=== PATIENT | female | born 1935 | race Caucasian/White ===

== ENCOUNTER 2017-05-22 12:55 | Observation (INO) ==
--- NOTE | 2017-05-22 13:28 | Emergency Department Note ---
Disposition Clinical Impression: Fall Qualifiers: Encounter type: initial encounter Qualified Code(s): W19.XXXA - Unspecified fall, initial encounter Disposition: Admitted As Inpatient Condition: Good Referrals: Melvin Melo MD [Primary Care Provider] - Forms: ED Satisfaction Letter Time of Disposition: 15:49 General Adult HPI - General Chief complaint: ED Fall Stated complaint: Multiple falls; AMS Time Seen by Provider: 05/22/17 13:06 Source: patient, family Mode of arrival: wheelchair Limitations: no limitations Nursing Notes Reviewed: Yes Vital Signs Reviewed: Yes - History of Present Illness HPI Narrative: 81-year-old female with significant past medical history of hypertension and multiple falls presenting to the emergency Department chief complaint of falls. According to the neighbor who is in the room patient has had increase in the amount of falls over the past couple of months. Patient was seen here in October for similar complaint. Worked up with no acute abnormalities and patient denied admission. Patient is alert and went 3 mg. States she has mild left-sided hip and gluteal tenderness. No crepitus or obvious dislocation on exam. Patient denies any other tenderness. Denies headache, dizziness, chest pain or shortness of breath. She denies being on any coagulation. Patient sates for the past few months she has been falling more frequently. She fell this morning. It was witnessed. Denies loss of consciousness. She also fell last evening. She states she just loses her balance and does not know why. Pain Scale: 5 - Related Data Previous Rx's Medication Instructions Recorded Acetaminophen [Tylenol] 650 mg PO Q6HR #12 tablet 11/03/15 traMADol [Ultram] 50 mg PO TID #9 tablet 11/03/15 Allergies Allergy/AdvReac Type Severity Reaction Status Date / Time No Known Allergies Allergy Verified 11/03/15 16:12 All systems ED: reviewed and negative except as stated. Musculoskeletal: Reports: arthralgia, myalgia Past Medical History - Past Medical History Attestation: Yes The following information was validated with the patient. Medical history: Reports: hypertension, renal disease Psychiatric history: Reports: anxiety, depression - Social History Smoking Status: Current every day smoker Smokeless Tobacco Status: No Alcohol use: Reports: none Drug use: Reports: none Physical Exam - General Limitations: no limitations General appearance: alert, in no apparent distress - Head Head exam: atraumatic, normocephalic, normal inspection - Eye Eye exam: Present: normal appearance, PERRL, EOMI. Absent: scleral icterus, conjunctival injection - ENT ENT exam: normal exam, mucous membranes moist - Neck Neck exam: Present: normal inspection, full ROM. Absent: tenderness, meningismus - Chest Chest inspection: Present: normal inspection, symmetric chest wall rise. Absent : tenderness, rash - Respiratory Respiratory exam: Present: normal lung sounds bilaterally. Absent: respiratory distress, wheezes - Cardiovascular Cardiovascular exam: Present: regular rate, normal rhythm, normal heart sounds - Abdominal Exam Abdominal exam: Present: soft, Non-Tender. Absent: distention, guarding, rebound - Extremities Exam Extremities exam: Present: normal inspection, full ROM, other (Tenderness to palpation over the left ASIS and posterior gluetal area) - Neurological Exam Neurological exam: Present: alert, oriented X3, CN II-XII intact. Absent: motor sensory deficit - Psychiatric Psychiatric exam: Present: normal affect, normal mood - Skin Skin exam: Present: warm, intact Course Course Narrative: 81-year-old female presenting to the emergency Department chief complaint of frequent falls. Patient states she fell this morning hit her head on the side of a closet door. Patient denies any concerns or complaints at this time besides left hip pain. Patient is alert and oriented 3 in the room with stable vital signs. We will perform CT of the head and neck along with pelvic and left femur x-ray. We will also perform basic labs. If all this comes back within normal limits with a plan to ambulate the patient. If patient is unable to ambulate we will plan to admit the patient. Patient agrees with this plan. Disposition pending results. - Reevaluation(s) Reevaluation #1: PATIENT'S labs and images within normal limits. Patient does have chronic kidney disease. Patient had difficulty ambulating with her walker. Due to this and multiple recent falls we will plan to admit the patient at this time for further PT and OT evaluation. Patient is oriented 3 and stable vital signs. She agrees this plan. I spoke with the hospitalist on-call Dr. Church who agrees to accept the patient. Vital Signs Temperature 97.9 F 05/22/17 12:59 Pulse Rate 65 05/22/17 12:59 Respiratory Rate 18 05/22/17 12:59 Blood Pressure 123/82 05/22/17 12:59 O2 Sat by Pulse Oximetry 95 05/22/17 12:59 Temperature 97.9 F 05/22/17 12:59 Pulse Rate 58 05/22/17 15:21 Respiratory Rate 15 05/22/17 15:21 Blood Pressure 153/93 05/22/17 15:21 O2 Sat by Pulse Oximetry 98 05/22/17 15:21 Oxygen Delivery Oxygen Delivery Room Air Medical Decision Making - Medical Records Medical records reviewed: Yes I reviewed the patient's medical records. - Lab Data Lab results reviewed: Yes I reviewed the patient's lab results. Result diagrams: 05/22/17 13:26 05/22/17 13:17 Lab Results 05/22/17 05/22/17 05/22/17 Range/Units 13:17 13:26 14:50 WBC 7.5 (4.3-11.1) K/mcL RBC 4.53 (3.82-4.97) M/mcL Hgb 12.3 (11.5-15.4) g/dL Hct 39.1 (35.3-44.9) % MCV 86.3 (83.0-100.0) fL MCH 27.2 L (28.0-33.3) pg MCHC 31.5 L (31.6-35.5) g/dL RDW 13.9 (11.5-14.5) % Plt Count 304 (140-400) K/mcL MPV 9.8 (9.4-12.4) fL Immature Gran % 0.3 (0-4) % Seg Neutrophils % 67.5 % Lymphocytes % 22.0 % Monocytes % 7.9 % Eosinophils % 1.6 % Basophils % 0.7 % Neutrophils # 5.1 (1.6-8.9) K/mcL Lymphocytes # 1.7 (0.6-4.6) K/mcL Monocytes # 0.6 (0.0-1.3) K/mcL Eosinophils # 0.1 (0.0-0.6) K/mcL Basophils # 0.1 (0.0-0.2) K/mcL Sodium 136 (136-145) mEq/L Potassium 4.1 (3.5-5.1) mEq/L Chloride 103 (98-107) mEq/L Carbon Dioxide 27 (23-29) mEq/L BUN 18 (8-23) mg/dL Creatinine 1.47 H (0.60-1.20) mg/dL Est GFR ( Amer) 41 L (> 60) Est GFR (Non-Af Amer) 34 L (> 60) BUN/Creatinine Ratio 12 (6-26) Glucose 101 (70-105) mg/dL Calculated Osmolality 284 (280-300) Calcium 8.4 L (8.6-10.3) mg/dL Troponin I < 0.03 (< 0.04) ng/mL Ur Specimen Adequacy See below A Urine Color Yellow (Yellow) Urine Clarity Turbid A (Clear) Urine pH 5.5 (5.0-8.0) pH Units Ur Specific [place] 1.011 (1.010-1.025) Urine Protein Negative (Neg-Trace) mg/dL Urine Glucose (UA) Normal (Normal) mg/dL Urine Ketones Negative (Negative) mg/dL Urine Blood Negative (Negative) Urine Nitrite Negative (Negative) Urine Bilirubin Negative (Negative) Urine Urobilinogen Normal (Normal) mg/dL Ur Leukocyte Esterase Trace H (Negative) Urine Microscopic RBC 0-3 (0-3) per hpf Urine Microscopic WBC 3-5 H (0-3) per hpf Ur Squamous Epith Cells Many H (None-Few) per lpf Urine Bacteria Many H (None-Few) per hpf - Radiology Data Radiology results reviewed: Yes I reviewed the patient's radiology results. Chest X-Ray 05/22/17 13:17 IMPRESSION: No acute process. D/ / Loco Nesbitt MD / Loco Nesbitt MD Interpreting Provider: Loco Nesbitt MD Head CT 05/22/17 13:17 IMPRESSION: No acute intracranial abnormality. Diffuse atrophic changes with findings suggesting chronic microvascular ischemia D/ / Loco Nesbitt MD / Loco Nesbitt MD Interpreting Provider: Loco Nesbitt MD Cervical Spine CT 05/22/17 13:18 IMPRESSION: No acute abnormality of the cervical spine. Mild C5-6 spinal canal stenosis, the result of degenerative disc disease and posterior disc osteophyte complex. Slight degenerative anterolisthesis C4 on C5. D/ / Sonu Da Silva / Sonu Da Silva Interpreting Provider: Sonu Da Silva Femur X-Ray 05/22/17 13:18 IMPRESSION: No acute findings in the pelvis or left hip. D/ / Rocio Wong MD / Roico Wong MD Interpreting Provider: Rocio Wong MD Pelvis X-Ray 05/22/17 13:18 IMPRESSION: No acute findings in the pelvis or left hip. D/ / Rocio Wong MD / Rocio Wong MD Interpreting Provider: Rocio Wong MD - EKG Data EKG #1 EKG attestation: Yes I reviewed and interpreted this EKG. EKG results narrative: Sinus rhythm with PVCs. Right bundle-branch block. 61 bpm. TN interval 200, QRS 135, QTc 463. No signs of acute ST segment elevation or ischemia.
[2017-05-22 13:33] LABS: Basophils # 0.1 K/mcL (0.0-0.2); Basophils % 0.7 %; Eosinophils # 0.1 K/mcL (0.0-0.6); Eosinophils % 1.6 %; Hematocrit 39.1 % (35.3-44.9); Hemoglobin 12.3 g/dL (11.5-15.4); Immature Granulocytes % 0.3 % (0-4); Lymphocytes # 1.7 K/mcL (0.6-4.6); Mean Corpuscular HGB Conc 31.5 g/dL (31.6-35.5); Mean Corpuscular Hemoglobin 27.2 pg (28.0-33.3); Mean Corpuscular Volume 86.3 fL (83.0-100.0); Mean Platelet Volume 9.8 fL (9.4-12.4); Monocytes # 0.6 K/mcL (0.0-1.3); Monocytes % 7.9 %; Neutrophils # 5.1 K/mcL (1.6-8.9); Platelet Count 304 K/mcL (140-400); Red Blood Count 4.53 M/mcL (3.82-4.97); Red Cell Distribution Width 13.9 % (11.5-14.5); Segmented Neutrophils % 67.5 %
[2017-05-22 13:56] LABS: BUN/Creatinine Ratio 12 (6-26); Blood Urea Nitrogen 18 mg/dL (8-23); Calcium 8.4 mg/dL (8.6-10.3); Carbon Dioxide 27 mEq/L (23-29); Chloride 103 mEq/L (98-107); Glucose 101 mg/dL (70-105); Osmolality,Calculated 284 (280-300); Potassium 4.1 mEq/L (3.5-5.1); Sodium 136 mEq/L (136-145); Troponin I < 0.03 ng/mL (< 0.04); eGFR For African Americans 41 (> 60); eGFR For Non-African Americans 34 (> 60)
[2017-05-22 15:13] LABS: Bilirubin,Urine Negative (Negative); Blood,Urine Negative (Negative); Clarity,Urine Turbid (Clear); Color,Urine Yellow (Yellow); Glucose,Urine (UA) Normal (Normal); Ketones,Urine Negative (Negative); Leukocyte Esterase,Urine Trace (Negative); Nitrite,Urine Negative (Negative); PH,Urine 5.5 pH Units (5.0-8.0); Protein,Urine Negative (Neg-Trace); Specific Gravity,Urine 1.011 (1.010-1.025); Urobilinogen,Urine Normal (Normal)
[2017-05-22 15:14] LABS: Bacteria,Urine Many per hpf (None-Few); RBC,Urine 0-3 per hpf (0-3); Squamous Epithelial Cell,Urine Many per lpf (None-Few)
--- NOTE | 2017-05-22 15:18 | Emergency Department Note ---
START Narrative - START START: I examined this patient and my medical decision-making was reviewed with the Resident Physician. I agree with the documented findings, disposition and treatment plan as described except to the extent set forth below. 81-year-old female presents emergency room for weakness and frequent falls. Workup in the ER is unremarkable. Still awaiting a urinalysis. All of her plain films and CT images are negative. Patient lives alone. She is fallen approximate 45 times in the past 4 days. I feel she needs to be admitted for PT OT evaluation as well. She is too unstable to be discharged home.
[2017-05-22] MEDS ORDERED: Naloxone 0.4 MG/ML INJ IVP PRN (16:16)
[2017-05-22] MEDS ORDERED: (Melatonin/Pyridoxine Hcl (B6) [Melatonin 3 Mg Tablet) PO PRN (16:21)
[2017-05-22] MEDS ORDERED: traMADol 50 MG TABLET PO PRN (16:21)
[2017-05-22] MEDS ORDERED: Cyanocobalamin (B-12) 1,000 MCG/ML VIAL SQ SCH (16:30)
--- NOTE | 2017-05-22 16:47 | Internal Med History&Physical ---
<Esteban Lucio - Last Filed: 05/22/17 17:32> Date of Encounter: 05/22/17 Time of Encounter: 15:00 Assessment and Plan (1) Fall Current visit: Yes Status: Acute Acute on chronic falls. Pt. fell today and yesterday. Reports falling 4x in 5 days and multiple falls over past three weeks. Feeling of weakness in bilateral LEs when occurs as well as feeling of falling backwards. No LOC. CT of the head today shows no acute intracranial abnormality and diffuse atrophic changes with findings suggesting chronic microvascular ischemia. MRI of the head/brain ordered. Cervical spine, femur XR, and pelvis XR negative for fx. Echocardiogram. Bilateral carotid Dopplers. Continuous cardiac telemetry. Neurology consult ordered and discussed w/Dr. Vargas and I appreciate the consult. Falls/safety precautions. PT/OT consults. SW consult to explore possible placement needs. Will hold flexeril and ativan d/t dizziness/falls. Pt. discussed w/Dr. Church who agrees w/plan of care. Pt. is high risk for further morbidity and injury based on current fall, hx of falls, use of chronic pain medications d/t chronic lumbar spondylosis, and risk factors. Observation. Qualifiers: Encounter type: initial encounter Qualified Code(s): W19.XXXA - Unspecified fall, initial encounter (2) Diarrhea Current visit: Yes Status: Acute Acute diarrhea. Pt. reports taking PO antibiotics <1 month ago for UTI. Now reports watery diarrhea. C. difficile toxin screen and contact precautions ordered. Discontinue CP if C. diff results negative. Qualifiers: Diarrhea type: presumed infectious Qualified Code(s): R19.7 - Diarrhea, unspecified (3) HTN (hypertension) Current visit: Yes Status: Chronic Hx of chronic HTN. Monitor pt. and VS. Continue pts. Cozaar and propranolol. Qualifiers: Hypertension type: essential hypertension Qualified Code(s): I10 - Essential (primary) hypertension (4) CKD (chronic kidney disease) stage 3, GFR 30-59 ml/min Current visit: Yes Status: Chronic Hx of CKD. Current stage 3 w/GFR of 34 and creatinine of 1.47. Monitor I&O. Will use IV fluids judiciously if warranted. Avoid nephrotoxins. Renal diet. (5) Lumbar spondylosis Current visit: Yes Status: Chronic Hx of chronic lumbar spondylosis. Continue pts. pain medications for pain mgmt. Hold flexeril. Qualifiers: Spinal osteoarthritis complication: without myelopathy or radiculopathy Qualified Code(s): M47.816 - Spondylosis without myelopathy or radiculopathy, lumbar region (6) Anxiety and depression Current visit: Yes Status: Chronic Hx of chronic anxiety and depression. Continue Trazodone. (7) DVT prophylaxis Current visit: Yes Status: Acute Bilateral SCDs on LEs for DVT prophylaxis d/t fall. Waiting on MRI results. Internal Medicine - H&P: HPI Chief complaint: Fall Admitted From: Emergency Dept Plans for Post Hospital Care: Home History of present illness: Ms. Hernandez is a 81 year old female w/PMH of HTN and CKD presents from the ED w/ chief complaint of fall today. Pt. reports using her walker and having feeling of falling backwards. Denies LOC. Reports falling 4x in past 5 days as well as multiple falls over the past three weeks. Pt. denies chest pain, SOB, or vision changes w/episodes. States she will be walking and her legs become weak. Was seen in October for similar sx. Pt. reports diarrhea and being on abx <1 month ago for UTI. Denies anticoagulation. Pt. denies recent illness, fever, chills, nausea, vomiting, changes in vision, headache, cough, chest congestion, unusual bleeding, abdominal pain, constipation, lightheadedness, or syncope. Past Med Surg Social Fam HX - Past Medical History Source: patient, old records reviewed, other (Neighbor) Medical history: hypertension, renal disease Psychiatric history: anxiety, depression - Social History Smoking Status: Current every day smoker Smokeless Tobacco Status: No Alcohol use: none Drug use: none Current living situation: Home Activity Level: Uses cane/walker Recent Out of Country Travel Within the Last 8 Weeks: No Exposure or Possible Exposure to Illness During Travel: No - Family History Father History Unknown: Yes Race: Family Member Ethnicity: Non- Living Status: Mother Race: Family Member Ethnicity: Non- Living Status: Age at : 82 Cause of : OK Hx Family Cardiac Disorders: Yes ([place], CAD, HTN) Brother Race: Family Member Ethnicity: Non- Living Status: Cause of : Suicide Sister Race: Family Member Ethnicity: Non- Living Status: Age at : 60 Cause of : Cancer Hx Family Cancer: Yes (Breast, Uterine) Internal Medicine - H&P: Meds BuPROPion SR (12 HR) [Wellbutrin SR] 150 mg PO DAILY 05/22/17 [History] Buspirone HCl [Buspar] 15 mg PO BID 05/22/17 [History] Cholecalciferol (Vitamin D3) [Vitamin D] 50,000 unit PO JOHNSON 05/22/17 [History] Cyanocobalamin (B-12) [Vitamin B12] 1,000 mcg SQ QMONTH 05/22/17 [History] Cyclobenzaprine [Flexeril] 10 mg PO BID 05/22/17 [History] Hydrocortisone 2.5% CREAM [Cortaid] 1 appl TP BID PRN 05/22/17 [History] LORazepam [Ativan] 0.5 mg PO BID PRN 05/22/17 [History] Losartan Potassium [Cozaar] 50 mg PO DAILY 05/22/17 [History] Melatonin/Pyridoxine HCl (B6) [Melatonin 3 mg Tablet] 1 tab PO HS PRN 05/22/17 [ History] Propranolol [Inderal] 10 mg PO BID 05/22/17 [History] Tramadol HCl [Ultram] 50 mg PO TID PRN 05/22/17 [History] traZODone [TraZODone] 50 mg PO HS 05/22/17 [History] 3 Allergy/AdvReac Type Severity Reaction Status Date / Time No Known Allergies Allergy Verified 05/22/17 15:55 All Systems PM: A 10-system review of systems was performed and is negative for pertinent findings except as documented above in the HPI. - Constitutional Constitutional: as per HPI (In bilateral LEs), weakness, no chills, no fever(s) , no night sweats - EENT Eyes: no change in vision, no discharge, no pain, no photophobia Ears: no ear discharge, no ear pain, no tinnitus Nose, mouth and throat: no dysphagia, no nasal discharge, no neck pain, no sore throat - Breasts Breasts: as per HPI - Cardiovascular Cardiovascular ROS IM: no chest pain, no diaphoresis, no dyspnea, no lightheadedness, no palpitations, no syncope - Respiratory Respiratory: no cough, no dyspnea, no wheezing, no excessive phlegm production - Gastrointestinal Gastrointestinal: no abdominal pain, no diarrhea, no hematemesis, no hematochezia, no melena, no nausea, no vomiting - Genitourinary Genitourinary: no change in urinary stream, no dysuria, no flank pain, no hematuria Menstruation: as per HPI - Musculoskeletal Musculoskeletal ROS IM: as per HPI - Integumentary Integumentary IM: no rash, no unusual bruising - Neurological Neurological ROS: as per HPI, frequent falls, weakness (Bilateral LEs), no confusion, no convulsions, no focal weakness, no numbness, no tingling, no tremor(s) - Psychiatric Psychiatric: as per HPI, anxiety, depression - Endocrine Endocrine IM: as per HPI - Hematologic/Lymphatic Hematologic/Lymphatic: no easy bruising - Allergic/Immunologic Allergic/Immunologic: as per HPI - Constitutional Vitals: Temp Pulse Resp BP Pulse Ox 97.6 F 63 15 178/72 94 05/22/17 16:32 05/22/17 16:32 05/22/17 16:32 05/22/17 16:32 05/22/17 16:32 General appearance: Present: cooperative, A&O X 3, pleasant, no acute distress, answers questions appropriately - Head Head exam: Present: atraumatic, normocephalic - Eye Eye exam: Present: PERRL, conjuntiva pink, sclera anicteric Pupils: Present: PERRL - ENT ENT exam: Present: normal exam - Neck Neck exam general surgery: Present: normal inspection, supple, trachea midline. Absent: lymphadenopathy - Respiratory Respiratory exam: Present: CTAB. Absent: accessory muscle use, rales, rhonchi, wheezes - Cardiovascular Cardiovascular exam: Present: bradycardia, RRR, +S1, +S2. Absent: diastolic murmur, gallop, rubs, systolic murmur - GI/Abdominal GI/Abdominal exam: Present: normal bowel sounds, soft, no peritoneal signs. Absent: distended, tenderness - Rectal Rectal exam: Present: deferred - Additional comments: exam deferred. - Extremities Exam Extremities exam: Present: warm, radial pulses palpable and symmetrical. Absent : calf tenderness, cyanotic, pedal edema - Back Exam Back exam: Present: normal inspection - Neurological Exam Neurological exam: Present: CN II-XII intact, oriented X3, no focal deficits. Absent: pronater drift, facial droop, speech deficit - Psychiatric Psychiatric exam: Present: normal affect, normal mood - Skin Skin exam: Present: dry, intact Internal Med - H&P Results - Labs CBC & Chem 7: 05/22/17 13:26 05/22/17 13:17 - EKG Data EKG shows normal: sinus rhythm - EKG Data Prior EKG available for review: yes EKG comments: 05/22/17 17:08 EKG dated 10/10/06 shows sinus rhythm with short MT interval and lateral T-wave changes that are nonspecific. EKG dated 11/03/15 shows ectopic atrial tachycardia with first-degree AV block, marked left axis deviation, and RBBB. EKG dated 05/22/17 shows sinus rhythm with occasional supraventricular premature complexes and RBBB. - Diagnostic Studies Other Images Additional comments: Impressions Cervical Spine CT 05/22/17 13:18 IMPRESSION: No acute abnormality of the cervical spine. Mild C5-6 spinal canal stenosis, the result of degenerative disc disease and posterior disc osteophyte complex. Slight degenerative anterolisthesis C4 on C5. D/ / Sonu Da Silva / Sonu Da Silva Interpreting Provider: Sonu Da Silva Femur X-Ray 05/22/17 13:18 IMPRESSION: No acute findings in the pelvis or left hip. D/ / Rocio Wong MD / Rocio Wong MD Interpreting Provider: Rocio Wong MD Pelvis X-Ray 05/22/17 13:18 IMPRESSION: No acute findings in the pelvis or left hip. D/ / Rocio Wong MD / Rocio Wong MD Interpreting Provider: Rocio Wong MD Chest x-ray Additional comments: Impressions Chest X-Ray 05/22/17 13:17 IMPRESSION: No acute process. D/ / Loco Nesbitt MD / Loco Nesbitt MD Interpreting Provider: Loco Nesbitt MD CT scan - head Additional comments: Impressions Head CT 05/22/17 13:17 IMPRESSION: No acute intracranial abnormality. Diffuse atrophic changes with findings suggesting chronic microvascular ischemia D/ / Loco Nesbitt MD / Loco Nesbitt MD Interpreting Provider: Loco Nesbitt MD <Anay Church - Last Filed: 05/23/17 11:05> Date of Encounter: 05/23/17 Internal Medicine - H&P: HPI History of present illness: Ms. Hernandez is a 81 year old female All Systems PM: A 10-system review of systems was performed and is negative for pertinent findings except as documented above in the HPI. - Constitutional Vitals: Temp Pulse Resp BP Pulse Ox 97.9 F 61 15 162/76 96 05/23/17 06:28 05/23/17 06:28 05/23/17 06:28 05/23/17 06:28 05/23/17 08:15 Internal Med - H&P Results - Labs CBC & Chem 7: 05/23/17 05:17 05/23/17 05:17 Labs: Short CBC 05/23/17 Range/Units 05:17 WBC 6.8 (4.3-11.1) K/mcL Hgb 11.9 (11.5-15.4) g/dL Hct 37.3 (35.3-44.9) % Plt Count 274 (140-400) K/mcL Neutrophils # 4.7 (1.6-8.9) K/mcL BMP 05/23/17 05:17 Sodium 138 Potassium 4.3 Chloride 105 Carbon Dioxide 30 H BUN 17 Creatinine 1.48 H Glucose 95 Calcium 8.2 L Liver Function 05/23/17 Range/Units 05:17 Total Bilirubin 0.5 (0.3-1.0) mg/dL AST 21 (13-39) Units/L ALT 13 (7-52) Units/L Alkaline Phosphatase 115 H (34-104) Units/L Albumin 2.9 L (3.5-5.7) g/dL - Attending Attestation My signature below is to certify that this patient is under my care and that I, or nurse practitioner, or a physician's occupational therapy assistant working with me, has a face-to -face encounter with this patient.
[2017-05-22 17:40] LABS: Thyroid Stimulating Hormone 4.146 mcIU/mL (0.340-5.600)
[2017-05-22] MEDS: traZODone 50 MG TABLET PO SCH (21:28)
[2017-05-23 05:50] LABS: Basophils % 0.6 %; Eosinophils # 0.1 K/mcL (0.0-0.6); Eosinophils % 1.9 %; Hematocrit 37.3 % (35.3-44.9); Hemoglobin 11.9 g/dL (11.5-15.4); Immature Granulocytes % 0.3 % (0-4); Lymphocytes # 1.3 K/mcL (0.6-4.6); Lymphocytes % 18.8 %; Mean Corpuscular HGB Conc 31.9 g/dL (31.6-35.5); Mean Corpuscular Hemoglobin 27.4 pg (28.0-33.3); Mean Corpuscular Volume 85.7 fL (83.0-100.0); Mean Platelet Volume 10.4 fL (9.4-12.4); Monocytes # 0.7 K/mcL (0.0-1.3); Monocytes % 9.6 %; Neutrophils # 4.7 K/mcL (1.6-8.9); Platelet Count 274 K/mcL (140-400); Red Blood Count 4.35 M/mcL (3.82-4.97); Red Cell Distribution Width 13.8 % (11.5-14.5); Segmented Neutrophils % 68.8 %
[2017-05-23 06:15] LABS: Albumin 2.9 g/dL (3.5-5.7); Albumin/Globulin Ratio 1.3 (1.1-2.2); Bilirubin,Total 0.5 mg/dL (0.3-1.0); Calcium 8.2 mg/dL (8.6-10.3); Chol/HDL Ratio 3.7 (0-4.9); Globulin 2.2 g/dL (2.4-3.5); Magnesium 1.7 mg/dL (1.6-2.6); Potassium 4.3 mEq/L (3.5-5.1); Total Protein 5.1 g/dL (6.4-8.9)
[2017-05-23] MEDS: BuPROPion SR (12 HR) 150 MG TABLET PO SCH (08:08)
[2017-05-23 10:54] LABS: Estimated Average Glucose 120 mg/dl; Hemoglobin A1C 5.8 %
--- NOTE | 2017-05-23 12:18 | Neurology - Consult Note ---
Date of Encounter: 05/23/17 Time of Encounter: 12:14 Assessment and Plan (1) Fall Current Visit: Yes Status: Acute 81 year old woman with history of frequent falls and unsteady gait who presented with frequent falling. The falls are not associated with nausea or other autonomic symptoms and usually occur in standing position while ambulating and the features of her falls suggest gait disorder. She has no features of Parkinson disease. Does have history of lumbar disc disease and pain. She does have urinary frequency and urgency and it would be necessary to check cervical myelopathy, her DTRs are well preserved bilaterally. No features of Parkinson disease or normal pressure hydrocephalus Will add on MRI of cervical spine to MR of brain. PT/OT may beneficial Total time spent on this case is approximately 50 minutes Qualifiers: Encounter type: initial encounter Qualified Code(s): W19.XXXA - Unspecified fall, initial encounter History of Present Illness Chief complaint: falls HPI: Ms. Hernandez is a 81 year old female with PMH significant for HTN, tobacco abuse, Vitamin D deficiency,, lumbar radicular pain, DM, Chronic kidney disease, gait difficulty and frequent falls who presented with frequent falls. This has been going on since the last few years. She actually saw Dr. Lao 2016 for similar symptoms. Thought to have multifactorial causes. She does have ventricular enlargement but that was thought to be related to cerebral atrophy. She also has urinary frequency and incontinence. Initial CT of head showed no acute intracranial abnormality. Past Med Surg Social Fam HX - Past Medical History Medical history: hypertension, renal disease Psychiatric history: anxiety, depression - Social History Smoking Status: Current every day smoker Smokeless Tobacco Status: No Alcohol use: none Drug use: none - Family History Father History Unknown: Yes Race: Family Member Ethnicity: Non- Living Status: Mother Race: Family Member Ethnicity: Non- Living Status: Age at : 82 Cause of : VT Hx Family Cardiac Disorders: Yes (VT, CAD, HTN) Brother Race: Family Member Ethnicity: Non- Living Status: Cause of : Suicide Sister Race: Family Member Ethnicity: Non- Living Status: Age at : 60 Cause of : Cancer Hx Family Cancer: Yes (Breast, Uterine) Medications and Allergies BuPROPion SR (12 HR) [Wellbutrin SR] 150 mg PO DAILY 05/22/17 [History] Buspirone HCl [Buspar] 15 mg PO BID 05/22/17 [History] Cholecalciferol (Vitamin D3) [Vitamin D] 50,000 unit PO JOHNSON 05/22/17 [History] Cyanocobalamin (B-12) [Vitamin B12] 1,000 mcg SQ QMONTH 05/22/17 [History] Cyclobenzaprine [Flexeril] 10 mg PO BID 05/22/17 [History] Hydrocortisone 2.5% CREAM [Cortaid] 1 appl TP BID PRN 05/22/17 [History] LORazepam [Ativan] 0.5 mg PO BID PRN 05/22/17 [History] Losartan Potassium [Cozaar] 50 mg PO DAILY 05/22/17 [History] Melatonin/Pyridoxine HCl (B6) [Melatonin 3 mg Tablet] 1 tab PO HS PRN 05/22/17 [ History] Propranolol [Inderal] 10 mg PO BID 05/22/17 [History] Tramadol HCl [Ultram] 50 mg PO TID PRN 05/22/17 [History] traZODone [TraZODone] 50 mg PO HS 05/22/17 [History] 3 Allergy/AdvReac Type Severity Reaction Status Date / Time No Known Allergies Allergy Verified 05/22/17 15:55 All Systems: The remainder of the systems were reviewed and are negative Physical Examination - Vital Signs Vital Signs: Initial Vital Signs Temp Pulse Resp BP Pulse Ox 97.9 F 65 18 123/82 95 05/22/17 12:59 05/22/17 12:59 05/22/17 12:59 05/22/17 12:59 05/22/17 12:59 - Constitutional General appearance: comfortable - Neurologic Detailed motor examination: full strength in all major muscle groups Motor examination - right side: 5/5: deltoids, biceps, triceps, wrist flexion, wrist extension, emr trainer, hip flexors, tibialis Anterior, quadriceps, toe extension (EHL), plantarflexion Motor examination - left side: 5/5: deltoids, biceps, triceps, wrist flexion, wrist extension, hip flexors, emr trainer, quadriceps, tibialis Anterior, toe extension (EHL), plantarflexion Mental Status Examination: awake, alert, oriented to person, oriented to place, oriented to time, follows commands appropriately, answers questions appropriately, no agnosia, no aphasia, no aproxia Cranial nerve examination: PERRL, EOMI, visual flores intact, corneal reflexes brisk symmetrically, sensory to face intact, mastication intact, no facial asymmetry is present, no dysarthria, hearing is intact symmetrically, soft palate elevates bilaterally upon phonation, gag reflex intact, flexes SCM and trapezius muscles symmetrically with full power, tongue protrudes midline, no atrophy or facial fasiculations present Cerebellar examination: no dysmetria, performs finger to nose and heel to wick symmetrically without ataxia, no difficulty with rapid alternating movements Results - Laboratory Findings CBC and BMP: 05/23/17 05:17 05/23/17 05:17 Abnormal lab findings: Abnormal lab results MCH 27.4 pg (28.0-33.3) L 05/23/17 05:17 Carbon Dioxide 30 mEq/L (23-29) H 05/23/17 05:17 Creatinine 1.48 mg/dL (0.60-1.20) H 05/23/17 05:17 Est GFR ( Amer) 41 (> 60) L 05/23/17 05:17 Est GFR (Non-Af Amer) 34 (> 60) L 05/23/17 05:17 Hemoglobin A1c 5.8 % (-5.6) H 05/23/17 05:17 Calcium 8.2 mg/dL (8.6-10.3) L 05/23/17 05:17 Alkaline Phosphatase 115 Units/L (34-104) H 05/23/17 05:17 Serum Total Protein 5.1 g/dL (6.4-8.9) L 05/23/17 05:17 Albumin 2.9 g/dL (3.5-5.7) L 05/23/17 05:17 Globulin 2.2 g/dL (2.4-3.5) L 05/23/17 05:17 HDL Cholesterol 32 mg/dL (40-59) L 05/23/17 05:17 Ur Specimen Adequacy See below A 05/22/17 14:50 Urine Clarity Turbid (Clear) A 05/22/17 14:50 Ur Leukocyte Esterase Trace (Negative) H 05/22/17 14:50 Urine Microscopic WBC 3-5 per hpf (0-3) H 05/22/17 14:50 Ur Squamous Epith Cells Many per lpf (None-Few) H 05/22/17 14:50 Urine Bacteria Many per hpf (None-Few) H 05/22/17 14:50 Consult Discharge Plan - Plan Referrals: Melvin Melo MD [Primary Care Provider] -
[2017-05-23] MEDS: Acetaminophen 325 MG TABLET PO PRN ×2 (12:26→20:38)
--- NOTE | 2017-05-23 14:21 | Internal Med Progress Note ---
Date of Encounter: 05/23/17 Time of Encounter: 14:10 - Assessment and plan (1) Fall Current Visit: Yes Status: Acute Assessment and plan: patient has been experiencing frequent falls and any steady gait. We will place her on fall precautions Neurology has been consulted We will obtain MRI of brain-MRI of cervical spine also ordered per neurology cardiac echo-EF 60% Mild left ventricular diastolic dysfunction. Normal right ventricular structure and function. No significant valvular dysfunction. No pulmonary hypertension. Aorta is not well visualized. Carotid Dopplers: Preliminary Bilateral carotid within normal limits. Non stenotic plaque noted in bilateral bifurcations Orthostatic vital signs-appears within normal limits We will consult PT and OT Avoid sedating medications Qualifiers: Encounter type: initial encounter Qualified Code(s): W19.XXXA - Unspecified fall, initial encounter (2) Diarrhea Current Visit: Yes Status: Acute Assessment and plan: . Patient was treated for UTI with antibiotics Rocephin the month ago she has been experiencing watery diarrhea. We will check for C. difficile-contact precautions Qualifiers: Diarrhea type: presumed infectious Qualified Code(s): R19.7 - Diarrhea, unspecified (3) Anxiety and depression Current Visit: Yes Status: Chronic Assessment and plan: Patient has history of anxiety and depression we will continue with home medications-she denies any suicidal ideations (4) CKD (chronic kidney disease) stage 3, GFR 30-59 ml/min Current Visit: Yes Status: Chronic Assessment and plan: We will monitor creatinine monitor intake and output daily weights Avoid nephrotoxins (5) HTN (hypertension) Current Visit: Yes Status: Chronic Assessment and plan: We will continue with home medications-Cozaar and propanolol Qualifiers: Hypertension type: essential hypertension Qualified Code(s): I10 - Essential (primary) hypertension (6) Lumbar spondylosis Current Visit: Yes Status: Chronic Assessment and plan: History of chronic lumbar spondylolysis continue patient's pain medications Qualifiers: Spinal osteoarthritis complication: without myelopathy or radiculopathy Qualified Code(s): M47.816 - Spondylosis without myelopathy or radiculopathy, lumbar region - Time Spent With Patient less than 15 minutes - Subjective Interval history: Patient seen and examined at bedside. Presently patient denies any headache dizziness chest pain or palpitations. Denies any pain or discomfort at this time - Constitutional Vitals: Temp Pulse Resp BP Pulse Ox 98.5 F 96 16 169/76 94 05/23/17 11:34 05/23/17 11:34 05/23/17 11:34 05/23/17 11:34 05/23/17 11:34 General appearance: Present: cooperative, A&O X 3, pleasant, no acute distress, answers questions appropriately - Head Head exam: Present: atraumatic, normocephalic - Eye Eye exam: Present: PERRL, conjuntiva pink, sclera anicteric Pupils: Present: PERRL - Neck Neck exam general surgery: Present: supple, trachea midline. Absent: lymphadenopathy - Respiratory Respiratory exam: Present: CTAB. Absent: accessory muscle use, rales, rhonchi, wheezes - Cardiovascular Cardiovascular exam: Present: RRR, +S1, +S2. Absent: diastolic murmur, gallop, rubs, systolic murmur - GI/Abdominal GI/Abdominal exam: Present: normal bowel sounds, soft, no peritoneal signs. Absent: distended, tenderness - Extremities Exam Extremities exam: Present: warm, radial pulses palpable and symmetrical. Absent : calf tenderness, cyanotic, pedal edema - Neurological Exam Neurological exam: Present: CN II-XII intact, oriented X3, no focal deficits. Absent: pronater drift, facial droop, speech deficit - Skin Skin exam: Present: dry, intact Internal Medicine: Result - Labs CBC & Chem 7: 05/23/17 05:17 05/23/17 05:17 Labs: Short CBC 05/23/17 Range/Units 05:17 WBC 6.8 (4.3-11.1) K/mcL Hgb 11.9 (11.5-15.4) g/dL Hct 37.3 (35.3-44.9) % Plt Count 274 (140-400) K/mcL Neutrophils # 4.7 (1.6-8.9) K/mcL BMP 05/23/17 05:17 Sodium 138 Potassium 4.3 Chloride 105 Carbon Dioxide 30 H BUN 17 Creatinine 1.48 H Glucose 95 Calcium 8.2 L Liver Function 05/23/17 Range/Units 05:17 Total Bilirubin 0.5 (0.3-1.0) mg/dL AST 21 (13-39) Units/L ALT 13 (7-52) Units/L Alkaline Phosphatase 115 H (34-104) Units/L Albumin 2.9 L (3.5-5.7) g/dL - Impressions Impressions Echocardiogram 05/23/17 16:29 Impressions: LVEF 60%. Mild left ventricular diastolic dysfunction. Normal right ventricular structure and function. No significant valvular dysfunction. No pulmonary hypertension. Aorta is not well visualized. Left Ventricular Wall Motion: Rest Echo Findings All wall segments showed normal motion. Findings: Study Quality * Technically adequate exam. ECG Findings * Sinus rhythm with PACs. Left Ventricle * LVEF 60%. * Normal LV chamber size, wall thickness and function. * Mild left ventricular diastolic dysfunction. Right Ventricle * Normal right ventricular structure and function. Left Atrium * Normal left atrial size. Right Atrium * Normal right atrial size. Mitral Valve * Normal mitral valve structure. * No mitral stenosis. * No mitral regurgitation. Aortic Valve * No aortic regurgitation. * Trileaflet aortic valve. * No aortic stenosis. Tricuspid Valve * Tricuspid valve not well visualized. * No tricuspid regurgitation. * Estimated RA pressure is 3 mmHg. Pulmonic Valve * Pulmonic valve is not well visualized. * No pulmonic stenosis. * No pulmonic regurgitation. Pulmonary Artery * Pulmonary artery not well visualized. Aorta * Not well visualized. Pericardium * There is no pericardial effusion present. Interatrial Septum * No evidence of PFO by color Doppler. IVC * Normal IVC dimensions and inspiratory collapse. - Diagnostic Studies Other Images Additional comments: Chest X-Ray 05/22/17 13:17 IMPRESSION: No acute process. D/ / Loco Nesbitt MD / Loco Nesbitt MD Interpreting Provider: Loco Nesbitt MD Head CT 05/22/17 13:17 IMPRESSION: No acute intracranial abnormality. Diffuse atrophic changes with findings suggesting chronic microvascular ischemia D/ / Loco Nesbitt MD / Loco Nesbitt MD Interpreting Provider: Loco Nesbitt MD Cervical Spine CT 05/22/17 13:18 IMPRESSION: No acute abnormality of the cervical spine. Mild C5-6 spinal canal stenosis, the result of degenerative disc disease and posterior disc osteophyte complex. Slight degenerative anterolisthesis C4 on C5. D/ / Sonu Da Silva / Sonu Da Silva Interpreting Provider: Sonu Da Silva Femur X-Ray 05/22/17 13:18 IMPRESSION: No acute findings in the pelvis or left hip. D/ / Rocio Wong MD / Rocio Wong MD Interpreting Provider: Rocio Wong MD Pelvis X-Ray 05/22/17 13:18 IMPRESSION: No acute findings in the pelvis or left hip. D/ / Rocio Wong MD / Rocio Wong MD Interpreting Provider: Rocio Wong MD Echocardiogram 05/23/17 16:29 Impressions: LVEF 60%. Mild left ventricular diastolic dysfunction. Normal right ventricular structure and function. No significant valvular dysfunction. No pulmonary hypertension. Aorta is not well visualized. Left Ventricular Wall Motion: Rest Echo Findings All wall segments showed normal motion. Findings: Study Quality * Technically adequate exam. ECG Findings * Sinus rhythm with PACs. Left Ventricle * LVEF 60%. * Normal LV chamber size, wall thickness and function. * Mild left ventricular diastolic dysfunction. Right Ventricle * Normal right ventricular structure and function. Left Atrium * Normal left atrial size. Right Atrium * Normal right atrial size. Mitral Valve * Normal mitral valve structure. * No mitral stenosis. * No mitral regurgitation. Aortic Valve * No aortic regurgitation. * Trileaflet aortic valve. * No aortic stenosis. Tricuspid Valve * Tricuspid valve not well visualized. * No tricuspid regurgitation. * Estimated RA pressure is 3 mmHg. Pulmonic Valve * Pulmonic valve is not well visualized. * No pulmonic stenosis. * No pulmonic regurgitation. Pulmonary Artery * Pulmonary artery not well visualized. Aorta * Not well visualized. Pericardium * There is no pericardial effusion present. Interatrial Septum * No evidence of PFO by color Doppler. IVC * Normal IVC dimensions and inspiratory collapse. - VTE Documentation of Mechanical Device: Intermittent pneumatic compression device Consult Discharge Plan - Plan Referrals: Melvin Melo MD [Primary Care Provider] -
[2017-05-23] MEDS: traZODone 50 MG TABLET PO SCH (20:38)
[2017-05-24] MEDS: Acetaminophen 325 MG TABLET PO PRN ×3 (04:46→22:24)
[2017-05-24 05:00] LABS: Basophils % 0.5 %; Eosinophils # 0.2 K/mcL (0.0-0.6); Eosinophils % 1.9 %; Hematocrit 37.7 % (35.3-44.9); Hemoglobin 12.2 g/dL (11.5-15.4); Immature Granulocytes % 0.5 % (0-4); Lymphocytes % 23.7 %; Mean Corpuscular HGB Conc 32.4 g/dL (31.6-35.5); Mean Corpuscular Hemoglobin 27.8 pg (28.0-33.3); Mean Corpuscular Volume 85.9 fL (83.0-100.0); Mean Platelet Volume 10.3 fL (9.4-12.4); Monocytes # 0.8 K/mcL (0.0-1.3); Monocytes % 9.4 %; Neutrophils # 5.4 K/mcL (1.6-8.9); Platelet Count 278 K/mcL (140-400); Red Blood Count 4.39 M/mcL (3.82-4.97); Red Cell Distribution Width 13.8 % (11.5-14.5)
[2017-05-24 05:25] LABS: Albumin 2.9 g/dL (3.5-5.7); Albumin/Globulin Ratio 1.1 (1.1-2.2); Bilirubin,Total 0.4 mg/dL (0.3-1.0); Calcium 8.6 mg/dL (8.6-10.3); Globulin 2.6 g/dL (2.4-3.5); Potassium 4.3 mEq/L (3.5-5.1); Total Protein 5.5 g/dL (6.4-8.9)
[2017-05-24] MEDS: BuPROPion SR (12 HR) 150 MG TABLET PO SCH (09:49)
--- NOTE | 2017-05-24 12:37 | Neurology Progress Note ---
Date of Encounter: 05/24/17 Time of Encounter: 12:34 Assessment and Plan (1) Fall Current Visit: Yes Status: Acute Patient appears myelopathic to me and this is supported by MRI of cervical spine findings of severe spinal canal stenosis at C5-C6 level. This could explain her chronic gait disturbances and frequent falling. No other significant pathology identified neurologically. Recommend orthopedic/spine evaluation. Qualifiers: Encounter type: initial encounter Qualified Code(s): W19.XXXA - Unspecified fall, initial encounter Subjective Principal diagnosis: unsteady gait and frequent falls Interval history: Patient seen and examined and she is feeling fine and her neurological status has been stable. Completed MRI of brain and cervical spine. MRI of brain cervical spine showed severe spinal canal stenosis at the level of C5-C6 with mild focal signal change. This appears symptomatic to me and with her chronic worsening gait difficulty and frequent falling, she certainly needs orthopedic evaluation. Objective - Constitutional Vitals: Temp Pulse Resp BP Pulse Ox 98.5 F 82 16 185/81 94 05/24/17 10:22 05/24/17 10:22 05/24/17 10:22 05/24/17 10:22 05/24/17 10:22 - Neurological Exam Motor Examination: Present: full strength in all major muscle groups Motor examination - left side: 5/5: deltoids, biceps, triceps, wrist flexion, wrist extension, hip flexors, assembly worker, quadriceps, tibialis Anterior, toe extension (EHL), plantarflexion Mental Status Examination: Present: awake, alert, oriented to person, oriented to place, oriented to time, follows commands appropriately, answers questions appropriately, no agnosia, no aphasia, no aproxia Cranial nerve examination: Present: PERRL, EOMI, visual flores intact, corneal reflexes brisk symmetrically, sensory to face intact, mastication intact, no facial asymmetry is present, no dysarthria, hearing is intact symmetrically, soft palate elevates bilaterally upon phonation, gag reflex intact, flexes SCM and trapezius muscles symmetrically with full power, tongue protrudes midline, no atrophy or facial fasiculations present Cerebellar examination: Present: no dysmetria, performs finger to nose and heel to wick symmetrically without ataxia, no difficulty with rapid alternating movements - VTE Documentation of Mechanical Device: Intermittent pneumatic compression device Results - Laboratory Findings CBC and BMP: 05/24/17 04:21 05/24/17 04:21 Abnormal lab findings: Abnormal lab results MCH 27.8 pg (28.0-33.3) L 05/24/17 04:21 Carbon Dioxide 31 mEq/L (23-29) H 05/24/17 04:21 Creatinine 1.36 mg/dL (0.60-1.20) H 05/24/17 04:21 Est GFR ( Amer) 45 (> 60) L 05/24/17 04:21 Est GFR (Non-Af Amer) 37 (> 60) L 05/24/17 04:21 Hemoglobin A1c 5.8 % (-5.6) H 05/23/17 05:17 Alkaline Phosphatase 107 Units/L (34-104) H 05/24/17 04:21 Serum Total Protein 5.5 g/dL (6.4-8.9) L 05/24/17 04:21 Albumin 2.9 g/dL (3.5-5.7) L 05/24/17 04:21 HDL Cholesterol 32 mg/dL (40-59) L 05/23/17 05:17 Ur Specimen Adequacy See below A 05/22/17 14:50 Urine Clarity Turbid (Clear) A 05/22/17 14:50 Ur Leukocyte Esterase Trace (Negative) H 05/22/17 14:50 Urine Microscopic WBC 3-5 per hpf (0-3) H 05/22/17 14:50 Ur Squamous Epith Cells Many per lpf (None-Few) H 05/22/17 14:50 Urine Bacteria Many per hpf (None-Few) H 05/22/17 14:50 Consult Discharge Plan - Plan Referrals: Melvin Melo MD [Primary Care Provider] - 05/27/17 2:15 pm
--- NOTE | 2017-05-24 16:56 | Internal Med Progress Note ---
Date of Encounter: 05/24/17 Time of Encounter: 16:55 - Subjective Interval history: History of present illness (From H&P): Ms. Hernandez is a 81 year old female w/PMH of HTN and CKD presents from the ED w/ chief complaint of fall today. Pt. reports using her walker and having feeling of falling backwards. Denies LOC. Reports falling 4x in past 5 days as well as multiple falls over the past three weeks. Pt. denies chest pain, SOB, or vision changes w/episodes. States she will be walking and her legs become weak. Was seen in October for similar sx. Pt. reports diarrhea and being on abx <1 month ago for UTI. Denies anticoagulation. Pt. denies recent illness, fever, chills, nausea, vomiting, changes in vision, headache, cough, chest congestion, unusual bleeding, abdominal pain, constipation, lightheadedness, or syncope. Interval changes: MRI C-spine shows thecal sac narrowing at C5-C6 Neurology feels cervical myelopathy associated with MRI findings are responsible for presenting symptoms Ortho/spine surgery consulted No new complaints Assessment and Plan (1) Severe C5/C6 spinal stenosis: MRI cervical spine showed thecal sac narrowing at C5/C6 No other focal neurological changes Neurology believes this finding accounts for her presenting symptoms Tried to page ortho/supervisory investigative specialist account contact associate but no response Consult Dr. Wyatt (2) Falls Falls are not associated other autonomic symptoms Falls suggest gait disorder. No signs of Parkinson disease. Not normal pressure hydrocephalus per neurology MRI of cervical spine to MR of brain done C5/C6 narrowing severe PT/OT ordered - Constitutional Vitals: Temp Pulse Resp BP Pulse Ox 98.8 F 63 14 164/74 94 05/24/17 15:58 05/24/17 15:58 05/24/17 15:58 05/24/17 15:58 05/24/17 15:58 General appearance: Present: cooperative, A&O X 3, pleasant, no acute distress, answers questions appropriately - Head Head exam: Present: atraumatic, normocephalic - Eye Eye exam: Present: EOMI, PERRL, conjuntiva pink, sclera anicteric. Absent: nystagmus Pupils: Present: PERRL - Neck Neck exam general surgery: Present: supple, trachea midline. Absent: lymphadenopathy - Respiratory Respiratory exam: Present: CTAB. Absent: accessory muscle use, rales, rhonchi, wheezes - Cardiovascular Cardiovascular exam: Present: RRR, +S1, +S2. Absent: diastolic murmur, gallop, rubs, systolic murmur - GI/Abdominal GI/Abdominal exam: Present: normal bowel sounds, soft, no peritoneal signs. Absent: distended, tenderness - Extremities Exam Extremities exam: Present: warm. Absent: calf tenderness, cyanotic, pedal edema - Neurological Exam Neurological exam: Present: abnormal gait, alert, CN II-XII intact, oriented X3 , reflexes normal, no focal deficits, strengths equal and symetr throughout. Absent: altered, motor sensory deficit, normal gait, pronater drift, facial droop, speech deficit - Psychiatric Psychiatric exam: Present: normal affect, normal mood - Skin Skin exam: Present: dry, intact Internal Medicine: Result - Labs CBC & Chem 7: 05/24/17 04:21 05/24/17 04:21 Labs: Short CBC 05/24/17 Range/Units 04:21 WBC 8.4 (4.3-11.1) K/mcL Hgb 12.2 (11.5-15.4) g/dL Hct 37.7 (35.3-44.9) % Plt Count 278 (140-400) K/mcL Neutrophils # 5.4 (1.6-8.9) K/mcL BMP 05/24/17 04:21 Sodium 141 Potassium 4.3 Chloride 106 Carbon Dioxide 31 H BUN 17 Creatinine 1.36 H Glucose 93 Calcium 8.6 Liver Function 05/24/17 Range/Units 04:21 Total Bilirubin 0.4 (0.3-1.0) mg/dL AST 14 (13-39) Units/L ALT 10 (7-52) Units/L Alkaline Phosphatase 107 H (34-104) Units/L Albumin 2.9 L (3.5-5.7) g/dL - Impressions Impressions Brain MRI 05/22/17 16:25 IMPRESSION: No acute infarct. D/ / Hector Bautista MD / Hector Bautista MD Interpreting Provider: Hector Bautista MD Cervical Spine MRI 03/19/18 12:12 IMPRESSION: Degenerative thecal sac narrowing and neural foraminal stenosis as detailed above. Severe thecal sac narrowing at C5-C6 with mild mass-effect on the cord but no associated cord signal changes at this time. D/ / Hector Bautista MD / Hector Bautista MD Interpreting Provider: Hector Bautista MD - VTE Documentation of Mechanical Device: Intermittent pneumatic compression device Consult Discharge Plan - Plan Referrals: Melvin Melo MD [Primary Care Provider] - 05/27/17 2:15 pm
[2017-05-24] MEDS: traZODone 50 MG TABLET PO SCH (20:24)
--- NOTE | 2017-05-25 00:02 | Electrocardiograph Report ---
[place] [id number] Test Date: 2017-05-22 Pat Name: Marlyn Hernandez Department: 102 Room: 3B52 Gender: F Research Development Director: Shahzad : 1935 Requested By: Nga Herrera Order Number: [id number] Reading MD: Balwinder Fitch DO Measurements Intervals [place] Rate: 61 P: 76 HI: 200 QRS: -2 QRSD: 135 T: 23 QT: 461 QTc: 463 Interpretive Statements SINUS RHYTHM WITH OCCASIONAL SUPRAVENTRICULAR PREMATURE COMPLEXES RIGHT BUNDLE BRANCH BLOCK Electronically Signed On 05-25-2017 0:00:38 EDT by Balwinder Fitch DO
[2017-05-25 04:39] LABS: Basophils % 0.6 %; Eosinophils # 0.2 K/mcL (0.0-0.6); Eosinophils % 2.4 %; Hematocrit 37.1 % (35.3-44.9); Hemoglobin 12.1 g/dL (11.5-15.4); Immature Granulocytes % 0.3 % (0-4); Lymphocytes # 1.9 K/mcL (0.6-4.6); Lymphocytes % 30.1 %; Mean Corpuscular HGB Conc 32.6 g/dL (31.6-35.5); Mean Corpuscular Hemoglobin 27.9 pg (28.0-33.3); Mean Corpuscular Volume 85.7 fL (83.0-100.0); Mean Platelet Volume 10.4 fL (9.4-12.4); Monocytes # 0.6 K/mcL (0.0-1.3); Monocytes % 9.1 %; Neutrophils # 3.6 K/mcL (1.6-8.9); Platelet Count 271 K/mcL (140-400); Red Blood Count 4.33 M/mcL (3.82-4.97); Red Cell Distribution Width 13.8 % (11.5-14.5); Segmented Neutrophils % 57.5 %
[2017-05-25 04:51] LABS: Albumin/Globulin Ratio 1.3 (1.1-2.2); Bilirubin,Total 0.3 mg/dL (0.3-1.0); Calcium 8.3 mg/dL (8.6-10.3); Globulin 2.4 g/dL (2.4-3.5); Potassium 3.7 mEq/L (3.5-5.1); Total Protein 5.4 g/dL (6.4-8.9)
[2017-05-25] MEDS: BuPROPion SR (12 HR) 150 MG TABLET PO SCH (08:50)
--- NOTE | 2017-05-25 12:35 | Internal Med Progress Note ---
Date of Encounter: 05/25/17 Time of Encounter: 12:31 - Subjective Interval history: History of present illness (From H&P): Ms. Hernandez is a 81 year old female w/PMH of HTN and CKD presents from the ED w/ chief complaint of fall today. Pt. reports using her walker and having feeling of falling backwards. Denies LOC. Reports falling 4x in past 5 days as well as multiple falls over the past three weeks. Pt. denies chest pain, SOB, or vision changes w/episodes. States she will be walking and her legs become weak. Was seen in October for similar sx. Pt. reports diarrhea and being on abx <1 month ago for UTI. Denies anticoagulation. Pt. denies recent illness, fever, chills, nausea, vomiting, changes in vision, headache, cough, chest congestion, unusual bleeding, abdominal pain, constipation, lightheadedness, or syncope. 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 Wyatt (2) Falls Falls are not associated other autonomic symptoms Falls suggest gait disorder. No signs of Parkinson disease. Not normal pressure hydrocephalus per neurology MRI of cervical spine to MR of brain done C5/C6 narrowing severe PT/OT ordered - Constitutional Vitals: Temp Pulse Resp BP Pulse Ox 97.6 F 64 18 156/65 94 05/25/17 11:33 05/25/17 11:33 05/25/17 11:33 05/25/17 11:33 05/25/17 11:33 General appearance: Present: cooperative, A&O X 3, pleasant, no acute distress, answers questions appropriately - Head Head exam: Present: atraumatic, normocephalic - Eye Eye exam: Present: PERRL, conjuntiva pink, sclera anicteric Pupils: Present: PERRL - Neck Neck exam general surgery: Present: supple, trachea midline. Absent: lymphadenopathy - Respiratory Respiratory exam: Present: CTAB. Absent: accessory muscle use, rales, rhonchi, wheezes - Cardiovascular Cardiovascular exam: Present: RRR, +S1, +S2. Absent: diastolic murmur, gallop, rubs, systolic murmur - GI/Abdominal GI/Abdominal exam: Present: normal bowel sounds, soft, no peritoneal signs. Absent: diminished bowel sounds, distended, guarding, rebound, rigid, tenderness - Extremities Exam Extremities exam: Present: warm, radial pulses palpable and symmetrical. Absent : calf tenderness, cyanotic, pedal edema - Neurological Exam Neurological exam: Present: alert, CN II-XII intact, oriented X3, reflexes normal, no focal deficits, strengths equal and symetr throughout. Absent: altered, pronater drift, facial droop, speech deficit - Skin Skin exam: Present: dry, intact Internal Medicine: Result - Labs CBC & Chem 7: 05/25/17 03:34 05/25/17 03:34 Labs: Short CBC 05/25/17 Range/Units 03:34 WBC 6.2 (4.3-11.1) K/mcL Hgb 12.1 (11.5-15.4) g/dL Hct 37.1 (35.3-44.9) % Plt Count 271 (140-400) K/mcL Neutrophils # 3.6 (1.6-8.9) K/mcL BMP 05/25/17 03:34 Sodium 138 Potassium 3.7 Chloride 104 Carbon Dioxide 29 BUN 18 Creatinine 1.32 H Glucose 88 Calcium 8.3 L Liver Function 05/25/17 Range/Units 03:34 Total Bilirubin 0.3 (0.3-1.0) mg/dL AST 11 L (13-39) Units/L ALT 8 (7-52) Units/L Alkaline Phosphatase 93 (34-104) Units/L Albumin 3.0 L (3.5-5.7) g/dL - VTE Documentation of Mechanical Device: Intermittent pneumatic compression device Consult Discharge Plan - Plan Referrals: Melvin Melo MD [Primary Care Provider] - 05/27/17 2:15 pm
[2017-05-25] MEDS: *HR* LORazepam 0.5 MG TABLET PO PRN (13:22)
--- NOTE | 2017-05-25 13:47 | Spinal Consult Note ---
Date of Encounter: 05/25/17 Time of Encounter: 13:44 Assessment and Plan (1) Cervical myelopathy Current Visit: Yes Status: Chronic On exam she is lying comfortably in bed, quite lucid in no significant distress. Afebrile vital signs stable. She has some limitation with cervical spine extension. She has good strength in all upper and lower extremity motor groups. She is grossly neurovascularly intact with regard to bilateral upper and lower extremities. She has a negative Gabriel sign. She has a negative inverted radial reflex. She has no clonus. Her hips move symmetrically. Gait was not tested. MRI of the cervical spine reveals multilevel degenerative changes. There is moderate central stenosis at C4-5 and severe central stenosis at C5-6 due to multifactorial components including disc osteophyte complexes, disc bulging , and ligamentum flavum hypertrophy. Impression: 1) cervical stenosis 2) cervical myelopathy 3) frequent falls with gait disturbance Plan: Due to her likelihood of neurologic progression I find it reasonable to consider surgery in the form of an anterior cervical decompression and fusion C4 -C6. Risk benefits and possible complications were discussed and the patient would like to proceed. Patient will have medical optimization and clearance measures performed in the interim we will plan on performing the surgery TuesdayMay 27. (2) Cervical stenosis of spinal canal Current Visit: Yes Status: Chronic History of Present Illness Chief complaint: Falling frequently HPI: Ms. Hernandez is a 81 year old female Who complains of a six-month history of progressive falling episodes. She also complains of worsening gait disturbance over the course of a year. She did not require ambulatory aids one year ago but over the course of the year has had deterioration in gait such that she needs a rolling walker currently. She says this is associated with frequent falls and she now has balance difficulties which exacerbates falls at least 2-3 times a week. She also complains of worsening hand dexterity and inability to button buttons. She states she has had significant deterioration in handwriting as well. She also states she has had some paresthesias in the upper extremities and numbness. She was seen by Dr. Farzana Vargas of neurology in consultation after eating admitted for frequent falls. He ordered MRI examination of the cervical spine which was consistent with cervical myelopathy and requested spine surgical intervention. She denies any fevers or chills or photophobia significant lower extremity radicular symptoms or spasticity. Past Med Surg Social Fam HX - Past Medical History Medical history: hypertension, renal disease Psychiatric history: anxiety, depression - Social History Smoking Status: Current every day smoker Smokeless Tobacco Status: No Alcohol use: none Drug use: none - Family History Father History Unknown: Yes Race: Family Member Ethnicity: Non- Living Status: Mother Race: Family Member Ethnicity: Non- Living Status: Age at : 82 Cause of : SC Hx Family Cardiac Disorders: Yes (SC, CAD, HTN) Brother Race: Family Member Ethnicity: Non- Living Status: Cause of : Suicide Sister Race: Family Member Ethnicity: Non- Living Status: Age at : 60 Cause of : Cancer Hx Family Cancer: Yes (Breast, Uterine) Medications and Allergies BuPROPion SR (12 HR) [Wellbutrin SR] 150 mg PO DAILY 05/22/17 [History] Buspirone HCl [Buspar] 15 mg PO BID 05/22/17 [History] Cholecalciferol (Vitamin D3) [Vitamin D] 50,000 unit PO JOHNSON 05/22/17 [History] Cyanocobalamin (B-12) [Vitamin B12] 1,000 mcg SQ QMONTH 05/22/17 [History] Cyclobenzaprine [Flexeril] 10 mg PO BID 05/22/17 [History] Hydrocortisone 2.5% CREAM [Cortaid] 1 appl TP BID PRN 05/22/17 [History] LORazepam [Ativan] 0.5 mg PO BID PRN 05/22/17 [History] Losartan Potassium [Cozaar] 50 mg PO DAILY 05/22/17 [History] Melatonin/Pyridoxine HCl (B6) [Melatonin 3 mg Tablet] 1 tab PO HS PRN 05/22/17 [ History] Propranolol [Inderal] 10 mg PO BID 05/22/17 [History] Tramadol HCl [Ultram] 50 mg PO TID PRN 05/22/17 [History] traZODone [TraZODone] 50 mg PO HS 05/22/17 [History] 3 Allergy/AdvReac Type Severity Reaction Status Date / Time No Known Allergies Allergy Verified 05/22/17 15:55 Results - Labs Result Diagrams: 05/25/17 03:34 05/25/17 03:34 Labs: Abnormal lab results MCH 27.9 pg (28.0-33.3) L 05/25/17 03:34 Creatinine 1.32 mg/dL (0.60-1.20) H 05/25/17 03:34 Est GFR ( Amer) 47 (> 60) L 05/25/17 03:34 Est GFR (Non-Af Amer) 39 (> 60) L 05/25/17 03:34 Hemoglobin A1c 5.8 % (-5.6) H 05/23/17 05:17 Calcium 8.3 mg/dL (8.6-10.3) L 05/25/17 03:34 AST 11 Units/L (13-39) L 05/25/17 03:34 Serum Total Protein 5.4 g/dL (6.4-8.9) L 05/25/17 03:34 Albumin 3.0 g/dL (3.5-5.7) L 05/25/17 03:34 HDL Cholesterol 32 mg/dL (40-59) L 05/23/17 05:17 Ur Specimen Adequacy See below A 05/22/17 14:50 Urine Clarity Turbid (Clear) A 05/22/17 14:50 Ur Leukocyte Esterase Trace (Negative) H 05/22/17 14:50 Urine Microscopic WBC 3-5 per hpf (0-3) H 05/22/17 14:50 Ur Squamous Epith Cells Many per lpf (None-Few) H 05/22/17 14:50 Urine Bacteria Many per hpf (None-Few) H 05/22/17 14:50 H & H 05/25/17 Range/Units 03:34 Hgb 12.1 (11.5-15.4) g/dL Hct 37.1 (35.3-44.9) % All other labs normal. Consult Discharge Plan - Plan Referrals: Melvin Melo MD [Primary Care Provider] - 05/27/17 2:15 pm
[2017-05-25] MEDS: Acetaminophen 325 MG TABLET PO PRN (16:06)
[2017-05-25] MEDS: traZODone 50 MG TABLET PO SCH (20:38)
[2017-05-26 06:21] LABS: Basophils % 0.6 %; Eosinophils # 0.2 K/mcL (0.0-0.6); Eosinophils % 2.4 %; Hematocrit 37.8 % (35.3-44.9); Hemoglobin 12.1 g/dL (11.5-15.4); Immature Granulocytes % 0.2 % (0-4); Lymphocytes # 1.7 K/mcL (0.6-4.6); Lymphocytes % 25.2 %; Mean Corpuscular Hemoglobin 27.6 pg (28.0-33.3); Mean Corpuscular Volume 86.3 fL (83.0-100.0); Mean Platelet Volume 10.6 fL (9.4-12.4); Monocytes # 0.7 K/mcL (0.0-1.3); Monocytes % 10.1 %; Neutrophils # 4.1 K/mcL (1.6-8.9); Platelet Count 251 K/mcL (140-400); Red Blood Count 4.38 M/mcL (3.82-4.97); Segmented Neutrophils % 61.5 %
[2017-05-26 06:50] LABS: Albumin 2.8 g/dL (3.5-5.7); Albumin/Globulin Ratio 1.1 (1.1-2.2); Bilirubin,Total 0.3 mg/dL (0.3-1.0); Calcium 8.2 mg/dL (8.6-10.3); Globulin 2.6 g/dL (2.4-3.5); Total Protein 5.4 g/dL (6.4-8.9)
[2017-05-26] MEDS: BuPROPion SR (12 HR) 150 MG TABLET PO SCH (09:14)
[2017-05-26] MEDS: *HR* LORazepam 0.5 MG TABLET PO PRN (09:14)
[2017-05-26] MEDS: Acetaminophen 325 MG TABLET PO PRN (11:14)
--- NOTE | 2017-05-26 15:10 | Internal Med Progress Note ---
Date of Encounter: 05/26/17 Time of Encounter: 15:03 - Subjective Interval history: History of present illness (From H&P): Ms. Hernandez is a 81 year old female w/PMH of HTN and CKD presents from the ED w/ chief complaint of fall today. Pt. reports using her walker and having feeling of falling backwards. Denies LOC. Reports falling 4x in past 5 days as well as multiple falls over the past three weeks. Pt. denies chest pain, SOB, or vision changes w/episodes. States she will be walking and her legs become weak. Was seen in October for similar sx. Pt. reports diarrhea and being on abx <1 month ago for UTI. Denies anticoagulation. Pt. denies recent illness, fever, chills, nausea, vomiting, changes in vision, headache, cough, chest congestion, unusual bleeding, abdominal pain, constipation, lightheadedness, or syncope. Interval changes: 05/24/2017: MRI C-spine shows thecal sac narrowing at C5-C6 Neurology feels cervical myelopathy associated with MRI findings are responsible for presenting symptoms Ortho/spine surgery consulted No new complaints 05/25/2017: Last night she had another fall but landed on the bed She is c/o a BENJAMIN this am No other significant symptoms 05/26/2017: Surgery in am Cardiology consulted for cardiac clearance Assessment and Plan (1) Severe C5/C6 spinal stenosis: MRI cervical spine showed thecal sac narrowing at C5/C6 No other focal neurological changes Neurology believes this finding accounts for her presenting symptoms 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 Wyatt (2) Falls Falls are not associated other autonomic symptoms Falls suggest gait disorder. No signs of Parkinson disease. Not normal pressure hydrocephalus per neurology MRI of cervical spine to MR of brain done C5/C6 narrowing severe PT/OT ordered Surgical clearance. No underlying lung or heart disease She does not require supplemental O2 She has not had chest pain CXR did not show significant pathology Echo essentially normal except mild diastolic dysfunction. LVEF 60% Her ECG showed SR with LBBB and frequent PSVC She has essential HTN which is normally controlled with Losartan and Metoprolol PRN Hydralazine added Cardiology consulted for Cardiac clearance (recommendations to follow) - Constitutional Vitals: Temp Pulse Resp BP Pulse Ox 98.7 F 64 16 147/82 95 05/26/17 14:39 05/26/17 14:39 05/26/17 14:39 05/26/17 14:39 05/26/17 14:39 General appearance: Present: cooperative, A&O X 3, pleasant, no acute distress, answers questions appropriately - Head Head exam: Present: atraumatic, normocephalic - Eye Eye exam: Present: EOMI, PERRL, conjuntiva pink, sclera anicteric Pupils: Present: PERRL - Neck Neck exam general surgery: Present: supple, trachea midline. Absent: lymphadenopathy, thyromegaly - Respiratory Respiratory exam: Present: CTAB. Absent: accessory muscle use, rales, rhonchi, wheezes - Cardiovascular Cardiovascular exam: Present: RRR, +S1, +S2. Absent: diastolic murmur, gallop, rubs, systolic murmur - GI/Abdominal GI/Abdominal exam: Present: normal bowel sounds, soft, no peritoneal signs. Absent: distended, tenderness - Extremities Exam Extremities exam: Present: warm. Absent: calf tenderness, cyanotic, pedal edema - Neurological Exam Neurological exam: Present: CN II-XII intact, oriented X3, no focal deficits. Absent: pronater drift, facial droop, speech deficit - Psychiatric Psychiatric exam: Present: normal affect, normal mood - Skin Skin exam: Present: dry, intact Internal Medicine: Result - Labs CBC & Chem 7: 05/26/17 04:57 05/26/17 04:57 Labs: Short CBC 05/26/17 Range/Units 04:57 WBC 6.6 (4.3-11.1) K/mcL Hgb 12.1 (11.5-15.4) g/dL Hct 37.8 (35.3-44.9) % Plt Count 251 (140-400) K/mcL Neutrophils # 4.1 (1.6-8.9) K/mcL BMP 05/26/17 04:57 Sodium 138 Potassium 4.0 Chloride 105 Carbon Dioxide 29 BUN 20 Creatinine 1.54 H Glucose 89 Calcium 8.2 L Liver Function 05/26/17 Range/Units 04:57 Total Bilirubin 0.3 (0.3-1.0) mg/dL AST 12 L (13-39) Units/L ALT 8 (7-52) Units/L Alkaline Phosphatase 91 (34-104) Units/L Albumin 2.8 L (3.5-5.7) g/dL - VTE Documentation of Mechanical Device: Intermittent pneumatic compression device Consult Discharge Plan - Plan Referrals: Melvin Melo MD [Primary Care Provider] - 05/27/17 2:15 pm
--- NOTE | 2017-05-26 15:54 | Cardiology Consult Note ---
Date of Encounter: 05/26/17 Time of Encounter: 15:53 Assessment and Plan (1) Pre-operative cardiovascular examination Current Visit: Yes Status: Acute Per discussion with Dr. Norton patient is a intermediate- high risk for a amy- operative for cardiovascular complications. -81yo female -PMH: hypertension well controlled with losartan and propanolol. -Current smoker but thinking of quitting. Counseled on importance of quitting. -Family Hx: mother OR at 81yo -Can haul laundry and vacuum her home with ease. Denies chest pain, palpitations , edema, syncope. -PE: RRR, no murmur (2) Cervical myelopathy Current Visit: Yes Status: Chronic Patient to go to surgery tomorrow with Dr. Wyatt for anterior cervical decompression and fusion C4-C6. MRI showing cervical spine reveals multilevel degenerative changes. Moderate central stenosis at C4-5 and severe central stenosis at C5-6 due to multifactorial components including disc osteophyte complexes, disc bulging , and ligamentum flavum hypertrophy. (3) HTN (hypertension) Current Visit: Yes Status: Chronic hypertension controlled with losartan and propanolol Qualifiers: Hypertension type: essential hypertension Qualified Code(s): I10 - Essential (primary) hypertension Discussion w patient/family: The assessment and plan as outlined above was discussed with the patient and/or family members who expressed understanding and agreement. All questions were answered. Thank you for involving us in the care of your patient. Please call with any questions. History of Present Illness Consult date: 05/26/17 Requesting physician: Marv Huntley Consult reason: cardiac clearance Chief complaint: falls History of present illness: Ms. Hernandez is a 81 year old female with PMH HTN and CKD presented to [facility] complaining of falling. She reportedly has been falling more frequently for the past 3 weeks and this week she has fallen 4x in 5 days. MRI showing cervical spine reveals multilevel degenerative changes. Moderate central stenosis at C4- 5 and severe central stenosis at C5-6. She was evaluated by Dr. Wyatt of spine surgery and he will be taking her for anterior cervical decompression and fusion C4-C6 tomorrow. She is to have a cardiac clearance before surgery. She denies chest pain, palpitations, diaphoresis, syncope, nausea, change in vision. She is a current smoker but hasn't smoked in a week and is going to try to quit. Her mother had an OR at 81yo. She denies history of OR, blood clots, arrhythmia. Past Med Surg Social Fam HX - Past Medical History Medical history: hypertension, renal disease Psychiatric history: anxiety, depression - Social History Smoking Status: Current every day smoker Smokeless Tobacco Status: No Alcohol use: none Drug use: none - Family History Father History Unknown: Yes Race: Family Member Ethnicity: Non- Living Status: Mother Race: Family Member Ethnicity: Non- Living Status: Age at : 82 Cause of : OR Hx Family Cardiac Disorders: Yes (OR, CAD, HTN) Brother Race: Family Member Ethnicity: Non- Living Status: Cause of : Suicide Sister Race: Family Member Ethnicity: Non- Living Status: Age at : 60 Cause of : Cancer Hx Family Cancer: Yes (Breast, Uterine) Medications and Allergies BuPROPion SR (12 HR) [Wellbutrin SR] 150 mg PO DAILY 05/22/17 [History] Buspirone HCl [Buspar] 15 mg PO BID 05/22/17 [History] Cholecalciferol (Vitamin D3) [Vitamin D] 50,000 unit PO JOHNSON 05/22/17 [History] Cyanocobalamin (B-12) [Vitamin B12] 1,000 mcg SQ QMONTH 05/22/17 [History] Cyclobenzaprine [Flexeril] 10 mg PO BID 05/22/17 [History] Hydrocortisone 2.5% CREAM [Cortaid] 1 appl TP BID PRN 05/22/17 [History] LORazepam [Ativan] 0.5 mg PO BID PRN 05/22/17 [History] Losartan Potassium [Cozaar] 50 mg PO DAILY 05/22/17 [History] Melatonin/Pyridoxine HCl (B6) [Melatonin 3 mg Tablet] 1 tab PO HS PRN 05/22/17 [ History] Propranolol [Inderal] 10 mg PO BID 05/22/17 [History] Tramadol HCl [Ultram] 50 mg PO TID PRN 05/22/17 [History] traZODone [TraZODone] 50 mg PO HS 05/22/17 [History] 3 Allergy/AdvReac Type Severity Reaction Status Date / Time No Known Allergies Allergy Verified 05/22/17 15:55 All Systems Review: The remainder of the systems were reviewed and are negative Physical Examination Vital Signs, Last 4 Hours Temp Pulse Resp BP Pulse Ox 05/26/17 14:39 98.7 F 64 16 147/82 95 Results 05/26/17 04:57 05/26/17 04:57 Lab Results 05/26/17 05/26/17 04:57 04:57 WBC 6.6 Hgb 12.1 Hct 37.8 Plt Count 251 Sodium 138 Potassium 4.0 Chloride 105 Carbon Dioxide 29 BUN 20 Creatinine 1.54 H Glucose 89 Calcium 8.2 L Total Bilirubin 0.3 AST 12 L ALT 8 Alkaline Phosphatase 91 Consult Discharge Plan - Plan Referrals: Melvin Melo MD [Primary Care Provider] - 05/27/17 2:15 pm
--- NOTE | 2017-05-26 19:41 | Anesthesia Evaluation PreOp ---
Date of Encounter: 05/26/17 Time of Encounter: 22:10 - Past History Planned Operation: ACDF C4-6 Cardiac History: HTN, Other (Denies CP, SOB) Pulmonary History: Smoker (1/3 ppd) IRONER History: Syncope, Paresis (Victor Manuel LE weakness), Other (Anxiety, depression) Other Medical History: Renal (Stage 3 CKD, urinary incontinence) Anesthesia History: No Prior Anesthetic Complications, Past Anesthesia Alcohol Use: none Drug use: none Medications and Allergies BuPROPion SR (12 HR) [Wellbutrin SR] 150 mg PO DAILY 05/22/17 [History] Buspirone HCl [Buspar] 15 mg PO BID 05/22/17 [History] Cholecalciferol (Vitamin D3) [Vitamin D] 50,000 unit PO JOHNSON 05/22/17 [History] Cyanocobalamin (B-12) [Vitamin B12] 1,000 mcg SQ QMONTH 05/22/17 [History] Cyclobenzaprine [Flexeril] 10 mg PO BID 05/22/17 [History] Hydrocortisone 2.5% CREAM [Cortaid] 1 appl TP BID PRN 05/22/17 [History] LORazepam [Ativan] 0.5 mg PO BID PRN 05/22/17 [History] Losartan Potassium [Cozaar] 50 mg PO DAILY 05/22/17 [History] Melatonin/Pyridoxine HCl (B6) [Melatonin 3 mg Tablet] 1 tab PO HS PRN 05/22/17 [ History] Propranolol [Inderal] 10 mg PO BID 05/22/17 [History] Tramadol HCl [Ultram] 50 mg PO TID PRN 05/22/17 [History] traZODone [TraZODone] 50 mg PO HS 05/22/17 [History] 3 Allergy/AdvReac Type Severity Reaction Status Date / Time No Known Allergies Allergy Verified 05/22/17 15:55 - Meds/Allergy Pre-op Review Medications Reviewed: Yes Allergies Reviewed: Yes Beta Blockers on Current Med List: Yes (Propranalol 10mg bid) Anesthesia Results - Labs 05/26/17 04:57 05/26/17 04:57 - Imaging Additional studies: TTE 05/23/17: LVEF 60%. Mild left ventricular diastolic dysfunction. Normal right ventricular structure and function. Carotid duplex 05/23/17: The bilateral carotid arteries have minimal plaque throughout. Cervical spine MRI 05/23/17: C3-C4: Disc osteophyte complex and facet hypertrophy resulting in moderate narrowing of the left neural foramen. C4-C5: Disc osteophyte complex and facet hypertrophy resulting in mild narrowing of both neural foramen. There is mild to moderate narrowing of the thecal sac. C5-C6: Disc osteophyte complex and facet hypertrophy as well as ligamentum flavum thickening resulting in severe narrowing of the thecal sac. There is mild narrowing of both neural foramen. Anesthesia Exam Vital Signs/O2 Sat/Glucose, Most Recent Temp Pulse Resp BP Pulse Ox 98.1 F 69 17 166/84 95 05/26/17 19:04 05/26/17 19:04 05/26/17 19:04 05/26/17 19:04 05/26/17 19:04 Height: 66 in Weight: 77 Kg BMI 28 NPO (# of Hours): Instructed NPO after MN - HEENT Pupil (Motor): Pupils equal Mallampati: II Denture Type: Upper: Complete, Lower: Complete Oral Opening: Greater than 3 (Adequate neck extension without symptoms) - IRONER LOC: Oriented IRONER Motor: Normal RUE, Normal LUE, Normal RLE, Normal LLE, Normal Face - Cardiac Rhythm: Regular Murmur: None - Pulmonary Breath Sounds: bilateral Rhonchi Anesthesia Assess/Plan ASA Score: 4 Modified Margot Scale for Level of Consciousness: Cooperative, oriented, and tranquil Anesthetic Plan: General (TIVA) Monitoring Plan: Standard Monitors, A-Line (Possible) Recovery Plan: PACU Anes Supervising Prov Stmt: I have participated in the evaluation of this patient. Patient informed and consented. Risks, benefits, and alternatives discussed. Patient wishes to proceed. PATIENT IS [id number]. Discussed with patient. She is agreeable to resuscitation for reversible or possible reversible conditions, including CPR. She does not want to be on prolonged life support.
[2017-05-26] MEDS: traZODone 50 MG TABLET PO SCH (20:30)
[2017-05-27] MEDS ORDERED: hydrALAZINE 10 MG TABLET PO PRN (03:52)
[2017-05-27 06:09] LABS: Basophils % 0.4 %; Eosinophils # 0.2 K/mcL (0.0-0.6); Eosinophils % 1.8 %; Hematocrit 39.8 % (35.3-44.9); Hemoglobin 12.4 g/dL (11.5-15.4); Immature Granulocytes % 0.3 % (0-4); Lymphocytes # 1.6 K/mcL (0.6-4.6); Lymphocytes % 17.8 %; Mean Corpuscular HGB Conc 31.2 g/dL (31.6-35.5); Mean Corpuscular Hemoglobin 27.1 pg (28.0-33.3); Mean Corpuscular Volume 87.1 fL (83.0-100.0); Mean Platelet Volume 10.4 fL (9.4-12.4); Monocytes # 0.8 K/mcL (0.0-1.3); Monocytes % 8.4 %; Neutrophils # 6.3 K/mcL (1.6-8.9); Platelet Count 273 K/mcL (140-400); Red Blood Count 4.57 M/mcL (3.82-4.97); Segmented Neutrophils % 71.3 %
[2017-05-27 06:15] LABS: Prothrombin Time 11.2 Seconds (9.4-12.1)
[2017-05-27 06:16] LABS: Calcium 8.4 mg/dL (8.6-10.3); Potassium 4.2 mEq/L (3.5-5.1)
[2017-05-27 06:18] LABS: Activated Partial Thrombo Time 26.9 Seconds (26.0-36.0)
[2017-05-27] MEDS ORDERED: CeFAZolin Syr 2,000MG/20 ML 2,000 MG/20 ML SYRINGE IVPB ONE (09:00)
[2017-05-27] MEDS: BuPROPion SR (12 HR) 150 MG TABLET PO SCH (09:01)
[2017-05-27] MEDS: *HR* LORazepam 0.5 MG TABLET PO PRN (09:01)
[2017-05-27] MEDS ORDERED: Ondansetron 4 MG/2 ML VIAL ONE (11:52)
[2017-05-27] MEDS ORDERED: Dexamethasone 4 MG/ML VIAL ONE (11:52)
[2017-05-27] MEDS ORDERED: Lidocaine -MPF 2% 2 ML VIAL ONE (11:52)
[2017-05-27] MEDS ORDERED: *HR* FentaNYL (PF) 100 MCG/2 ML VIAL ONE (11:52)
[2017-05-27] MEDS ORDERED: *HR* Propofol 200 MG/20 ML VIAL IVP ONE (11:52)
[2017-05-27] MEDS ORDERED: *HR* Remifentanil 2 MG VIAL IVP ONE (11:56)
[2017-05-27] MEDS ORDERED: *HR* Phenylephrine 10 MG/ML VIAL ONE (12:00)
[2017-05-27] MEDS ORDERED: Bacitracin 50,000 UNIT, Polymyxin B Sulfate 500,000 UNIT, Sodium Chloride IRRigation 1,... IR ONE (12:30)
[2017-05-27] MEDS ORDERED: Albuterol 2.5 MG/3 ML NEBULIZER IH ONE (12:42)
[2017-05-27] MEDS ORDERED: Albuterol 2.5 MG/3 ML NEBULIZER ONE (12:44)
[2017-05-27] MEDS ORDERED: Heparin 1,000 UNITS/500 mL 500 ML ONE (13:03)
[2017-05-27] MEDS ORDERED: *HR* Morphine 2 MG/ML SYRINGE IVP PRN (14:22)
[2017-05-27] MEDS ORDERED: Acetaminophen IV 1,000 MG/100 ML INFUS..BTL IVPB ONE (14:22)
[2017-05-27] MEDS ORDERED: Dexamethasone 4 MG/ML VIAL IVP ONE (14:22)
[2017-05-27] MEDS ORDERED: Ondansetron 4 MG/2 ML VIAL IVP ONE (14:22)
--- NOTE | 2017-05-27 14:30 | Anesthesia Procedures ---
Date of Encounter: 05/27/17 Time of Encounter: 13:45 Procedures: Anesthesia - Arterial Line Consent obtained: verbal consent Time out performed: Yes Size (Gauge): 20 Length (inches): 1 3/4 Technique Used: sterile prep, direct puncture technique Post-Procedure: line taped into place, dry sterile dressing placed Patient tolerated procedure: well, no complications Complications: none Site: Radial R Vitals: see anesthesia record Comments: inserted by newsagent post-induction
--- NOTE | 2017-05-27 15:59 | Orthopedic Operative Note ---
Date of procedure: 05/27/17 Pre-op diagnosis: Cervical stenosis, cervical myelopathy Post-op diagnosis: same Operation/Findings: Anterior cervical decompression and fusion C4-C6: The patient was brought to the operating room and placed supine on the operating room table. Successful general endotracheal anesthesia intubation was performed. Neurophysiologic monitoring personnel placed leads on the upper and lower extremities as well as the cranium for EMG monitoring purposes. Appropriate baseline potentials were noted by the neurophysiologic monitoring staff. Hope catheter was placed prior to positioning. Compression boots and stockings were placed for deep vein thrombosis prophylaxis. Padding was also placed all bony prominences including the ulnar nerve near the medial epicondyles of the elbows were appropriately padded. Mild traction was placed on the bilateral shoulders and taped into place. Preoperative antibiotics were administered. The area from the mandible bilaterally to the upper thoraces was prepped and draped in the usual sterile fashion. A transverse incision was made at the level of the cricoid cartilage which is approximately 3 cm in length and extended from the midline of the cervical spine laterally towards the sternocleidomastoid muscle on the left. We then performed standard medial approach to the carotid sheath. Sponges were used to tease the fascial medial to the sternocleidomastoid muscle while carefully controlling and palpating the carotid artery. Using careful dissection we were able to get to the level of the anterior vertebral bodies and longus coli muscles. The spinal needle was placed at the appropriate C4-5 level, and intraoperative radiograph was obtained which was a cervical spine lateral radiograph. The needle and radiograph confirmed we were at the correct operative level. We further exposed this level by using Bovie cautery under the medial edge of the longus colli muscles to allow them to be retracted approximately 2 mm laterally on each side. An 11 blade was used to perform anterior discectomy at the appropriate C4-5 level after an initial annulotomy of the anterior longitudinal ligament and annulus was performed. Further disc material was removed with pituitary Rongeurs. Subsequently, Synthes pins were placed at the C4 and C5 vertebral bodies respectively to provide distraction. We then used a Trimline cervical retractor which was placed in both medial and lateral as well as inferior superior direction to allow full visualization of the appropriate C4-5 disc and C4 and C5 vertebral bodies. The Leica microscope was brought to the field and the remainder of the procedure was performed under the guidance of this microscope. Using pituitary rongeurs and small curettes, various micro- instruments, a full discectomy was performed at the appropriate C4-5 level. The posterior longitudinal ligament was encountered and appeared partially calcified. A portion of this ligament was removed. After complete and thorough discectomy and removal of spondylitic material was performed the endplates of the C4 and C5 vertebral bodies were prepared with a bur until allow bleeding of cancellous bone. A 8mm trial graft was evaluated and appeared to fit quite well within the excised C4-5 disc space. A cortico- cancellous allograft of 8 mm was utilized, carefully tapped into place within the excised disc space with the aid of a bone tamp. It was seated approximately 2 mm from the anterior edge of the cortex of the adjacent vertebral bodies. We then turned our attention to the C5-6 level where a similar series of procedures was performed including discectomy, removal of spondylitic material, end plate preparation, and trial grafting. A 7mm trial fit well within the C5-6 disc space. A 7 mm allograft was then placed at C5-6. A cervical plate was then placed on the anterior aspect of the C4, C5, and C6 vertebral bodies. The plate was placed in the midline position after drilling six 13 mm self tapping screws and inserting them. They were locked in place using standard Venture plate maneuvers. At this point a lateral radiograph of the cervical spine was obtained and showed satisfactory position of the graft and plate. The wound was copiously irrigated and bleeders encountered were cauterized using Bovie cautery. Platysma was closed with interrupted 2-0 Vicryl sutures. Running 3-0 Monocryl suture was used for skin closure. Sterile dressing was placed over the neck wound. A cervical collar was placed. The patient was transferred to a hospital bed and extubated. The patient was noted to be fully motor and sensory intact in the recovery room at the end of the procedure. The medications. All sponge instrument and needle counts were correct at the end of the procedure. Anesthesia: GETA Surgeon: Colton Mann Jr Was there an animal care assistant present: No Estimated blood loss (cc): 20 Specimen: None Condition: stable Disposition: PACU
[2017-05-27] MEDS ORDERED: *HR* Morphine 10 MG/ML VIAL ONE (16:10)
--- NOTE | 2017-05-27 16:41 | Internal Med Progress Note ---
Date of Encounter: 05/27/17 Time of Encounter: 16:41 - Subjective Interval history: History of present illness (From H&P): Ms. Hernandez is a 81 year old female w/PMH of HTN and CKD presents from the ED w/ chief complaint of fall today. Pt. reports using her walker and having feeling of falling backwards. Denies LOC. Reports falling 4x in past 5 days as well as multiple falls over the past three weeks. Pt. denies chest pain, SOB, or vision changes w/episodes. States she will be walking and her legs become weak. Was seen in October for similar sx. Pt. reports diarrhea and being on abx <1 month ago for UTI. Denies anticoagulation. Pt. denies recent illness, fever, chills, nausea, vomiting, changes in vision, headache, cough, chest congestion, unusual bleeding, abdominal pain, constipation, lightheadedness, or syncope. Interval changes: 05/24/2017: MRI C-spine shows thecal sac narrowing at C5-C6 Neurology feels cervical myelopathy associated with MRI findings are responsible for presenting symptoms Ortho/spine surgery consulted No new complaints 05/25/2017: Last night she had another fall but landed on the bed She is c/o a BENJAMIN this am No other significant symptoms 05/26/2017: Surgery in am Cardiology consulted for cardiac clearance 05/27/2017: C-spine surgery today Hypertensive following surgery Tolerated surgery well without complications Assessment and Plan (1) Severe C5/C6 spinal stenosis: MRI cervical spine showed thecal sac narrowing at C5/C6 No other focal neurological changes Neurology believes this finding accounts for her presenting symptoms Tried to page 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 Wyatt Surgery today F/U per surgery (2) Hypertension: Very hypertensive following surgery PRN Labetalol and Hydralazine ordered Norvasc started. (3) Falls Falls are not associated other autonomic symptoms Falls suggest gait disorder. No signs of Parkinson disease. Not normal pressure hydrocephalus per neurology MRI of cervical spine to MR of brain done C5/C6 narrowing severe PT/OT ordered Surgical clearance. No underlying lung or heart disease She does not require supplemental O2 She has not had chest pain CXR did not show significant pathology Echo essentially normal except mild diastolic dysfunction. LVEF 60% Her ECG showed SR with LBBB and frequent PSVC She has essential HTN which is normally controlled with Losartan and Metoprolol PRN Hydralazine added Cardiology consulted for Cardiac clearance (recommendations to follow) - Constitutional Vitals: Temp Pulse Resp BP Pulse Ox 98.8 F 73 16 158/74 95 05/27/17 06:30 05/27/17 06:30 05/27/17 06:30 05/27/17 06:30 05/27/17 06:30 General appearance: Present: cooperative, A&O X 3, pleasant, no acute distress, answers questions appropriately - Head Head exam: Present: atraumatic, normocephalic - Eye Eye exam: Present: PERRL, conjuntiva pink, sclera anicteric Pupils: Present: PERRL - Neck Neck exam general surgery: Present: supple, trachea midline. Absent: lymphadenopathy - Respiratory Respiratory exam: Present: CTAB. Absent: accessory muscle use, rales, rhonchi, wheezes - Cardiovascular Cardiovascular exam: Present: RRR, +S1, +S2. Absent: diastolic murmur, gallop, rubs, systolic murmur - GI/Abdominal GI/Abdominal exam: Present: normal bowel sounds, soft, no peritoneal signs. Absent: distended, tenderness - Extremities Exam Extremities exam: Present: warm. Absent: calf tenderness, cyanotic, pedal edema - Neurological Exam Neurological exam: Present: CN II-XII intact, oriented X3, no focal deficits, pronater drift. Absent: facial droop, speech deficit - Skin Skin exam: Present: dry, intact Internal Medicine: Result - Labs CBC & Chem 7: 05/27/17 05:42 05/27/17 05:42 Labs: Short CBC 05/27/17 Range/Units 05:42 WBC 8.9 (4.3-11.1) K/mcL Hgb 12.4 (11.5-15.4) g/dL Hct 39.8 (35.3-44.9) % Plt Count 273 (140-400) K/mcL Neutrophils # 6.3 (1.6-8.9) K/mcL BMP 05/27/17 05:42 Sodium 138 Potassium 4.2 Chloride 105 Carbon Dioxide 28 BUN 18 Creatinine 1.38 H Glucose 99 Calcium 8.4 L - ABG Interpretation ABG results: PT/INR, D-dimer PT 11.2 Seconds (9.4-12.1) 05/27/17 05:42 - Impressions Impressions Cervical Spine X-Ray 05/27/17 00:00 IMPRESSION: Metallic probe tip at the anterior aspect of the C5-6 disc space. The findings discussed with Dr. Mann on 05/27/2017 at 2:50 p.m. D/ / Shalom Brothers MD / Shalom Brothers MD Interpreting Provider: Shalom Brothers MD Cervical Spine X-Ray 05/27/17 00:00 IMPRESSION: Postsurgical changes anterior fusion C4 through C6. D/ / Gracie Church MD / Gracie Church MD Interpreting Provider: Gracie Church MD - VTE Documentation of Mechanical Device: Intermittent pneumatic compression device Consult Discharge Plan - Plan Referrals: Melvin Melo MD [Primary Care Provider] - 05/27/17 2:15 pm
[2017-05-27] MEDS: *HR* Labetalol 20 MG/4 ML SYRINGE IVP PRN ×5 (16:45→17:05)
[2017-05-27] MEDS ORDERED: *HR* HYDROcodone/Acet 5/325 mg TABLET PO PRN (18:03)
[2017-05-27] MEDS ORDERED: CeFAZolin Premix DUPLEX 2,000 MG/50 ML BAG IVPB SCH (18:03)
[2017-05-27] MEDS ORDERED: Ringers Solution, Lactated 1,000 ML IVC SCH (18:03)
[2017-05-27] MEDS ORDERED: Naloxone 0.4 MG/ML INJ IVP PRN (18:03)
[2017-05-27] MEDS ORDERED: Ondansetron 4 MG/2 ML VIAL IVP PRN (18:03)
[2017-05-27] MEDS ORDERED: Acetaminophen 325 MG TABLET PO PRN (18:03)
[2017-05-27] MEDS ORDERED: *HR* Labetalol 20 MG/4 ML SYRINGE IVP PRN (18:11)
[2017-05-27] MEDS: CeFAZolin Premix DUPLEX 2,000 MG/50 ML BAG IVPB SCH (20:03)
[2017-05-27] MEDS: *HR* OxyCODONE Immed Rel 5 MG TABLET PO PRN (20:24)
[2017-05-28] MEDS ORDERED: *HR* LORazepam 0.5 MG TABLET PO PRN (00:11)
[2017-05-28] MEDS ORDERED: Melatonin 3 MG TABLET PO PRN (00:15)
[2017-05-28] MEDS: CeFAZolin Premix DUPLEX 2,000 MG/50 ML BAG IVPB SCH (04:12)
[2017-05-28] MEDS: *HR* OxyCODONE Immed Rel 5 MG TABLET PO PRN (04:12)
[2017-05-28 07:19] LABS: Calcium 8.2 mg/dL (8.6-10.3); Potassium 4.7 mEq/L (3.5-5.1)
[2017-05-28] MEDS ORDERED: *HR* LORazepam 0.5 MG TABLET PO ONE (07:25)
[2017-05-28 07:29] LABS: Basophils % 0.2 %; Hematocrit 38.5 % (35.3-44.9); Hemoglobin 12.2 g/dL (11.5-15.4); Immature Granulocytes % 0.5 % (0-4); Lymphocytes # 0.8 K/mcL (0.6-4.6); Lymphocytes % 8.2 %; Mean Corpuscular HGB Conc 31.7 g/dL (31.6-35.5); Mean Corpuscular Hemoglobin 27.8 pg (28.0-33.3); Mean Corpuscular Volume 87.7 fL (83.0-100.0); Mean Platelet Volume 10.7 fL (9.4-12.4); Monocytes # 0.8 K/mcL (0.0-1.3); Monocytes % 7.7 %; Neutrophils # 8.4 K/mcL (1.6-8.9); Platelet Count 264 K/mcL (140-400); Red Blood Count 4.39 M/mcL (3.82-4.97); Red Cell Distribution Width 13.9 % (11.5-14.5); Segmented Neutrophils % 83.4 %
--- NOTE | 2017-05-28 08:50 | Discharge Summary ---
- NOTES TO OUTPATIENT PROVIDER Notes to Outpatient Provider: She will f/u with Dr. Wyatt as directed by spine surgery. She will have home PT/OT. Orders not resulted at time of discharge: Pending orders 05/28/17 08:00 XR cervical spine 3V [XR] Routine Date of Encounter: 05/28/17 Time of Encounter: 08:42 Hospital course: Hospital course: Ms. Hernandez is a 81 year old female with PMH significant for HTN, tobacco abuse, Vitamin D deficiency,, lumbar radicular pain, DM, Chronic kidney disease, gait difficulty and frequent falls who presented with frequent falls. This has been going on since the last few years. She actually saw Dr. Tashia Lewis for similar symptoms. Thought to have multifactorial causes. She does have ventricular enlargement but that was thought to be related to cerebral atrophy. She also has urinary frequency and incontinence. Initial CT of head showed no acute intracranial abnormality. Her MRI of brain and cervical spine did not show acute cerebral pathology but did show severe spinal canal stenosis at the level of C5-C6 with mild focal signal change. This appears symptomatic to neurology especially with her chronic worsening gait difficulty and frequent falling. Neurology recommended orthopedic evaluation and she was seen the next day by Dr. Wyatt. He also concluded that her severe cervica stenosis causing cervical myelopathy was the likely cause of her frequent falls and gait disturbance. After cardiac clearance by Cardiology he performed an anterior cervical decompression and fusion C4-C6. She tolerated the procedure well and was evaluated the next day by PT/OT for rehab needs and concluded she would need in home PT/OT. She was medicallt stable to be discharged to home. She was given [place] for pain control and discharge in stable condition. She will f/u with Dr. Wyatt as an OP. Discharge Diagnoses: 1) Severe C5/C6 spinal stenosis: MRI cervical spine showed thecal sac narrowing at C5/C6 No other focal neurological changes Neurology believes this finding accounts for her presenting symptoms Tried to page ortho/ecmo specialist transformation specialist but no response Consult Dr. Wyatt Surgery today F/U per surgery (2) Hypertension: Very hypertensive following surgery PRN Labetalol and Hydralazine ordered Norvasc started. (3) Falls and Gait disturbance: Falls are not associated other autonomic symptoms Falls suggest gait disorder. No signs of Parkinson disease. Not normal pressure hydrocephalus per neurology MRI of cervical spine to MR of brain done C5/C6 narrowing severe PT/OT ordered Discharge discussed with: patient, family, nurse, social work Time spent discussing smoking cessation with patient: more than 10 minutes - Time Spent with Patient Total time spent providing and/or coordinating discharge services: Greater than 30 minutes - Discharge Medications Prescriptions: HYDROcodone/Acet 5/325 mg [[place] 5-325 mg] 1 tab PO Q6HR PRN 5 Days #20 tablet PRN Reason: Moderate Pain Home Medications: BuPROPion SR (12 HR) [Wellbutrin SR] 150 mg PO DAILY 05/22/17 [History] Cholecalciferol (Vitamin D3) [Vitamin D3] 50,000 unit PO JOHNSON 05/22/17 [History] Cyanocobalamin (B-12) [Vitamin B12] 1,000 mcg SQ QMONTH 05/22/17 [History] Cyclobenzaprine [Flexeril] 10 mg PO BID 05/22/17 [History] Hydrocortisone 2.5% CREAM [Cortaid] 1 appl TP BID PRN 05/22/17 [History] LORazepam [Ativan] 0.5 mg PO BID PRN 05/22/17 [History] Losartan Potassium [Cozaar] 50 mg PO DAILY 05/22/17 [History] Melatonin/Pyridoxine HCl (B6) [Melatonin 3 mg Tablet] 1 tab PO HS PRN 05/22/17 [ History] Propranolol [Inderal] 10 mg PO BID 05/22/17 [History] Tramadol HCl [Ultram] 50 mg PO TID PRN 05/22/17 [History] traZODone [TraZODone] 50 mg PO HS 05/22/17 [History] HYDROcodone/Acet 5/325 mg [[place] 5-325 mg] 1 tab PO Q6HR PRN 5 Days #20 tablet 05/28/17 [Rx] Allergies/Adverse Reactions: 3 Allergy/AdvReac Type Severity Reaction Status Date / Time No Known Allergies Allergy Verified 05/22/17 15:55 Date of admission: 05/22/17 15:49 Primary care physician: Melvin Melo MD Consults: 05/22/17 16:36 Consult to Neurology [CONS] Routine Consulting Provider: [facility] Reason for Consult: Patient has hx of falls with most recent today. Reports 4 falls in last 5 days. States she always has feeling of falling backwards. No hx of CVA or TIA. CT shows no intracranial abnormality. MRI of head/brain ordered. Echo. Bilateral carotid Dopplers. Orthostatic BPs/VS. Call Completed: Yes 05/26/17 14:55 Consult to Cardiology [CONS] Routine Comment: Consulting Provider: Cardiology [facility] Reason for Consult: Dr. Mann request cardiac clearance for C-spine surgery in am tomorrow (requesting consult today) Dr. Mann requesting cardiac clearance for C-spine surgery tomorrow am (request consult today) Time Notified: 14:58 Call Completed: No 05/27/17 18:03 Consult to Occupational Therapy [CONS] Routine Comment: Evaluate, develop and implement POC Reason for Consult: Postoperative rehabilitation Does patient have active BEDREST order?: No Is patient medically & hemodynamically stable?: Yes Patient assessed for mobility or mobilized this visit?: No Consult to Physical Therapy [CONS] Routine Comment: Evaluate, develop and implement POC Reason for Consult: Postoperative rehabilitation Does patient have active BEDREST order?: No Is patient medically & hemodynamically stable?: Yes Patient assessed for mobility or mobilized this visit?: No Consult to Spine Navigator [CONS] [CONS] Routine Discharging clinician: Marv Huntley - Constitutional Vitals: Temp Pulse Resp BP Pulse Ox 98.3 F 82 17 154/71 92 05/28/17 04:56 05/28/17 04:56 05/28/17 04:56 05/28/17 04:56 05/28/17 04:56 General appearance: Present: cooperative, A&O X 3, pleasant, no acute distress, answers questions appropriately - Head Head exam: Present: atraumatic, normocephalic - Eye Eye exam: Present: EOMI, PERRL, conjuntiva pink, sclera anicteric Pupils: Present: PERRL - Neck Neck exam general surgery: Present: tenderness, supple, trachea midline. Absent : lymphadenopathy, thyromegaly - Respiratory Respiratory exam: Present: CTAB. Absent: accessory muscle use, rales, rhonchi, stridor, wheezes - Cardiovascular Cardiovascular exam: Present: RRR, +S1, +S2. Absent: diastolic murmur, gallop, rubs, systolic murmur - GI/Abdominal GI/Abdominal exam: Present: normal bowel sounds, soft, no peritoneal signs. Absent: distended, tenderness - Extremities Exam Extremities exam: Present: calf tenderness, cyanotic, warm, radial pulses palpable and symmetrical. Absent: pedal edema - Neurological Exam Neurological exam: Present: CN II-XII intact, oriented X3, no focal deficits. Absent: pronater drift, facial droop, speech deficit - Skin Skin exam: Present: dry, intact - Patient Status Disposition: Home Health Service Condition: Good - Discharge Instructions Instructions: Hydrocodone/Acetaminophen (By mouth), [place] Collar (DC), Lumbar Radiculopathy (GEN) Follow Up With: Francie Van PAC [Physician Tie Tamper] - 06/14/17 9:30 am Melvin Melo MD [Primary Care Provider] - 05/27/17 2:15 pm - VTE Documentation of Mechanical Device: Graduated compression elastic hosiery
[2017-05-28] MEDS ORDERED: BuPROPion SR (12 HR) 150 MG TABLET PO SCH (09:00)
[2017-05-28] MEDS ORDERED: amLODIPine 5 MG TABLET PO SCH (09:00)
--- NOTE | 2017-05-28 11:19 | Spine Progress Note ---
Date of Encounter: 05/28/17 Time of Encounter: 11:18 - Assessment and Plan (1) Cervical myelopathy Current Visit: Yes Status: Chronic On exam she is lying comfortably in bed, quite lucid in no significant distress. Afebrile vital signs stable. She has some limitation with cervical spine extension. She has good strength in all upper and lower extremity motor groups. She is grossly neurovascularly intact with regard to bilateral upper and lower extremities. She has a negative Gabriel sign. She has a negative inverted radial reflex. She has no clonus. Her hips move symmetrically. Gait was not tested. MRI of the cervical spine reveals multilevel degenerative changes. There is moderate central stenosis at C4-5 and severe central stenosis at C5-6 due to multifactorial components including disc osteophyte complexes, disc bulging , and ligamentum flavum hypertrophy. Impression: 1) cervical stenosis 2) cervical myelopathy 3) frequent falls with gait disturbance Plan: Due to her likelihood of neurologic progression I find it reasonable to consider surgery in the form of an anterior cervical decompression and fusion C4 -C6. Risk benefits and possible complications were discussed and the patient would like to proceed. Patient will have medical optimization and clearance measures performed in the interim we will plan on performing the surgery TuesdayMay 27. (2) Cervical stenosis of spinal canal Current Visit: Yes Status: Chronic Subjective Principal diagnosis: unsteady gait and frequent falls, status post cervical fusion Interval history: The patient is without complaints. Some mild dysphagia symptoms. Afebrile vital signs are stable. Incision is clean dry and intact. Neurovascularly intact with regard to bilateral upper extremities. Assessment :stable. Plan mobilize ,continue analgesics, discharge planning. From my standpoint may be discharged today in follow-up in 2 weeks. Instructions provided. Objective Vital signs: Vital Signs Temp Pulse Resp BP Pulse Ox 05/28/17 06:40 98.5 F 78 16 149/78 94 05/28/17 04:56 98.3 F 82 17 154/71 92 05/28/17 02:06 155/73 05/27/17 23:50 97.3 F L 78 17 184/87 94 05/27/17 21:31 98.5 F 78 16 184/93 93 05/27/17 20:10 98.5 F 79 16 182/93 94 05/27/17 19:00 98.6 F 74 16 173/84 95 05/27/17 18:32 98.5 F 73 16 182/80 95 05/27/17 18:00 98.6 F 75 17 186/81 93 05/27/17 17:19 73 18 180/81 95 05/27/17 17:09 98.0 F 74 20 175/74 96 05/27/17 16:59 71 16 179/80 93 05/27/17 16:49 97.4 F L 72 18 183/78 96 05/27/17 16:39 75 18 198/88 96 05/27/17 16:29 78 18 199/92 96 05/27/17 16:19 83 20 189/90 99 05/27/17 16:09 97.5 F L 86 16 173/94 96 Intake and Output 05/27/17 05/28/17 05/28/17 23:59 07:59 15:59 Intake Total 50 / 50 340 / 340 Balance 50 / 50 340 / 340 Intake: IV Fluids 50 / 50 Ancef Premix DUPLEX 2,000 mg In 50 / 50 50 ml @ 100 mls/hr IVPB Q8H [facility] Rx#:[id number] Oral 340 / 340 Other: Meal Breakfast Percent of Meal Consumed 40% - Labs CBC & BMP: 05/28/17 06:20 05/28/17 06:20 Labs: Abnormal lab results MCH 27.8 pg (28.0-33.3) L 05/28/17 06:20 Sodium 134 mEq/L (136-145) L 05/28/17 06:20 Creatinine 1.21 mg/dL (0.60-1.20) H 05/28/17 06:20 Est GFR ( Amer) 52 (> 60) L 05/28/17 06:20 Est GFR (Non-Af Amer) 43 (> 60) L 05/28/17 06:20 Glucose 115 mg/dL (70-105) H 05/28/17 06:20 Hemoglobin A1c 5.8 % (-5.6) H 05/23/17 05:17 Calcium 8.2 mg/dL (8.6-10.3) L 05/28/17 06:20 AST 12 Units/L (13-39) L 05/26/17 04:57 Serum Total Protein 5.4 g/dL (6.4-8.9) L 05/26/17 04:57 Albumin 2.8 g/dL (3.5-5.7) L 05/26/17 04:57 HDL Cholesterol 32 mg/dL (40-59) L 05/23/17 05:17 Ur Specimen Adequacy See below A 05/22/17 14:50 Urine Clarity Turbid (Clear) A 05/22/17 14:50 Ur Leukocyte Esterase Trace (Negative) H 05/22/17 14:50 Urine Microscopic WBC 3-5 per hpf (0-3) H 05/22/17 14:50 Ur Squamous Epith Cells Many per lpf (None-Few) H 05/22/17 14:50 Urine Bacteria Many per hpf (None-Few) H 05/22/17 14:50 Consult Discharge Plan - Plan Referrals: Melvin Melo MD [Primary Care Provider] - 05/27/17 2:15 pm Prescriptions: HYDROcodone/Acet 5/325 mg [[place] 5-325 mg] 1 tab PO Q6HR PRN 5 Days #20 tablet PRN Reason: Moderate Pain
[2017-05-28 11:42] VITALS: BP 154/76
--- NOTE | 2017-05-28 12:39 | Physician Discharge Referral ---
Home Health/Hosp Referral Info Attending Provider: christo Provider in Charge Post Discharge: PCP - Diagnosis (1) Cervical myelopathy Priority: Primary Status: Acute (2) Cervical stenosis of spinal canal Priority: Primary Status: Acute (3) Fall Priority: Primary Status: Acute (4) HTN (hypertension) Priority: Secondary Status: Chronic - Respiratory Orders Smoking Cessation: Smoking cessation has been advised. For more information, call the [place] Tobacco Quit Line at 7-017-ECRK-NOW. - Activity Activity Orders: Walker - Services Needed Following services are medically necessary services: Home Health Aide, Physical Therapy, Occupational Therapy - Transfer Medications Prescriptions: HYDROcodone/Acet 5/325 mg [[place] 5-325 mg] 1 tab PO Q6HR PRN 5 Days #20 tablet PRN Reason: Moderate Pain Home Medications: BuPROPion SR (12 HR) [Wellbutrin SR] 150 mg PO DAILY 05/22/17 [History] Cholecalciferol (Vitamin D3) [Vitamin D3] 50,000 unit PO JOHNSON 05/22/17 [History] Cyanocobalamin (B-12) [Vitamin B12] 1,000 mcg SQ QMONTH 05/22/17 [History] Cyclobenzaprine [Flexeril] 10 mg PO BID 05/22/17 [History] Hydrocortisone 2.5% CREAM [Cortaid] 1 appl TP BID PRN 05/22/17 [History] LORazepam [Ativan] 0.5 mg PO BID PRN 05/22/17 [History] Losartan Potassium [Cozaar] 50 mg PO DAILY 05/22/17 [History] Melatonin/Pyridoxine HCl (B6) [Melatonin 3 mg Tablet] 1 tab PO HS PRN 05/22/17 [ History] Propranolol [Inderal] 10 mg PO BID 05/22/17 [History] Tramadol HCl [Ultram] 50 mg PO TID PRN 05/22/17 [History] traZODone [TraZODone] 50 mg PO HS 05/22/17 [History] HYDROcodone/Acet 5/325 mg [[place] 5-325 mg] 1 tab PO Q6HR PRN 5 Days #20 tablet 05/28/17 [Rx] Allergies/Adverse Reactions: 3 Allergy/AdvReac Type Severity Reaction Status Date / Time No Known Allergies Allergy Verified 05/22/17 15:55 Certification: Further, I certify that my clinical findings support that this patient is homebound (i.e. absences from home require considerable and taxing effort and are for medical reasons or [facility] or infrequently or short duration when for other reasons) because: Homebound Reason: Patient requires assistance of a person or device to safely leave home Attestation: My signature below is to certify that this patient is under my care and that I, or nurse practitioner, or a physician's assistant librarian working with me, has a face-to -face encounter with this patient.
[2017-05-28] MEDS ORDERED: traZODone 50 MG TABLET PO SCH (21:00)
== END 2017-05-28 13:49 | disposition home health service (06) ==
LOC: EMEROO 12:55 → 3BNU 12:55 → 3NENU 05-26 19:01
PROVIDERS: ADMIT Student in an Organized Health Care Education/Training Program; ATTEND Registered Nurse

== ENCOUNTER 2018-02-19 09:40 | Inpatient (IN) ==
[2018-02-19] MEDS ORDERED: Ondansetron 4 MG/2 ML VIAL IVP ONE (09:55)
[2018-02-19] MEDS ORDERED: *HR* FentaNYL (PF) 100 MCG/2 ML VIAL IVP ONE ×2 (09:55→12:19)
[2018-02-19] MEDS ORDERED: 0.9 % Sodium Chloride 1,000 ML IVC ONE (09:55)
--- NOTE | 2018-02-19 09:57 | Emergency Department Note ---
Disposition Clinical Impression: Partial small bowel obstruction Disposition: Admitted As Inpatient Condition: Good Time of Disposition: 11:31 General Adult HPI - General Chief complaint: ED Nausea/Vomiting/Diarrhea Stated complaint: vomiting Time Seen by Provider: 02/19/18 09:41 Source: patient Limitations: no limitations Nursing Notes Reviewed: Yes Vital Signs Reviewed: Yes - History of Present Illness HPI Narrative: 82-year-old female presents emergency Department with 48 hours of nausea, vomiting, lower abdominal pain. Patient reports having history of cholecystectomy, hysterectomy, colectomy, with colostomy reversal. She localizes all of her pain to lower abdomen. She denies any fevers, chills, states that she has not been able tolerate any oral intake. She denies any dysuria, urinary. She, urgency, back pain. Patient describes that the pain is sharp in nature. It radiates upward into her upper abdomen. Pain Scale: 10 - Related Data Home Medications Medication Instructions Recorded Confirmed BuPROPion SR (12 HR) [Wellbutrin 150 mg PO DAILY 05/22/17 02/19/18 SR] Cholecalciferol (Vitamin D3) 50,000 unit PO JOHNSON 05/22/17 02/19/18 [Vitamin D3] Cyanocobalamin (B-12) [Vitamin B12] 1,000 mcg SQ QMONTH 05/22/17 02/19/18 Cyclobenzaprine [Flexeril] 10 mg PO BID 05/22/17 02/19/18 Hydrocortisone 2.5% CREAM [Cortaid] 1 appl TP BID PRN 05/22/17 02/19/18 LORazepam [Ativan] 0.5 mg PO BID PRN 05/22/17 02/19/18 Losartan Potassium [Cozaar] 50 mg PO DAILY 05/22/17 02/19/18 Tramadol HCl [Ultram] 50 mg PO TID 05/22/17 02/19/18 traZODone [TraZODone] 100 mg PO HS 05/22/17 02/19/18 Allergies Allergy/AdvReac Type Severity Reaction Status Date / Time No Known Allergies Allergy Verified 05/22/17 15:55 All systems ED: reviewed and negative except as stated. Review of Systems: As Per HPI Constitutional: Denies: fever, chills Cardiovascular: Denies: chest pain Respiratory: Denies: cough Gastrointestinal: Reports: abdominal pain, nausea, vomiting. Denies: diarrhea, constipation Genitourinary: Denies: urgency, dysuria, frequency Musculoskeletal: Denies: back pain Past Medical History - Past Medical History Medical history: Reports: hypertension, renal disease Psychiatric history: Reports: anxiety, depression - Social History Smoking Status: Current every day smoker Smokeless Tobacco Status: No Alcohol use: Reports: none Drug use: Reports: none Physical Exam - General Limitations: no limitations General appearance: alert - Head Head exam: normocephalic - Eye Eye exam: Present: EOMI - ENT ENT exam: mucous membranes moist - Neck Neck exam: Present: trachea midline - Chest Chest inspection: Present: symmetric chest wall rise - Respiratory Respiratory exam: Present: normal lung sounds bilaterally. Absent: respiratory distress, accessory muscle use - Cardiovascular Cardiovascular exam: Present: regular rate, normal rhythm, normal heart sounds - Abdominal Exam Abdominal exam: Present: soft, tenderness. Absent: distention, guarding, rebound, rigidity Abdominal tenderness: Present: RLQ, LLQ, suprapubic, moderate - Extremities Exam Extremities exam: Present: normal capillary refill - Back Exam Back exam: Present: full ROM - Neurological Exam Neurological exam: Present: alert, oriented X3 - Psychiatric Psychiatric exam: Present: normal affect, normal mood - Skin Skin exam: Present: warm, dry, intact, normal color. Absent: rash Course Vital Signs Temperature 98.6 F 02/19/18 09:46 Pulse Rate 77 02/19/18 09:46 Respiratory Rate 18 02/19/18 09:46 Blood Pressure 176/77 02/19/18 09:46 O2 Sat by Pulse Oximetry 97 02/19/18 09:46 Temperature 98.6 F 02/19/18 09:46 Pulse Rate 77 02/19/18 09:46 Respiratory Rate 18 02/19/18 09:46 Blood Pressure 176/77 02/19/18 09:46 O2 Sat by Pulse Oximetry 97 02/19/18 09:46 Oxygen Delivery Oxygen Delivery Room Air Medical Decision Making - [facility] Narrative Medical decision making narrative: 82-year-old female presents emergency department with concern for lower abdominal pain, nausea, vomiting the setting of having multiple previous surgeries. We did obtain a CT scan of abdomen and pelvis are. Reveals partial small bowel obstruction with a transition point at the distal ileum. There are also reported multiple bowel adhesions of the anterior abdominal wall. Patient given pain medication the emergency department. Labs were within normal limits. Currently awaiting a urinalysis at this time. I spoke with general surgery, Dr. Vallejo regarding the results of CT scan. She agrees to follow patient on the floor. Patient admitted to Dr. Lipscomb. Patient was informed of her test results. Currently hemodynamically stable. Has not vomited in the emergency department. I will not place a nasogastric tube at this time. Abdomen/Pelvis CT 02/19/18 09:51 IMPRESSION: 1. Partial small bowel obstruction with transition point distal ileum. 2. Multiple suspected bowel wall adhesions anterior abdominal wall. 3. Small ascites. 4. Nonobstructing left renal calculi. 5. Cholecystectomy. D/ / 02/19/2018 10:49:18 Justin Jaimes MD / Padmini Myers Interpreting Provider: Justin Jaimes MD Chest X-Ray 02/19/18 09:53 IMPRESSION: No acute cardiopulmonary disease. D/ / Josh Shah MD / Josh Shah MD Interpreting Provider: Josh Shah MD - Lab Data Result diagrams: 02/19/18 10:04 02/19/18 10:04 Lab Results 02/19/18 02/19/18 02/19/18 Range/Units 10:04 10:04 10:04 WBC 8.3 (4.3-11.1) K/mcL RBC 4.64 (3.82-4.97) M/mcL Hgb 12.9 (11.5-15.4) g/dL Hct 39.1 (35.3-44.9) % MCV 84.3 (83.0-100.0) fL MCH 27.8 L (28.0-33.3) pg MCHC 33.0 (31.6-35.5) g/dL RDW 13.3 (11.5-14.5) % Plt Count 250 (140-400) K/mcL MPV 10.6 (9.4-12.4) fL Immature Gran % 0.1 (0-4) % Seg Neutrophils % 81.8 % Lymphocytes % 9.7 % Monocytes % 7.6 % Eosinophils % 0.4 % Basophils % 0.4 % Neutrophils # 6.8 (1.6-8.9) K/mcL Lymphocytes # 0.8 (0.6-4.6) K/mcL Monocytes # 0.6 (0.0-1.3) K/mcL Eosinophils # 0.0 (0.0-0.6) K/mcL Basophils # 0.0 (0.0-0.2) K/mcL Sodium 138 (136-145) mEq/L Potassium 4.1 (3.5-5.1) mEq/L Chloride 103 (98-107) mEq/L Carbon Dioxide 28 (23-29) mEq/L BUN 21 (8-23) mg/dL Creatinine 1.35 H (0.60-1.20) mg/dL Est GFR ( Amer) 46 L (> 60) Est GFR (Non-Af Amer) 38 L (> 60) BUN/Creatinine Ratio 16 (6-26) Glucose 133 H (70-105) mg/dL Calculated Osmolality 291 (280-300) Lactic Acid 0.6 (0.5-2.2) mmol/L Calcium 8.1 L (8.6-10.3) mg/dL Total Bilirubin 0.6 (0.3-1.0) mg/dL AST 11 L (13-39) Units/L ALT 8 (7-52) Units/L Alkaline Phosphatase 77 (34-104) Units/L Troponin I < 0.03 (< 0.04) ng/mL Serum Total Protein 5.3 L (6.4-8.9) g/dL Albumin 2.9 L (3.5-5.7) g/dL Globulin 2.4 (2.4-3.5) g/dL Albumin/Globulin Ratio 1.2 (1.1-2.2) Lipase 7 L (11-82) Units/L - EKG Data EKG #1 EKG attestation: Yes I reviewed and interpreted this EKG. EKG results narrative: 10:21 Heart rate 77 bpm, AK interval 189 ms, QRS duration 150 ms, QTC 441 ms, normal axis. Sinus rhythm with a ventricular rate of 77 bpm. No evidence of any ischemic changes on this EKG. Incomplete right bundle-branch block. Attestation Statement - Attestation Attestation: I, Tereso Powell, examined this patient and my medical decision-making was reviewed with the PSYCHOLOGY PROFESSOR/PA/Advanced Practice Nurse/Resident Physician. I agree with the documented findings, disposition and treatment plan as described except to the extent set forth below. 65-year-old female presents emergency Department with concerns of abdominal pain, nausea, vomiting. Unable to tolerate by mouth intake over the past 2-3 days. Patient has history of multiple surgeries to her abdomen after a perforation of the colon with colonoscopy requiring colon resection and colostom y. Patient has small bowel obstruction on the CT scan. Resident spoke with the GI physician, Dr. Vallejo, regarding the patient's care. She will be admitted to the hospitalist for further care and evaluation. Has not vomited in the emergency department.
[2018-02-19 10:22] LABS: Basophils % 0.4 %; Eosinophils % 0.4 %; Hematocrit 39.1 % (35.3-44.9); Hemoglobin 12.9 g/dL (11.5-15.4); Immature Granulocytes % 0.1 % (0-4); Lymphocytes # 0.8 K/mcL (0.6-4.6); Lymphocytes % 9.7 %; Mean Corpuscular Hemoglobin 27.8 pg (28.0-33.3); Mean Corpuscular Volume 84.3 fL (83.0-100.0); Mean Platelet Volume 10.6 fL (9.4-12.4); Monocytes # 0.6 K/mcL (0.0-1.3); Monocytes % 7.6 %; Neutrophils # 6.8 K/mcL (1.6-8.9); Platelet Count 250 K/mcL (140-400); Red Blood Count 4.64 M/mcL (3.82-4.97); Red Cell Distribution Width 13.3 % (11.5-14.5); Segmented Neutrophils % 81.8 %
[2018-02-19 10:37] LABS: Alanine Aminotransferase 8 Units/L (7-52); Albumin 2.9 g/dL (3.5-5.7); Albumin/Globulin Ratio 1.2 (1.1-2.2); Alkaline Phosphatase 77 Units/L (34-104); Aspartate Amino Transferase 11 Units/L (13-39); BUN/Creatinine Ratio 16 (6-26); Bilirubin,Total 0.6 mg/dL (0.3-1.0); Blood Urea Nitrogen 21 mg/dL (8-23); Calcium 8.1 mg/dL (8.6-10.3); Carbon Dioxide 28 mEq/L (23-29); Chloride 103 mEq/L (98-107); Globulin 2.4 g/dL (2.4-3.5); Glucose 133 mg/dL (70-105); Lipase 7 Units/L (11-82); Osmolality,Calculated 291 (280-300); Potassium 4.1 mEq/L (3.5-5.1); Sodium 138 mEq/L (136-145); Total Protein 5.3 g/dL (6.4-8.9); Troponin I < 0.03 ng/mL (< 0.04); eGFR For Non-African Americans 38 (> 60)
[2018-02-19] MEDS ORDERED: Naloxone 0.4 MG/ML INJ IVP PRN (11:57)
--- NOTE | 2018-02-19 12:24 | Internal Med History&Physical ---
Date of Encounter: 02/19/18 Time of Encounter: 12:10 Internal Medicine - H&P: HPI Chief complaint: Abdominal pain, distention, nausea and vomiting Admitted From: Emergency Dept Plans for Post Hospital Care: Home History of present illness: Ms. Hernandez is a 82 year old female patient with a history of prior iatrogenic bowel perforation, status post multiple abdominal surgeries, hypertension, chronic kidney disease stage III presented to the ER with complaints of acute abdominal pain that began last night. Patient has been having nausea and vomiting since then. She has had about 4 episodes of emesis. Patient does have intermittent diarrhea but reports that she had only watery stool this morning which is not normal for her. She has not noticed any hematemesis or melena. She has not had any new episodes of emesis since coming to the ER but she continues to have significant abdominal distention which has not improved since coming to the ER. She reports severe abdominal pain currently that is generalized. Nonradiating. She denies any fevers or chills. No recent infections or antibiotic use. Patient does report a history of prior C. difficile. Past Med Surg Social Fam HX - Past Medical History Attestation: Yes The following information was validated with the patient. Source: patient Medical history: hypertension, renal disease Psychiatric history: anxiety, depression - Past Surgical History Additional surgical history: Exploratory laparotomy following a bowel perforation - Social History Smoking Status: Current every day smoker Smokeless Tobacco Status: No Alcohol use: none Drug use: none - Family History Father Family Member Ethnicity: Non- Living Status: Mother Family Member Ethnicity: Non- Living Status: Hx Family Cardiac Disorders: Yes ([place], CAD, HTN) Brother Family Member Ethnicity: Non- Living Status: Sister Family Member Ethnicity: Non- Living Status: Hx Family Cancer: Yes (Breast, Uterine) Internal Medicine - H&P: Meds BuPROPion SR (12 HR) [Wellbutrin SR] 150 mg PO DAILY 05/22/17 [History] Cholecalciferol (Vitamin D3) [Vitamin D3] 50,000 unit PO JOHNSON 05/22/17 [History] Cyanocobalamin (B-12) [Vitamin B12] 1,000 mcg SQ QMONTH 05/22/17 [History] Cyclobenzaprine [Flexeril] 10 mg PO BID 05/22/17 [History] Hydrocortisone 2.5% CREAM [Cortaid] 1 appl TP BID PRN 05/22/17 [History] LORazepam [Ativan] 0.5 mg PO BID PRN 05/22/17 [History] Losartan Potassium [Cozaar] 50 mg PO DAILY 05/22/17 [History] Melatonin/Pyridoxine HCl (B6) [Melatonin 3 mg Tablet] 1 tab PO HS PRN 05/22/17 [History] Propranolol [Inderal] 10 mg PO BID 05/22/17 [History] Tramadol HCl [Ultram] 50 mg PO TID PRN 05/22/17 [History] traZODone [TraZODone] 50 mg PO HS 05/22/17 [History] HYDROcodone/Acet 5/325 mg [[place] 5-325 mg] 1 tab PO Q6HR PRN 5 Days #20 tablet 05/28/17 [Rx] Allergy/AdvReac Type Severity Reaction Status Date / Time No Known Allergies Allergy Verified 05/22/17 15:55 All Systems PM: A 10-system review of systems was performed and is negative for pertinent findings except as documented above in the HPI. - Constitutional Constitutional: malaise, no chills, no fever(s), no night sweats - EENT Eyes: no change in vision, no discharge, no pain, no photophobia Ears: no ear discharge, no ear pain, no tinnitus Nose, mouth and throat: no dysphagia, no nasal discharge, no neck pain, no sore throat - Cardiovascular Cardiovascular ROS IM: no chest pain, no diaphoresis, no dyspnea, no lightheadedness, no palpitations, no syncope - Respiratory Respiratory: no cough, no dyspnea, no wheezing, no excessive phlegm production - Gastrointestinal Gastrointestinal: abdominal pain, nausea, vomiting - Genitourinary Genitourinary: no change in urinary stream, no dysuria, no flank pain, no hematuria - Musculoskeletal Musculoskeletal ROS IM: no numbness, no tingling - Integumentary Integumentary IM: no rash, no unusual bruising - Neurological Neurological ROS: no confusion, no convulsions, no focal weakness, no numbness, no tingling, no tremor(s) - Hematologic/Lymphatic Hematologic/Lymphatic: no easy bruising - Constitutional Vitals: Temp Pulse Resp BP Pulse Ox 98.6 F 77 18 168/72 97 12/16/18 09:46 02/19/18 09:46 02/19/18 11:48 02/19/18 11:48 02/19/18 09:46 General appearance: Present: cooperative, A&O X 3, answers questions appropriately Exam: General: Patient is alert, moderate distress, oriented x 3 Head: atraumatic, normocephalic, ENT: Mucous membranes moist Chest: normal inspection, symmetric chest rise Respiratory: Good respiratory effort. Normal breath sounds. No wheezing or crackles. Cardiovascular: Regular rate and rhythm. s1 and s2 normal No clicks, rubs, gallops, or murmurs. No pedal edema Abdomen: Abdomen is soft, distended, generalized tenderness. Bowel sounds are hypoactive Musculoskeletal: Spontaneously moving all extremities Skin: warm, dry, intact. Neuro: Alert oriented x 3 normal cranial nerves, no focal deficits Psych: Patient's affect is anxious Internal Med - H&P Results - Labs CBC & Chem 7: 02/19/18 10:04 02/19/18 10:04 Labs: Short CBC 02/19/18 Range/Units 10:04 WBC 8.3 (4.3-11.1) K/mcL Hgb 12.9 (11.5-15.4) g/dL Hct 39.1 (35.3-44.9) % Plt Count 250 (140-400) K/mcL Neutrophils # 6.8 (1.6-8.9) K/mcL BMP 02/19/18 10:04 Sodium 138 Potassium 4.1 Chloride 103 Carbon Dioxide 28 BUN 21 Creatinine 1.35 H Glucose 133 H Calcium 8.1 L Cardiac Enzymes 02/19/18 Range/Units 10:04 Troponin I < 0.03 (< 0.04) ng/mL Liver Function 02/19/18 Range/Units 10:04 Total Bilirubin 0.6 (0.3-1.0) mg/dL AST 11 L (13-39) Units/L ALT 8 (7-52) Units/L Alkaline Phosphatase 77 (34-104) Units/L Albumin 2.9 L (3.5-5.7) g/dL - Impressions ITS Impressions Abdomen/Pelvis CT 02/19/18 09:51 IMPRESSION: 1. Partial small bowel obstruction with transition point distal ileum. 2. Multiple suspected bowel wall adhesions anterior abdominal wall. 3. Small ascites. 4. Nonobstructing left renal calculi. 5. Cholecystectomy. D/ / 02/19/2018 10:49:18 Justin Jaimes MD / Padmini Myers Interpreting Provider: Justin Jaimes MD Chest X-Ray 02/19/18 09:53 IMPRESSION: No acute cardiopulmonary disease. D/ / Josh Shah MD / Josh Shah MD Interpreting Provider: Josh Shah MD - Assessment and plan (1) Partial small bowel obstruction Current Visit: Yes Status: Acute Assessment and plan: Patient with acute partial small bowel obstruction with transition point in distal ileum per CT. Patient's symptoms have not improved much since coming to the ER. Abdomen is still very distended. Will order nasogastric tube placement and low wall suction. Consult surgery. IV fluids. Keep nothing by mouth. Monitor vital signs closely. Symptomatic treatment with antiemetics and pain medications. High risk for complications (2) Anxiety and depression Current Visit: Yes Status: Chronic Assessment and plan: Will place her on intravenous Ativan while patient is nothing by mouth. Patient takes oral Ativan at home. (3) CKD (chronic kidney disease) stage 3, GFR 30-59 ml/min Current Visit: Yes Status: Chronic Assessment and plan: Renal function is currently stable. Gentle IV hydration as patient is nothing by mouth. (4) HTN (hypertension) Current Visit: No Status: Chronic Assessment and plan: Uncontrolled. Patient will be nothing by mouth. As such we will place her on Lopressor from 5 mg IV every 6 hours to control her blood pressure. Qualifiers: Hypertension type: essential hypertension Qualified Code(s): I10 - Essential (primary) hypertension (5) DVT prophylaxis Current Visit: Yes Status: Acute Assessment and plan: With SCDs and subcutaneous heparin - Time Spent With Patient Total time spent is greater than 50% in coordination of care (as documented) at patient's floor/unit and/or counseling patient:
[2018-02-19] MEDS ORDERED: Ringers Solution, Lactated 1,000 ML IVC SCH (12:30)
[2018-02-19] MEDS ORDERED: *HR* HYDROmorphone 2 MG/ML SYRINGE IVP ONE (13:35)
[2018-02-19] MEDS: *HR* Metoprolol 5 MG/5 ML VIAL IVP SCH ×3 (13:41→23:46)
--- NOTE | 2018-02-19 15:15 | General Surgery Consult Note ---
Date of Encounter: 02/19/18 Time of Encounter: 15:10 Assessment and Plan (1) Small bowel obstruction due to adhesions Current Visit: Yes Status: Acute patient with multiple previous abdominal surgeries and now with small bowel obstruction due to adhesions most likely npo ivf hydration prn pain control ngt to liws prn antiemetics gi/dvt prophylaxis discussed with patient will plan conservative therapy currently in hopes her small bowel obtruction will resolve on its own serial abdominal exams medical management per hospitalist (2) CKD (chronic kidney disease) stage 3, GFR 30-59 ml/min Current Visit: Yes Status: Chronic at baseline currently (3) Diarrhea Current Visit: No Status: Acute if any further liquid stools will check Cdiff (gi panel) Qualifiers: Diarrhea type: unspecified type Qualified Code(s): R19.7 - Diarrhea, unspecified (4) DVT prophylaxis Current Visit: Yes Status: Acute heparin sq History of Present Illness Consult date: 02/19/18 Reason for consult: other (SBO) Requesting physician: Marbin Wheat History of present illness: Patient is an 82 yo female with multiple previous abdominal surgeries. This past tuesday (6 days ago) she stated having generalized abdominal pain which she describes as someone squeezing her intestines. The pain was constant but now comes and goes. She has been having nausea and vomiting associated with it. She has had watery stools last few days too. No melena or hematochezia. No hematemesis. No fevers, chills or night sweats. She has had multiple previous abdominal surgeries in the past. States she had a bowel perforation due to colonoscopy, sigmoid colectomy with colostomy and then reversal. During one of the surgeries there was a bladder injury. She presented to ED today and CT showed 1. Partial small bowel obstruction with transition point distal ileum. 2. Multiple suspected bowel wall adhesions anterior abdominal wall. Past Med Surg Social Fam HX - Past Medical History Source: patient Medical history: diabetes, hyperlipidemia, hypertension, renal disease Psychiatric history: anxiety, depression - Past Surgical History Surgical History: , cholecystectomy (open), colectomy, colostomy (reversed), NELSY/BSO, AICD Additional surgical history: Exploratory laparotomy following a bowel p erforation, sigmoid colectomy with colostomy, colostomy reversal, bladder injury/repair - Social History Smoking Status: Current every day smoker Smokeless Tobacco Status: No Alcohol use: none Drug use: none - Family History Father Family Member Ethnicity: Non- Living Status: Mother Family Member Ethnicity: Non- Living Status: Hx Family Cardiac Disorders: Yes ([place], CAD, HTN) Brother Family Member Ethnicity: Non- Living Status: Sister Family Member Ethnicity: Non- Living Status: Hx Family Cancer: Yes (Breast, Uterine) Medications and Allergies BuPROPion SR (12 HR) [Wellbutrin SR] 150 mg PO DAILY 05/22/17 [History] Cholecalciferol (Vitamin D3) [Vitamin D3] 50,000 unit PO JOHNSON 05/22/17 [History] Cyanocobalamin (B-12) [Vitamin B12] 1,000 mcg SQ QMONTH 05/22/17 [History] Cyclobenzaprine [Flexeril] 10 mg PO BID 05/22/17 [History] Hydrocortisone 2.5% CREAM [Cortaid] 1 appl TP BID PRN 05/22/17 [History] LORazepam [Ativan] 0.5 mg PO BID PRN 05/22/17 [History] Losartan Potassium [Cozaar] 50 mg PO DAILY 05/22/17 [History] Tramadol HCl [Ultram] 50 mg PO TID 05/22/17 [History] traZODone [TraZODone] 100 mg PO HS 05/22/17 [History] Allergy/AdvReac Type Severity Reaction Status Date / Time No Known Allergies Allergy Verified 05/22/17 15:55 Review of Systems All systems PM: reviewed and no additional remarkable complaints except as stated All systems PM: The remainder of the systems were reviewed and are negative General Surgery Exam Initial Vital Signs Temp Pulse Resp BP Pulse Ox 98.6 F 77 18 176/77 97 02/19/18 09:46 02/19/18 09:46 02/19/18 09:46 02/19/18 09:46 02/19/18 09:46 - General physical appearance well developed, well nourished, no distress - Eyes PERRL, normal ocular movement - ENT normal mucosa, normocephalic - Neck trachea midline - Respiratory normal expansion, clear to auscultation - Cardiovascular Cardiovascular exam: Present: RRR - Abdomen Abdomen general surgery: Present: bowel sounds present (faint), soft, distended (minimally), tender. Absent: guarding, rebound Abdominal Tenderness: Present: diffusely - Integumentary Integumentary general surgery: Present: warm and dry, no abnormal pigmentation - Neurologic Present: CN 2-12 grossly intact - Musculoskeletal Present: normal posture - Psychiatric Psychiatric general surgery: Present: A&Ox3, speech is normal Exam Initial Vital Signs Temp Pulse Resp BP Pulse Ox 98.6 F 77 18 176/77 97 02/19/18 09:46 02/19/18 09:46 02/19/18 09:46 02/19/18 09:46 02/19/18 09:46 Results - Labs 02/19/18 10:04 02/19/18 10:04 Abnormal lab results MCH 27.8 pg (28.0-33.3) L 02/19/18 10:04 Creatinine 1.35 mg/dL (0.60-1.20) H 02/19/18 10:04 Est GFR ( Amer) 46 (> 60) L 02/19/18 10:04 Est GFR (Non-Af Amer) 38 (> 60) L 02/19/18 10:04 Glucose 133 mg/dL (70-105) H 02/19/18 10:04 Calcium 8.1 mg/dL (8.6-10.3) L 02/19/18 10:04 AST 11 Units/L (13-39) L 02/19/18 10:04 Serum Total Protein 5.3 g/dL (6.4-8.9) L 02/19/18 10:04 Albumin 2.9 g/dL (3.5-5.7) L 02/19/18 10:04 Lipase 7 Units/L (11-82) L 02/19/18 10:04 Diabetes panel 02/19/18 Range/Units 10:04 Sodium 138 (136-145) mEq/L Potassium 4.1 (3.5-5.1) mEq/L Chloride 103 (98-107) mEq/L Carbon Dioxide 28 (23-29) mEq/L BUN 21 (8-23) mg/dL Creatinine 1.35 H (0.60-1.20) mg/dL Glucose 133 H (70-105) mg/dL Calcium 8.1 L (8.6-10.3) mg/dL AST 11 L (13-39) Units/L ALT 8 (7-52) Units/L Alkaline Phosphatase 77 (34-104) Units/L Albumin 2.9 L (3.5-5.7) g/dL Calcium panel 02/19/18 Range/Units 10:04 Calcium 8.1 L (8.6-10.3) mg/dL Albumin 2.9 L (3.5-5.7) g/dL Pituitary panel 02/19/18 Range/Units 10:04 Sodium 138 (136-145) mEq/L Potassium 4.1 (3.5-5.1) mEq/L Chloride 103 (98-107) mEq/L Carbon Dioxide 28 (23-29) mEq/L BUN 21 (8-23) mg/dL Creatinine 1.35 H (0.60-1.20) mg/dL Glucose 133 H (70-105) mg/dL Calcium 8.1 L (8.6-10.3) mg/dL Adrenal panel 02/19/18 Range/Units 10:04 Sodium 138 (136-145) mEq/L Potassium 4.1 (3.5-5.1) mEq/L Chloride 103 (98-107) mEq/L Carbon Dioxide 28 (23-29) mEq/L BUN 21 (8-23) mg/dL Creatinine 1.35 H (0.60-1.20) mg/dL Glucose 133 H (70-105) mg/dL Calcium 8.1 L (8.6-10.3) mg/dL Total Bilirubin 0.6 (0.3-1.0) mg/dL AST 11 L (13-39) Units/L ALT 8 (7-52) Units/L Alkaline Phosphatase 77 (34-104) Units/L Albumin 2.9 L (3.5-5.7) g/dL All other labs normal. - Imaging CT scan - abdomen: report reviewed, image reviewed CT scan - pelvis: report reviewed, image reviewed Consult Discharge Plan - Plan Referrals: Melvin Melo MD [Primary Care Provider] -
[2018-02-19] MEDS: 0.9 % Sodium Chloride 1,000 ML IVC SCH (18:05)
[2018-02-19] MEDS: MORPHINE SUL Oral CONC 10 MG/0.5 ML ORAL.SYG SL PRN ×2 (18:05→23:55)
[2018-02-19] MEDS: Ondansetron 4 MG/2 ML VIAL IVP PRN (18:19)
[2018-02-19] MEDS: *HR* LORazepam 2 MG/ML VIAL IVP PRN (19:40)
[2018-02-19] MEDS: Nystatin POWDER 30 GM BOTTLE TP SCH (19:45)
[2018-02-20] MEDS: Ondansetron 4 MG/2 ML VIAL IVP PRN (02:54)
[2018-02-20] MEDS: MORPHINE SUL Oral CONC 10 MG/0.5 ML ORAL.SYG SL PRN ×3 (03:10→11:11)
[2018-02-20] MEDS ORDERED: MORPHINE SUL Oral CONC 10 MG/0.5 ML ORAL.SYG SL ONE (04:14)
[2018-02-20 04:44] LABS: Basophils % 0.5 %; Eosinophils # 0.1 K/mcL (0.0-0.6); Hematocrit 40.3 % (35.3-44.9); Hemoglobin 13.2 g/dL (11.5-15.4); Immature Granulocytes % 0.2 % (0-4); Lymphocytes % 17.7 %; Mean Corpuscular HGB Conc 32.8 g/dL (31.6-35.5); Mean Corpuscular Hemoglobin 27.8 pg (28.0-33.3); Mean Corpuscular Volume 84.8 fL (83.0-100.0); Mean Platelet Volume 10.9 fL (9.4-12.4); Monocytes # 0.6 K/mcL (0.0-1.3); Monocytes % 10.5 %; Platelet Count 265 K/mcL (140-400); Red Blood Count 4.75 M/mcL (3.82-4.97); Red Cell Distribution Width 13.4 % (11.5-14.5); Segmented Neutrophils % 70.1 %
[2018-02-20] MEDS ORDERED: Acetaminophen IV 500 MG/50 ML INFUS..BTL IVPB ONE (05:00)
[2018-02-20 05:06] LABS: Magnesium 1.6 mg/dL (1.6-2.6); Phosphorous 2.6 mg/dL (2.7-4.5)
[2018-02-20 05:07] LABS: BUN/Creatinine Ratio 18 (6-26); Blood Urea Nitrogen 19 mg/dL (8-23); Calcium 7.9 mg/dL (8.6-10.3); Carbon Dioxide 27 mEq/L (23-29); Chloride 106 mEq/L (98-107); Glucose 91 mg/dL (70-105); Osmolality,Calculated 286 (280-300); Potassium 3.9 mEq/L (3.5-5.1); Sodium 137 mEq/L (136-145); eGFR For Non-African Americans 50 (> 60)
[2018-02-20] MEDS: *HR* Metoprolol 5 MG/5 ML VIAL IVP SCH ×4 (06:21→23:41)
[2018-02-20] MEDS: 0.9 % Sodium Chloride 1,000 ML IVC SCH ×2 (06:57→19:56)
[2018-02-20] MEDS: Pantoprazole 40 MG VIAL IVP SCH (08:12)
[2018-02-20] MEDS: Nystatin POWDER 30 GM BOTTLE TP SCH ×2 (08:16→20:04)
--- NOTE | 2018-02-20 09:04 | Internal Med Progress Note ---
<Ricardo Servin R - Last Filed: 02/20/18 13:45> Hospitalist Progress Note - Encounter Date of Encounter: 02/20/18 Time of Encounter: 08:20 - Subjective Interval History: Patient seen and evaluated at the bedside. Reporting small amount of improvement in abdominal pain and distention. NG is in place. Denies recent nausea, vomiti ng, or flatus. Nausea improved with NG and medication. Reports that pain is still 10/. - Exam Vitals: Temp Pulse Resp BP Pulse Ox 99.0 F 75 15 168/79 94 02/20/18 04:02 02/20/18 08:05 02/20/18 08:05 02/20/18 08:05 02/20/18 08:05 Exam: General: Supine in bed, generally uncomfortable in appearance without s ignificant distress. HEENT: Head is atraumatic, anicteric sclera, pupils PERRLA with EOMI, NG tube is present and fixed with adhesive Cardio:Regular rate and rhythm without murmurs, rubs, or gallops. Respiratory: Non labored breathing, clear to auscultation bilateral lung flores. Abdomen: Distended, painful to light palpation throughout, bowel sounds hypoactive but present Extremities: Symmetric movement, no focal deficits Neuro: alert and oriented x3 - Assessment and Plan (1) HTN (hypertension) Current Visit: No Status: Chronic Assessment and Plan: Chronic hypertension on Losartan 50 mg daily at home, on hold for NPO Hypertensive overnight with systolic BP in 190-200 range, received hydralazine overnight with improvement into the 160's. Pain uncontrolled during evaluation and likely contributing to hypertension Plan: Add Ofirmev 1,000 Q8H for better pain control Continue Metoprolol 5 mg Q6H and Hydralazine 10 mg prn Q6H If hypertension persists will consider switching to IV Enalapril (2) CKD (chronic kidney disease) stage 3, GFR 30-59 ml/min Current Visit: Yes Status: Chronic Assessment and Plan: Stable creatinine at baseline. Continue to follow and avoid nephrotoxic agents. (3) Anxiety and depression Current Visit: Yes Status: Chronic Assessment and Plan: Continue IV ativan 0.5 mg BID PRN, will transition to oral when patient is taking diet (4) DVT prophylaxis Current Visit: Yes Status: Acute Assessment and Plan: Heparin 5000 units SQ Q8H (5) Partial small bowel obstruction Current Visit: Yes Status: Acute Assessment and Plan: History of multiple abdominal surgeries including partial colectomy. CT abdomen/pelvis obtained at presentation with finding concerning for bowel obstruction and distal ileum transition point. Nausea improved but Pain persisting with sublingual morphine Plan: General surgery consulted appreciate their recommendations, Reglan and a.m. KUB ordered per surgery team Will keep NPO with NG to LIWS Add Ofirmev for additional pain control Will replace calcium and magnesium - Time Spent with Patient Total time spent is greater than 50% in coordination of care (as documented) at patient's floor/unit and/or counseling patient: Internal Medicine: Result - Labs CBC & Chem 7: 02/20/18 03:54 02/20/18 03:54 Labs: Short CBC 02/19/18 02/20/18 Range/Units 10:04 03:54 WBC 8.3 5.7 (4.3-11.1) K/mcL Hgb 12.9 13.2 (11.5-15.4) g/dL Hct 39.1 40.3 (35.3-44.9) % Plt Count 250 265 (140-400) K/mcL Neutrophils # 6.8 4.0 (1.6-8.9) K/mcL BMP 02/19/18 02/20/18 10:04 03:54 Sodium 138 137 Potassium 4.1 3.9 Chloride 103 106 Carbon Dioxide 28 27 BUN 21 19 Creatinine 1.35 H 1.05 Glucose 133 H 91 Calcium 8.1 L 7.9 L Cardiac Enzymes 02/19/18 Range/Units 10:04 Troponin I < 0.03 (< 0.04) ng/mL Liver Function 02/19/18 Range/Units 10:04 Total Bilirubin 0.6 (0.3-1.0) mg/dL AST 11 L (13-39) Units/L ALT 8 (7-52) Units/L Alkaline Phosphatase 77 (34-104) Units/L Albumin 2.9 L (3.5-5.7) g/dL - Impressions Impressions Abdomen/Pelvis CT 02/19/18 09:51 IMPRESSION: 1. Partial small bowel obstruction with transition point distal ileum. 2. Multiple suspected bowel wall adhesions anterior abdominal wall. 3. Small ascites. 4. Nonobstructing left renal calculi. 5. Cholecystectomy. D/ / 02/19/2018 10:49:18 Justin Jaimes MD / Padmini Myers Interpreting Provider: Justin Jaimes MD Chest X-Ray 02/19/18 09:53 IMPRESSION: No acute cardiopulmonary disease. D/ / Josh Shah MD / Josh Shah MD Interpreting Provider: Josh Shah MD X-Ray 02/19/18 12:20 IMPRESSION: Enteric catheter tip at the GE junction. Advance catheter 13-15 cm. D/ / Josh Shah MD / Josh Shah MD Interpreting Provider: Josh Shah MD X-Ray 02/19/18 18:15 IMPRESSION: Interval repositioning with the side hole of the nasogastric tube past the gastroesophageal junction, set in the fundus of the stomach. D/ / Julius Koch / Julius Koch Interpreting Provider: Julius Koch Consult Discharge Plan - Plan Referrals: Melvin Melo MD [Primary Care Provider] - <Weston Thakkar - Last Filed: 02/20/18 14:56> Hospitalist Progress Note - Encounter Date of Encounter: 02/20/18 - Exam Vitals: Temp Pulse Resp BP Pulse Ox 98.4 F 70 15 159/76 97 02/20/18 13:55 02/20/18 13:55 02/20/18 13:55 02/20/18 13:55 02/20/18 13:55 - Assessment and Plan (1) HTN (hypertension) Current Visit: No Status: Chronic (2) CKD (chronic kidney disease) stage 3, GFR 30-59 ml/min Current Visit: Yes Status: Chronic (3) DVT prophylaxis Current Visit: Yes Status: Acute (4) Anxiety and depression Current Visit: Yes Status: Chronic (5) Partial small bowel obstruction Current Visit: Yes Status: Acute - Time Spent with Patient Total time spent is greater than 50% in coordination of care (as documented) at patient's floor/unit and/or counseling patient: Internal Medicine: Result - Labs CBC & Chem 7: 02/20/18 03:54 02/20/18 03:54 Labs: Short CBC 02/20/18 Range/Units 03:54 WBC 5.7 (4.3-11.1) K/mcL Hgb 13.2 (11.5-15.4) g/dL Hct 40.3 (35.3-44.9) % Plt Count 265 (140-400) K/mcL Neutrophils # 4.0 (1.6-8.9) K/mcL BMP 02/20/18 03:54 Sodium 137 Potassium 3.9 Chloride 106 Carbon Dioxide 27 BUN 19 Creatinine 1.05 Glucose 91 Calcium 7.9 L Urine 02/20/18 Range/Units 08:45 Urine Color Yellow (Yellow) Urine Clarity Clear (Clear) Urine pH 5.5 (5.0-8.0) pH Units Ur Specific [place] 1.016 (1.010-1.025) Urine Protein Trace (Neg-Trace) mg/dL Urine Glucose (UA) Normal (Normal) mg/dL - Impressions Impressions Abdomen/Pelvis CT 02/19/18 09:51 IMPRESSION: 1. Partial small bowel obstruction with transition point distal ileum. 2. Multiple suspected bowel wall adhesions anterior abdominal wall. 3. Small ascites. 4. Nonobstructing left renal calculi. 5. Cholecystectomy. D/ / 02/19/2018 10:49:18 Justin Jaimes MD / Padmini Myers Interpreting Provider: Justin Jaimes MD X-Ray 02/19/18 12:20 IMPRESSION: Enteric catheter tip at the GE junction. Advance catheter 13-15 cm. D/ / Josh Shah MD / Josh Shah MD Interpreting Provider: Josh Shah MD X-Ray 02/19/18 18:15 IMPRESSION: Interval repositioning with the side hole of the nasogastric tube past the gastroesophageal junction, set in the fundus of the stomach. D/ / Julius Koch / Julius Koch Interpreting Provider: Julius Koch - Attending Attestation I have performed a face- to face examination of this patient and participated in formulation of wilks components of Assessment and plan with the Resident. This is an 82-year-old female with a history of hypertension, CK D stage III, prior history of bowel injury status post colonoscopy which ultimately required an abdominal surgery who presented with abdominal pain and distention and suggestion of partial small bowel obstruction. Clinically the patient appears to be doing better she still has significant amount of suctioning that is been drained out from her NG tube. General surgery is following. For pain control we will add IV Tylenol. We have yet to determine how we can advance her diet-general surgery will lead us on that. Her pain control seems to be better he did have hypertension was not well controlled but there seems to be a component of pain as well. Consider adding enalaprilat to her regimen if her blood pressure still continues to be high despite current regimen and before oral medication regimen resumes Her abdomen is soft nondistended and nontender to palpation at this point. Rest of the assessment and plan as per the resident documentation above <Ricardo Servin R - Last Filed: 02/20/18 13:45> (1) HTN (hypertension) Qualifiers: Hypertension type: essential hypertension Qualified Code(s): I10 - Essential (primary) hypertension <Weston Thakkar G - Last Filed: 02/20/18 14:56> (1) HTN (hypertension) Qualifiers: Hypertension type: essential hypertension Qualified Code(s): I10 - Essential (primary) hypertension
[2018-02-20 09:18] LABS: Bilirubin,Urine Small (Negative); Blood,Urine Negative (Negative); Clarity,Urine Clear (Clear); Color,Urine Yellow (Yellow); Glucose,Urine (UA) Normal (Normal); Ketones,Urine 15 mg/dL (Negative); Leukocyte Esterase,Urine Negative (Negative); Nitrite,Urine Negative (Negative); PH,Urine 5.5 pH Units (5.0-8.0); Protein,Urine Trace mg/dL (Neg-Trace); Specific Gravity,Urine 1.016 (1.010-1.025); Urobilinogen,Urine Normal (Normal)
[2018-02-20 09:21] LABS: Bacteria,Urine None Seen per hpf (None-Few); Hyaline Casts,Urine None Seen per lpf (None-Few); RBC,Urine 0-3 per hpf (0-3); Squamous Epithelial Cell,Urine Many per lpf (None-Few); WBC,Urine 0-3 per hpf (0-3)
[2018-02-20] MEDS ORDERED: Acetaminophen IV 1,000 MG/100 ML INFUS..BTL IVPB ONE (10:32)
[2018-02-20] MEDS: *HR* LORazepam 2 MG/ML VIAL IVP PRN ×2 (10:35→20:20)
[2018-02-20 12:36] LABS: VBG Ionized Calcium 1.07 mmol/L (1.15-1.35)
--- NOTE | 2018-02-20 13:22 | General Surgery Progress Note ---
<Nelida Schreiber - Last Filed: 02/20/18 13:20> Date of Encounter: 02/20/18 Time of Encounter: 11:30 - Assessment and Plan (1) Partial small bowel obstruction Current Visit: Yes Status: Acute Appears to be resolving. She reports passing flatus this am. She has faint and hypoactive bowel sounds, bt states she still feels a "little bloated." She would like to walk as this has helped in the past. She is encouraged to ambulate and her NG may be clamped to do so. If her bloating and discomfort continues to improve, will consider small bowel follow-through in the a.m. Plan: continue supportive care and discomfort management while awaiting return about function continue NG to low intermittent wall suction Reglan x3 doses ambulate TID, may clamp NG to ambulate continue IV fluids continue G.I. and DVT prophylaxis serial abdominal exams repeat a.m. labs KUB in am (2) CKD (chronic kidney disease) stage 3, GFR 30-59 ml/min Current Visit: Yes Status: Chronic at baseline Management per primary team (3) Diarrhea Current Visit: No Status: Acute No further episodes noted Qualifiers: Diarrhea type: unspecified type Qualified Code(s): R19.7 - Diarrhea, unspecified (4) DVT prophylaxis Current Visit: Yes Status: Acute heparin SQ EPCDs Subjective Patient reports: no new complaints, feels better, pain is less, voiding w/o difficulty, flatus ("once or twice this morning"), no bowel movement, afebrile Objective Vital Signs - Last 8 Hours Temp Pulse Resp BP Pulse Ox 02/20/18 09:58 99.0 F 71 14 178/77 98 02/20/18 08:05 75 15 168/79 94 Intake and Output 02/19/18 02/20/18 02/20/18 23:59 07:59 15:59 Intake Total 0 / 0 1050 / 1050 Output Total 350 / 350 400 / 400 175 / 175 Balance -350 / -350 650 / 650 -175 / -175 Intake: IV Fluids 1050 / 1050 0.9 % Sodium Chloride 1,000 ML 1000 / 1000 @ 80 mls/hr IVC .[id number] [facility] Rx #:[id number] Ofirmev 1,000 mg/100 ml 500 mg 50 / 50 In 50 ml @ 200 mls/hr IVPB ONCE ONE Rx#:[id number] Oral 0 / 0 0 / 0 Output: Urine 50 / 50 0 / 0 Straight Cath 75 / 75 Gastric Drainage 300 / 300 400 / 400 100 / 100 Other: Meal NPO # Voids 1 # Urine Diapers 1 Weight 73.7 kg Blood Glucose* 117 94 88 Patient Weight 02/20/18 23:59 Weight 73.7 kg - General physical appearance no distress, no pain (rsting with eyes closed upon my entry to the room) - ENT normal nares (NG secured) - Neck Neck exam: trachea midline - Respiratory normal expansion, normal respiratory effort, clear to auscultation - Cardiovascular Cardiovascular exam: Present: RRR - Abdomen Abdomen: Present: bowel sounds present (hypoactive and faint), soft, non tender Hernia: none - Integumentary no rash - Neurologic normal coordination, normal sensation - Musculoskeletal normal posture - Psychiatric oriented to time, oriented to person, oriented to place, speech is normal, memor y intact - Labs 02/20/18 03:54 02/20/18 03:54 Diabetes panel 02/20/18 Range/Units 03:54 Sodium 137 (136-145) mEq/L Potassium 3.9 (3.5-5.1) mEq/L Chloride 106 (98-107) mEq/L Carbon Dioxide 27 (23-29) mEq/L BUN 19 (8-23) mg/dL Creatinine 1.05 (0.60-1.20) mg/dL Glucose 91 (70-105) mg/dL Calcium 7.9 L (8.6-10.3) mg/dL Calcium panel 02/20/18 02/20/18 Range/Units 03:54 03:54 Calcium 7.9 L (8.6-10.3) mg/dL Phosphorus 2.6 L (2.7-4.5) mg/dL Pituitary panel 02/20/18 Range/Units 03:54 Sodium 137 (136-145) mEq/L Potassium 3.9 (3.5-5.1) mEq/L Chloride 106 (98-107) mEq/L Carbon Dioxide 27 (23-29) mEq/L BUN 19 (8-23) mg/dL Creatinine 1.05 (0.60-1.20) mg/dL Glucose 91 (70-105) mg/dL Calcium 7.9 L (8.6-10.3) mg/dL Adrenal panel 02/20/18 Range/Units 03:54 Sodium 137 (136-145) mEq/L Potassium 3.9 (3.5-5.1) mEq/L Chloride 106 (98-107) mEq/L Carbon Dioxide 27 (23-29) mEq/L BUN 19 (8-23) mg/dL Creatinine 1.05 (0.60-1.20) mg/dL Glucose 91 (70-105) mg/dL Calcium 7.9 L (8.6-10.3) mg/dL Consult Discharge Plan - Plan Referrals: Melvin Melo MD [Primary Care Provider] - <Shirley Vallejo - Last Filed: 02/20/18 18:22> Date of Encounter: 02/20/18 - Assessment and Plan (1) Small bowel obstruction due to adhesions Current Visit: Yes Status: Acute patient with small bowel obstruction continue ngt decompression passed flatus only once or twice ok for dulcolax suppository once ok for ice chips ok to dc pulseoximetry ambulate/ OOB to chair BID prn pain control gi/dvt prophylaxis IS/ pulmonary toilet, prn aerosols although patient had passed some gas today it does not make her diagnosis a PSBO, patient admitted with bowel obstruction (2) CKD (chronic kidney disease) stage 3, GFR 30-59 ml/min Current Visit: Yes Status: Chronic (3) Diarrhea Current Visit: No Status: Acute Qualifiers: Diarrhea type: unspecified type Qualified Code(s): R19.7 - Diarrhea, unspecified (4) DVT prophylaxis Current Visit: Yes Status: Acute Subjective Patient reports: feels better, still having pain, pain is less, flatus, no bowel movement, afebrile Objective Vital Signs - Last 8 Hours Temp Pulse Resp BP Pulse Ox 02/20/18 13:55 98.4 F 70 15 159/76 97 Intake and Output 02/20/18 02/20/18 02/20/18 07:59 15:59 23:59 Intake Total 1050 / 1050 100 / 100 100 / 100 Output Total 400 / 400 175 / 175 Balance 650 / 650 -75 / -75 100 / 100 Intake: IV Fluids 1050 / 1050 100 / 100 100 / 100 0.9 % Sodium Chloride 1,000 ML 1000 / 1000 @ 80 mls/hr IVC .[id number] [facility] Rx #:[id number] Ofirmev 1,000 mg/100 ml 1,000 50 / 50 100 / 100 100 / 100 mg In 100 ml @ 400 mls/hr IVPB Q8HR [facility] Rx#:[id number] Oral 0 / 0 Output: Urine 0 / 0 Straight Cath 75 / 75 Gastric Drainage 400 / 400 100 / 100 Other: Meal NPO # Voids 1 # Urine Diapers 1 1 Weight 73.7 kg Blood Glucose* 94 88 71 Patient Weight 02/20/18 23:59 Weight 73.7 kg - General physical appearance well developed, well nourished, no distress, moderate pain - Eyes PERRL, normal ocular movement - ENT normal mucosa, normocephalic - Neck Neck exam: trachea midline - Respiratory normal expansion, clear to auscultation - Cardiovascular Cardiovascular exam: Present: RRR - Abdomen Abdomen: Present: bowel sounds present, soft, tender. Absent: distended, guarding, rebound Abdominal Tenderness: diffusely - Integumentary no growths - Neurologic CN 2-12 grossly intact, normal coordination - Musculoskeletal normal posture - Psychiatric oriented to time, oriented to person, oriented to place, speech is normal, memory intact - Labs 02/20/18 03:54 02/20/18 03:54 Diabetes panel 02/20/18 Range/Units 03:54 Sodium 137 (136-145) mEq/L Potassium 3.9 (3.5-5.1) mEq/L Chloride 106 (98-107) mEq/L Carbon Dioxide 27 (23-29) mEq/L BUN 19 (8-23) mg/dL Creatinine 1.05 (0.60-1.20) mg/dL Glucose 91 (70-105) mg/dL Calcium 7.9 L (8.6-10.3) mg/dL Calcium panel 02/20/18 02/20/18 Range/Units 03:54 03:54 Calcium 7.9 L (8.6-10.3) mg/dL Phosphorus 2.6 L (2.7-4.5) mg/dL Pituitary panel 02/20/18 Range/Units 03:54 Sodium 137 (136-145) mEq/L Potassium 3.9 (3.5-5.1) mEq/L Chloride 106 (98-107) mEq/L Carbon Dioxide 27 (23-29) mEq/L BUN 19 (8-23) mg/dL Creatinine 1.05 (0.60-1.20) mg/dL Glucose 91 (70-105) mg/dL Calcium 7.9 L (8.6-10.3) mg/dL Adrenal panel 02/20/18 Range/Units 03:54 Sodium 137 (136-145) mEq/L Potassium 3.9 (3.5-5.1) mEq/L Chloride 106 (98-107) mEq/L Carbon Dioxide 27 (23-29) mEq/L BUN 19 (8-23) mg/dL Creatinine 1.05 (0.60-1.20) mg/dL Glucose 91 (70-105) mg/dL Calcium 7.9 L (8.6-10.3) mg/dL - Attending Attestation I have personally performed a face to face evaluation on this patient. I have reviewed and agree with the care plan. History and Exam by me shows:
[2018-02-20] MEDS: Metoclopramide 10 MG/2 ML VIAL IVP SCH ×2 (13:59→17:39)
[2018-02-20] MEDS: *HR* Heparin 5,000 UNIT/ML VIAL SQ SCH ×2 (14:41→23:36)
--- NOTE | 2018-02-20 15:23 | Electrocardiograph Report ---
[address] [place], [place] [address] Test Date: 2018-02-19 Pat Name: Marlyn Hernandez Department: [id number] Room: 3A11 Gender: F [employer] Technician: : 1935 Requested By: Marbin Wheat Order Number: [id number] Reading MD: Balwinder Fitch Measurements Intervals [place] Rate: 77 P: 57 AK: 189 QRS: 48 QRSD: 115 T: 55 QT: 441 QTc: 500 Interpretive Statements Sinus rhythm Incomplete right bundle branch block Electronically Signed On 02-20-2018 15:21:30 EST by Balwinder Fitch
[2018-02-20] MEDS: Acetaminophen IV 1,000 MG/100 ML INFUS..BTL IVPB SCH ×2 (15:49→23:39)
[2018-02-20] MEDS ORDERED: Ipratropium/Albuterol Neb 3 ML IH PRN (18:23)
[2018-02-20] MEDS: Chloraseptic Spray 177 ML BOTTLE MM PRN (20:32)
[2018-02-20] MEDS ORDERED: Bisacodyl 10 MG RECTAL SUPPOSITORY RC SCH (21:00)
[2018-02-20] MEDS ORDERED: *HR* Dextrose 50 % in Water (Syg) 50 ML SYRINGE IVP PRN (23:38)
[2018-02-20] MEDS ORDERED: Dextrose Gel 15 GM/37.5 ML TUBE PO PRN ×2 (23:38)
[2018-02-20] MEDS ORDERED: D5% in Water 1,000 ML IVC PRN (23:38)
[2018-02-21] MEDS: *HR* Heparin 5,000 UNIT/ML VIAL SQ SCH ×2 (05:10→17:39)
[2018-02-21] MEDS: *HR* Metoprolol 5 MG/5 ML VIAL IVP SCH ×3 (05:10→17:39)
[2018-02-21 05:24] LABS: VBG Ionized Calcium 1.12 mmol/L (1.15-1.35)
[2018-02-21 05:24] LABS: Basophils % 0.7 %; Eosinophils % 0.5 %; Hemoglobin 12.5 g/dL (11.5-15.4); Immature Granulocytes % 0.2 % (0-4); Lymphocytes % 18.5 %; Mean Corpuscular HGB Conc 32.1 g/dL (31.6-35.5); Mean Corpuscular Hemoglobin 27.8 pg (28.0-33.3); Mean Corpuscular Volume 86.9 fL (83.0-100.0); Monocytes # 0.7 K/mcL (0.0-1.3); Monocytes % 12.5 %; Neutrophils # 3.7 K/mcL (1.6-8.9); Platelet Count 284 K/mcL (140-400); Red Blood Count 4.49 M/mcL (3.82-4.97); Red Cell Distribution Width 13.7 % (11.5-14.5); Segmented Neutrophils % 67.6 %
[2018-02-21 05:35] LABS: Magnesium 2.1 mg/dL (1.6-2.6); Phosphorous 3.3 mg/dL (2.7-4.5)
[2018-02-21 05:37] LABS: Calcium 7.8 mg/dL (8.6-10.3); Potassium 3.6 mEq/L (3.5-5.1)
[2018-02-21] MEDS: 0.9 % Sodium Chloride 1,000 ML IVC SCH (07:49)
[2018-02-21] MEDS: Pantoprazole 40 MG VIAL IVP SCH (07:51)
[2018-02-21] MEDS: MORPHINE SUL Oral CONC 10 MG/0.5 ML ORAL.SYG SL PRN ×3 (07:57→19:00)
[2018-02-21] MEDS: Acetaminophen IV 1,000 MG/100 ML INFUS..BTL IVPB SCH ×2 (08:00→17:38)
[2018-02-21] MEDS: Nystatin POWDER 30 GM BOTTLE TP SCH ×2 (08:04→20:01)
[2018-02-21] MEDS: *HR* LORazepam 2 MG/ML VIAL IVP PRN (10:01)
--- NOTE | 2018-02-21 11:35 | General Surgery Progress Note ---
Addendum entered and electronically signed by Nelida Schreiber CNP 02/21/18 15:52: SBFT with normal transit time. Mild dilation, but patient is passing flatus and having multiple BMS. will clamp NG and trial limited clears. Original Note: <Nelida Schreiber - Last Filed: 02/21/18 11:30> Date of Encounter: 02/21/18 Time of Encounter: 11:30 - Assessment and Plan (1) Partial small bowel obstruction Current Visit: Yes Status: Acute She was treated with 3 dose IV reglan overnight. KUB this am is with non- obstruction gas pattern. She still reports inconsistent flatus, but has had one BM. She states she feels "some better but not all." NG output is recorded at 500 hundred ML 4 yesterday however there are no markings on the NG canister and I am therefore unclear as to her output. The canister has approximately 800 ML's of bilious output. We will proceed with SBFT with gastrgraffin to rule out SBO and suspect the gastrograffin will help with bowel stimulation. Plan: continue supportive care and discomfort management while awaiting return about function continue NG to low intermittent wall suction; clamp for SBFT ambulate TID, may clamp NG to ambulate continue IV fluids continue G.I. and DVT prophylaxis serial abdominal exams repeat a.m. labs further recommendations pending (2) CKD (chronic kidney disease) stage 3, GFR 30-59 ml/min Current Visit: Yes Status: Chronic at baseline Management per primary team (3) DVT prophylaxis Current Visit: Yes Status: Acute heparin SQ EPCDs Subjective Patient reports: no new complaints, still having pain, pain is less, voiding w/o difficulty, flatus (again reports 1 or 2 episodes of small amount), bowel movement (per i/o), afebrile Objective Vital Signs - Last 8 Hours Temp Pulse Resp BP Pulse Ox 02/21/18 08:11 96 02/21/18 06:50 97.6 F 72 16 169/72 96 02/21/18 04:41 97.6 F 73 14 159/79 94 Intake and Output 02/20/18 02/21/18 02/21/18 23:59 07:59 15:59 Intake Total 1100 / 1100 1220 / 1220 1314 / 1314 Balance 1100 / 1100 1220 / 1220 1314 / 1314 Intake: IV Fluids 1100 / 1100 1100 / 1100 1314 / 1314 0.9 % Sodium Chloride 1,000 ML 1000 / 1000 1000 / 1000 @ 80 mls/hr IVC .[id number] [facility] Rx #:[id number] Ofirmev 1,000 mg/100 ml 1,000 100 / 100 100 / 100 100 / 100 mg In 100 ml @ 400 mls/hr IVPB Q8HR [facility] Rx#:[id number] Oral 0 / 0 120 / 120 0 / 0 Other: Meal NPO Stool Size Moderate Small Stool Consistency loose soft liquid Stool Color Brown Yellow # Voids 1 # Urine Diapers 1 # Bowel Movement Diapers 2 1 Weight 73 kg Blood Glucose* 67 81 Patient Weight 02/21/18 23:59 Weight 73 kg - General physical appearance no distress - Eyes normal ocular movement - ENT normal nares (NG secured left nares) - Neck Neck exam: trachea midline - Respiratory normal expansion, normal respiratory effort, clear to auscultation - Cardiovascular Cardiovascular exam: Present: RRR - Abdomen Abdomen: Present: bowel sounds present, soft, distended (but improved), tender (with deep palpation which is an improvement) - Integumentary no rash - Neurologic normal coordination, normal sensation - Musculoskeletal normal posture - Psychiatric oriented to time, oriented to person, oriented to place, speech is normal, me dee dee intact - Labs 02/21/18 04:45 02/21/18 04:45 Diabetes panel 02/21/18 Range/Units 04:45 Sodium 139 (136-145) mEq/L Potassium 3.6 (3.5-5.1) mEq/L Chloride 107 (98-107) mEq/L Carbon Dioxide 22 L (23-29) mEq/L BUN 22 (8-23) mg/dL Creatinine 1.15 (0.60-1.20) mg/dL Glucose 87 (70-105) mg/dL Calcium 7.8 L (8.6-10.3) mg/dL Calcium panel 02/21/18 02/21/18 Range/Units 04:45 04:45 Calcium 7.8 L (8.6-10.3) mg/dL Phosphorus 3.3 (2.7-4.5) mg/dL Pituitary panel 02/21/18 Range/Units 04:45 Sodium 139 (136-145) mEq/L Potassium 3.6 (3.5-5.1) mEq/L Chloride 107 (98-107) mEq/L Carbon Dioxide 22 L (23-29) mEq/L BUN 22 (8-23) mg/dL Creatinine 1.15 (0.60-1.20) mg/dL Glucose 87 (70-105) mg/dL Calcium 7.8 L (8.6-10.3) mg/dL Adrenal panel 02/21/18 Range/Units 04:45 Sodium 139 (136-145) mEq/L Potassium 3.6 (3.5-5.1) mEq/L Chloride 107 (98-107) mEq/L Carbon Dioxide 22 L (23-29) mEq/L BUN 22 (8-23) mg/dL Creatinine 1.15 (0.60-1.20) mg/dL Glucose 87 (70-105) mg/dL Calcium 7.8 L (8.6-10.3) mg/dL Consult Discharge Plan - Plan Referrals: Melvin Melo MD [Primary Care Provider] - <Shirley Vallejo - Last Filed: 02/21/18 18:29> Date of Encounter: 02/21/18 - Assessment and Plan (1) Small bowel obstruction due to adhesions Current Visit: Yes Status: Acute SBO improving no abdominal pain sbft results noted ngt continue clamped ok clears and will see how she tolerates ambulate oOB to chair TID (2) CKD (chronic kidney disease) stage 3, GFR 30-59 ml/min Current Visit: Yes Status: Chronic (3) Diarrhea Current Visit: No Status: Resolved Qualifiers: Diarrhea type: unspecified type Qualified Code(s): R19.7 - Diarrhea, unspecified (4) DVT prophylaxis Current Visit: Yes Status: Acute Subjective Patient reports: still having pain, pain is less, tolerating liquids well, flatus, bowel movement, afebrile Objective Vital Signs - Last 8 Hours Temp Pulse Resp BP Pulse Ox 02/21/18 16:41 98.2 F 70 16 178/80 96 Intake and Output 02/21/18 02/21/18 02/21/18 07:59 15:59 23:59 Intake Total 1220 / 1220 1314 / 1314 100 / 100 Balance 1220 / 1220 1314 / 1314 100 / 100 Intake: IV Fluids 1100 / 1100 1314 / 1314 100 / 100 0.9 % Sodium Chloride 1,000 ML 1000 / 1000 @ 80 mls/hr IVC .[id number] [facility] Rx #:[id number] Ofirmev 1,000 mg/100 ml 1,000 100 / 100 100 / 100 100 / 100 mg In 100 ml @ 400 mls/hr IVPB Q8HR [facility] Rx#:[id number] Oral 120 / 120 0 / 0 Other: Meal NPO Stool Size Small Large Moderate Stool Consistency soft loose loose Stool Color Brown Brown Brown Yellow # Bowel Movement Diapers 1 1 1 Weight 73 kg Blood Glucose* 81 84 Patient Weight 02/21/18 23:59 Weight 73 kg - General physical appearance well developed, well nourished, no distress, no pain - Eyes PERRL, normal ocular movement - ENT normal mucosa, normocephalic - Neck Neck exam: trachea midline - Respiratory normal expansion, clear to auscultation - Cardiovascular Cardiovascular exam: Present: RRR - Abdomen Abdomen: Present: bowel sounds present, soft. Absent: distended, tender - Integumentary no rash - Neurologic normal coordination - Musculoskeletal normal posture - Psychiatric oriented to time, oriented to person, oriented to place, speech is normal, memory intact - Labs 02/21/18 04:45 02/21/18 04:45 Diabetes panel 02/21/18 Range/Units 04:45 Sodium 139 (136-145) mEq/L Potassium 3.6 (3.5-5.1) mEq/L Chloride 107 (98-107) mEq/L Carbon Dioxide 22 L (23-29) mEq/L BUN 22 (8-23) mg/dL Creatinine 1.15 (0.60-1.20) mg/dL Glucose 87 (70-105) mg/dL Calcium 7.8 L (8.6-10.3) mg/dL Calcium panel 02/21/18 02/21/18 Range/Units 04:45 04:45 Calcium 7.8 L (8.6-10.3) mg/dL Phosphorus 3.3 (2.7-4.5) mg/dL Pituitary panel 02/21/18 Range/Units 04:45 Sodium 139 (136-145) mEq/L Potassium 3.6 (3.5-5.1) mEq/L Chloride 107 (98-107) mEq/L Carbon Dioxide 22 L (23-29) mEq/L BUN 22 (8-23) mg/dL Creatinine 1.15 (0.60-1.20) mg/dL Glucose 87 (70-105) mg/dL Calcium 7.8 L (8.6-10.3) mg/dL Adrenal panel 02/21/18 Range/Units 04:45 Sodium 139 (136-145) mEq/L Potassium 3.6 (3.5-5.1) mEq/L Chloride 107 (98-107) mEq/L Carbon Dioxide 22 L (23-29) mEq/L BUN 22 (8-23) mg/dL Creatinine 1.15 (0.60-1.20) mg/dL Glucose 87 (70-105) mg/dL Calcium 7.8 L (8.6-10.3) mg/dL - Attending Attestation I have personally performed a face to face evaluation on this patient. I have reviewed and agree with the care plan. History and Exam by me shows:
[2018-02-21] MEDS: Ondansetron 4 MG/2 ML VIAL IVP PRN (13:25)
--- NOTE | 2018-02-21 13:51 | Internal Med Progress Note ---
<Ricardo Servin R - Last Filed: 02/21/18 16:05> Hospitalist Progress Note - Encounter Date of Encounter: 02/21/18 Time of Encounter: 10:05 - Subjective Interval History: Patient seen and evaluated at the bedside. Reporting further improvement abdominal pain and distention. Passing flatus and one bowel movement overnight and today. NG is in place. Denies recent nausea, vomiting. Nausea improved with NG and medication. Reports that pain is significantly improved with addition of Ofirmev. Patient is quite anxious this morning, hasn't asked for any of the ordered prn ativan. - Exam Vitals: Temp Pulse Resp BP Pulse Ox 97.6 F 72 16 169/72 96 02/21/18 06:50 02/21/18 06:50 02/21/18 06:50 02/21/18 06:50 02/21/18 08:11 Exam: General: lying comfortably in bed, does appear quite anxious, no distress HEENT: Atraumatic, NG tube in place and fix with adhesive, pupils PERLLA with EOMI Neck: Soft with intact range of motion Cardio: Regular rate and rhythm. No murmurs heard. Respiratory: Clear to ausculation bilaterally. No wheezing, crackles or rhonchi Abdomen: Less distended, tenderness is much improved, no gaurding or rigidity Extremities: No swelling or edema MSK: symmetric movements and strength, reports able to ambulate Neuro: Alert and orient x3, no focal deficits - Assessment and Plan (1) HTN (hypertension) Current Visit: No Status: Chronic Assessment and Plan: Better controlled with pain management Systolic BP in the 150/160's Plan: Continue with metoprolol, hydralazine available prn If patient tolerates diet will transition back to home regimen of Losartan (2) CKD (chronic kidney disease) stage 3, GFR 30-59 ml/min Current Visit: Yes Status: Chronic Assessment and Plan: Stable appears to be at her baseline. Will avoid nephrotoxic agents and monitor urine output/ uCr (3) Anxiety and depression Current Visit: Yes Status: Chronic Assessment and Plan: Patient has not been asking for prn ativan Plan: Will schedule 0.5 mg IV ativan BID, can transition back to home oral medication when tolerated. (4) DVT prophylaxis Current Visit: Yes Status: Acute Assessment and Plan: Heparin 5000 units Q8H SQ (5) Small bowel obstruction due to adhesions Current Visit: Yes Status: Acute Assessment and Plan: NG in place, indeterminate amount of NG output. Less distention, passing flatus and BM overnight Patient is feeling much better, tolerating Ice chips Plan: General surgery following, appreciate recs. Will clamp NG today and trial limited clear diet Continue pain management with scheduled Ofirmev and prn morphine sublingual - Time Spent with Patient Total time spent is greater than 50% in coordination of care (as documented) at patient's floor/unit and/or counseling patient: Internal Medicine: Result - Labs CBC & Chem 7: 02/21/18 04:45 02/21/18 04:45 Labs: Short CBC 02/21/18 Range/Units 04:45 WBC 5.5 (4.3-11.1) K/mcL Hgb 12.5 (11.5-15.4) g/dL Hct 39.0 (35.3-44.9) % Plt Count 284 (140-400) K/mcL Neutrophils # 3.7 (1.6-8.9) K/mcL BMP 02/21/18 04:45 Sodium 139 Potassium 3.6 Chloride 107 Carbon Dioxide 22 L BUN 22 Creatinine 1.15 Glucose 87 Calcium 7.8 L - Impressions Impressions KUB X-Ray 02/21/18 06:00 IMPRESSION: Nasogastric tube with the tip in the fundus near the GE junction. Suggest repositioning and advancement by 5 cm. Nonobstructive bowel gas pattern. Cholecystectomy. D/ / 02/21/2018 07:56:04 [facility] Inter[facility] Provider: Antonio Ghosh MD Consult Discharge Plan - Plan Referrals: Melvin Melo MD [Primary Care Provider] - <Mary Junior - Last Filed: 02/21/18 17:32> Hospitalist Progress Note - Encounter Date of Encounter: 02/21/18 - Exam Vitals: Temp Pulse Resp BP Pulse Ox 98.2 F 70 16 178/80 96 02/21/18 16:41 02/21/18 16:41 02/21/18 16:41 02/21/18 16:41 02/21/18 16:41 - Assessment and Plan (1) HTN (hypertension) Current Visit: No Status: Chronic (2) CKD (chronic kidney disease) stage 3, GFR 30-59 ml/min Current Visit: Yes Status: Chronic (3) DVT prophylaxis Current Visit: Yes Status: Acute (4) Anxiety and depression Current Visit: Yes Status: Chronic (5) Small bowel obstruction due to adhesions Current Visit: Yes Status: Acute - Time Spent with Patient Total time spent is greater than 50% in coordination of care (as documented) at patient's floor/unit and/or counseling patient: Internal Medicine: Result - Labs CBC & Chem 7: 02/21/18 04:45 02/21/18 04:45 Labs: Short CBC 02/21/18 Range/Units 04:45 WBC 5.5 (4.3-11.1) K/mcL Hgb 12.5 (11.5-15.4) g/dL Hct 39.0 (35.3-44.9) % Plt Count 284 (140-400) K/mcL Neutrophils # 3.7 (1.6-8.9) K/mcL BMP 02/21/18 04:45 Sodium 139 Potassium 3.6 Chloride 107 Carbon Dioxide 22 L BUN 22 Creatinine 1.15 Glucose 87 Calcium 7.8 L - Impressions Impressions KUB X-Ray 02/21/18 06:00 IMPRESSION: Nasogastric tube with the tip in the fundus near the GE junction. Suggest repositioning and advancement by 5 cm. Nonobstructive bowel gas pattern. Cholecystectomy. D/ / 02/21/2018 07:56:04 Antonio Ghosh MD / [facility] Interpreting Provider: Antonio Ghosh MD Small Bowel X-Ray 02/21/18 11:25 IMPRESSION: 1. Normal transit time to the terminal ileum with mildly distended loops of small bowel measuring up to 3.5 cm. Findings likely represent a partial low grade small bowel obstruction. D/ / 02/21/2018 14:43:47 Heena Lowe MD / [facility] Interpreting Provider: Heena Lowe MD - Attending Attestation I have seen and examined this patient independently. I have discussed with resident physician Dr Servin regarding the management plan. Agree with the documentation. <Ricardo Servin - Last Filed: 02/21/18 16:05> (1) HTN (hypertension) Qualifiers: Hypertension type: essential hypertension Qualified Code(s): I10 - Essential (primary) hypertension <Mary Junior - Last Filed: 02/21/18 17:32> (1) HTN (hypertension) Qualifiers: Hypertension type: essential hypertension Qualified Code(s): I10 - Essential (primary) hypertension
[2018-02-21] MEDS: *HR* LORazepam 2 MG/ML VIAL IVP SCH (19:59)
[2018-02-21] MEDS: Chloraseptic Spray 177 ML BOTTLE MM PRN (20:24)
[2018-02-22] MEDS: *HR* Heparin 5,000 UNIT/ML VIAL SQ SCH ×4 (00:30→22:26)
[2018-02-22] MEDS: *HR* Metoprolol 5 MG/5 ML VIAL IVP SCH ×5 (00:30→23:16)
[2018-02-22] MEDS: Acetaminophen IV 1,000 MG/100 ML INFUS..BTL IVPB SCH ×2 (03:05→08:55)
[2018-02-22] MEDS: 0.9 % Sodium Chloride 1,000 ML IVC SCH ×2 (03:08→14:45)
[2018-02-22 06:27] LABS: Basophils % 0.4 %; Eosinophils # 0.1 K/mcL (0.0-0.6); Hematocrit 39.5 % (35.3-44.9); Hemoglobin 12.5 g/dL (11.5-15.4); Immature Granulocytes % 0.1 % (0-4); Lymphocytes # 0.9 K/mcL (0.6-4.6); Lymphocytes % 12.2 %; Mean Corpuscular HGB Conc 31.6 g/dL (31.6-35.5); Mean Corpuscular Hemoglobin 27.5 pg (28.0-33.3); Mean Platelet Volume 11.3 fL (9.4-12.4); Monocytes % 14.1 %; Neutrophils # 5.2 K/mcL (1.6-8.9); Platelet Count 302 K/mcL (140-400); Red Blood Count 4.54 M/mcL (3.82-4.97); Red Cell Distribution Width 13.7 % (11.5-14.5); Segmented Neutrophils % 72.2 %
[2018-02-22 06:37] LABS: Calcium 7.7 mg/dL (8.6-10.3); Magnesium 1.9 mg/dL (1.6-2.6); Phosphorous 2.4 mg/dL (2.7-4.5); Potassium 3.2 mEq/L (3.5-5.1)
[2018-02-22] MEDS ORDERED: Potassium Chloride Elixir 20 MEQ/15 ML UDC PO ONE (08:48)
[2018-02-22] MEDS: *HR* LORazepam 2 MG/ML VIAL IVP SCH ×2 (08:52→20:24)
[2018-02-22] MEDS: Pantoprazole 40 MG VIAL IVP SCH (08:53)
[2018-02-22] MEDS: Nystatin POWDER 30 GM BOTTLE TP SCH ×2 (08:58→20:26)
--- NOTE | 2018-02-22 10:09 | Internal Med Progress Note ---
<Ridge Servinin R - Last Filed: 02/22/18 11:11> Hospitalist Progress Note - Encounter Date of Encounter: 02/22/18 Time of Encounter: 08:45 - Subjective Interval History: Patient was seen and evaluated at the bedside. She is reporting continued improvement in abdominal pain and distention. Continues to pass gas and had bowel movement again this morning. NG tube was clamped last night and she is tolerating a limited clear liquid diet. She denies nausea or vomiting. Reports that pain is significantly improved. She is noticing ongoing anxiety, particularly with regard to NG tube. - Exam Vitals: Temp Pulse Resp BP Pulse Ox 98.8 F 60 18 165/72 94 02/22/18 07:02 02/22/18 07:02 02/22/18 07:02 02/22/18 07:02 02/22/18 07:02 Exam: General: Lying supine in bed, appears comfortable, no acute distress HEENT: Atraumatic, anicteric sclerae, moist conjunctiva, pupils PERRLA, EOMI, NG tube is in place and fixed with adhesive Neck: Supple without lymphadenopathy Cardio: Regular rate and rhythm without murmurs appreciated Respiratory: Clear to auscultation bilateral lung flores, no wheezing, rhonchi, crackles Abdomen: Improved abdominal exam with softness, and less tenderness, no rigidity or guarding Extremities: No swelling or edema Musculoskeletal: Symmetric strength throughout extremities Neuro: Alert and oriented 3, no focal deficit, cranial nerves intact Integumentary: Evidence of skin thinning with dryness and scattered small ecchymoses the dorsum of hands and arms Psych: Visibly anxious - Assessment and Plan (1) Anxiety and depression Current Visit: Yes Status: Chronic Assessment and Plan: History of anxiety on twice a day 0.5 oral Ativan at home Evidence of anxiety persisting today particularly with regard to NG tube Plan: Continue Scheduled 0.5 mg ativan BID Add 0.5 mg Q6H ativan PRN (2) HTN (hypertension) Current Visit: No Status: Chronic Assessment and Plan: History of hypertension on losartan at home Overnight blood pressure with systolic readings in the 150s/160s Plan: Metoprolol 7.5 every 6 hours, and hydralazine available when necessary however not given since last night Component of hypertension likely driven by anxiety will add 0.5 mg Ativan available every 6 hours if needed. If patient tolerates clear liquid diet will resume patient's home losartan (3) CKD (chronic kidney disease) stage 3, GFR 30-59 ml/min Current Visit: Yes Status: Chronic Assessment and Plan: Remained stable patient appears to be at her baseline renal function. Continue to monitor serum creatinine and urine output. Avoid nephrotoxic agents. (4) DVT prophylaxis Current Visit: Yes Status: Acute Assessment and Plan: Heparin 5000 units SQ every 8 hours (5) Small bowel obstruction due to adhesions Current Visit: Yes Status: Acute Assessment and Plan: Admitted with signs and symptoms of small bowel obstruction and CT abdomen and pelvis with evidence of obstruction, adhesions, and transition point of the distal ileum. Patient continues to have improvement in symptoms NG tube was clamped yesterday and patient was placed on a limited clear liquid diet with good tolerance. Plan: Gen. surgery following, appreciate their recommendations, will discuss timing of NG removal as well as diet advancement with surgical team We will continue with pain management. Last scheduled Tylenol will be today will continue with when necessary medications thereafter. Antiemetic available when necessary - Time Spent with Patient Total time spent is greater than 50% in coordination of care (as documented) at patient's floor/unit and/or counseling patient: Internal Medicine: Result - Labs CBC & Chem 7: 02/22/18 05:39 02/22/18 05:39 Labs: Short CBC 02/22/18 Range/Units 05:39 WBC 7.2 (4.3-11.1) K/mcL Hgb 12.5 (11.5-15.4) g/dL Hct 39.5 (35.3-44.9) % Plt Count 302 (140-400) K/mcL Neutrophils # 5.2 (1.6-8.9) K/mcL BMP 02/22/18 05:39 Sodium 141 Potassium 3.2 L Chloride 110 H Carbon Dioxide 26 BUN 19 Creatinine 1.19 Glucose 124 H Calcium 7.7 L - Impressions Impressions Small Bowel X-Ray 02/21/18 11:25 IMPRESSION: 1. Normal transit time to the terminal ileum with mildly distended loops of small bowel measuring up to 3.5 cm. Findings likely represent a partial low grade small bowel obstruction. D/ / 02/21/2018 14:43:47 Heena Lowe MD / [facility] Interpreting Provider: Heena Lowe MD Consult Discharge Plan - Plan Referrals: Melvin Melo MD [Primary Care Provider] - Aida Lepe CNP [Advanced Practice Nurse] - 03/02/18 1:00 pm <VernonMary - Last Filed: 02/22/18 15:03> Hospitalist Progress Note - Encounter Date of Encounter: 02/22/18 - Exam Vitals: Temp Pulse Resp BP Pulse Ox 98.1 F 69 16 181/60 96 02/22/18 11:53 02/22/18 11:53 02/22/18 11:53 02/22/18 11:53 02/22/18 11:53 - Assessment and Plan (1) HTN (hypertension) Current Visit: No Status: Chronic (2) CKD (chronic kidney disease) stage 3, GFR 30-59 ml/min Current Visit: Yes Status: Chronic (3) DVT prophylaxis Current Visit: Yes Status: Acute (4) Anxiety and depression Current Visit: Yes Status: Chronic (5) Small bowel obstruction due to adhesions Current Visit: Yes Status: Acute - Time Spent with Patient Total time spent is greater than 50% in coordination of care (as documented) at patient's floor/unit and/or counseling patient: Internal Medicine: Result - Labs CBC & Chem 7: 02/22/18 05:39 02/22/18 05:39 Labs: Short CBC 02/22/18 Range/Units 05:39 WBC 7.2 (4.3-11.1) K/mcL Hgb 12.5 (11.5-15.4) g/dL Hct 39.5 (35.3-44.9) % Plt Count 302 (140-400) K/mcL Neutrophils # 5.2 (1.6-8.9) K/mcL BMP 02/22/18 05:39 Sodium 141 Potassium 3.2 L Chloride 110 H Carbon Dioxide 26 BUN 19 Creatinine 1.19 Glucose 124 H Calcium 7.7 L - Impressions Impressions Small Bowel X-Ray 02/21/18 11:25 IMPRESSION: 1. Normal transit time to the terminal ileum with mildly distended loops of small bowel measuring up to 3.5 cm. Findings likely represent a partial low grade small bowel obstruction. D/ / 02/21/2018 14:43:47 Heena Lowe MD / [facility] Interpreting Provider: Heena Lowe MD - Attending Attestation I have seen and examined this patient independently. [facility] regarding the management plan. Agree with the documentation. <Ricardo Servin - Last Filed: 02/22/18 11:11> (2) HTN (hypertension) Qualifiers: Hypertension type: essential hypertension Qualified Code(s): I10 - Essential (primary) hypertension <Mary Junior - Last Filed: 02/22/18 15:03> (1) HTN (hypertension) Qualifiers: Hypertension type: essential hypertension Qualified Code(s): I10 - Essential (primary) hypertension
[2018-02-22] MEDS: *HR* LORazepam 2 MG/ML VIAL IVP PRN ×2 (11:56→18:05)
--- NOTE | 2018-02-22 16:59 | General Surgery Progress Note ---
Date of Encounter: 02/22/18 Time of Encounter: 12:40 - Assessment and Plan (1) Small bowel obstruction due to adhesions Current Visit: Yes Status: Acute passing flatus and bm x 2 minimal right sided abdominal pain dc'd ngt clears with soups ok will monitor for tolerance ambulate ok to dc [place] from surgical standpoint (2) DVT prophylaxis Current Visit: Yes Status: Acute heparin Subjective Patient reports: no new complaints, feels better, tolerating liquids well, flatus, bowel movement Objective Vital Signs - Last 8 Hours Temp Pulse Resp BP Pulse Ox 02/22/18 16:42 99.8 F H 71 16 182/72 96 02/22/18 11:53 98.1 F 69 16 181/60 96 Intake and Output 02/22/18 02/22/18 02/22/18 07:59 15:59 23:59 Intake Total 100 / 100 1340 / 1340 Output Total 0 / 0 Balance 100 / 100 1340 / 1340 Intake: IV Fluids 100 / 100 1100 / 1100 0.9 % Sodium Chloride 1,000 ML 1000 / 1000 @ 80 mls/hr IVC .[id number] [facility] Rx #:[id number] Ofirmev 1,000 mg/100 ml 1,000 100 / 100 100 / 100 mg In 100 ml @ 400 mls/hr IVPB Q8HR [facility] Rx#:[id number] Oral 0 / 0 240 / 240 Output: Urine 0 / 0 Other: Percent of Meal Consumed 50% # Urine Diapers 1 Weight 71.9 kg Blood Glucose* 102 124 Patient Weight 02/22/18 23:59 Weight 71.9 kg - General physical appearance well developed, well nourished, no distress, no pain - Eyes PERRL, normal ocular movement - ENT normal mucosa, normocephalic - Neck Neck exam: trachea midline - Respiratory normal expansion, clear to auscultation - Cardiovascular Cardiovascular exam: Present: RRR - Abdomen Abdomen: Present: bowel sounds present, soft, non tender. Absent: distended, guarding, rebound - Integumentary no rash, no growths - Neurologic CN 2-12 grossly intact - Musculoskeletal normal gait, normal posture - Psychiatric oriented to time, oriented to person, oriented to place, speech is normal, memory intact - Labs 02/22/18 05:39 02/22/18 05:39 Diabetes panel 02/22/18 Range/Units 05:39 Sodium 141 (136-145) mEq/L Potassium 3.2 L (3.5-5.1) mEq/L Chloride 110 H (98-107) mEq/L Carbon Dioxide 26 (23-29) mEq/L BUN 19 (8-23) mg/dL Creatinine 1.19 (0.60-1.20) mg/dL Glucose 124 H (70-105) mg/dL Calcium 7.7 L (8.6-10.3) mg/dL Calcium panel 02/22/18 Range/Units 05:39 Calcium 7.7 L (8.6-10.3) mg/dL Phosphorus 2.4 L (2.7-4.5) mg/dL Pituitary panel 02/22/18 Range/Units 05:39 Sodium 141 (136-145) mEq/L Potassium 3.2 L (3.5-5.1) mEq/L Chloride 110 H (98-107) mEq/L Carbon Dioxide 26 (23-29) mEq/L BUN 19 (8-23) mg/dL Creatinine 1.19 (0.60-1.20) mg/dL Glucose 124 H (70-105) mg/dL Calcium 7.7 L (8.6-10.3) mg/dL Adrenal panel 02/22/18 Range/Units 05:39 Sodium 141 (136-145) mEq/L Potassium 3.2 L (3.5-5.1) mEq/L Chloride 110 H (98-107) mEq/L Carbon Dioxide 26 (23-29) mEq/L BUN 19 (8-23) mg/dL Creatinine 1.19 (0.60-1.20) mg/dL Glucose 124 H (70-105) mg/dL Calcium 7.7 L (8.6-10.3) mg/dL Consult Discharge Plan - Plan Referrals: Melvin Melo MD [Primary Care Provider] - Aida Lepe CNP [Advanced Practice Nurse] - 03/02/18 1:00 pm
[2018-02-23] MEDS: *HR* LORazepam 2 MG/ML VIAL IVP PRN ×2 (00:19→08:02)
[2018-02-23] MEDS: 0.9 % Sodium Chloride 1,000 ML IVC SCH (04:18)
[2018-02-23] MEDS ORDERED: Acetaminophen 325 MG TABLET PO PRN (04:32)
[2018-02-23] MEDS: *HR* Heparin 5,000 UNIT/ML VIAL SQ SCH ×2 (05:03→14:20)
[2018-02-23] MEDS: *HR* Metoprolol 5 MG/5 ML VIAL IVP SCH (05:03)
[2018-02-23 05:12] LABS: Basophils % 0.6 %; Eosinophils # 0.1 K/mcL (0.0-0.6); Eosinophils % 2.4 %; Hematocrit 40.5 % (35.3-44.9); Immature Granulocytes % 0.4 % (0-4); Lymphocytes # 1.3 K/mcL (0.6-4.6); Lymphocytes % 24.6 %; Mean Corpuscular HGB Conc 32.1 g/dL (31.6-35.5); Mean Corpuscular Hemoglobin 27.7 pg (28.0-33.3); Mean Corpuscular Volume 86.4 fL (83.0-100.0); Mean Platelet Volume 10.9 fL (9.4-12.4); Monocytes # 0.7 K/mcL (0.0-1.3); Monocytes % 13.2 %; Neutrophils # 3.2 K/mcL (1.6-8.9); Platelet Count 283 K/mcL (140-400); Red Blood Count 4.69 M/mcL (3.82-4.97); Red Cell Distribution Width 13.7 % (11.5-14.5); Segmented Neutrophils % 58.8 %
[2018-02-23 05:34] LABS: BUN/Creatinine Ratio 14 (6-26); Blood Urea Nitrogen 13 mg/dL (8-23); Calcium 7.4 mg/dL (8.6-10.3); Carbon Dioxide 22 mEq/L (23-29); Chloride 109 mEq/L (98-107); Glucose 114 mg/dL (70-105); Magnesium 1.5 mg/dL (1.6-2.6); Osmolality,Calculated 285 (280-300); Phosphorous 1.6 mg/dL (2.7-4.5); Potassium 3.3 mEq/L (3.5-5.1); Sodium 137 mEq/L (136-145); eGFR For Non-African Americans 56 (> 60)
[2018-02-23] MEDS ORDERED: Potassium Phosphate 44 MEQ in 0.9 % Sodium Chloride 250 ML IVPB ONE (07:41)
[2018-02-23] MEDS ORDERED: *HR* LORazepam 0.5 MG TABLET PO PRN (07:55)
[2018-02-23] MEDS ORDERED: BuPROPion SR (12 HR) 150 MG TABLET PO SCH (09:00)
[2018-02-23] MEDS ORDERED: Cholecalciferol (D-3) 1,000 UNIT TABLET PO SCH (09:00)
[2018-02-23] MEDS ORDERED: *HR* LORazepam 0.5 MG TABLET PO SCH (09:00)
[2018-02-23] MEDS: traMADol 50 MG TABLET PO SCH ×2 (10:56→14:20)
[2018-02-23] MEDS: Nystatin POWDER 30 GM BOTTLE TP SCH (10:56)
--- NOTE | 2018-02-23 11:20 | Internal Med Progress Note ---
<Ricardo Servin R - Last Filed: 02/23/18 11:17> Hospitalist Progress Note - Encounter Date of Encounter: 02/23/18 Time of Encounter: 08:10 - Subjective Interval History: Patient seen and evaluated at the bedside. Reports that abdominal pain and distention have largely resolved. Continues to pass gas and have BM. NG removed by surgery yesterday and diet advanced to liquids including full soups, patient is tolerating with nausea, vomiting, or pain. She does endorse anxiety, mostly about her living situation. Doesn't feel that she is able to take great care of herself. - Exam Vitals: Temp Pulse Resp BP Pulse Ox 98.7 F 68 16 177/70 96 02/23/18 10:25 02/23/18 10:25 02/23/18 10:25 02/23/18 10:25 02/23/18 10:25 Exam: General: Patient is seen supine in bed, no apparent distress HEENT: pupils PERRLA with EOMI, moist mucous membranes, atraumatic and normocephalic Neck: Supple with full range of motion, no lymphadenopathy Cardio: Regular rate and rhythm without murmurs Respiratory: clear to auscultation of bilateral lung flores no wheezing, rhonchi, or crackles Abdomen: Soft and nontender, distention is largely resolved Extremities: No swelling or edema Neuro: Alert and oriented 3, no focal deficits, cranial nerves intact Psych: Depressed mood and affect, anxious and irritable - Assessment and Plan (1) Small bowel obstruction due to adhesions Current Visit: Yes Status: Acute Assessment and Plan: Patient presented initially for nausea vomiting and abdominal distention. CT abdomen and pelvis did identify small bowel obstruction with transition point at the distal ileum NG tube removed yesterday patient advance to full liquids per general surgery with patient tolerating well Symptoms have largely resolved Plan: General surgery following, appreciate their recommendations Tolerating diet, will transition to by mouth medications (2) Anxiety and depression Current Visit: Yes Status: Chronic Assessment and Plan: Persistent anxiety with worsening depression this visit Patient is denying suicidal ideations, reports that she is just done trying to take care of herself Plan: Will resume home regimen of 0.5 mg Ativan twice a day as well as 150 mg Wellbutrin Consult for social work assessment Monitor patient closely (3) HTN (hypertension) Current Visit: No Status: Chronic Assessment and Plan: Plan: Restart home losartan with IV hydralazine available when necessary Anxiety control as above (4) CKD (chronic kidney disease) stage 3, GFR 30-59 ml/min Current Visit: Yes Status: Chronic Assessment and Plan: Stable, patient appears to be at her baseline Monitor and avoid nephrotoxi agents (5) DVT prophylaxis Current Visit: Yes Status: Acute Assessment and Plan: Heparin 5000 units SQ Q8H (6) Protein calorie malnutrition Current Visit: Yes Status: Acute Assessment and Plan: Protein calorie malnutrition is severe. Patient admits that she is largely on able to cook for herself, admits to ongoing weight loss Plan: Nutrition consultation appreciated Now advancing patient diet as bowel obstruction appears her resolved - Time Spent with Patient Total time spent is greater than 50% in coordination of care (as documented) at patient's floor/unit and/or counseling patient: Internal Medicine: Result - Labs CBC & Chem 7: 02/23/18 04:57 02/23/18 04:57 Labs: Short CBC 02/23/18 Range/Units 04:57 WBC 5.5 (4.3-11.1) K/mcL Hgb 13.0 (11.5-15.4) g/dL Hct 40.5 (35.3-44.9) % Plt Count 283 (140-400) K/mcL Neutrophils # 3.2 (1.6-8.9) K/mcL BMP 02/23/18 04:57 Sodium 137 Potassium 3.3 L Chloride 109 H Carbon Dioxide 22 L BUN 13 Creatinine 0.95 Glucose 114 H Calcium 7.4 L Consult Discharge Plan - Plan Referrals: Melvin Melo MD [Primary Care Provider] - Aida Lepe CNP [Advanced Practice Nurse] - 03/02/18 1:00 pm <Mary Junior - Last Filed: 02/23/18 14:38> Hospitalist Progress Note - Encounter Date of Encounter: 02/23/18 - Exam Vitals: Temp Pulse Resp BP Pulse Ox 98.5 F 76 16 174/75 96 02/23/18 14:31 02/23/18 14:31 02/23/18 14:31 02/23/18 14:31 02/23/18 14:31 - Assessment and Plan (1) HTN (hypertension) Current Visit: No Status: Chronic (2) CKD (chronic kidney disease) stage 3, GFR 30-59 ml/min Current Visit: Yes Status: Chronic (3) DVT prophylaxis Current Visit: Yes Status: Acute (4) Anxiety and depression Current Visit: Yes Status: Chronic (5) Small bowel obstruction due to adhesions Current Visit: Yes Status: Acute (6) Protein calorie malnutrition Current Visit: Yes Status: Acute - Time Spent with Patient Total time spent is greater than 50% in coordination of care (as documented) at patient's floor/unit and/or counseling patient: Internal Medicine: Result - Labs CBC & Chem 7: 02/23/18 04:57 02/23/18 04:57 Labs: Short CBC 02/23/18 Range/Units 04:57 WBC 5.5 (4.3-11.1) K/mcL Hgb 13.0 (11.5-15.4) g/dL Hct 40.5 (35.3-44.9) % Plt Count 283 (140-400) K/mcL Neutrophils # 3.2 (1.6-8.9) K/mcL BMP 02/23/18 04:57 Sodium 137 Potassium 3.3 L Chloride 109 H Carbon Dioxide 22 L BUN 13 Creatinine 0.95 Glucose 114 H Calcium 7.4 L - Attending Attestation I have seen and examined this patient independently. I have discussed with resident physician Dr Servin regarding the management plan. Agree with the documentation. <Ricardo Servin R - Last Filed: 02/23/18 11:17> (3) HTN (hypertension) Qualifiers: Hypertension type: essential hypertension Qualified Code(s): I10 - Essential (primary) hypertension (6) Protein calorie malnutrition Qualifiers: Protein-calorie malnutrition severity: severe Qualified Code(s): E43 - Unspecified severe protein-calorie malnutrition <Mary Junior - Last Filed: 02/23/18 14:38> (1) HTN (hypertension) Qualifiers: Qualified Code(s): I10 - Essential (primary) hypertension (6) Protein calorie malnutrition Qualifiers: Qualified Code(s): E43 - Unspecified severe protein-calorie malnutrition
--- NOTE | 2018-02-23 11:45 | General Surgery Progress Note ---
Date of Encounter: 02/23/18 Time of Encounter: 11:43 - Assessment and Plan (1) Small bowel obstruction due to adhesions Current Visit: Yes Status: Acute passing flatus and bms ok to advance to soft diet if tolerates without increase in abdominal pain, nausea or distention likely ok to DC SLIV (2) DVT prophylaxis Current Visit: Yes Status: Acute heparin Subjective Patient reports: no new complaints, feels better, pain is less, tolerating liq uids well, flatus, diarrhea, afebrile Objective Vital Signs - Last 8 Hours Temp Pulse Resp BP Pulse Ox 02/23/18 10:25 98.7 F 68 16 177/70 96 02/23/18 07:18 98.8 F 65 16 171/76 96 02/23/18 04:12 99.0 F 55 16 160/66 94 Intake and Output 02/22/18 02/23/18 02/23/18 23:59 07:59 15:59 Intake Total 120 / 120 1000 / 1000 600 / 600 Balance 120 / 120 1000 / 1000 600 / 600 Intake: IV Fluids 1000 / 1000 0.9 % Sodium Chloride 1,000 ML 1000 / 1000 @ 80 mls/hr IVC .[id number] CEFERINO Rx #:[id number] Oral 120 / 120 0 / 0 600 / 600 Other: Meal Dinner Breakfast Clear Percent of Meal Consumed 0% 0% Stool Size Small Moderate Stool Consistency soft Stool Color Brown # Urine Diapers 1 1 1 # Bowel Movement Diapers 1 1 1 Weight 73.1 kg Patient Weight 02/23/18 23:59 Weight 73.1 kg - General physical appearance well developed, well nourished, no distress, no pain - Eyes PERRL, normal ocular movement - ENT normal mucosa - Neck Neck exam: trachea midline - Respiratory normal expansion, normal respiratory effort - Cardiovascular Cardiovascular exam: Present: RRR - Abdomen Abdomen: Present: bowel sounds present, soft, tender (minimal right abdomen). Absent: distended, guarding, rebound - Integumentary no rash, no growths - Neurologic CN 2-12 grossly intact - Musculoskeletal normal posture - Psychiatric oriented to time, oriented to person, oriented to place, speech is normal, memor y intact - Labs 02/23/18 04:57 02/23/18 04:57 Diabetes panel 02/23/18 Range/Units 04:57 Sodium 137 (136-145) mEq/L Potassium 3.3 L (3.5-5.1) mEq/L Chloride 109 H (98-107) mEq/L Carbon Dioxide 22 L (23-29) mEq/L BUN 13 (8-23) mg/dL Creatinine 0.95 (0.60-1.20) mg/dL Glucose 114 H (70-105) mg/dL Calcium 7.4 L (8.6-10.3) mg/dL Calcium panel 02/23/18 Range/Units 04:57 Calcium 7.4 L (8.6-10.3) mg/dL Phosphorus 1.6 L (2.7-4.5) mg/dL Pituitary panel 02/23/18 Range/Units 04:57 Sodium 137 (136-145) mEq/L Potassium 3.3 L (3.5-5.1) mEq/L Chloride 109 H (98-107) mEq/L Carbon Dioxide 22 L (23-29) mEq/L BUN 13 (8-23) mg/dL Creatinine 0.95 (0.60-1.20) mg/dL Glucose 114 H (70-105) mg/dL Calcium 7.4 L (8.6-10.3) mg/dL Adrenal panel 02/23/18 Range/Units 04:57 Sodium 137 (136-145) mEq/L Potassium 3.3 L (3.5-5.1) mEq/L Chloride 109 H (98-107) mEq/L Carbon Dioxide 22 L (23-29) mEq/L BUN 13 (8-23) mg/dL Creatinine 0.95 (0.60-1.20) mg/dL Glucose 114 H (70-105) mg/dL Calcium 7.4 L (8.6-10.3) mg/dL Consult Discharge Plan - Plan Referrals: Melvin Melo MD [Primary Care Provider] - Aida Lepe CNP [Advanced Practice Nurse] - 03/02/18 1:00 pm
--- NOTE | 2018-02-23 14:16 | Discharge Summary ---
<Ricardo Servin R - Last Filed: 02/23/18 14:44> Date of Encounter: 02/23/18 Time of Encounter: 14:13 - Discharge Diagnosis (1) Small bowel obstruction due to adhesions Priority: Primary Status: Acute (2) Anxiety and depression Priority: Secondary Status: Chronic (3) HTN (hypertension) Priority: Secondary Status: Chronic Qualifiers: Hypertension type: essential hypertension Qualified Code(s): I10 - Essential (primary) hypertension (4) CKD (chronic kidney disease) stage 3, GFR 30-59 ml/min Priority: Secondary Status: Chronic (5) DVT prophylaxis Priority: Secondary Status: Acute (6) Protein calorie malnutrition Priority: Secondary Status: Acute Qualifiers: Protein-calorie malnutrition severity: severe Qualified Code(s): E43 - Unspecified severe protein-calorie malnutrition Hospital course: Ms. Hernandez is a 82 year old female with a history of HTN, CKD, anxiety, and sigmoid colectomy secondary to Iatrogenic colon perforation during colonoscopy. Presented on 02/19 for evaluation of nausea, vomitting, abdominal distention, abdominal pain. Patient was found to have small bowel obstruction by CT abdomen and pelvis with a transition point of the distal ileum with associated visible adhesions. General surgery was consulted for surgical evaluation. Patient managed conservatively with NPO diet, NG tube to LIWS, pain medication, and antiemetic. Over 2 days patient developed improvement in pain and distention. Began passing flatus and having regular BMs. Tolerated NG clamping and limited clears, and later NG was removed. on 02/23 patient is tolerating regular diet without worsening nausea, vomiting, or pain. She is hemodynamically stable with stable vital signs. She lives at home with her adult son who is able to provide transportation and observation. Patient is ready for discharge home. She has an appointment with Aida Barr on 03/02/2018. She will be discharged with Home health referral for continued physical therapy. - Time Spent with Patient Total time spent providing and/or coordinating discharge services: - Discharge Medications Home Medications: RX: BuPROPion SR (12 HR) [Wellbutrin SR] 150 mg PO DAILY 05/22/17 [History] RX: Cholecalciferol (Vitamin D3) [Vitamin D3] 50,000 unit PO JOHNSON 05/22/17 [History] RX: Cyanocobalamin (B-12) [Vitamin B12] 1,000 mcg SQ QMONTH 05/22/17 [History] RX: Cyclobenzaprine [Flexeril] 10 mg PO BID 05/22/17 [History] RX: Hydrocortisone 2.5% CREAM [Cortaid] 1 appl TP BID PRN 05/22/17 [History] RX: LORazepam [Ativan] 0.5 mg PO BID PRN 05/22/17 [History] RX: Losartan Potassium [Cozaar] 50 mg PO DAILY 05/22/17 [History] RX: Tramadol HCl [Ultram] 50 mg PO TID 05/22/17 [History] RX: traZODone [TraZODone] 100 mg PO HS 05/22/17 [History] Allergies/Adverse Reactions: Allergy/AdvReac Type Severity Reaction Status Date / Time No Known Allergies Allergy Verified 05/22/17 15:55 Date of admission: 02/19/18 17:55 Primary care physician: Melvin Melo MD Consults: 02/19/18 10:53 Consult to Surgery [CONS] Stat Consulting Provider: [facility] Reason for Consult: partial SBO Time Notified: 10:54 Call Completed: Yes 02/19/18 14:51 Consult to Nutrition [CONS] Stat Comment: Consulting Provider: NUTRITION Reason for Dietary Consult: MST Score Consult to Pastoral Services [CONS] Stat Comment: 02/21/18 10:57 PT [Consult to Physical Therapy] [CONS] Routine Comment: Evaluate, develop and implement POC Reason for Consult: eval and treat, possible HH with therapy on D/C Does patient have active BEDREST order?: No Is patient medically & hemodynamically stable?: Yes 02/23/18 12:50 Consult to [employer] [CONS] Routine Reason for SW Consult: Patient depressed, denies SI. Would benefit from resources. Discharging clinician: Ricardo Servin Anticipated date of discharge: 02/23/18 - Constitutional Vitals: Temp Pulse Resp BP Pulse Ox 98.7 F 68 16 177/70 96 02/23/18 10:25 02/23/18 10:25 02/23/18 10:25 02/23/18 10:25 02/23/18 10:25 General appearance: Present: cooperative, A&O X 3, answers questions appropr iately Exam: General: Patient is seen supine in bed, no apparent distress HEENT: pupils PERRLA with EOMI, moist mucous membranes, atraumatic and normocephalic Neck: Supple with full range of motion, no lymphadenopathy Cardio: Regular rate and rhythm without murmurs Respiratory: clear to auscultation of bilateral lung flores no wheezing, rhonchi, or crackles Abdomen: Soft and nontender, distention is largely resolved Extremities: No swelling or edema Neuro: Alert and oriented 3, no focal deficits, cranial nerves intact Psych: Depressed mood and affect, anxious and irritable - Patient Status Disposition: Home Health Service Condition: Good Functional capacity at discharge: independent ambulation Overall status at discharge: patient is progressing back to baseline - Discharge Instructions Instructions: Chronic Hypertension (DC), Anxiety (DC), Fall Prevention (DC) Follow Up With: Aida Lepe CNP [Advanced Practice Nurse] - 03/02/18 1:00 pm - Diet and Activity Activity: increase activity as tolerated Diet: advance to your usual diet <Mary Junior - Last Filed: 02/23/18 18:20> Date of Encounter: 02/23/18 - Discharge Diagnosis (1) HTN (hypertension) Status: Chronic Qualifiers: Hypertension type: essential hypertension Qualified Code(s): I10 - Essential (primary) hypertension (2) CKD (chronic kidney disease) stage 3, GFR 30-59 ml/min Status: Chronic (3) DVT prophylaxis Status: Acute (4) Anxiety and depression Status: Chronic (5) Small bowel obstruction due to adhesions Status: Acute (6) Protein calorie malnutrition Status: Acute Qualifiers: Protein-calorie malnutrition severity: severe Qualified Code(s): E43 - Unspecified severe protein-calorie malnutrition Hospital course: Ms. Hernandez is a 82 year old female - Time Spent with Patient Total time spent providing and/or coordinating discharge services: Date of admission: 02/19/18 17:55 Primary care physician: Melvin Melo MD Consults: 02/19/18 10:53 Consult to Surgery [CONS] Stat Consulting Provider: [facility] Reason for Consult: partial SBO Time Notified: 10:54 Call Completed: Yes 02/19/18 14:51 Consult to Nutrition [CONS] Stat Comment: Consulting Provider: NUTRITION Reason for Dietary Consult: MST Score Consult to Pastoral Services [CONS] Stat Comment: 02/21/18 10:57 PT [Consult to Physical Therapy] [CONS] Routine Comment: Evaluate, develop and implement POC Reason for Consult: eval and treat, possible HH with therapy on D/C Does patient have active BEDREST order?: No Is patient medically & hemodynamically stable?: Yes 02/23/18 12:50 Consult to [employer] Technical [employer] [CONS] Routine Reason for SW Consult: Patient depressed, denies SI. Would benefit from resources. - Constitutional Vitals: Temp Pulse Resp BP Pulse Ox 98.5 F 76 16 174/75 96 02/23/18 14:31 02/23/18 14:31 02/23/18 14:31 02/23/18 14:31 02/23/18 14:31 - Patient Status Functional capacity at discharge: uses cane/walker Overall status at discharge: patient is progressing back to baseline - Diet and Activity Activity: as per physical therapy Diet: advance to your usual diet - Attending Attestation I have seen and examined this patient independently. I have discussed with resident physician Dr Servin regarding the management plan. Agree with the documentation.
[2018-02-23 14:34] VITALS: BP 174/75
--- NOTE | 2018-02-23 14:43 | Physician Discharge Referral ---
Home Health/Hosp Referral Info Transfer to: Home Health Attending Provider: nanci cruz Provider in Charge Post Discharge: PCP - Diagnosis (1) Small bowel obstruction due to adhesions Status: Acute (2) Anxiety and depression Status: Chronic (3) HTN (hypertension) Status: Chronic (4) CKD (chronic kidney disease) stage 3, GFR 30-59 ml/min Status: Chronic (5) Protein calorie malnutrition Status: Acute (6) DVT prophylaxis Status: Acute - Respiratory Orders None Smoking Cessation: Smoking cessation has been advised. For more information, call the [employer] Tobacco Quit Line at 3-912-NQJI-NOW. - Diet/Nutrition Diet/Nutrition Orders: Regular - Activity Activity Orders: Ambulate - Services Needed Following services are medically necessary services: Physical Therapy - Transfer Medications Home Medications: BuPROPion SR (12 HR) [Wellbutrin SR] 150 mg PO DAILY 05/22/17 [History] Cholecalciferol (Vitamin D3) [Vitamin D3] 50,000 unit PO JOHNSON 05/22/17 [History] Cyanocobalamin (B-12) [Vitamin B12] 1,000 mcg SQ QMONTH 05/22/17 [History] Cyclobenzaprine [Flexeril] 10 mg PO BID 05/22/17 [History] Hydrocortisone 2.5% CREAM [Cortaid] 1 appl TP BID PRN 05/22/17 [History] LORazepam [Ativan] 0.5 mg PO BID PRN 05/22/17 [History] Losartan Potassium [Cozaar] 50 mg PO DAILY 05/22/17 [History] Tramadol HCl [Ultram] 50 mg PO TID 05/22/17 [History] traZODone [TraZODone] 100 mg PO HS 05/22/17 [History] Allergies/Adverse Reactions: Allergy/AdvReac Type Severity Reaction Status Date / Time No Known Allergies Allergy Verified 05/22/17 15:55 Certification: Further, I certify that my clinical findings support that this patient is homebound (i.e. absences from home require considerable and taxing effort and are for medical reasons or rastafarian services or infrequently or short duration when for other reasons) because: Homebound Reason: Patient requires assistance of a person or device to safely leave home Attestation: My signature below is to certify that this patient is under my care and that I, or nurse practitioner, or a physician's employee relations assistant working with me, has a [id number] encounter with this patient.
[2018-02-23] MEDS ORDERED: traZODone 50 MG TABLET PO SCH (21:00)
[2018-02-25] MEDS ORDERED: Cyanocobalamin (B-12) 1,000 MCG/ML VIAL SQ SCH (09:00)
== END 2018-02-23 16:42 | disposition home health service (06) | DRG 388 ==
LOC: EMEROOARM 09:40 → 3ANU 09:40 → SUATTDRO 17:55 → 3ANU 02-21 16:21
PROVIDERS: ADMIT Internal Medicine; ATTEND Internal Medicine

== ENCOUNTER 2018-10-02 11:34 | Observation (INO) ==
[2018-10-02] MEDS ORDERED: 0.9 % Sodium Chloride 1,000 ML IVC ONE (12:02)
--- NOTE | 2018-10-02 12:24 | Emergency Department Note ---
Disposition Clinical Impression: Weakness UTI (urinary tract infection) Qualifiers: Urinary tract infection type: acute cystitis Hematuria presence: without hematuria Qualified Code(s): N30.00 - Acute cystitis without hematuria Disposition: Admitted As Inpatient Condition: Good Referrals: Melvin Melo MD [Primary Care Provider] - Forms: ED Satisfaction Letter Time of Disposition: 15:20 General Adult HPI - General Chief complaint: ED Fall Stated complaint: frequent falls Time Seen by Provider: 10/02/18 11:59 Source: patient, family, EMS Mode of arrival: EMS Limitations: no limitations Nursing Notes Reviewed: Yes Vital Signs Reviewed: Yes - History of Present Illness HPI Narrative: 82F with PMHx of FFT, frequent falls and dementia presents via EMS today after a fall. Patient is alert and oriented 3 but is mildly confused and her son states that she is at her baseline. Son lives with her and states that she has fallen 4 times over the past 3 days. He is worried as she continues to fall and states she has not been eating much recently. Patient does complain of abdominal pain, diarrhea and vomiting over the past several weeks. Patient states that she has not hit her head or lost consciousness during any of these falls. Her son states that this happens fairly often but has been getting worse over the past few days and he is worried that his mother's continued decline in functioning. Patient denies head and neck pain, chest pain, shortness of breath, or extremity pain. She does have some left-sided hip pain and was not able to walk today after her fall. Son states that when she falls she is usually standing and it appears as though her legs will just go out from under her. Pain Scale: 0 - Related Data Home Medications Medication Instructions Recorded Confirmed BuPROPion SR (12 HR) [Wellbutrin 300 mg PO DAILY 05/22/17 03/28/18 SR] Cholecalciferol (Vitamin D3) 50,000 unit PO JOHNSON 05/22/17 03/28/18 [Vitamin D3] Hydrocortisone 2.5% CREAM [Cortaid] 1 appl TP BID PRN 05/22/17 03/28/18 LORazepam [Ativan] 0.5 mg PO BID 05/22/17 03/28/18 Tramadol HCl [Ultram] 50 mg PO TID PRN 05/22/17 03/28/18 Buspirone HCl [Buspar] 15 mg PO BID 03/28/18 03/28/18 Cyanocobalamin (B-12) [Vitamin B12] 1,000 mcg IM QMONTH 03/28/18 03/28/18 Propranolol [Inderal] 10 mg PO BID 03/28/18 03/28/18 Losartan Potassium 50 mg PO DAILY 10/02/18 10/02/18 traZODone [TraZODone] 100 mg PO HS 10/02/18 10/02/18 Allergies Allergy/AdvReac Type Severity Reaction Status Date / Time No Known Allergies Allergy Verified 10/02/18 11:48 All systems ED: reviewed and negative except as stated. Review of Systems: As Per HPI Constitutional: Reports: weakness. Denies: fever Cardiovascular: Denies: chest pain Respiratory: Denies: cough, dyspnea, wheezes Gastrointestinal: Reports: abdominal pain, nausea, vomiting, diarrhea Genitourinary: Denies: dysuria, hematuria Musculoskeletal: Denies: back pain, neck pain Neurological: Reports: weakness. Denies: headache, numbness, paresthesias Endocrine: Reports: fatigue Past Medical History - Past Medical History Attestation: Yes The following information was validated with the patient. Source: patient, obtained from family Medical history: Reports: hypertension, renal disease Surgical history: Reports: , cholecystectomy, colectomy, colostomy, NELSY/BSO, AICD Psychiatric history: Reports: anxiety, depression - Social History Smoking Status: Current every day smoker Smokeless Tobacco Status: No Alcohol use: Reports: none Drug use: Reports: none Physical Exam - General Limitations: no limitations General appearance: alert, in no apparent distress - Head Head exam: atraumatic, normocephalic - Eye Eye exam: Present: normal appearance, PERRL, EOMI - ENT ENT exam: normal exam, normal oropharynx - Neck Neck exam: Present: normal inspection. Absent: tenderness - Chest Chest inspection: Present: normal inspection. Absent: tenderness - Respiratory Respiratory exam: Present: normal lung sounds bilaterally. Absent: wheezes - Cardiovascular Cardiovascular exam: Present: regular rate, normal rhythm - Abdominal Exam Abdominal exam: Present: soft, tenderness. Absent: distention, guarding, rebound, rigidity, Hill's sign, tenderness at McBurney's Point Abdominal tenderness: Present: diffuse, mild - Extremities Exam Extremities exam: Present: other (left hip pain to palpation). Absent: pedal edema - Back Exam Back exam: Present: normal inspection. Absent: tenderness, vertebral tenderness - Neurological Exam Neurological exam: Present: alert, oriented X3 - Psychiatric Psychiatric exam: Present: normal affect, normal mood - Skin Skin exam: Present: warm, dry, intact Course Vital Signs Temperature 98.4 F 10/02/18 11:39 Pulse Rate 69 10/02/18 11:39 Respiratory Rate 16 10/02/18 11:39 Blood Pressure 141/63 10/02/18 11:39 O2 Sat by Pulse Oximetry 100 10/02/18 11:39 Temperature 98.4 F 10/02/18 11:39 Pulse Rate 72 10/02/18 14:26 Respiratory Rate 16 10/02/18 11:39 Blood Pressure 157/67 10/02/18 14:26 O2 Sat by Pulse Oximetry 99 10/02/18 14:26 Oxygen Delivery Oxygen Delivery Room Air Medical Decision Making - [facility] Narrative Medical decision making narrative: Patient presents with frequent falls and increasing weakness, decreased appetite and other signs and symptoms concerning for worsening failure to thrive. We will obtain basic labs, lipase, urinalysis, EKG, troponin, head CT and CT scan of the abdomen and pelvis to look for signs of intra-abdominal and intracranial abnormalities. Patient will also be given a liter of normal saline as she appears clinically dry. 1345 - patient's lab work demonstrates a CAT without any other significant abnormalities. Troponin is negative. EKG unchanged from previous. CT scans of the head and the abdomen do not demonstrate any acute abnormalities, and there is no visible hip fracture. Awaiting urinalysis at this time. 1415 - patient's urine shows signs of infection and she will be given a one-time dose of Rocephin. She is agreeable with admission to the hospital for hydration and PT/OT for her frequent falls. Hospitalist has been paged for admission. 1520 - pt has been accepted for admission. - Medical Records Medical records reviewed: Yes I reviewed the patient's medical records. - Lab Data Lab results reviewed: Yes I reviewed the patient's lab results. Result diagrams: 10/02/18 12:36 10/02/18 12:36 Lab Results 10/02/18 10/02/18 10/02/18 Range/Units 12:36 12:36 13:31 WBC 6.1 (4.3-11.1) K/mcL RBC 4.15 (3.82-4.97) M/mcL Hgb 11.6 (11.5-15.4) g/dL Hct 37.6 (35.3-44.9) % MCV 90.6 (83.0-100.0) fL MCH 28.0 (28.0-33.3) pg MCHC 30.9 L (31.6-35.5) g/dL RDW 13.8 (11.5-14.5) % Plt Count 225 (140-400) K/mcL MPV 10.9 (9.4-12.4) fL Immature Gran % 0.3 (0-4) % Seg Neutrophils % 75.5 % Lymphocytes % 15.2 % Monocytes % 6.2 % Eosinophils % 2.3 % Basophils % 0.5 % Neutrophils # 4.6 (1.6-8.9) K/mcL Lymphocytes # 0.9 (0.6-4.6) K/mcL Monocytes # 0.4 (0.0-1.3) K/mcL Eosinophils # 0.1 (0.0-0.6) K/mcL Basophils # 0.0 (0.0-0.2) K/mcL Sodium 137 (136-145) mEq/L Potassium 4.5 (3.5-5.1) mEq/L Chloride 106 (98-107) mEq/L Carbon Dioxide 25 (23-29) mEq/L BUN 23 (8-23) mg/dL Creatinine 1.48 H (0.60-1.20) mg/dL Est GFR ( Amer) 41 L (> 60) Est GFR (Non-Af Amer) 34 L (> 60) BUN/Creatinine Ratio 16 (6-26) Glucose 85 (70-105) mg/dL Calculated Osmolality 287 (280-300) Calcium 8.0 L (8.6-10.3) mg/dL Total Bilirubin 0.4 (0.3-1.0) mg/dL AST 32 (13-39) Units/L ALT 18 (7-52) Units/L Alkaline Phosphatase 99 (34-104) Units/L Troponin I < 0.03 (< 0.04) ng/mL Serum Total Protein 5.3 L (6.4-8.9) g/dL Albumin 2.9 L (3.5-5.7) g/dL Globulin 2.4 (2.4-3.5) g/dL Albumin/Globulin Ratio 1.2 (1.1-2.2) Lipase 23 (11-82) Units/L Urine Color Yellow (Yellow) Urine Clarity Cloudy A (Clear) Urine pH 6.0 (5.0-8.0) pH Units Ur Specific [place] 1.012 (1.010-1.025) Urine Protein Negative (Neg-Trace) mg/dL Urine Glucose (UA) Normal (Normal) mg/dL Urine Ketones Negative (Negative) mg/dL Urine Blood Small H (Negative) Urine Nitrite Negative (Negative) Urine Bilirubin Negative (Negative) Urine Urobilinogen Normal (Normal) mg/dL Ur Leukocyte Esterase Large H (Negative) Urine Microscopic RBC 0-3 (0-3) per hpf Urine Microscopic WBC 15-30 H (0-3) per hpf Ur Squamous Epith Cells Many H (None-Few) per lpf Urine Bacteria Many H (None-Few) per hpf Hyaline Casts None Seen (None-Few) per lpf Urine Yeast Few H (None Seen) per hpf Ur Culture Indicated? YES A (NO) - Radiology Data Radiology results reviewed: Yes I reviewed the patient's radiology results. - EKG Data EKG #1 EKG attestation: Yes I reviewed and interpreted this EKG. EKG results narrative: EKG obtained at 11:47 on 10/02/2018 Heart rate of Beats per minute, CT interval 189, QRS duration 1:30, QT 433, QTC 471 Sinus rhythm with right bundle branch block. No significant ST segment elevations or depressions. Inverted T waves in V1, V2 and aVR which are all present on previous EKG dated 03/27/2018. No acute changes when compared to previous EKG.
[2018-10-02 12:58] LABS: Basophils % 0.5 %; Eosinophils # 0.1 K/mcL (0.0-0.6); Eosinophils % 2.3 %; Hematocrit 37.6 % (35.3-44.9); Hemoglobin 11.6 g/dL (11.5-15.4); Immature Granulocytes % 0.3 % (0-4); Lymphocytes # 0.9 K/mcL (0.6-4.6); Lymphocytes % 15.2 %; Mean Corpuscular HGB Conc 30.9 g/dL (31.6-35.5); Mean Corpuscular Volume 90.6 fL (83.0-100.0); Mean Platelet Volume 10.9 fL (9.4-12.4); Monocytes # 0.4 K/mcL (0.0-1.3); Monocytes % 6.2 %; Neutrophils # 4.6 K/mcL (1.6-8.9); Platelet Count 225 K/mcL (140-400); Red Blood Count 4.15 M/mcL (3.82-4.97); Red Cell Distribution Width 13.8 % (11.5-14.5); Segmented Neutrophils % 75.5 %; White Blood Count 6.1 K/mcL (4.3-11.1)
[2018-10-02 13:17] LABS: Alanine Aminotransferase 18 Units/L (7-52); Albumin 2.9 g/dL (3.5-5.7); Albumin/Globulin Ratio 1.2 (1.1-2.2); Alkaline Phosphatase 99 Units/L (34-104); Aspartate Amino Transferase 32 Units/L (13-39); BUN/Creatinine Ratio 16 (6-26); Bilirubin,Total 0.4 mg/dL (0.3-1.0); Blood Urea Nitrogen 23 mg/dL (8-23); Carbon Dioxide 25 mEq/L (23-29); Chloride 106 mEq/L (98-107); Globulin 2.4 g/dL (2.4-3.5); Glucose 85 mg/dL (70-105); Lipase 23 Units/L (11-82); Osmolality,Calculated 287 (280-300); Potassium 4.5 mEq/L (3.5-5.1); Sodium 137 mEq/L (136-145); Total Protein 5.3 g/dL (6.4-8.9); Troponin I < 0.03 ng/mL (< 0.04); eGFR For African Americans 41 (> 60); eGFR For Non-African Americans 34 (> 60)
[2018-10-02 13:52] LABS: Bilirubin,Urine Negative (Negative); Blood,Urine Small (Negative); Clarity,Urine Cloudy (Clear); Color,Urine Yellow (Yellow); Glucose,Urine (UA) Normal (Normal); Ketones,Urine Negative (Negative); Leukocyte Esterase,Urine Large (Negative); Nitrite,Urine Negative (Negative); Protein,Urine Negative (Neg-Trace); Specific Gravity,Urine 1.012 (1.010-1.025); Urobilinogen,Urine Normal (Normal)
[2018-10-02 13:54] LABS: Hyaline Casts,Urine None Seen per lpf (None-Few); Squamous Epithelial Cell,Urine Many per lpf (None-Few); WBC,Urine 15-30 per hpf (0-3)
[2018-10-02] MEDS ORDERED: cefTRIAXone 1,000 MG in Water for inj. (sterile) 10 ML IVP ONE (14:10)
[2018-10-02] MEDS ORDERED: Acetaminophen 325 MG TABLET PO ONE (14:21)
[2018-10-02 14:29] LABS: Bacteria,Urine Many per hpf (None-Few); RBC,Urine 0-3 per hpf (0-3); Yeast,Urine Few per hpf (None Seen)
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
--- NOTE | 2018-10-02 16:55 | Electrocardiograph Report ---
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
[2018-10-02] MEDS ORDERED: Naloxone 0.4 MG/ML INJ IVP PRN (17:40)
[2018-10-02] MEDS ORDERED: traMADol 50 MG TABLET PO PRN (17:40)
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
[2018-10-02] MEDS ORDERED: D5% in 0.9% NACL 1,000 ML IVC SCH (17:45)
[2018-10-02] MEDS ORDERED: *HR* LORazepam 0.5 MG TABLET PO PRN (17:58)
[2018-10-02] MEDS: traZODone 50 MG TABLET PO SCH (19:54)
[2018-10-02] MEDS: *HR* Heparin 5,000 UNIT/ML VIAL SQ SCH (19:55)
[2018-10-03] MEDS: *HR* Heparin 5,000 UNIT/ML VIAL SQ SCH ×2 (06:10→18:15)
[2018-10-03 06:19] LABS: Basophils % 0.5 %; Eosinophils # 0.1 K/mcL (0.0-0.6); Hematocrit 34.5 % (35.3-44.9); Hemoglobin 10.7 g/dL (11.5-15.4); Immature Granulocytes % 0.5 % (0-4); Lymphocytes # 1.4 K/mcL (0.6-4.6); Lymphocytes % 21.4 %; Mean Corpuscular Hemoglobin 27.2 pg (28.0-33.3); Mean Corpuscular Volume 87.8 fL (83.0-100.0); Mean Platelet Volume 10.8 fL (9.4-12.4); Monocytes # 0.5 K/mcL (0.0-1.3); Monocytes % 8.3 %; Neutrophils # 4.3 K/mcL (1.6-8.9); Platelet Count 246 K/mcL (140-400); Red Blood Count 3.93 M/mcL (3.82-4.97); Red Cell Distribution Width 13.5 % (11.5-14.5); Segmented Neutrophils % 67.3 %; White Blood Count 6.4 K/mcL (4.3-11.1)
[2018-10-03 06:40] LABS: Calcium 7.8 mg/dL (8.6-10.3); Magnesium 1.7 mg/dL (1.6-2.6); Phosphorous 3.2 mg/dL (2.7-4.5); Potassium 4.1 mEq/L (3.5-5.1)
[2018-10-03] MEDS: cefTRIAXone 1,000 MG in Water for inj. (sterile) 10 ML IVP SCH (07:57)
[2018-10-03] MEDS: traMADol 50 MG TABLET PO PRN ×2 (07:59→18:15)
[2018-10-03] MEDS: BuPROPion XL (24 HR) 150 MG TABLET PO SCH (07:59)
[2018-10-03] MEDS ORDERED: Cyanocobalamin (B-12) 1,000 MCG/ML VIAL IM SCH (09:00)
[2018-10-03] MEDS ORDERED: BuPROPion SR (12 HR) 150 MG TABLET PO SCH (09:00)
[2018-10-03] MEDS ORDERED: *HR* LORazepam 0.5 MG TABLET PO SCH (09:00)
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
[2018-10-03] MEDS: Acetaminophen 325 MG TABLET PO PRN (15:20)
[2018-10-03] MEDS: traZODone 50 MG TABLET PO SCH (20:14)
[2018-10-03] MEDS: Nystatin POWDER 30 GM BOTTLE TP SCH (20:14)
[2018-10-03] MEDS ORDERED: traZODone 50 MG TABLET PO SCH (21:00)
[2018-10-04] MEDS: Acetaminophen 325 MG TABLET PO PRN (02:59)
[2018-10-04] MEDS: *HR* Heparin 5,000 UNIT/ML VIAL SQ SCH (05:19)
[2018-10-04 05:34] LABS: Basophils % 0.6 %; Eosinophils # 0.2 K/mcL (0.0-0.6); Eosinophils % 2.5 %; Hematocrit 35.7 % (35.3-44.9); Hemoglobin 11.1 g/dL (11.5-15.4); Immature Granulocytes % 0.3 % (0-4); Lymphocytes # 1.5 K/mcL (0.6-4.6); Lymphocytes % 22.7 %; Mean Corpuscular HGB Conc 31.1 g/dL (31.6-35.5); Mean Corpuscular Hemoglobin 27.4 pg (28.0-33.3); Mean Corpuscular Volume 88.1 fL (83.0-100.0); Monocytes # 0.6 K/mcL (0.0-1.3); Monocytes % 8.3 %; Neutrophils # 4.4 K/mcL (1.6-8.9); Platelet Count 258 K/mcL (140-400); Red Blood Count 4.05 M/mcL (3.82-4.97); Red Cell Distribution Width 13.4 % (11.5-14.5); Segmented Neutrophils % 65.6 %; White Blood Count 6.7 K/mcL (4.3-11.1)
[2018-10-04 05:50] LABS: Calcium 8.3 mg/dL (8.6-10.3); Potassium 4.4 mEq/L (3.5-5.1)
[2018-10-04] MEDS: Nystatin POWDER 30 GM BOTTLE TP SCH (08:55)
[2018-10-04] MEDS: BuPROPion XL (24 HR) 150 MG TABLET PO SCH (08:55)
[2018-10-04] MEDS: cefTRIAXone 1,000 MG in Water for inj. (sterile) 10 ML IVP SCH (08:55)
[2018-10-04] MEDS: traMADol 50 MG TABLET PO PRN (08:59)
[2018-10-04 11:15] VITALS: BP 165/82
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
[2018-10-08] MEDS ORDERED: Cholecalciferol (D-3) 1,000 UNIT (25MCG) TABLET PO SCH (09:00)
== END 2018-10-04 12:55 ==
LOC: EMEROOARM 11:34 → 3BNU 11:34
PROVIDERS: ADMIT Internal Medicine Nephrology; ATTEND Internal Medicine Nephrology

== ENCOUNTER 2019-05-14 05:21 | Observation (INO) ==
[2019-05-14] MEDS ORDERED: 0.9 % Sodium Chloride 1,000 ML IVC ONE (05:31)
[2019-05-14] MEDS ORDERED: Ondansetron 4 MG/2 ML VIAL IVP ONE (05:31)
[2019-05-14 06:35] LABS: Basophils % 0.1 %; Eosinophils % 0.1 %; Hematocrit 38.2 % (35.3-44.9); Hemoglobin 12.2 g/dL (11.5-15.4); Immature Granulocytes % 0.3 % (0-4); Lymphocytes # 0.4 K/mcL (0.6-4.6); Mean Corpuscular HGB Conc 31.9 g/dL (31.6-35.5); Mean Corpuscular Hemoglobin 28.5 pg (28.0-33.3); Mean Corpuscular Volume 89.3 fL (83.0-100.0); Mean Platelet Volume 11.3 fL (9.4-12.4); Monocytes # 0.8 K/mcL (0.0-1.3); Monocytes % 11.3 %; Neutrophils # 5.8 K/mcL (1.6-8.9); Platelet Count 234 K/mcL (140-400); Red Blood Count 4.28 M/mcL (3.82-4.97); Red Cell Distribution Width 14.6 % (11.5-14.5); Segmented Neutrophils % 83.2 %
[2019-05-14 06:52] LABS: Bilirubin,Urine Moderate (Negative); Blood,Urine Trace (Negative); Clarity,Urine Cloudy (Clear); Color,Urine Dark Yellow (Yellow); Glucose,Urine (UA) Normal (Normal); Ketones,Urine Negative (Negative); Leukocyte Esterase,Urine Negative (Negative); Nitrite,Urine Negative (Negative); PH,Urine 5.5 pH Units (5.0-8.0); Protein,Urine 30 mg/dL (Neg-Trace); Specific Gravity,Urine 1.022 (1.010-1.025); Urobilinogen,Urine Normal (Normal)
[2019-05-14 06:55] LABS: Bacteria,Urine None Seen per hpf (None-Few); Hyaline Casts,Urine Few per lpf (None-Few); Squamous Epithelial Cell,Urine Many per lpf (None-Few); WBC,Urine 0-3 per hpf (0-3)
[2019-05-14 06:56] LABS: Albumin 3.1 g/dL (3.5-5.7); Albumin/Globulin Ratio 1.2 (1.1-2.2); Bilirubin,Total 3.7 mg/dL (0.3-1.0); Calcium 7.7 mg/dL (8.6-10.3); Globulin 2.5 g/dL (2.4-3.5); Potassium 3.5 mEq/L (3.5-5.1); Total Protein 5.6 g/dL (6.4-8.9)
[2019-05-14 07:07] LABS: Amorphous Sediment,Urine Few per hpf (Few); Granular Casts,Urine Few per lpf (None Seen)
[2019-05-14] MEDS ORDERED: Naloxone 0.4 MG/ML INJ IVP PRN (07:47)
[2019-05-14] MEDS ORDERED: Ondansetron 4 MG/2 ML VIAL IVP PRN (08:39)
[2019-05-14] MEDS: 0.9 % Sodium Chloride 1,000 ML IVC SCH ×2 (09:08→22:25)
[2019-05-14] MEDS: *HR* Heparin 5,000 UNIT/ML VIAL SQ SCH ×2 (13:31→20:24)
[2019-05-14] MEDS: Mirtazapine 15 MG TABLET PO SCH (20:21)
[2019-05-14 20:50] LABS: Adenovirus F 40/41 PCR Not detected (Not detect); Astrovirus PCR Not detected (Not detect); C.difficile Toxin A/B Gene PCR Not detected (Not detect); Campylobacter by PCR Not detected (Not detect); Cryptosporidium by PCR Not detected (Not detect); Cyclospora cayetanensis PCR Not detected (Not detect); Entamoeba histolytica PCR Not detected (Not detect); Enteroaggregative E.coli(EAEC) Not detected (Not detect); Enteropathogenic E.coli(EPEC) Not detected (Not detect); Enterotoxigenic E.coli (ETEC) Not detected (Not detect); Giardia lamblia PCR Not detected (Not detect); Plesiomonas shigelloides PCR Not detected (Not detect); Salmonella PCR Not detected (Not detect); Shig/EnteroinvasiveE coli EIEC Not detected (Not detect); Shigalike tox-prod E coli STEC Not detected (Not detect); Vibrio PCR Not detected (Not detect); Vibrio cholerae PCR Not detected (Not detect); Yersinia enterocolitica PCR Not detected (Not detect)
[2019-05-14 20:51] LABS: Norovirus GI/GII PCR DETECTED (Not detect); Rotavirus A PCR Not detected (Not detect); Sapovirus PCR Not detected (Not detect)
[2019-05-14] MEDS ORDERED: traZODone 50 MG TABLET PO SCH (21:00)
[2019-05-15] MEDS: *HR* Heparin 5,000 UNIT/ML VIAL SQ SCH ×3 (05:18→20:22)
[2019-05-15 06:59] LABS: Albumin/Globulin Ratio 1.3 (1.1-2.2); Bilirubin,Total 2.7 mg/dL (0.3-1.0); Calcium 7.7 mg/dL (8.6-10.3); Globulin 2.4 g/dL (2.4-3.5); Potassium 3.5 mEq/L (3.5-5.1); Total Protein 5.4 g/dL (6.4-8.9)
[2019-05-15 10:37] LABS: Albumin/Globulin Ratio 1.2 (1.1-2.2); Bilirubin,Direct 1.8 mg/dL (0.0-0.2); Bilirubin,Indirect 0.6 mg/dL (0.0-1.0); Bilirubin,Total 2.4 mg/dL (0.3-1.0); Globulin 2.5 g/dL (2.4-3.5); Magnesium 1.7 mg/dL (1.6-2.6); Phosphorous 2.7 mg/dL (2.7-4.5); Total Protein 5.5 g/dL (6.4-8.9)
[2019-05-15] MEDS: *HR* LORazepam 0.5 MG TABLET PO PRN ×2 (12:04→20:22)
[2019-05-15] MEDS: Mirtazapine 15 MG TABLET PO SCH (20:22)
[2019-05-16] MEDS: *HR* Heparin 5,000 UNIT/ML VIAL SQ SCH ×3 (05:44→21:10)
[2019-05-16 06:46] LABS: Basophils % 0.4 %; Eosinophils # 0.1 K/mcL (0.0-0.6); Hematocrit 31.8 % (35.3-44.9); Immature Granulocytes % 0.4 % (0-4); Lymphocytes # 0.6 K/mcL (0.6-4.6); Lymphocytes % 11.1 %; Mean Corpuscular HGB Conc 32.7 g/dL (31.6-35.5); Mean Corpuscular Hemoglobin 28.9 pg (28.0-33.3); Mean Corpuscular Volume 88.3 fL (83.0-100.0); Mean Platelet Volume 11.5 fL (9.4-12.4); Monocytes # 0.8 K/mcL (0.0-1.3); Monocytes % 16.1 %; Neutrophils # 3.6 K/mcL (1.6-8.9); Platelet Count 217 K/mcL (140-400); Red Cell Distribution Width 14.6 % (11.5-14.5)
[2019-05-16 06:49] LABS: Hemoglobin 10.4 g/dL (11.5-15.4)
[2019-05-16 07:05] LABS: Albumin 2.5 g/dL (3.5-5.7); Albumin/Globulin Ratio 1.2 (1.1-2.2); Calcium 7.4 mg/dL (8.6-10.3); Globulin 2.1 g/dL (2.4-3.5); Magnesium 1.9 mg/dL (1.6-2.6); Potassium 3.1 mEq/L (3.5-5.1); Total Protein 4.6 g/dL (6.4-8.9)
[2019-05-16] MEDS ORDERED: Potassium Chloride Elixir 20 MEQ/15 ML UDC PO ONE (09:01)
[2019-05-16] MEDS ORDERED: 0.9 % Sodium Chloride 1,000 ML IVC SCH (09:15)
[2019-05-16] MEDS: Calcium Gluconate 1gm/50mL 1 GM/50 ML BAG IVPB SCH ×2 (11:02→12:32)
[2019-05-16] MEDS: 0.9 % Sodium Chloride 1,000 ML IVC SCH ×2 (11:11→21:08)
[2019-05-16] MEDS: Mirtazapine 15 MG TABLET PO SCH (21:10)
[2019-05-17] MEDS ORDERED: Acetaminophen 325 MG TABLET PO ONE (00:07)
[2019-05-17] MEDS: 0.9 % Sodium Chloride 1,000 ML IVC SCH (05:22)
[2019-05-17] MEDS: *HR* Heparin 5,000 UNIT/ML VIAL SQ SCH (05:22)
[2019-05-17 06:07] LABS: Calcium 7.5 mg/dL (8.6-10.3); Potassium 3.8 mEq/L (3.5-5.1)
[2019-05-17] MEDS ORDERED: Potassium Chloride Elixir 20 MEQ/15 ML UDC PO ONE (07:39)
[2019-05-17] MEDS: Calcium Gluconate 1gm/50mL 1 GM/50 ML BAG IVPB SCH ×2 (08:54→12:38)
[2019-05-17] MEDS ORDERED: *HR* LORazepam 0.5 MG TABLET PO SCH (10:45)
[2019-05-17 11:43] VITALS: BP 169/42
[2019-05-17] MEDS ORDERED: FLU Vac QV 19-20 (6Month+)/PF 0.5 ML SYRINGE IM ONE (12:36)
== END 2019-05-17 14:28 | disposition home or self-care (01) ==
LOC: EMEROOARM 05:21 → 3ANU 05:21 → SUATTDRO 07:43 → 3ANU 08:26
PROVIDERS: ADMIT Internal Medicine; ATTEND Student in an Organized Health Care Education/Training Program

== ENCOUNTER 2019-09-04 10:50 | Observation (INO) ==
[2019-09-04 11:29] LABS: INR 1.1; Prothrombin Time 12.7 Seconds (9.4-12.1)
[2019-09-04 11:35] LABS: Basophils # 0.1 K/mcL (0.0-0.2); Basophils % 0.6 %; Eosinophils # 0.1 K/mcL (0.0-0.6); Eosinophils % 1.3 %; Hematocrit 39.2 % (35.3-44.9); Hemoglobin 12.1 g/dL (11.5-15.4); Immature Granulocytes % 0.2 % (0-4); Lymphocytes # 1.2 K/mcL (0.6-4.6); Lymphocytes % 13.7 %; Mean Corpuscular HGB Conc 30.9 g/dL (31.6-35.5); Mean Corpuscular Hemoglobin 27.6 pg (28.0-33.3); Mean Corpuscular Volume 89.3 fL (83.0-100.0); Mean Platelet Volume 11.4 fL (9.4-12.4); Monocytes % 11.7 %; Neutrophils # 6.3 K/mcL (1.6-8.9); Platelet Count 252 K/mcL (140-400); Red Blood Count 4.39 M/mcL (3.82-4.97); Red Cell Distribution Width 13.3 % (11.5-14.5); Segmented Neutrophils % 72.5 %; White Blood Count 8.6 K/mcL (4.3-11.1)
[2019-09-04 11:58] LABS: Albumin 3.1 g/dL (3.5-5.7); Albumin/Globulin Ratio 1.2 (1.1-2.2); Bilirubin,Direct 0.1 mg/dL (0.0-0.2); Bilirubin,Indirect 0.4 mg/dL (0.0-1.0); Bilirubin,Total 0.5 mg/dL (0.3-1.0); Calcium 8.1 mg/dL (8.6-10.3); Globulin 2.6 g/dL (2.4-3.5); Potassium 4.2 mEq/L (3.5-5.1); Total Protein 5.7 g/dL (6.4-8.9)
[2019-09-04] MEDS ORDERED: Ondansetron 4 MG/2 ML VIAL IVP ONE (12:52)
[2019-09-04] MEDS ORDERED: *HR* FentaNYL (PF) 100 MCG/2 ML VIAL IVP ONE (12:52)
[2019-09-04] MEDS ORDERED: 0.9 % Sodium Chloride 1,000 ML IVC ONE (12:52)
[2019-09-04] MEDS ORDERED: *HR* LORazepam 2 MG/ML VIAL IVP ONE (13:44)
[2019-09-04] MEDS ORDERED: Ondansetron 4 MG/2 ML VIAL IVP PRN (13:57)
[2019-09-04] MEDS ORDERED: Naloxone 0.4 MG/ML INJ IVP PRN (13:57)
[2019-09-04] MEDS: 0.9 % Sodium Chloride 1,000 ML IVC SCH (16:05)
[2019-09-04] MEDS: MetroNIDAZOLE 500 MG/100 ML 500 MG/100 ML BAG IVPB SCH ×2 (16:06→23:09)
[2019-09-04] MEDS: *HR* Heparin 5,000 UNIT/ML VIAL SQ SCH (17:58)
[2019-09-04] MEDS: *HR* LORazepam 0.5 MG TABLET PO PRN (18:05)
[2019-09-04] MEDS: *HR* OxyCODONE/APAP 5/325 TABLET PO PRN (18:40)
[2019-09-04] MEDS: Mirtazapine 15 MG TABLET PO SCH (20:55)
[2019-09-04] MEDS ORDERED: *HR* Labetalol 20 MG/4 ML SYRINGE IVP ONE (22:12)
[2019-09-05 03:31] LABS: Bilirubin,Urine Negative (Negative); Blood,Urine Negative (Negative); Clarity,Urine Clear (Clear); Color,Urine Yellow (Yellow); Glucose,Urine (UA) Normal (Normal); Ketones,Urine Negative (Negative); Leukocyte Esterase,Urine Negative (Negative); Nitrite,Urine Negative (Negative); Protein,Urine Trace mg/dL (Neg-Trace); Specific Gravity,Urine 1.016 (1.010-1.025)
[2019-09-05 04:15] LABS: Basophils # 0.1 K/mcL (0.0-0.2); Basophils % 0.6 %; Eosinophils # 0.1 K/mcL (0.0-0.6); Eosinophils % 0.7 %; Hematocrit 38.6 % (35.3-44.9); Hemoglobin 11.9 g/dL (11.5-15.4); Immature Granulocytes % 0.4 % (0-4); Lymphocytes # 1.1 K/mcL (0.6-4.6); Lymphocytes % 10.4 %; Mean Corpuscular HGB Conc 30.8 g/dL (31.6-35.5); Mean Corpuscular Hemoglobin 27.5 pg (28.0-33.3); Mean Corpuscular Volume 89.1 fL (83.0-100.0); Mean Platelet Volume 11.8 fL (9.4-12.4); Monocytes # 1.2 K/mcL (0.0-1.3); Monocytes % 10.8 %; Neutrophils # 8.4 K/mcL (1.6-8.9); Nucleated Red Blood Cells 0.2 /100 WBC (0); Platelet Count 274 K/mcL (140-400); Red Blood Count 4.33 M/mcL (3.82-4.97); Red Cell Distribution Width 13.3 % (11.5-14.5); Segmented Neutrophils % 77.1 %; White Blood Count 10.8 K/mcL (4.3-11.1)
[2019-09-05 04:35] LABS: Alanine Aminotransferase 41 Units/L (7-52); Albumin 2.9 g/dL (3.5-5.7); Albumin/Globulin Ratio 1.1 (1.1-2.2); Alkaline Phosphatase 309 Units/L (34-104); Aspartate Amino Transferase 65 Units/L (13-39); BUN/Creatinine Ratio 16 (6-26); Bilirubin,Total 0.9 mg/dL (0.3-1.0); Blood Urea Nitrogen 17 mg/dL (8-23); Calcium 7.9 mg/dL (8.6-10.3); Carbon Dioxide 25 mEq/L (23-29); Chloride 105 mEq/L (98-107); Globulin 2.6 g/dL (2.4-3.5); Glucose 101 mg/dL (70-105); Magnesium 1.5 mg/dL (1.6-2.6); Osmolality,Calculated 284 (280-300); Phosphorous 2.4 mg/dL (2.7-4.5); Potassium 4.3 mEq/L (3.5-5.1); Sodium 136 mEq/L (136-145); Total Protein 5.5 g/dL (6.4-8.9); eGFR For African Americans > 60 (> 60); eGFR For Non-African Americans 51 (> 60)
[2019-09-05] MEDS: MetroNIDAZOLE 500 MG/100 ML 500 MG/100 ML BAG IVPB SCH ×3 (05:30→23:37)
[2019-09-05] MEDS: *HR* Heparin 5,000 UNIT/ML VIAL SQ SCH ×2 (06:53→18:03)
[2019-09-05] MEDS: 0.9 % Sodium Chloride 1,000 ML IVC SCH (06:54)
[2019-09-05] MEDS: *HR* OxyCODONE/APAP 5/325 TABLET PO PRN ×2 (14:29→21:30)
[2019-09-05] MEDS ORDERED: *HR* Labetalol 20 MG/4 ML SYRINGE IVP PRN (18:23)
[2019-09-05] MEDS: Mirtazapine 15 MG TABLET PO SCH (21:30)
[2019-09-05] MEDS: *HR* LORazepam 0.5 MG TABLET PO PRN (23:42)
[2019-09-06 01:18] LABS: Hematocrit 33.7 % (35.3-44.9); Hemoglobin 10.6 g/dL (11.5-15.4); Mean Corpuscular HGB Conc 31.5 g/dL (31.6-35.5); Mean Corpuscular Volume 89.2 fL (83.0-100.0); Mean Platelet Volume 11.2 fL (9.4-12.4); Platelet Count 219 K/mcL (140-400); Red Blood Count 3.78 M/mcL (3.82-4.97); Red Cell Distribution Width 13.2 % (11.5-14.5)
[2019-09-06 01:41] LABS: Calcium 7.6 mg/dL (8.6-10.3); Potassium 3.8 mEq/L (3.5-5.1)
[2019-09-06] MEDS: *HR* Heparin 5,000 UNIT/ML VIAL SQ SCH (06:15)
[2019-09-06] MEDS: MetroNIDAZOLE 500 MG/100 ML 500 MG/100 ML BAG IVPB SCH (06:15)
[2019-09-06 07:05] VITALS: BP 180/74
[2019-09-06] MEDS: *HR* LORazepam 0.5 MG TABLET PO PRN (09:07)
[2019-09-09] MEDS ORDERED: Ergocalciferol (VIT D2) 50,000 UNIT (1.25MG) CAP PO SCH (09:00)
== END 2019-09-06 11:00 | disposition hospice, home (50) ==
LOC: EMEROOARM 10:50 → 3ANU 10:50 → SUATTDRO 13:42 → 3ANU 14:08
PROVIDERS: ADMIT Internal Medicine; ATTEND Student in an Organized Health Care Education/Training Program

== ENCOUNTER 2020-06-19 00:24 | Inpatient (IN) ==
[2020-06-19] MEDS ORDERED: Isovue-370 500 ML BOTTLE IVP ONE (00:30)
[2020-06-19 01:28] LABS: Basophils # 0.1 K/mcL (0.0-0.2); Basophils % 0.6 %; Eosinophils # 0.1 K/mcL (0.0-0.6); Eosinophils % 0.9 %; Hematocrit 42.9 % (35.3-44.9); Hemoglobin 13.1 g/dL (11.5-15.4); Immature Granulocytes % 0.3 % (0-4); Lymphocytes % 8.4 %; Mean Corpuscular HGB Conc 30.5 g/dL (31.6-35.5); Mean Corpuscular Hemoglobin 27.1 pg (28.0-33.3); Mean Corpuscular Volume 88.6 fL (83.0-100.0); Mean Platelet Volume 11.3 fL (9.4-12.4); Monocytes # 1.1 K/mcL (0.0-1.3); Monocytes % 9.5 %; Neutrophils # 9.3 K/mcL (1.6-8.9); Platelet Count 346 K/mcL (140-400); Red Blood Count 4.84 M/mcL (3.82-4.97); Red Cell Distribution Width 13.6 % (11.5-14.5); Segmented Neutrophils % 80.3 %; White Blood Count 11.6 K/mcL (4.3-11.1)
[2020-06-19 01:36] LABS: Alanine Aminotransferase 19 Units/L (7-52); Albumin 3.4 g/dL (3.5-5.7); Albumin/Globulin Ratio 1.1 (1.1-2.2); Alkaline Phosphatase 263 Units/L (34-104); Aspartate Amino Transferase 32 Units/L (13-39); BUN/Creatinine Ratio 15 (6-26); Bilirubin,Direct 0.2 mg/dL (0.0-0.2); Bilirubin,Indirect 0.3 mg/dL (0.0-1.0); Bilirubin,Total 0.5 mg/dL (0.3-1.0); Blood Urea Nitrogen 19 mg/dL (8-23); Calcium 8.4 mg/dL (8.6-10.3); Carbon Dioxide 27 mEq/L (23-29); Chloride 99 mEq/L (98-107); Globulin 3.2 g/dL (2.4-3.5); Glucose 138 mg/dL (70-105); Lipase 8 Units/L (11-82); Osmolality,Calculated 284 (280-300); Potassium 3.7 mEq/L (3.5-5.1); Sodium 135 mEq/L (136-145); Total Protein 6.6 g/dL (6.4-8.9); Troponin I < 0.03 ng/mL (< 0.04); eGFR For African Americans 47 (> 60); eGFR For Non-African Americans 39 (> 60)
[2020-06-19 03:05] LABS: Bilirubin,Urine Negative (Negative); Blood,Urine Negative (Negative); Clarity,Urine Clear (Clear); Color,Urine Light-Yellow (Yellow); Glucose,Urine (UA) Normal (Normal); Ketones,Urine Negative (Negative); Leukocyte Esterase,Urine Negative (Negative); Nitrite,Urine Negative (Negative); PH,Urine 5.5 pH Units (5.0-8.0); Protein,Urine Trace mg/dL (Neg-Trace); Specific Gravity,Urine > 1.030 (1.010-1.025); Urobilinogen,Urine Normal (Normal)
[2020-06-19] MEDS ORDERED: Morphine Sulfate 2 MG/ML SYRINGE IVP ONE (03:20)
[2020-06-19] MEDS ORDERED: Ondansetron 4 MG/2 ML VIAL IVP ONE (03:20)
[2020-06-19] MEDS ORDERED: Naloxone 0.4 MG/ML INJ IVP PRN (03:44)
[2020-06-19] MEDS ORDERED: *HR* Promethazine 25 MG/ML VIAL IM PRN (03:44)
[2020-06-19] MEDS ORDERED: 0.9 % Sodium Chloride 1,000 ML IVC SCH ×2 (03:45→10:17)
[2020-06-19] MEDS ORDERED: Chloraseptic Spray 177 ML BOTTLE MM PRN (04:19)
[2020-06-19 06:24] LABS: Magnesium 1.7 mg/dL (1.6-2.6)
[2020-06-19] MEDS ORDERED: *HR* Metoprolol 5 MG/5 ML VIAL IVP ONE (06:45)
[2020-06-19] MEDS: Mirtazapine 15 MG TABLET PO SCH (10:14)
[2020-06-19] MEDS ORDERED: *HR* Metoprolol 5 MG/5 ML VIAL IVP SCH (12:00)
[2020-06-19] MEDS: *HR* LORazepam 0.5 MG TABLET PO SCH ×2 (17:08→19:47)
[2020-06-20 00:11] LABS: Adenovirus F 40/41 PCR Not detected (Not detect); Astrovirus PCR Not detected (Not detect); C.difficile Toxin A/B Gene PCR Not detected (Not detect); Campylobacter by PCR Not detected (Not detect); Cryptosporidium by PCR Not detected (Not detect); Cyclospora cayetanensis PCR Not detected (Not detect); E. coli O157 by PCR Not detected (Not detect); Entamoeba histolytica PCR Not detected (Not detect); Enteroaggregative E.coli(EAEC) Not detected (Not detect); Enteropathogenic E.coli(EPEC) Not detected (Not detect); Enterotoxigenic E.coli (ETEC) Not detected (Not detect); Giardia lamblia PCR Not detected (Not detect); Norovirus GI/GII PCR Not detected (Not detect); Plesiomonas shigelloides PCR Not detected (Not detect); Rotavirus A PCR Not detected (Not detect); Salmonella PCR Not detected (Not detect); Sapovirus PCR Not detected (Not detect); Shig/EnteroinvasiveE coli EIEC Not detected (Not detect); Shigalike tox-prod E coli STEC Not detected (Not detect); Vibrio PCR Not detected (Not detect); Vibrio cholerae PCR Not detected (Not detect); Yersinia enterocolitica PCR Not detected (Not detect)
[2020-06-20 01:08] LABS: Basophils % 0.5 %; Eosinophils # 0.1 K/mcL (0.0-0.6); Eosinophils % 0.8 %; Hematocrit 39.3 % (35.3-44.9); Hemoglobin 12.3 g/dL (11.5-15.4); Immature Granulocytes % 0.4 % (0-4); Mean Corpuscular HGB Conc 31.3 g/dL (31.6-35.5); Mean Corpuscular Hemoglobin 27.6 pg (28.0-33.3); Mean Corpuscular Volume 88.1 fL (83.0-100.0); Mean Platelet Volume 11.3 fL (9.4-12.4); Monocytes # 0.8 K/mcL (0.0-1.3); Monocytes % 10.3 %; Platelet Count 315 K/mcL (140-400); Red Blood Count 4.46 M/mcL (3.82-4.97); Red Cell Distribution Width 13.5 % (11.5-14.5)
[2020-06-20 01:27] LABS: Albumin/Globulin Ratio 1.1 (1.1-2.2); Bilirubin,Total 0.5 mg/dL (0.3-1.0); Calcium 8.1 mg/dL (8.6-10.3); Globulin 2.7 g/dL (2.4-3.5); Potassium 3.8 mEq/L (3.5-5.1); Total Protein 5.7 g/dL (6.4-8.9)
[2020-06-20] MEDS: Mirtazapine 15 MG TABLET PO SCH (09:37)
[2020-06-20] MEDS: *HR* LORazepam 0.5 MG TABLET PO SCH ×2 (09:37→13:10)
[2020-06-20] MEDS: amLODIPine 5 MG TABLET PO SCH (13:10)
[2020-06-20] MEDS ORDERED: Azithromycin 250 MG TABLET PO SCH (17:15)
[2020-06-20] MEDS: *HR* Heparin 5,000 UNIT/ML VIAL SQ SCH (17:44)
[2020-06-20] MEDS: *HR* LORazepam 0.5 MG TABLET PO PRN (19:58)
[2020-06-21] MEDS ORDERED: *HR* Labetalol 20 MG/4 ML SYRINGE IVP ONE (00:44)
[2020-06-21] MEDS ORDERED: amLODIPine 5 MG TABLET PO ONE (00:45)
[2020-06-21] MEDS: *HR* Heparin 5,000 UNIT/ML VIAL SQ SCH ×2 (05:32→17:21)
[2020-06-21 07:49] LABS: Magnesium 1.5 mg/dL (1.6-2.6); Phosphorous 2.5 mg/dL (2.7-4.5)
[2020-06-21] MEDS: amLODIPine 5 MG TABLET PO SCH (08:56)
[2020-06-21] MEDS: Mirtazapine 15 MG TABLET PO SCH (08:56)
[2020-06-21] MEDS ORDERED: Magnesium Sulfate 1 GM/102 ML PIGGYBACK IVPB ONE (10:28)
[2020-06-21] MEDS: Nitroglycerin 0.4 MG TAB.SUBL SL PRN ×2 (15:59→16:05)
[2020-06-22] MEDS: *HR* Heparin 5,000 UNIT/ML VIAL SQ SCH ×2 (05:25→17:00)
[2020-06-22] MEDS: amLODIPine 5 MG TABLET PO SCH (08:39)
[2020-06-22] MEDS: Mirtazapine 15 MG TABLET PO SCH (08:39)
[2020-06-22] MEDS: *HR* LORazepam 0.5 MG TABLET PO PRN ×3 (08:46→20:51)
[2020-06-22 09:13] LABS: Calcium 7.7 mg/dL (8.6-10.3); Magnesium 1.8 mg/dL (1.6-2.6); Phosphorous 3.9 mg/dL (2.7-4.5); Potassium 3.6 mEq/L (3.5-5.1)
[2020-06-23] MEDS: *HR* Heparin 5,000 UNIT/ML VIAL SQ SCH ×2 (05:33→17:55)
[2020-06-23] MEDS: amLODIPine 5 MG TABLET PO SCH (08:32)
[2020-06-23] MEDS: Mirtazapine 15 MG TABLET PO SCH (08:32)
[2020-06-23] MEDS: *HR* LORazepam 0.5 MG TABLET PO SCH ×4 (09:10→19:34)
[2020-06-24] MEDS: *HR* Heparin 5,000 UNIT/ML VIAL SQ SCH ×2 (05:21→17:21)
[2020-06-24] MEDS: amLODIPine 5 MG TABLET PO SCH (08:30)
[2020-06-24] MEDS: Mirtazapine 15 MG TABLET PO SCH (08:31)
[2020-06-24] MEDS: *HR* LORazepam 0.5 MG TABLET PO SCH ×4 (08:31→20:09)
[2020-06-25] MEDS: *HR* Heparin 5,000 UNIT/ML VIAL SQ SCH ×2 (05:28→18:45)
[2020-06-25] MEDS: *HR* LORazepam 0.5 MG TABLET PO SCH ×4 (08:56→20:35)
[2020-06-25] MEDS: Mirtazapine 15 MG TABLET PO SCH (08:57)
[2020-06-25] MEDS: amLODIPine 5 MG TABLET PO SCH (08:57)
[2020-06-25 12:49] LABS: Basophils # 0.1 K/mcL (0.0-0.2); Basophils % 0.5 %; Eosinophils # 0.2 K/mcL (0.0-0.6); Hematocrit 44.5 % (35.3-44.9); Hemoglobin 13.7 g/dL (11.5-15.4); Immature Granulocytes % 0.7 % (0-4); Lymphocytes # 1.4 K/mcL (0.6-4.6); Lymphocytes % 12.1 %; Mean Corpuscular HGB Conc 30.8 g/dL (31.6-35.5); Mean Corpuscular Hemoglobin 27.1 pg (28.0-33.3); Mean Corpuscular Volume 87.9 fL (83.0-100.0); Mean Platelet Volume 10.2 fL (9.4-12.4); Monocytes # 0.8 K/mcL (0.0-1.3); Monocytes % 6.8 %; Platelet Count 404 K/mcL (140-400); Red Blood Count 5.06 M/mcL (3.82-4.97); Red Cell Distribution Width 13.6 % (11.5-14.5); Segmented Neutrophils % 77.9 %; White Blood Count 11.6 K/mcL (4.3-11.1)
[2020-06-25 13:06] LABS: Calcium 9.3 mg/dL (8.6-10.3); Phosphorous 3.4 mg/dL (2.7-4.5); Potassium 4.2 mEq/L (3.5-5.1)
[2020-06-25] MEDS: Ondansetron 4 MG/2 ML VIAL IVP PRN (15:11)
[2020-06-25] MEDS: Acetaminophen IV 1,000 MG/100 ML BAG IVPB SCH (18:11)
[2020-06-25] MEDS ORDERED: *HR* HYDROmorphone (PF) 1 MG/ML SYRINGE IVP ONE (18:54)
[2020-06-26] MEDS: Acetaminophen IV 1,000 MG/100 ML BAG IVPB SCH ×3 (04:57→17:43)
[2020-06-26 05:12] LABS: Basophils # 0.1 K/mcL (0.0-0.2); Basophils % 0.4 %; Eosinophils # 0.2 K/mcL (0.0-0.6); Eosinophils % 1.8 %; Hematocrit 44.5 % (35.3-44.9); Hemoglobin 13.4 g/dL (11.5-15.4); Immature Granulocytes % 0.7 % (0-4); Lymphocytes # 1.2 K/mcL (0.6-4.6); Lymphocytes % 10.2 %; Mean Corpuscular HGB Conc 30.1 g/dL (31.6-35.5); Mean Corpuscular Hemoglobin 27.5 pg (28.0-33.3); Mean Corpuscular Volume 91.2 fL (83.0-100.0); Mean Platelet Volume 10.2 fL (9.4-12.4); Monocytes # 0.9 K/mcL (0.0-1.3); Monocytes % 7.7 %; Neutrophils # 9.2 K/mcL (1.6-8.9); Platelet Count 365 K/mcL (140-400); Red Blood Count 4.88 M/mcL (3.82-4.97); Red Cell Distribution Width 13.5 % (11.5-14.5); Segmented Neutrophils % 79.2 %; White Blood Count 11.6 K/mcL (4.3-11.1)
[2020-06-26] MEDS: *HR* Heparin 5,000 UNIT/ML VIAL SQ SCH ×2 (06:26→17:43)
[2020-06-26 07:06] LABS: Calcium 9.1 mg/dL (8.6-10.3); Potassium 4.2 mEq/L (3.5-5.1)
[2020-06-26] MEDS: Ondansetron 4 MG/2 ML VIAL IVP PRN ×2 (09:38→17:51)
[2020-06-26] MEDS: amLODIPine 5 MG TABLET PO SCH (10:12)
[2020-06-26] MEDS: *HR* LORazepam 0.5 MG TABLET PO SCH ×3 (13:22→17:44)
[2020-06-26] MEDS: Mirtazapine 15 MG TABLET PO SCH (15:43)
[2020-06-26] MEDS ORDERED: Ringers Solution, Lactated 1,000 ML IVC SCH (18:45)
[2020-06-26] MEDS: *HR* LORazepam 2 MG/ML VIAL IVP PRN (21:15)
[2020-06-27] MEDS: Acetaminophen IV 1,000 MG/100 ML BAG IVPB SCH ×3 (00:13→14:40)
[2020-06-27 03:53] LABS: Basophils # 0.1 K/mcL (0.0-0.2); Basophils % 0.3 %; Hematocrit 40.3 % (35.3-44.9); Hemoglobin 12.3 g/dL (11.5-15.4); Immature Granulocytes % 0.9 % (0-4); Lymphocytes # 1.3 K/mcL (0.6-4.6); Lymphocytes % 7.7 %; Mean Corpuscular HGB Conc 30.5 g/dL (31.6-35.5); Mean Corpuscular Volume 88.4 fL (83.0-100.0); Mean Platelet Volume 10.6 fL (9.4-12.4); Monocytes # 1.1 K/mcL (0.0-1.3); Monocytes % 6.6 %; Neutrophils # 14.4 K/mcL (1.6-8.9); Platelet Count 398 K/mcL (140-400); Red Blood Count 4.56 M/mcL (3.82-4.97); Red Cell Distribution Width 13.6 % (11.5-14.5); Segmented Neutrophils % 84.5 %; White Blood Count 17.1 K/mcL (4.3-11.1)
[2020-06-27 04:10] LABS: Albumin 3.3 g/dL (3.5-5.7); Albumin/Globulin Ratio 1.1 (1.1-2.2); Bilirubin,Direct 0.1 mg/dL (0.0-0.2); Bilirubin,Indirect 0.2 mg/dL (0.0-1.0); Bilirubin,Total 0.3 mg/dL (0.3-1.0); Globulin 2.9 g/dL (2.4-3.5); Total Protein 6.2 g/dL (6.4-8.9)
[2020-06-27 04:11] LABS: Calcium 8.8 mg/dL (8.6-10.3); Magnesium 2.3 mg/dL (1.6-2.6); Potassium 4.2 mEq/L (3.5-5.1)
[2020-06-27] MEDS: *HR* Heparin 5,000 UNIT/ML VIAL SQ SCH ×2 (05:25→18:29)
[2020-06-27] MEDS ORDERED: Ringers Solution, Lactated 1,000 ML IVC SCH (07:58)
[2020-06-27] MEDS: amLODIPine 5 MG TABLET PO SCH (08:24)
[2020-06-27] MEDS: Mirtazapine 15 MG TABLET PO SCH (08:24)
[2020-06-27] MEDS: Piperacillin/Tazobactam 3.375 GM in 0.9 % Sodium Chloride Mini Bag 100 ML IVPB SCH ×3 (09:34→23:02)
[2020-06-27] MEDS: 0.9 % Sodium Chloride 1,000 ML IVC SCH ×2 (09:35→23:03)
[2020-06-27] MEDS: *HR* LORazepam 2 MG/ML VIAL IVP PRN (22:13)
[2020-06-28] MEDS: Acetaminophen IV 1,000 MG/100 ML BAG IVPB SCH ×3 (00:02→17:11)
[2020-06-28] MEDS: *HR* Heparin 5,000 UNIT/ML VIAL SQ SCH ×2 (05:44→17:12)
[2020-06-28] MEDS: Piperacillin/Tazobactam 3.375 GM in 0.9 % Sodium Chloride Mini Bag 100 ML IVPB SCH ×2 (07:35→17:11)
[2020-06-28 08:32] LABS: Basophils % 0.4 %; Eosinophils % 0.2 %; Hematocrit 39.5 % (35.3-44.9); Immature Granulocytes % 1.2 % (0-4); Lymphocytes # 0.9 K/mcL (0.6-4.6); Lymphocytes % 8.3 %; Mean Corpuscular HGB Conc 30.4 g/dL (31.6-35.5); Mean Corpuscular Hemoglobin 27.3 pg (28.0-33.3); Mean Corpuscular Volume 89.8 fL (83.0-100.0); Mean Platelet Volume 10.6 fL (9.4-12.4); Monocytes # 0.5 K/mcL (0.0-1.3); Monocytes % 4.7 %; Neutrophils # 9.7 K/mcL (1.6-8.9); Platelet Count 304 K/mcL (140-400); Red Cell Distribution Width 13.6 % (11.5-14.5); Segmented Neutrophils % 85.2 %; White Blood Count 11.4 K/mcL (4.3-11.1)
[2020-06-28 08:49] LABS: Calcium 8.1 mg/dL (8.6-10.3); Magnesium 2.1 mg/dL (1.6-2.6); Potassium 3.5 mEq/L (3.5-5.1)
[2020-06-28] MEDS: Mirtazapine 15 MG TABLET PO SCH (11:32)
[2020-06-28] MEDS: amLODIPine 5 MG TABLET PO SCH (11:35)
[2020-06-28] MEDS: 0.9 % Sodium Chloride 1,000 ML IVC SCH (12:25)
[2020-06-29] MEDS: Acetaminophen IV 1,000 MG/100 ML BAG IVPB SCH ×2 (00:14→15:25)
[2020-06-29] MEDS: Piperacillin/Tazobactam 3.375 GM in 0.9 % Sodium Chloride Mini Bag 100 ML IVPB SCH ×2 (00:15→08:03)
[2020-06-29] MEDS: 0.9 % Sodium Chloride 1,000 ML IVC SCH ×2 (01:40→16:05)
[2020-06-29] MEDS: *HR* Heparin 5,000 UNIT/ML VIAL SQ SCH ×2 (05:38→19:00)
[2020-06-29] MEDS: *HR* LORazepam 2 MG/ML VIAL IVP PRN ×2 (08:01→16:16)
[2020-06-29] MEDS: amLODIPine 5 MG TABLET PO SCH (08:02)
[2020-06-29] MEDS: Mirtazapine 15 MG TABLET PO SCH (08:03)
[2020-06-29] MEDS ORDERED: *HR* HYDROmorphone 2 MG/ML SYRINGE IVP ONE (08:17)
[2020-06-29 11:10] LABS: Basophils % 0.5 %; Eosinophils # 0.1 K/mcL (0.0-0.6); Eosinophils % 1.7 %; Hematocrit 38.9 % (35.3-44.9); Hemoglobin 11.7 g/dL (11.5-15.4); Immature Granulocytes % 0.7 % (0-4); Lymphocytes # 0.9 K/mcL (0.6-4.6); Lymphocytes % 11.2 %; Mean Corpuscular HGB Conc 30.1 g/dL (31.6-35.5); Mean Corpuscular Volume 89.6 fL (83.0-100.0); Monocytes # 0.5 K/mcL (0.0-1.3); Monocytes % 5.4 %; Neutrophils # 6.7 K/mcL (1.6-8.9); Platelet Count 268 K/mcL (140-400); Red Blood Count 4.34 M/mcL (3.82-4.97); Red Cell Distribution Width 13.4 % (11.5-14.5); Segmented Neutrophils % 80.5 %; White Blood Count 8.3 K/mcL (4.3-11.1)
[2020-06-29 11:26] LABS: BUN/Creatinine Ratio 18 (6-26); Blood Urea Nitrogen 18 mg/dL (8-23); Calcium 7.7 mg/dL (8.6-10.3); Carbon Dioxide 26 mEq/L (23-29); Chloride 108 mEq/L (98-107); Glucose 87 mg/dL (70-105); Magnesium 1.8 mg/dL (1.6-2.6); Osmolality,Calculated 293 (280-300); Potassium 3.1 mEq/L (3.5-5.1); Sodium 141 mEq/L (136-145); eGFR For African Americans > 60 (> 60); eGFR For Non-African Americans 54 (> 60)
[2020-06-29] MEDS ORDERED: Potassium Chloride 40 MEQ, Lidocaine 1% 2 ML in 0.9 % Sodium Chloride 500 ML IVPB ONE (13:44)
[2020-06-29] MEDS: Acetaminophen 325 MG TABLET PO PRN (14:51)
[2020-06-29] MEDS: Lactobacillus 1 EACH CAP.SPRINK PO SCH (20:09)
[2020-06-30 03:45] LABS: Basophils # 0.1 K/mcL (0.0-0.2); Basophils % 0.7 %; Eosinophils # 0.3 K/mcL (0.0-0.6); Eosinophils % 4.4 %; Hematocrit 36.7 % (35.3-44.9); Hemoglobin 11.1 g/dL (11.5-15.4); Immature Granulocytes % 0.6 % (0-4); Lymphocytes # 1.2 K/mcL (0.6-4.6); Lymphocytes % 17.7 %; Mean Corpuscular HGB Conc 30.2 g/dL (31.6-35.5); Mean Corpuscular Hemoglobin 27.2 pg (28.0-33.3); Mean Platelet Volume 11.1 fL (9.4-12.4); Monocytes # 0.5 K/mcL (0.0-1.3); Monocytes % 7.5 %; Neutrophils # 4.7 K/mcL (1.6-8.9); Platelet Count 260 K/mcL (140-400); Red Blood Count 4.08 M/mcL (3.82-4.97); Red Cell Distribution Width 13.4 % (11.5-14.5); Segmented Neutrophils % 69.1 %; White Blood Count 6.8 K/mcL (4.3-11.1)
[2020-06-30 03:54] LABS: BUN/Creatinine Ratio 13 (6-26); Blood Urea Nitrogen 12 mg/dL (8-23); Calcium 7.2 mg/dL (8.6-10.3); Carbon Dioxide 26 mEq/L (23-29); Chloride 110 mEq/L (98-107); Glucose 86 mg/dL (70-105); Magnesium 1.6 mg/dL (1.6-2.6); Osmolality,Calculated 291 (280-300); Potassium 3.2 mEq/L (3.5-5.1); Sodium 141 mEq/L (136-145); eGFR For African Americans > 60 (> 60); eGFR For Non-African Americans 59 (> 60)
[2020-06-30] MEDS: *HR* Heparin 5,000 UNIT/ML VIAL SQ SCH ×2 (05:22→18:04)
[2020-06-30] MEDS: Acetaminophen 325 MG TABLET PO PRN ×3 (05:22→18:29)
[2020-06-30] MEDS: 0.9 % Sodium Chloride 1,000 ML IVC SCH (05:23)
[2020-06-30] MEDS: NIFEdipine XL (24 HR) 60 MG TAB.ER.24 PO SCH (08:32)
[2020-06-30] MEDS: Lactobacillus 1 EACH CAP.SPRINK PO SCH ×2 (08:32→20:25)
[2020-06-30] MEDS: Mirtazapine 15 MG TABLET PO SCH (08:33)
[2020-06-30] MEDS: Nystatin POWDER 30 GM BOTTLE TP SCH ×2 (10:05→21:19)
[2020-06-30] MEDS: Ondansetron 4 MG/2 ML VIAL IVP PRN (13:45)
[2020-06-30] MEDS ORDERED: Potassium Chloride 40 MEQ, Lidocaine 1% 2 ML in 0.9 % Sodium Chloride 500 ML IVPB ONE (17:42)
[2020-06-30] MEDS: *HR* LORazepam 2 MG/ML VIAL IVP PRN (18:18)
[2020-07-01] MEDS: 0.9 % Sodium Chloride 1,000 ML IVC SCH ×2 (00:11→11:37)
[2020-07-01] MEDS: *HR* LORazepam 2 MG/ML VIAL IVP PRN ×3 (03:33→19:39)
[2020-07-01] MEDS: *HR* Heparin 5,000 UNIT/ML VIAL SQ SCH ×2 (06:47→17:29)
[2020-07-01 07:54] LABS: Hematocrit 35.4 % (35.3-44.9); Immature Granulocytes % 0.4 % (0-4); Lymphocytes % 16.6 %; Mean Corpuscular HGB Conc 31.1 g/dL (31.6-35.5); Mean Corpuscular Hemoglobin 27.8 pg (28.0-33.3); Mean Corpuscular Volume 89.6 fL (83.0-100.0); Mean Platelet Volume 11.2 fL (9.4-12.4); Monocytes % 5.3 %; Platelet Count 223 K/mcL (140-400); Red Blood Count 3.95 M/mcL (3.82-4.97); Red Cell Distribution Width 13.6 % (11.5-14.5); Segmented Neutrophils % 72.5 %; White Blood Count 6.9 K/mcL (4.3-11.1)
[2020-07-01 07:55] LABS: Basophils % 0.4 %; Eosinophils # 0.3 K/mcL (0.0-0.6); Eosinophils % 4.8 %; Lymphocytes # 1.2 K/mcL (0.6-4.6); Monocytes # 0.4 K/mcL (0.0-1.3)
[2020-07-01] MEDS: Lactobacillus 1 EACH CAP.SPRINK PO SCH ×2 (07:56→19:38)
[2020-07-01] MEDS: Mirtazapine 15 MG TABLET PO SCH (07:56)
[2020-07-01] MEDS: NIFEdipine XL (24 HR) 60 MG TAB.ER.24 PO SCH (07:57)
[2020-07-01 08:11] LABS: BUN/Creatinine Ratio 14 (6-26); Blood Urea Nitrogen 12 mg/dL (8-23); Calcium 7.4 mg/dL (8.6-10.3); Carbon Dioxide 21 mEq/L (23-29); Chloride 116 mEq/L (98-107); Glucose 92 mg/dL (70-105); Magnesium 1.9 mg/dL (1.6-2.6); Osmolality,Calculated 293 (280-300); Sodium 142 mEq/L (136-145); eGFR For African Americans > 60 (> 60); eGFR For Non-African Americans > 60 (> 60)
[2020-07-01] MEDS: Nystatin POWDER 30 GM BOTTLE TP SCH ×2 (11:16→19:39)
[2020-07-01] MEDS: Ondansetron 4 MG/2 ML VIAL IVP PRN (15:59)
[2020-07-01] MEDS: Acetaminophen 325 MG TABLET PO PRN (19:38)
[2020-07-01] MEDS: Nitroglycerin 0.4 MG TAB.SUBL SL PRN (20:20)
[2020-07-01 22:52] LABS: Adenovirus Not Detected (Not Detect); Bordetella Pertussis Not Detected (Not Detect); Chlamydophila pneumoniae Not Detected (Not Detect); Coronavirus 229E Not Detected (Not Detect); Coronavirus HKU1 Not Detected (Not Detect); Coronavirus NL63 Not Detected (Not Detect); Coronavirus OC43 Not Detected (Not Detect); Human Metapneumovirus Not Detected (Not Detect); Human Rhinovirus/Enterovirus Not Detected (Not Detect); Influenza A Subtype 2009 H1 Not Detected (Not Detect); Influenza B Not Detected (Not Detect); Mycoplasma pneumoniae Not Detected (Not Detect); Parainfluenza Virus 1 Not Detected (Not Detect); Parainfluenza Virus 2 Not Detected (Not Detect); Parainfluenza Virus 3 Not Detected (Not Detect); Parainfluenza Virus 4 Not Detected (Not Detect); Respiratory Syncytial Virus Not Detected (Not Detect); SARS-CoV-2 Not Detected (Not Detect)
[2020-07-01 23:11] VITALS: BP 123/77; PULSE 99; TEMP 98.1; O2SAT 94
== END 2020-07-02 00:59 | DRG 389 ==
LOC: EMEROOARM 00:24 → CDU 00:24 → SUATTDRO 03:50 → CDU 04:34 → 3ANU 16:43 → 3BNU 07-01 03:14
PROVIDERS: ADMIT Family Medicine; ATTEND Pharmacist

== ENCOUNTER 2020-07-20 17:51 | Inpatient (IN) ==
[2020-07-20] MEDS ORDERED: 0.9 % Sodium Chloride 500 ML IVC ONE (18:06)
[2020-07-20 18:20] LABS: Basophils % 0.2 %; Eosinophils # 0.2 K/mcL (0.0-0.6); Eosinophils % 1.3 %; Hematocrit 41.2 % (35.3-44.9); Hemoglobin 12.7 g/dL (11.5-15.4); Immature Granulocytes % 0.5 % (0-4); Lymphocytes # 1.3 K/mcL (0.6-4.6); Lymphocytes % 7.9 %; Mean Corpuscular HGB Conc 30.8 g/dL (31.6-35.5); Mean Corpuscular Hemoglobin 27.6 pg (28.0-33.3); Mean Corpuscular Volume 89.6 fL (83.0-100.0); Mean Platelet Volume 11.5 fL (9.4-12.4); Monocytes # 0.8 K/mcL (0.0-1.3); Monocytes % 5.1 %; Neutrophils # 13.6 K/mcL (1.6-8.9); Platelet Count 248 K/mcL (140-400); Red Cell Distribution Width 14.4 % (11.5-14.5)
[2020-07-20 18:42] LABS: Albumin 3.7 g/dL (3.5-5.7); Albumin/Globulin Ratio 1.2 (1.1-2.2); Bilirubin,Direct 0.1 mg/dL (0.0-0.2); Bilirubin,Indirect 0.2 mg/dL (0.0-1.0); Bilirubin,Total 0.3 mg/dL (0.3-1.0); Calcium 8.8 mg/dL (8.6-10.3); Total Protein 6.7 g/dL (6.4-8.9)
[2020-07-20] MEDS ORDERED: *HR* FentaNYL (PF) 100 MCG/2 ML VIAL IVP ONE ×2 (18:49→19:39)
[2020-07-20] MEDS ORDERED: *HR* LORazepam 0.5 MG TABLET PO ONE (19:23)
[2020-07-20] MEDS ORDERED: Piperacillin/Tazobactam 3.375 GM in 0.9 % Sodium Chloride Mini Bag 100 ML IVPB ONE (19:44)
[2020-07-20] MEDS ORDERED: Piperacillin/Tazobactam 3.375 GM in Water for inj. (sterile) 20 ML IVP ONE (20:10)
[2020-07-20] MEDS ORDERED: Naloxone 0.4 MG/ML INJ IVP PRN (21:49)
[2020-07-20] MEDS ORDERED: Melatonin 3 MG TABLET PO PRN (21:49)
[2020-07-20] MEDS ORDERED: Ondansetron 4 MG/2 ML VIAL IVP PRN (21:49)
[2020-07-20] MEDS ORDERED: Acetaminophen 325 MG TABLET PO PRN (21:49)
[2020-07-20] MEDS ORDERED: *HR* LORazepam 2 MG/ML VIAL IVP ONE (23:56)
[2020-07-21] MEDS ORDERED: 0.9 % Sodium Chloride 1,000 ML IVC ONE (02:42)
[2020-07-21] MEDS ORDERED: *HR* Labetalol 20 MG/4 ML SYRINGE IVP ONE (04:12)
[2020-07-21 06:05] LABS: Basophils % 0.2 %; Eosinophils % 0.1 %; Hematocrit 36.7 % (35.3-44.9); Hemoglobin 11.4 g/dL (11.5-15.4); Immature Granulocytes % 0.3 % (0-4); Lymphocytes # 0.9 K/mcL (0.6-4.6); Lymphocytes % 6.7 %; Mean Corpuscular HGB Conc 31.1 g/dL (31.6-35.5); Mean Corpuscular Hemoglobin 27.3 pg (28.0-33.3); Mean Platelet Volume 11.4 fL (9.4-12.4); Monocytes % 7.1 %; Neutrophils # 11.4 K/mcL (1.6-8.9); Platelet Count 219 K/mcL (140-400); Red Blood Count 4.17 M/mcL (3.82-4.97); Red Cell Distribution Width 14.2 % (11.5-14.5); Segmented Neutrophils % 85.6 %; White Blood Count 13.4 K/mcL (4.3-11.1)
[2020-07-21 06:30] LABS: Calcium 8.6 mg/dL (8.6-10.3); Magnesium 1.9 mg/dL (1.6-2.6); Phosphorous 4.9 mg/dL (2.7-4.5); Potassium 4.6 mEq/L (3.5-5.1)
[2020-07-21] MEDS ORDERED: D5% in Water 1,000 ML IVC PRN (07:58)
[2020-07-21] MEDS ORDERED: *HR* Dextrose 50 % in Water (Vial) 50 ML VIAL IVP PRN (07:58)
[2020-07-21] MEDS ORDERED: Dextrose Gel 15 GM/37.5 ML TUBE PO PRN ×2 (07:58)
[2020-07-21] MEDS ORDERED: *HR* Labetalol 20 MG/4 ML SYRINGE IVP PRN (08:00)
[2020-07-21] MEDS: *HR* LORazepam 2 MG/ML VIAL IVP PRN ×2 (11:03→21:40)
[2020-07-21] MEDS: Insulin LISPRO 300 UNITS/3 ML VIAL SUBQ SCH ×2 (11:59→17:27)
[2020-07-21 12:37] LABS: Bilirubin,Urine Negative (Negative); Blood,Urine Negative (Negative); Clarity,Urine Clear (Clear); Color,Urine Light-Yellow (Yellow); Glucose,Urine (UA) Normal (Normal); Ketones,Urine Negative (Negative); Leukocyte Esterase,Urine Negative (Negative); Nitrite,Urine Negative (Negative); Protein,Urine Trace mg/dL (Neg-Trace); Urobilinogen,Urine Normal (Normal)
[2020-07-21] MEDS: Pantoprazole 40 MG VIAL IVP SCH (14:42)
[2020-07-21] MEDS ORDERED: D5% in Lactated Ringers 1,000 ML IVC SCH (15:45)
[2020-07-21] MEDS: *HR* Heparin 5,000 UNIT/ML VIAL SQ SCH (17:08)
[2020-07-22] MEDS: Insulin LISPRO 300 UNITS/3 ML VIAL SUBQ SCH ×3 (00:05→11:54)
[2020-07-22] MEDS: *HR* Heparin 5,000 UNIT/ML VIAL SQ SCH (05:39)
[2020-07-22 06:03] LABS: Basophils % 0.6 %; Eosinophils # 0.2 K/mcL (0.0-0.6); Hematocrit 32.8 % (35.3-44.9); Immature Granulocytes % 0.2 % (0-4); Lymphocytes # 1.3 K/mcL (0.6-4.6); Mean Corpuscular HGB Conc 30.2 g/dL (31.6-35.5); Mean Corpuscular Hemoglobin 27.7 pg (28.0-33.3); Mean Corpuscular Volume 91.9 fL (83.0-100.0); Mean Platelet Volume 11.6 fL (9.4-12.4); Monocytes # 0.5 K/mcL (0.0-1.3); Monocytes % 8.9 %; Neutrophils # 3.4 K/mcL (1.6-8.9); Platelet Count 158 K/mcL (140-400); Red Blood Count 3.57 M/mcL (3.82-4.97); Red Cell Distribution Width 14.5 % (11.5-14.5); Segmented Neutrophils % 63.3 %
[2020-07-22 06:06] LABS: Hemoglobin 9.9 g/dL (11.5-15.4); White Blood Count 5.4 K/mcL (4.3-11.1)
[2020-07-22 06:22] LABS: Magnesium 1.8 mg/dL (1.6-2.6); Phosphorous 3.8 mg/dL (2.7-4.5); Potassium 4.1 mEq/L (3.5-5.1)
[2020-07-22] MEDS: Pantoprazole 40 MG VIAL IVP SCH (08:01)
[2020-07-22] MEDS ORDERED: Lidocaine -MPF 2% 2 ML VIAL ONE (09:52)
[2020-07-22] MEDS ORDERED: *HR* Rocuronium Bromide 50 MG/5 ML VIAL ONE ×3 (09:52→14:11)
[2020-07-22] MEDS ORDERED: *HR* Propofol 200 MG/20 ML VIAL IVP ONE (09:52)
[2020-07-22] MEDS ORDERED: Ondansetron 4 MG/2 ML VIAL ONE (09:52)
[2020-07-22] MEDS ORDERED: *HR* FentaNYL (PF) 100 MCG/2 ML VIAL ONE ×2 (09:52→14:12)
[2020-07-22] MEDS ORDERED: Lidocaine HCL 4 ML Topical Solution (Laryng-O-Jet Kit Sterile Pak) TP ONE (09:57)
[2020-07-22] MEDS ORDERED: Albumin Human 5% 25.0 GM/500 ML IV.SOLN ONE (11:40)
[2020-07-22 11:51] LABS: Adenovirus Not Detected (Not Detect); Bordetella Pertussis Not Detected (Not Detect); Chlamydophila pneumoniae Not Detected (Not Detect); Coronavirus 229E Not Detected (Not Detect); Coronavirus HKU1 Not Detected (Not Detect); Coronavirus NL63 Not Detected (Not Detect); Coronavirus OC43 Not Detected (Not Detect); Human Metapneumovirus Not Detected (Not Detect); Human Rhinovirus/Enterovirus Not Detected (Not Detect); Influenza A Subtype 2009 H1 Not Detected (Not Detect); Influenza B Not Detected (Not Detect); Mycoplasma pneumoniae Not Detected (Not Detect); Parainfluenza Virus 1 Not Detected (Not Detect); Parainfluenza Virus 2 Not Detected (Not Detect); Parainfluenza Virus 3 Not Detected (Not Detect); Parainfluenza Virus 4 Not Detected (Not Detect); Respiratory Syncytial Virus Not Detected (Not Detect); SARS-CoV-2 Not Detected (Not Detect)
[2020-07-22] MEDS ORDERED: *HR* HYDROmorphone PF 0.5 MG/0.5 ML SYRINGE IVP PRN (12:42)
[2020-07-22] MEDS ORDERED: CefOXitin 2,000 MG VIAL ONE (12:50)
[2020-07-22] MEDS ORDERED: cefOXitin 2,000 MG in Water for inj. (sterile) 20 ML IVP ONE (13:18)
[2020-07-22] MEDS ORDERED: Acetaminophen IV 1,000 MG/100 ML BAG IVPB ONE ×2 (13:44→13:50)
[2020-07-22] MEDS ORDERED: *HR* Labetalol 20 MG/4 ML SYRINGE IVP ONE (14:28)
[2020-07-22] MEDS ORDERED: *HR* HYDROMORPHONE 2 MG/ML VIAL ONE (15:23)
[2020-07-22 16:07] LABS: VBG Base Excess -1 mEq/L; VBG Chloride 106 mEq/L (98-107); VBG Glucose 145 mg/dl (65-95); VBG HCO3 24 mEq/L (21-27); VBG Ionized Calcium 1.12 mmol/L (1.15-1.35); VBG Oxygen Saturation 100 %; VBG PCO2 41 mmHg (41-51); VBG PH 7.37 pH Units (7.32-7.42); VBG PO2 215 mmHg (25-50); VBG Total CO2 25 mEq/L
[2020-07-22] MEDS ORDERED: Furosemide 40 MG/4 ML VIAL ONE (16:11)
[2020-07-22] MEDS ORDERED: Albumin Human 5% 12.5 GM/250 ML IV.SOLN ONE (16:39)
[2020-07-22] MEDS ORDERED: *HR* Adenosine 12 MG/4 ML VIAL IV ONE (17:16)
[2020-07-22] MEDS ORDERED: *HR* Amiodarone 150 MG/3 ML VIAL IVPB ONE (17:16)
[2020-07-22] MEDS ORDERED: *HR* Adenosine 6 MG/2 ML SYRINGE IVP ONE (17:16)
[2020-07-22] MEDS ORDERED: EPHEDrine 50 MG/ML VIAL ONE (17:33)
[2020-07-22] MEDS ORDERED: Ringers Solution, Lactated 1,000 ML ONE (18:05)
[2020-07-22] MEDS ORDERED: Amiodarone 300 MG in D5% in Water 100 ML IVPB ONE (18:07)
[2020-07-22] MEDS ORDERED: Amiodarone Premix 360 MG/200 ML BAG IVC ONE (18:17)
[2020-07-22 19:07] LABS: Basophils % 0.2 %; Eosinophils % 0.2 %; Immature Granulocytes % 0.4 % (0-4); Lymphocytes # 1.1 K/mcL (0.6-4.6); Lymphocytes % 9.3 %; Mean Corpuscular HGB Conc 29.6 g/dL (31.6-35.5); Mean Corpuscular Hemoglobin 27.4 pg (28.0-33.3); Mean Corpuscular Volume 92.5 fL (83.0-100.0); Mean Platelet Volume 12.1 fL (9.4-12.4); Monocytes # 0.7 K/mcL (0.0-1.3); Monocytes % 5.8 %; Neutrophils # 10.3 K/mcL (1.6-8.9); Platelet Count 274 K/mcL (140-400); Red Blood Count 2.92 M/mcL (3.82-4.97); Red Cell Distribution Width 14.2 % (11.5-14.5); Segmented Neutrophils % 84.1 %
[2020-07-22 19:08] LABS: White Blood Count 12.2 K/mcL (4.3-11.1)
[2020-07-22 19:27] LABS: BUN/Creatinine Ratio 19 (6-26); Blood Urea Nitrogen 21 mg/dL (8-23); Calcium 8.7 mg/dL (8.6-10.3); Carbon Dioxide 19 mEq/L (23-29); Chloride 108 mEq/L (98-107); Glucose 234 mg/dL (70-105); Magnesium 1.3 mg/dL (1.6-2.6); Osmolality,Calculated 299 (280-300); Potassium 3.8 mEq/L (3.5-5.1); Sodium 139 mEq/L (136-145); Troponin I < 0.03 ng/mL (< 0.04); eGFR For African Americans 57 (> 60); eGFR For Non-African Americans 47 (> 60)
[2020-07-22] MEDS ORDERED: Acetaminophen 325 MG TABLET PO PRN (21:24)
[2020-07-22] MEDS ORDERED: Naloxone 0.4 MG/ML INJ IVP PRN (21:24)
[2020-07-22] MEDS ORDERED: Melatonin 3 MG TABLET PO PRN (21:24)
[2020-07-22] MEDS ORDERED: *HR* Dextrose 50 % in Water (Vial) 50 ML VIAL IVP PRN (21:24)
[2020-07-22] MEDS ORDERED: *HR* Labetalol 20 MG/4 ML SYRINGE IVP PRN (21:24)
[2020-07-22] MEDS ORDERED: Dextrose Gel 15 GM/37.5 ML TUBE PO PRN ×2 (21:24)
[2020-07-22] MEDS ORDERED: D5% in Water 1,000 ML IVC PRN (21:24)
[2020-07-22] MEDS: Ondansetron 4 MG/2 ML VIAL IVP PRN (21:46)
[2020-07-23] MEDS: Insulin LISPRO 300 UNITS/3 ML VIAL SUBQ SCH ×5 (00:17→22:43)
[2020-07-23] MEDS: *HR* LORazepam 2 MG/ML VIAL IVP PRN ×3 (00:22→18:11)
[2020-07-23 03:56] LABS: Basophils % 0.1 %
[2020-07-23 03:57] LABS: Hematocrit 30.1 % (35.3-44.9); Hemoglobin 9.5 g/dL (11.5-15.4); Immature Granulocytes % 0.8 % (0-4); Lymphocytes # 0.6 K/mcL (0.6-4.6); Lymphocytes % 2.2 %; Mean Corpuscular HGB Conc 31.6 g/dL (31.6-35.5); Mean Corpuscular Hemoglobin 27.3 pg (28.0-33.3); Mean Corpuscular Volume 86.5 fL (83.0-100.0); Mean Platelet Volume 11.4 fL (9.4-12.4); Monocytes # 1.3 K/mcL (0.0-1.3); Monocytes % 4.6 %; Platelet Count 209 K/mcL (140-400); Red Blood Count 3.48 M/mcL (3.82-4.97); Segmented Neutrophils % 92.3 %; White Blood Count 28.2 K/mcL (4.3-11.1)
[2020-07-23 04:14] LABS: Calcium 8.2 mg/dL (8.6-10.3); Magnesium 1.4 mg/dL (1.6-2.6); Phosphorous 5.6 mg/dL (2.7-4.5); Potassium 4.4 mEq/L (3.5-5.1)
[2020-07-23 04:18] LABS: Anisocytosis 1+ (Not Present); Platelet Estimate Normal (Normal)
[2020-07-23] MEDS: *HR* Heparin 5,000 UNIT/ML VIAL SQ SCH ×3 (05:36→22:42)
[2020-07-23] MEDS: Pantoprazole 40 MG VIAL IVP SCH (08:10)
[2020-07-23] MEDS: 0.9 % Sodium Chloride 1,000 ML IVC SCH (14:47)
[2020-07-23] MEDS: Piperacillin/Tazobactam 3.375 GM in 0.9 % Sodium Chloride Mini Bag 100 ML IVPB SCH ×2 (18:15→23:46)
[2020-07-23] MEDS ORDERED: Morphine Sulfate 2 MG/ML SYRINGE IVP ONE (18:51)
[2020-07-24] MEDS: Insulin LISPRO 300 UNITS/3 ML VIAL SUBQ SCH ×4 (00:19→18:30)
[2020-07-24] MEDS: *HR* LORazepam 2 MG/ML VIAL IVP PRN ×3 (02:55→20:40)
[2020-07-24] MEDS: 0.9 % Sodium Chloride 1,000 ML IVC SCH (03:36)
[2020-07-24 03:53] LABS: Basophils % 0.1 %; Hematocrit 23.9 % (35.3-44.9); Immature Granulocytes % 0.7 % (0-4); Lymphocytes # 0.6 K/mcL (0.6-4.6); Lymphocytes % 3.7 %; Mean Corpuscular HGB Conc 31.4 g/dL (31.6-35.5); Mean Platelet Volume 12.5 fL (9.4-12.4); Monocytes % 6.8 %; Neutrophils # 13.1 K/mcL (1.6-8.9); Platelet Count 184 K/mcL (140-400); Red Blood Count 2.78 M/mcL (3.82-4.97); Red Cell Distribution Width 16.7 % (11.5-14.5); Segmented Neutrophils % 88.7 %; White Blood Count 14.7 K/mcL (4.3-11.1)
[2020-07-24 03:55] LABS: Hemoglobin 7.5 g/dL (11.5-15.4)
[2020-07-24 04:07] LABS: Magnesium 1.9 mg/dL (1.6-2.6)
[2020-07-24 04:09] LABS: Albumin 2.9 g/dL (3.5-5.7); Albumin/Globulin Ratio 1.5 (1.1-2.2); Bilirubin,Total 0.5 mg/dL (0.3-1.0); Calcium 7.8 mg/dL (8.6-10.3); Globulin 1.9 g/dL (2.4-3.5); Potassium 4.1 mEq/L (3.5-5.1); Total Protein 4.8 g/dL (6.4-8.9)
[2020-07-24] MEDS: *HR* Heparin 5,000 UNIT/ML VIAL SQ SCH (05:11)
[2020-07-24] MEDS ORDERED: Lidocaine 1% 20 ML MDV INFILT ONE (07:11)
[2020-07-24 07:51] LABS: Phosphorous 3.7 mg/dL (2.7-4.5)
[2020-07-24] MEDS: Piperacillin/Tazobactam 3.375 GM in 0.9 % Sodium Chloride Mini Bag 100 ML IVPB SCH ×2 (08:35→20:47)
[2020-07-24] MEDS: Pantoprazole 40 MG VIAL IVP SCH (08:35)
[2020-07-24] MEDS ORDERED: 0.9 % Sodium Chloride 250 ML IVC SCH (09:15)
[2020-07-24] MEDS ORDERED: D10% in Water 500 ML IVC PRN (11:34)
[2020-07-24 11:35] LABS: Acinetobacter baumannii by PCR Not Detected (Not Detect); Candida albicans by PCR Not Detected (Not Detect); Enterobacter cloacae Cmplx PCR Not Detected (Not Detect); Enterobacteriaceae by PCR Not Detected (Not Detect); Enterococcus by PCR Not Detected (Not Detect); Escherichia coli by PCR Not Detected (Not Detect); Klebsiella oxytoca by PCR Not Detected (Not Detect); Klebsiella pneumoniae by PCR Not Detected (Not Detect); Proteus by PCR Not Detected (Not Detect); Pseudomonas aeruginosa by PCR Not Detected (Not Detect); Serratia marcescens by PCR Not Detected (Not Detect); Staphylococcus aureus by PCR Not Detected (Not Detect); Staphylococcus by PCR Not Detected (Not Detect); Streptococcus agalactiae(B)PCR Not Detected (Not Detect); Streptococcus by PCR Not Detected (Not Detect); Streptococcus pneumoniae PCR Not Detected (Not Detect); Streptococcus pyogenes (A) PCR Not Detected (Not Detect)
[2020-07-24 11:36] LABS: Candida glabrata by PCR Not Detected (Not Detect); Candida krusei by PCR Not Detected (Not Detect); Candida parapsilosis by PCR Not Detected (Not Detect); Candida tropicalis by PCR Not Detected (Not Detect)
[2020-07-24] MEDS ORDERED: Lidocaine -MPF 2% 2 ML VIAL ONE (12:39)
[2020-07-24] MEDS ORDERED: *HR* FentaNYL (PF) 100 MCG/2 ML VIAL ONE (12:39)
[2020-07-24] MEDS ORDERED: *HR* Propofol 200 MG/20 ML VIAL IVP ONE (12:39)
[2020-07-24] MEDS ORDERED: Ondansetron 4 MG/2 ML VIAL ONE (12:39)
[2020-07-24] MEDS ORDERED: *HR* Rocuronium Bromide 50 MG/5 ML VIAL ONE (12:39)
[2020-07-24] MEDS ORDERED: *HR* Succinylcholine 200 MG/10 ML VIAL IVP ONE (12:39)
[2020-07-24] MEDS ORDERED: Lidocaine -MPF 4% 5 ML AMPUL ONE (12:40)
[2020-07-24] MEDS ORDERED: Vancomycin 1 EACH in 0.9 % Sodium Chloride 250 ML IVPB SCH (13:00)
[2020-07-24 16:14] LABS: Complement C3 84 mg/dL (87-200)
[2020-07-24] MEDS ORDERED: Clinimix E 5%-15% SOLUTION 2,000 ML with MVI, adult with vitamin K 10 ML IVC SCH (17:00)
[2020-07-25 01:29] LABS: Bacteria,Urine Few per hpf (None-Few); Bilirubin,Urine Negative (Negative); Blood,Urine Large (Negative); Clarity,Urine Turbid (Clear); Color,Urine Light-Orange (Yellow); Glucose,Urine (UA) Normal (Normal); Ketones,Urine Negative (Negative); Leukocyte Esterase,Urine Trace (Negative); Mucus,Urine Few per lpf (None-Few); Nitrite,Urine Negative (Negative); Protein,Urine 50 mg/dL (Neg-Trace); RBC,Urine TNTC per hpf (0-3); Specific Gravity,Urine 1.017 (1.010-1.025); Squamous Epithelial Cell,Urine Few per hpf (None-Few); Urobilinogen,Urine Normal (Normal)
[2020-07-25 01:36] LABS: Sodium, Urine 87.1 mEq/L
[2020-07-25] MEDS: Insulin LISPRO 300 UNITS/3 ML VIAL SUBQ SCH ×5 (02:38→19:56)
[2020-07-25 05:44] LABS: Eosinophils % 0.9 %
[2020-07-25 05:46] LABS: Basophils % 0.2 %; Eosinophils # 0.1 K/mcL (0.0-0.6); Hematocrit 25.5 % (35.3-44.9); Immature Platelets 6.5 % (1.1-6.1); Lymphocytes # 0.7 K/mcL (0.6-4.6); Lymphocytes % 7.2 %; Mean Corpuscular HGB Conc 31.4 g/dL (31.6-35.5); Mean Corpuscular Hemoglobin 27.4 pg (28.0-33.3); Mean Corpuscular Volume 87.3 fL (83.0-100.0); Mean Platelet Volume 12.2 fL (9.4-12.4); Monocytes # 0.4 K/mcL (0.0-1.3); Monocytes % 4.2 %; Neutrophils # 8.9 K/mcL (1.6-8.9); Platelet Count 156 K/mcL (140-400); Red Blood Count 2.92 M/mcL (3.82-4.97); Segmented Neutrophils % 86.5 %; White Blood Count 10.3 K/mcL (4.3-11.1)
[2020-07-25 06:12] LABS: Albumin 2.7 g/dL (3.5-5.7); Albumin/Globulin Ratio 1.4 (1.1-2.2); Bilirubin,Total 0.3 mg/dL (0.3-1.0); Calcium 7.8 mg/dL (8.6-10.3); Magnesium 1.9 mg/dL (1.6-2.6); Phosphorous 3.8 mg/dL (2.7-4.5); Potassium 3.9 mEq/L (3.5-5.1); Total Protein 4.7 g/dL (6.4-8.9)
[2020-07-25] MEDS: Piperacillin/Tazobactam 3.375 GM in 0.9 % Sodium Chloride Mini Bag 100 ML IVPB SCH ×3 (07:41→23:13)
[2020-07-25] MEDS: *HR* LORazepam 2 MG/ML VIAL IVP PRN ×2 (07:42→19:55)
[2020-07-25] MEDS: Pantoprazole 40 MG VIAL IVP SCH (07:42)
[2020-07-25] MEDS ORDERED: Ondansetron 4 MG/2 ML VIAL IVP PRN (11:46)
[2020-07-25] MEDS ORDERED: *HR* Metoprolol 5 MG/5 ML VIAL IVP PRN (11:46)
[2020-07-25] MEDS ORDERED: Albuterol 2.5 MG/3 ML NEBULIZER IH PRN (11:46)
[2020-07-25] MEDS ORDERED: *HR* FentaNYL (PF) 100 MCG/2 ML VIAL IVP PRN (11:46)
[2020-07-25] MEDS ORDERED: *HR* Propofol 200 MG/20 ML VIAL IVP ONE (11:53)
[2020-07-25] MEDS ORDERED: Lidocaine -MPF 2% 5 ML VIAL ONE (11:54)
[2020-07-25] MEDS ORDERED: *HR* Succinylcholine 200 MG/10 ML VIAL IVP ONE (11:55)
[2020-07-25] MEDS ORDERED: Indomethacin 50 MG SUPP.RECT RC ONE (12:23)
[2020-07-25] MEDS ORDERED: Ondansetron 4 MG/2 ML VIAL ONE (12:51)
[2020-07-25] MEDS ORDERED: Clinimix E 5%-15% SOLUTION 2,000 ML with MVI, adult with vitamin K 10 ML IVC SCH (17:00)
[2020-07-26] MEDS: Insulin LISPRO 300 UNITS/3 ML VIAL SUBQ SCH ×6 (01:06→20:22)
[2020-07-26 03:40] LABS: VBG Ionized Calcium 1.18 mmol/L (1.15-1.35)
[2020-07-26 03:47] LABS: Basophils % 0.1 %; Eosinophils # 0.2 K/mcL (0.0-0.6); Hemoglobin 7.2 g/dL (11.5-15.4); Immature Granulocytes % 0.8 % (0-4); Lymphocytes # 0.7 K/mcL (0.6-4.6); Lymphocytes % 10.2 %; Mean Corpuscular HGB Conc 31.3 g/dL (31.6-35.5); Mean Corpuscular Hemoglobin 27.6 pg (28.0-33.3); Mean Corpuscular Volume 88.1 fL (83.0-100.0); Mean Platelet Volume 11.5 fL (9.4-12.4); Monocytes # 0.4 K/mcL (0.0-1.3); Monocytes % 5.6 %; Neutrophils # 5.7 K/mcL (1.6-8.9); Platelet Count 136 K/mcL (140-400); Red Blood Count 2.61 M/mcL (3.82-4.97); Red Cell Distribution Width 15.5 % (11.5-14.5); Segmented Neutrophils % 80.3 %; White Blood Count 7.1 K/mcL (4.3-11.1)
[2020-07-26 04:04] LABS: Albumin 2.1 g/dL (3.5-5.7); Albumin/Globulin Ratio 1.1 (1.1-2.2); Bilirubin,Total 0.3 mg/dL (0.3-1.0); Calcium 7.3 mg/dL (8.6-10.3); Potassium 3.7 mEq/L (3.5-5.1); Total Protein 4.1 g/dL (6.4-8.9)
[2020-07-26] MEDS: *HR* LORazepam 2 MG/ML VIAL IVP PRN ×2 (04:14→16:49)
[2020-07-26] MEDS: Piperacillin/Tazobactam 3.375 GM in 0.9 % Sodium Chloride Mini Bag 100 ML IVPB SCH ×2 (09:39→16:50)
[2020-07-26] MEDS: Pantoprazole 40 MG VIAL IVP SCH (09:40)
[2020-07-26] MEDS ORDERED: Clinimix E 5%-15% SOLUTION 2,000 ML with MVI, adult with vitamin K 10 ML IVC SCH (17:00)
[2020-07-27] MEDS: Piperacillin/Tazobactam 3.375 GM in 0.9 % Sodium Chloride Mini Bag 100 ML IVPB SCH ×3 (00:33→16:49)
[2020-07-27] MEDS: Insulin LISPRO 300 UNITS/3 ML VIAL SUBQ SCH ×6 (00:33→20:12)
[2020-07-27 01:23] LABS: Albumin 2.4 g/dL (3.5-5.7); Albumin/Globulin Ratio 1.2 (1.1-2.2); Bilirubin,Total 0.2 mg/dL (0.3-1.0); Calcium 7.4 mg/dL (8.6-10.3); Total Protein 4.4 g/dL (6.4-8.9)
[2020-07-27 01:25] LABS: Magnesium 1.7 mg/dL (1.6-2.6); Phosphorous 4.1 mg/dL (2.7-4.5)
[2020-07-27] MEDS: *HR* LORazepam 2 MG/ML VIAL IVP PRN ×3 (01:48→22:02)
[2020-07-27] MEDS: Pantoprazole 40 MG VIAL IVP SCH (07:27)
[2020-07-27] MEDS ORDERED: Clinimix E 5%-15% SOLUTION 2,000 ML with MVI, adult with vitamin K 10 ML IVC SCH (17:00)
[2020-07-27] MEDS ORDERED: *HR* Metoprolol 5 MG/5 ML VIAL IVP ONE (22:18)
[2020-07-28] MEDS: Piperacillin/Tazobactam 3.375 GM in 0.9 % Sodium Chloride Mini Bag 100 ML IVPB SCH ×4 (01:31→23:20)
[2020-07-28] MEDS: Insulin LISPRO 300 UNITS/3 ML VIAL SUBQ SCH ×7 (01:34→23:25)
[2020-07-28] MEDS: Pantoprazole 40 MG VIAL IVP SCH (07:29)
[2020-07-28] MEDS: *HR* LORazepam 2 MG/ML VIAL IVP PRN ×2 (07:29→23:19)
[2020-07-28 13:38] LABS: Basophils % 0.4 %; Eosinophils # 0.3 K/mcL (0.0-0.6); Eosinophils % 4.3 %; Hematocrit 27.6 % (35.3-44.9); Lymphocytes # 0.9 K/mcL (0.6-4.6); Lymphocytes % 11.9 %; Mean Corpuscular HGB Conc 30.4 g/dL (31.6-35.5); Mean Corpuscular Hemoglobin 26.8 pg (28.0-33.3); Monocytes # 0.8 K/mcL (0.0-1.3); Monocytes % 10.7 %; Neutrophils # 5.1 K/mcL (1.6-8.9); Platelet Count 214 K/mcL (140-400); Red Blood Count 3.13 M/mcL (3.82-4.97); Red Cell Distribution Width 14.9 % (11.5-14.5); Segmented Neutrophils % 71.7 %; White Blood Count 7.2 K/mcL (4.3-11.1)
[2020-07-28 13:54] LABS: Hemoglobin 8.4 g/dL (11.5-15.4); Mean Corpuscular Volume 88.2 fL (83.0-100.0)
[2020-07-28 14:47] LABS: Albumin 2.3 g/dL (3.5-5.7); Bilirubin,Total 0.3 mg/dL (0.3-1.0); Calcium 7.8 mg/dL (8.6-10.3); Globulin 2.2 g/dL (2.4-3.5); Magnesium 1.9 mg/dL (1.6-2.6); Phosphorous 3.8 mg/dL (2.7-4.5); Potassium 4.5 mEq/L (3.5-5.1); Total Protein 4.5 g/dL (6.4-8.9)
[2020-07-28] MEDS ORDERED: Clinimix E 5%-15% SOLUTION 2,000 ML with MVI, adult with vitamin K 10 ML IVC SCH (17:00)
[2020-07-28] MEDS: *HR* Heparin 5,000 UNIT/ML VIAL SQ SCH (17:22)
[2020-07-29 04:44] LABS: Magnesium 2.2 mg/dL (1.6-2.6); Phosphorous 7.7 mg/dL (2.7-4.5)
[2020-07-29] MEDS: Insulin LISPRO 300 UNITS/3 ML VIAL SUBQ SCH ×3 (05:29→17:43)
[2020-07-29] MEDS: *HR* Heparin 5,000 UNIT/ML VIAL SQ SCH (05:30)
[2020-07-29 05:38] LABS: Hemoglobin 7.5 g/dL (11.5-15.4); Mean Corpuscular Volume 96.1 fL (83.0-100.0); Red Cell Distribution Width 14.9 % (11.5-14.5)
[2020-07-29 05:40] LABS: Basophils % 0.4 %; Eosinophils # 0.3 K/mcL (0.0-0.6); Eosinophils % 3.6 %; Hematocrit 26.9 % (35.3-44.9); Immature Granulocytes % 0.9 % (0-4); Lymphocytes % 11.7 %; Mean Corpuscular HGB Conc 27.9 g/dL (31.6-35.5); Mean Corpuscular Hemoglobin 26.8 pg (28.0-33.3); Mean Platelet Volume 11.1 fL (9.4-12.4); Monocytes # 0.8 K/mcL (0.0-1.3); Monocytes % 9.3 %; Platelet Count 217 K/mcL (140-400); Segmented Neutrophils % 74.1 %; White Blood Count 8.1 K/mcL (4.3-11.1)
[2020-07-29 06:31] LABS: Hypochromasia Present (Not Present)
[2020-07-29 06:32] LABS: Platelet Estimate Normal (Normal)
[2020-07-29] MEDS ORDERED: 0.9 % Sodium Chloride 250 ML IVC SCH (07:30)
[2020-07-29] MEDS: NIFEdipine XL (24 HR) 60 MG TAB.ER.24 PO SCH (09:12)
[2020-07-29] MEDS: Piperacillin/Tazobactam 3.375 GM in 0.9 % Sodium Chloride Mini Bag 100 ML IVPB SCH ×2 (09:12→17:00)
[2020-07-29 09:47] LABS: Calcium 8.1 mg/dL (8.6-10.3); Phosphorous 3.6 mg/dL (2.7-4.5); Potassium 4.5 mEq/L (3.5-5.1)
[2020-07-29] MEDS: Ondansetron 4 MG/2 ML VIAL IVP PRN (11:44)
[2020-07-29] MEDS ORDERED: Clinimix E 5%-15% SOLUTION 2,000 ML with MVI, adult with vitamin K 10 ML IVC SCH ×2 (12:00)
[2020-07-29] MEDS: Mirtazapine 15 MG TABLET PO SCH (21:34)
[2020-07-30] MEDS: *HR* LORazepam 2 MG/ML VIAL IVP PRN (01:05)
[2020-07-30 04:31] LABS: Basophils # 0.1 K/mcL (0.0-0.2); Basophils % 0.4 %; Eosinophils # 0.6 K/mcL (0.0-0.6); Eosinophils % 3.4 %; Hematocrit 32.4 % (35.3-44.9); Lymphocytes # 0.8 K/mcL (0.6-4.6); Lymphocytes % 4.6 %; Mean Corpuscular HGB Conc 31.5 g/dL (31.6-35.5); Mean Corpuscular Hemoglobin 27.3 pg (28.0-33.3); Mean Platelet Volume 11.3 fL (9.4-12.4); Monocytes % 6.1 %; Neutrophils # 13.7 K/mcL (1.6-8.9); Platelet Count 289 K/mcL (140-400); Red Blood Count 3.73 M/mcL (3.82-4.97); Red Cell Distribution Width 14.5 % (11.5-14.5); Segmented Neutrophils % 84.5 %
[2020-07-30 04:32] LABS: Hemoglobin 10.2 g/dL (11.5-15.4); Mean Corpuscular Volume 86.9 fL (83.0-100.0); White Blood Count 16.2 K/mcL (4.3-11.1)
[2020-07-30 04:48] LABS: Calcium 8.5 mg/dL (8.6-10.3); Magnesium 1.6 mg/dL (1.6-2.6); Phosphorous 3.6 mg/dL (2.7-4.5); Potassium 4.6 mEq/L (3.5-5.1)
[2020-07-30] MEDS: Nystatin POWDER 30 GM BOTTLE TP SCH ×3 (05:40→22:32)
[2020-07-30] MEDS: NIFEdipine XL (24 HR) 60 MG TAB.ER.24 PO SCH (09:40)
[2020-07-30] MEDS: Insulin LISPRO 300 UNITS/3 ML VIAL SUBQ SCH ×3 (09:41→15:41)
[2020-07-30] MEDS: Ondansetron 4 MG/2 ML VIAL IVP PRN (12:03)
[2020-07-30] MEDS: *HR* Heparin 5,000 UNIT/ML VIAL SQ SCH (18:18)
[2020-07-30] MEDS: Mirtazapine 15 MG TABLET PO SCH (22:31)
[2020-07-31 04:42] LABS: Basophils # 0.1 K/mcL (0.0-0.2); Basophils % 0.3 %; Eosinophils # 0.1 K/mcL (0.0-0.6); Eosinophils % 0.6 %; Hematocrit 28.8 % (35.3-44.9); Immature Granulocytes % 0.9 % (0-4); Lymphocytes % 5.4 %; Mean Corpuscular HGB Conc 31.3 g/dL (31.6-35.5); Mean Corpuscular Hemoglobin 27.1 pg (28.0-33.3); Mean Corpuscular Volume 86.7 fL (83.0-100.0); Mean Platelet Volume 11.4 fL (9.4-12.4); Monocytes # 1.4 K/mcL (0.0-1.3); Monocytes % 7.2 %; Neutrophils # 16.5 K/mcL (1.6-8.9); Platelet Count 283 K/mcL (140-400); Red Blood Count 3.32 M/mcL (3.82-4.97); Red Cell Distribution Width 14.7 % (11.5-14.5); Segmented Neutrophils % 85.6 %; White Blood Count 19.3 K/mcL (4.3-11.1)
[2020-07-31 05:00] LABS: Albumin 2.4 g/dL (3.5-5.7); Bilirubin,Total 0.4 mg/dL (0.3-1.0); Calcium 8.2 mg/dL (8.6-10.3); Globulin 2.4 g/dL (2.4-3.5); Potassium 4.3 mEq/L (3.5-5.1); Total Protein 4.8 g/dL (6.4-8.9)
[2020-07-31] MEDS: *HR* Heparin 5,000 UNIT/ML VIAL SQ SCH (05:51)
[2020-07-31] MEDS ORDERED: Isovue-370 500 ML BOTTLE IVP ONE ×3 (07:51→19:29)
[2020-07-31] MEDS: NIFEdipine XL (24 HR) 60 MG TAB.ER.24 PO SCH (09:53)
[2020-07-31] MEDS: Nystatin POWDER 30 GM BOTTLE TP SCH ×2 (09:54→20:31)
[2020-07-31] MEDS: Piperacillin/Tazobactam 3.375 GM in 0.9 % Sodium Chloride Mini Bag 100 ML IVPB SCH (09:55)
[2020-07-31] MEDS ORDERED: Isovue-370 500 ML BOTTLE PO ONE (10:27)
[2020-07-31] MEDS: Ondansetron 4 MG/2 ML VIAL IVP PRN (11:49)
[2020-07-31] MEDS ORDERED: *HR* FentaNYL (PF) 100 MCG/2 ML VIAL ONE ×2 (13:15→15:36)
[2020-07-31] MEDS ORDERED: *HR* Propofol 200 MG/20 ML VIAL IVP ONE (13:16)
[2020-07-31] MEDS ORDERED: Lidocaine -MPF 2% 2 ML VIAL ONE (13:17)
[2020-07-31] MEDS ORDERED: *HR* Succinylcholine 200 MG/10 ML VIAL IVP ONE (13:17)
[2020-07-31] MEDS ORDERED: Ondansetron 4 MG/2 ML VIAL ONE (13:17)
[2020-07-31] MEDS ORDERED: *HR* Rocuronium Bromide 50 MG/5 ML VIAL ONE ×5 (13:17→18:21)
[2020-07-31] MEDS ORDERED: *HR* Phenylephrine 10 MG/ML VIAL ONE (13:17)
[2020-07-31] MEDS ORDERED: *HR* Etomidate 40 MG/20 ML VIAL IVP ONE (13:18)
[2020-07-31] MEDS ORDERED: CefOXitin 1,000 MG VIAL ONE (13:22)
[2020-07-31] MEDS ORDERED: Heparin 1,000 UNITS/500 mL 500 ML ONE (13:37)
[2020-07-31] MEDS ORDERED: *HR* Norepinephrine 4 MG/4 ML VIAL IVC ONE (13:49)
[2020-07-31] MEDS ORDERED: Albumin Human 5% 12.5 GM/250 ML IV.SOLN ONE (14:56)
[2020-07-31 15:08] LABS: ABG Base Excess -1 mEq/L (-2 to 3); ABG Chloride 100 mEq/L (98-107); ABG Glucose 158 mg/dL (60-95); ABG HCO3 24 mEq/L (21-27); ABG Ionized Calcium 1.13 mmol/L (1.15-1.35); ABG Oxygen Saturation 100 % (95-98); ABG PCO2 39 mmHg (35-45); ABG PO2 175 mmHg (85-104); ABG TCO2 25 mEq/L (20-26)
[2020-07-31] MEDS: Fluconazole 400 MG/200 ML 400 MG/200 ML BAG IVPB SCH ×2 (15:13→16:16)
[2020-07-31] MEDS ORDERED: Lacri-Lube 3.5 GM TUBE ONE (17:50)
[2020-07-31] MEDS ORDERED: *HR* Midazolam HCl 5 MG/5 ML VIAL IVP ONE (17:56)
[2020-07-31] MEDS ORDERED: Artificial Tears SOLN 15 ML BOTTLE BOTH EYES PRN ×2 (18:37→19:29)
[2020-07-31] MEDS ORDERED: Cisatracurium 200 MG in 0.9 % Sodium Chloride 180 ML IVC SCH ×2 (18:45→19:29)
[2020-07-31] MEDS: FentaNYL (PF) 1,000 MCG/100 ML IV.SOLN IVC SCH (19:07)
[2020-07-31] MEDS: Cisatracurium 200 MG in 0.9 % Sodium Chloride 180 ML IVC SCH (19:10)
[2020-07-31] MEDS ORDERED: FentaNYL (PF) 1,000 MCG/100 ML IV.SOLN IVC SCH (19:29)
[2020-07-31] MEDS ORDERED: Ondansetron 4 MG/2 ML VIAL IVP PRN (19:29)
[2020-07-31] MEDS ORDERED: *HR* LORazepam 2 MG/ML VIAL IVP PRN (19:29)
[2020-07-31] MEDS ORDERED: *HR* Dextrose 50 % in Water (Vial) 50 ML VIAL IVP PRN (19:29)
[2020-07-31] MEDS ORDERED: Dextrose Gel 15 GM/37.5 ML TUBE PO PRN ×2 (19:29)
[2020-07-31] MEDS ORDERED: D5% in Water 1,000 ML IVC PRN (19:29)
[2020-07-31] MEDS ORDERED: Naloxone 0.4 MG/ML INJ IVP PRN (19:29)
[2020-07-31] MEDS ORDERED: Artificial Tears SOLN 15 ML BOTTLE BOTH EYES SCH (20:00)
[2020-07-31] MEDS: Chlorhexidine Rinse 15 ML MOUTHWASH MM SCH (20:30)
[2020-07-31] MEDS: Artificial Tears SOLN 15 ML BOTTLE BOTH EYES SCH (20:30)
[2020-07-31 20:39] LABS: ABG Base Excess -1 mEq/L (-2 to 3); ABG HCO3 26 mEq/L (21-27); ABG Oxygen Saturation 95 % (95-98); ABG PCO2 52 mmHg (35-45); ABG PH 7.31 pH Units (7.32-7.45); ABG PO2 85 mmHg (85-104); ABG TCO2 28 mEq/L (20-26); Blood Gas VT 400 cc
[2020-07-31] MEDS ORDERED: Chlorhexidine Rinse 15 ML MOUTHWASH MM SCH (21:00)
[2020-07-31 21:08] LABS: Basophils % 0.2 %; Hematocrit 31.2 % (35.3-44.9); Hemoglobin 10.2 g/dL (11.5-15.4); Immature Granulocytes % 0.8 % (0-4); Lymphocytes # 0.5 K/mcL (0.6-4.6); Lymphocytes % 2.3 %; Mean Corpuscular HGB Conc 32.7 g/dL (31.6-35.5); Mean Corpuscular Hemoglobin 28.2 pg (28.0-33.3); Mean Corpuscular Volume 86.2 fL (83.0-100.0); Mean Platelet Volume 10.9 fL (9.4-12.4); Monocytes # 0.8 K/mcL (0.0-1.3); Monocytes % 4.1 %; Neutrophils # 18.6 K/mcL (1.6-8.9); Platelet Count 261 K/mcL (140-400); Red Blood Count 3.62 M/mcL (3.82-4.97); Red Cell Distribution Width 14.4 % (11.5-14.5); Segmented Neutrophils % 92.6 %; White Blood Count 20.1 K/mcL (4.3-11.1)
[2020-07-31 21:11] LABS: ABG Ionized Calcium 1.15 mmol/L (1.15-1.35)
[2020-07-31 21:27] LABS: BUN/Creatinine Ratio 25 (6-26); Blood Urea Nitrogen 26 mg/dL (8-23); Calcium 7.7 mg/dL (8.6-10.3); Carbon Dioxide 27 mEq/L (23-29); Chloride 108 mEq/L (98-107); Glucose 192 mg/dL (70-105); Magnesium 1.3 mg/dL (1.6-2.6); Osmolality,Calculated 296 (280-300); Phosphorous 4.4 mg/dL (2.7-4.5); Potassium 4.3 mEq/L (3.5-5.1); Sodium 138 mEq/L (136-145); eGFR For African Americans > 60 (> 60); eGFR For Non-African Americans 50 (> 60)
[2020-07-31] MEDS: Budesonide/Formoterol 160/4.5 1 PUFF INH IH SCH (21:32)
[2020-07-31] MEDS ORDERED: Budesonide/Formoterol 160/4.5 1 PUFF INH IH SCH (22:00)
[2020-07-31] MEDS ORDERED: Ringers Solution, Lactated 500 ML IVC ONE (22:53)
[2020-07-31] MEDS ORDERED: Ringers Solution, Lactated 500 ML ONE (22:56)
[2020-07-31] MEDS: Norepinephrine 4 MG/254 ML IV.SOLN IVC SCH (23:55)
[2020-08-01] MEDS: Artificial Tears SOLN 15 ML BOTTLE BOTH EYES SCH ×7 (00:01→23:08)
[2020-08-01] MEDS: Piperacillin/Tazobactam 3.375 GM in 0.9 % Sodium Chloride Mini Bag 100 ML IVPB SCH ×4 (00:01→23:09)
[2020-08-01] MEDS: FentaNYL (PF) 1,000 MCG/100 ML IV.SOLN IVC SCH ×2 (03:32→15:00)
[2020-08-01 04:05] LABS: ABG Base Excess 0 mEq/L (-2 to 3); ABG HCO3 27 mEq/L (21-27); ABG Oxygen Saturation 95 % (95-98); ABG PCO2 56 mmHg (35-45); ABG PH 7.29 pH Units (7.32-7.45); ABG PO2 83 mmHg (85-104); ABG TCO2 29 mEq/L (20-26); Blood Gas VT 400 cc
[2020-08-01 04:21] LABS: Basophils # 0.1 K/mcL (0.0-0.2); Basophils % 0.2 %; Hematocrit 30.7 % (35.3-44.9); Hemoglobin 10.1 g/dL (11.5-15.4); Immature Granulocytes % 1.3 % (0-4); Lymphocytes # 0.8 K/mcL (0.6-4.6); Lymphocytes % 2.2 %; Mean Corpuscular HGB Conc 32.9 g/dL (31.6-35.5); Mean Corpuscular Hemoglobin 28.6 pg (28.0-33.3); Mean Platelet Volume 11.7 fL (9.4-12.4); Monocytes # 1.5 K/mcL (0.0-1.3); Monocytes % 4.1 %; Platelet Count 397 K/mcL (140-400); Red Blood Count 3.53 M/mcL (3.82-4.97); Red Cell Distribution Width 14.9 % (11.5-14.5); Segmented Neutrophils % 92.2 %
[2020-08-01 04:22] LABS: Neutrophils # 34.4 K/mcL (1.6-8.9)
[2020-08-01 04:23] LABS: White Blood Count 37.3 K/mcL (4.3-11.1)
[2020-08-01 04:27] LABS: ABG Ionized Calcium 1.17 mmol/L (1.15-1.35)
[2020-08-01 04:56] LABS: Albumin 2.1 g/dL (3.5-5.7); Albumin/Globulin Ratio 1.1 (1.1-2.2); Bilirubin,Direct 0.2 mg/dL (0.0-0.2); Bilirubin,Indirect 0.3 mg/dL (0.0-1.0); Bilirubin,Total 0.5 mg/dL (0.3-1.0); Calcium 7.7 mg/dL (8.6-10.3); Magnesium 1.9 mg/dL (1.6-2.6); Phosphorous 5.7 mg/dL (2.7-4.5); Potassium 4.6 mEq/L (3.5-5.1); Total Protein 4.1 g/dL (6.4-8.9)
[2020-08-01 05:32] LABS: Platelet Estimate Normal (Normal)
[2020-08-01] MEDS: Pantoprazole 40 MG VIAL IVP SCH (05:48)
[2020-08-01] MEDS: *HR* Heparin 5,000 UNIT/ML VIAL SQ SCH ×2 (05:48→17:36)
[2020-08-01] MEDS: Norepinephrine 4 MG/254 ML IV.SOLN IVC SCH ×3 (06:32→19:04)
[2020-08-01] MEDS: Budesonide/Formoterol 160/4.5 1 PUFF INH IH SCH ×2 (07:10→19:34)
[2020-08-01] MEDS: Nystatin POWDER 30 GM BOTTLE TP SCH ×2 (08:41→19:54)
[2020-08-01] MEDS: Chlorhexidine Rinse 15 ML MOUTHWASH MM SCH ×2 (08:41→19:53)
[2020-08-01] MEDS ORDERED: Pantoprazole 40 MG VIAL IVP SCH (09:00)
[2020-08-01] MEDS ORDERED: Fluconazole 400 MG/200 ML 400 MG/200 ML BAG IVPB SCH (09:00)
[2020-08-01 09:24] LABS: Amorphous Sediment,Urine Few per hpf (None-Few); Bacteria,Urine Few per hpf (None-Few); Bilirubin,Urine Negative (Negative); Blood,Urine Moderate (Negative); Clarity,Urine Clear (Clear); Color,Urine Yellow (Yellow); Glucose,Urine (UA) Normal (Normal); Ketones,Urine Negative (Negative); Leukocyte Esterase,Urine Negative (Negative); Mucus,Urine Few per lpf (None-Few); Nitrite,Urine Negative (Negative); Protein,Urine 30 mg/dL (Neg-Trace); Renal Epithelial Cells,Urine Few per hpf (None-Few); Specific Gravity,Urine > 1.030 (1.010-1.025); Squamous Epithelial Cell,Urine Few per hpf (None-Few); Transitional Epi Cells,Urine Few per hpf (None-Few); Urobilinogen,Urine Normal (Normal)
[2020-08-01 09:27] LABS: ABG Base Excess 1 mEq/L (-2 to 3); ABG HCO3 26 mEq/L (21-27); ABG Oxygen Saturation 95 % (95-98); ABG PCO2 45 mmHg (35-45); ABG PH 7.38 pH Units (7.32-7.45); ABG PO2 80 mmHg (85-104); ABG TCO2 28 mEq/L (20-26); Blood Gas Modality ASSIST CONTROL; Blood Gas VT 400 cc
[2020-08-01] MEDS ORDERED: Ipratropium/Albuterol Neb 3 ML IH PRN (09:27)
[2020-08-01] MEDS: Cisatracurium 200 MG in 0.9 % Sodium Chloride 180 ML IVC SCH (10:46)
[2020-08-01] MEDS ORDERED: D10% in Water 500 ML IVC PRN (11:00)
[2020-08-01] MEDS ORDERED: Fluconazole 200 MG/100 ML 200 MG/100 ML BAG IVPB SCH (12:00)
[2020-08-01] MEDS: Fluconazole 200 MG/100 ML 200 MG/100 ML BAG IVPB SCH (12:17)
[2020-08-01 16:06] LABS: Adenovirus Not Detected (Not Detect); Bordetella Pertussis Not Detected (Not Detect); Chlamydophila pneumoniae Not Detected (Not Detect); Coronavirus 229E Not Detected (Not Detect); Coronavirus HKU1 Not Detected (Not Detect); Coronavirus NL63 Not Detected (Not Detect); Coronavirus OC43 Not Detected (Not Detect); Human Metapneumovirus Not Detected (Not Detect); Human Rhinovirus/Enterovirus Not Detected (Not Detect); Influenza A Subtype 2009 H1 Not Detected (Not Detect); Influenza B Not Detected (Not Detect); Mycoplasma pneumoniae Not Detected (Not Detect); Parainfluenza Virus 1 Not Detected (Not Detect); Parainfluenza Virus 2 Not Detected (Not Detect); Parainfluenza Virus 3 Not Detected (Not Detect); Parainfluenza Virus 4 Not Detected (Not Detect); Respiratory Syncytial Virus Not Detected (Not Detect); SARS-CoV-2 Not Detected (Not Detect)
[2020-08-01] MEDS: Insulin LISPRO 300 UNITS/3 ML VIAL SUBQ SCH ×3 (17:00→23:19)
[2020-08-01] MEDS ORDERED: Clinimix 5%-20% SOLUTION 2,000 ML with MVI, adult with vitamin K 10 ML, ZN/CU/MN/SE 1... IVC SCH (17:00)
[2020-08-02] MEDS: Norepinephrine 4 MG/254 ML IV.SOLN IVC SCH ×4 (01:25→17:44)
[2020-08-02] MEDS: FentaNYL (PF) 1,000 MCG/100 ML IV.SOLN IVC SCH ×4 (01:26→22:40)
[2020-08-02] MEDS: Cisatracurium 200 MG in 0.9 % Sodium Chloride 180 ML IVC SCH ×2 (03:30→17:28)
[2020-08-02] MEDS: Artificial Tears SOLN 15 ML BOTTLE BOTH EYES SCH ×5 (03:46→19:38)
[2020-08-02] MEDS: Insulin LISPRO 300 UNITS/3 ML VIAL SUBQ SCH ×5 (03:46→19:38)
[2020-08-02 03:56] LABS: ABG Base Excess -1 mEq/L (-2 to 3); ABG HCO3 25 mEq/L (21-27); ABG Oxygen Saturation 98 % (95-98); ABG PCO2 47 mmHg (35-45); ABG PH 7.33 pH Units (7.32-7.45); ABG PO2 104 mmHg (85-104); ABG TCO2 26 mEq/L (20-26); Blood Gas Modality ASSIST CONTROL; Blood Gas VT 400 cc
[2020-08-02 04:14] LABS: Basophils % 0.2 %; Hematocrit 29.5 % (35.3-44.9); Hemoglobin 9.2 g/dL (11.5-15.4); Immature Granulocytes % 0.9 % (0-4); Lymphocytes # 0.8 K/mcL (0.6-4.6); Lymphocytes % 3.5 %; Mean Corpuscular HGB Conc 31.2 g/dL (31.6-35.5); Mean Corpuscular Hemoglobin 27.4 pg (28.0-33.3); Mean Corpuscular Volume 87.8 fL (83.0-100.0); Mean Platelet Volume 11.3 fL (9.4-12.4); Monocytes # 1.4 K/mcL (0.0-1.3); Monocytes % 6.2 %; Neutrophils # 20.3 K/mcL (1.6-8.9); Platelet Count 398 K/mcL (140-400); Red Blood Count 3.36 M/mcL (3.82-4.97); Red Cell Distribution Width 15.4 % (11.5-14.5); Segmented Neutrophils % 89.2 %; White Blood Count 22.7 K/mcL (4.3-11.1)
[2020-08-02 04:18] LABS: ABG Ionized Calcium 1.14 mmol/L (1.15-1.35)
[2020-08-02 05:55] LABS: Calcium 7.6 mg/dL (8.6-10.3); Magnesium 2.7 mg/dL (1.6-2.6); Phosphorous 4.6 mg/dL (2.7-4.5); Potassium 4.4 mEq/L (3.5-5.1)
[2020-08-02] MEDS: Pantoprazole 40 MG VIAL IVP SCH (06:06)
[2020-08-02] MEDS: *HR* Heparin 5,000 UNIT/ML VIAL SQ SCH ×3 (06:06→18:09)
[2020-08-02] MEDS: Piperacillin/Tazobactam 3.375 GM in 0.9 % Sodium Chloride Mini Bag 100 ML IVPB SCH ×3 (07:16→16:06)
[2020-08-02] MEDS: Budesonide/Formoterol 160/4.5 1 PUFF INH IH SCH ×2 (07:20→19:39)
[2020-08-02] MEDS: Chlorhexidine Rinse 15 ML MOUTHWASH MM SCH ×2 (07:33→19:39)
[2020-08-02] MEDS: Nystatin POWDER 30 GM BOTTLE TP SCH ×2 (07:44→19:39)
[2020-08-02] MEDS ORDERED: *HR* Midazolam HCl 5 MG/5 ML VIAL IVP ONE ×2 (08:22→08:26)
[2020-08-02] MEDS ORDERED: Midazolam HCl 50 MG/100 ML IV.SOLN IVC SCH (08:30)
[2020-08-02] MEDS ORDERED: Albumin Human 5% 0 GM/0 ML IV.SOLN ONE (11:34)
[2020-08-02] MEDS: Fluconazole 200 MG/100 ML 200 MG/100 ML BAG IVPB SCH (11:55)
[2020-08-02] MEDS ORDERED: FentaNYL (PF) 1,000 MCG/100 ML IV.SOLN IVC SCH (16:12)
[2020-08-02] MEDS ORDERED: Clinimix 5%-20% SOLUTION 2,000 ML with MVI, adult with vitamin K 10 ML, ZN/CU/MN/SE 1... IVC SCH ×3 (16:12→17:00)
[2020-08-02] MEDS ORDERED: D5% in Water 1,000 ML IVC PRN (16:12)
[2020-08-02] MEDS ORDERED: Artificial Tears SOLN 15 ML BOTTLE BOTH EYES PRN (16:12)
[2020-08-02] MEDS ORDERED: Dextrose Gel 15 GM/37.5 ML TUBE PO PRN ×2 (16:12)
[2020-08-02] MEDS ORDERED: *HR* Dextrose 50 % in Water (Vial) 50 ML VIAL IVP PRN (16:12)
[2020-08-02] MEDS ORDERED: Ondansetron 4 MG/2 ML VIAL IVP PRN (16:12)
[2020-08-02] MEDS ORDERED: D10% in Water 500 ML IVC PRN (16:12)
[2020-08-02] MEDS ORDERED: Ipratropium/Albuterol Neb 3 ML IH PRN (16:12)
[2020-08-02] MEDS ORDERED: *HR* LORazepam 2 MG/ML VIAL IVP PRN (16:12)
[2020-08-02] MEDS ORDERED: Naloxone 0.4 MG/ML INJ IVP PRN (16:12)
[2020-08-02] MEDS: Midazolam HCl 50 MG/100 ML IV.SOLN IVC SCH (17:44)
[2020-08-02 23:42] LABS: VBG Ionized Calcium 1.05 mmol/L (1.15-1.35)
[2020-08-02 23:44] LABS: Hematocrit 26.1 % (35.3-44.9)
[2020-08-02 23:54] LABS: Calcium 6.9 mg/dL (8.6-10.3); Magnesium 2.4 mg/dL (1.6-2.6); Phosphorous 5.2 mg/dL (2.7-4.5)
[2020-08-03] MEDS: Calcium Gluconate 1gm/50mL 1 GM/50 ML BAG IVPB SCH ×2 (00:19→01:14)
[2020-08-03] MEDS: Insulin LISPRO 300 UNITS/3 ML VIAL SUBQ SCH ×7 (00:20→23:29)
[2020-08-03] MEDS: Artificial Tears SOLN 15 ML BOTTLE BOTH EYES SCH ×7 (00:20→23:27)
[2020-08-03] MEDS: Piperacillin/Tazobactam 3.375 GM in 0.9 % Sodium Chloride Mini Bag 100 ML IVPB SCH ×4 (00:21→23:26)
[2020-08-03] MEDS: FentaNYL (PF) 2,500 MCG/50 ML IV.SOLN IVC SCH ×3 (03:08→22:43)
[2020-08-03] MEDS: Cisatracurium 200 MG in 0.9 % Sodium Chloride 180 ML IVC SCH (03:28)
[2020-08-03] MEDS: Norepinephrine 4 MG/254 ML IV.SOLN IVC SCH ×2 (03:46→13:53)
[2020-08-03 04:02] LABS: ABG Base Excess -4 mEq/L (-2 to 3); ABG HCO3 23 mEq/L (21-27); ABG Oxygen Saturation 98 % (95-98); ABG PCO2 49 mmHg (35-45); ABG PH 7.27 pH Units (7.32-7.45); ABG PO2 124 mmHg (85-104); ABG TCO2 24 mEq/L (20-26); Blood Gas VT 400 cc
[2020-08-03 04:19] LABS: ABG Ionized Calcium 1.12 mmol/L (1.15-1.35)
[2020-08-03 04:27] LABS: Basophils % 0.1 %; Hemoglobin 7.9 g/dL (11.5-15.4); Immature Granulocytes % 0.8 % (0-4); Lymphocytes # 0.4 K/mcL (0.6-4.6); Mean Corpuscular HGB Conc 31.6 g/dL (31.6-35.5); Mean Corpuscular Hemoglobin 28.5 pg (28.0-33.3); Mean Corpuscular Volume 90.3 fL (83.0-100.0); Mean Platelet Volume 11.7 fL (9.4-12.4); Monocytes # 0.9 K/mcL (0.0-1.3); Monocytes % 3.9 %; Neutrophils # 20.8 K/mcL (1.6-8.9); Platelet Count 408 K/mcL (140-400); Red Blood Count 2.77 M/mcL (3.82-4.97); Red Cell Distribution Width 15.6 % (11.5-14.5); Segmented Neutrophils % 93.2 %; White Blood Count 22.3 K/mcL (4.3-11.1)
[2020-08-03 04:43] LABS: Calcium 7.5 mg/dL (8.6-10.3); Magnesium 2.4 mg/dL (1.6-2.6); Phosphorous 4.6 mg/dL (2.7-4.5); Potassium 4.9 mEq/L (3.5-5.1)
[2020-08-03] MEDS: Pantoprazole 40 MG VIAL IVP SCH (06:14)
[2020-08-03] MEDS: *HR* Heparin 5,000 UNIT/ML VIAL SQ SCH ×2 (06:14→17:29)
[2020-08-03] MEDS: Budesonide/Formoterol 160/4.5 1 PUFF INH IH SCH ×2 (07:35→19:36)
[2020-08-03] MEDS: Midazolam HCl 50 MG/100 ML IV.SOLN IVC SCH (07:44)
[2020-08-03] MEDS: Nystatin POWDER 30 GM BOTTLE TP SCH ×2 (07:52→20:21)
[2020-08-03] MEDS: Chlorhexidine Rinse 15 ML MOUTHWASH MM SCH ×2 (07:53→20:20)
[2020-08-03] MEDS: Fluconazole 200 MG/100 ML 200 MG/100 ML BAG IVPB SCH (12:15)
[2020-08-03] MEDS ORDERED: Heparin 1,000 UNITS/500 mL 500 ML ONE (15:44)
[2020-08-03] MEDS ORDERED: Clinimix 5%-20% SOLUTION 2,000 ML with MVI, adult with vitamin K 10 ML, ZN/CU/MN/SE 1... IVC SCH ×2 (17:00)
[2020-08-04] MEDS: Norepinephrine 4 MG/254 ML IV.SOLN IVC SCH ×2 (01:48→11:19)
[2020-08-04 03:22] LABS: Basophils % 0.1 %; Eosinophils # 0.1 K/mcL (0.0-0.6); Eosinophils % 0.6 %; Hematocrit 25.6 % (35.3-44.9); Hemoglobin 7.6 g/dL (11.5-15.4); Lymphocytes # 1.3 K/mcL (0.6-4.6); Lymphocytes % 6.1 %; Mean Corpuscular HGB Conc 29.7 g/dL (31.6-35.5); Mean Corpuscular Hemoglobin 27.4 pg (28.0-33.3); Mean Corpuscular Volume 92.4 fL (83.0-100.0); Mean Platelet Volume 11.7 fL (9.4-12.4); Monocytes # 1.2 K/mcL (0.0-1.3); Monocytes % 5.4 %; Platelet Count 447 K/mcL (140-400); Red Blood Count 2.77 M/mcL (3.82-4.97); Red Cell Distribution Width 15.9 % (11.5-14.5); Segmented Neutrophils % 86.8 %; White Blood Count 21.9 K/mcL (4.3-11.1)
[2020-08-04 03:28] LABS: ABG Ionized Calcium 1.11 mmol/L (1.15-1.35)
[2020-08-04 03:39] LABS: Calcium 7.2 mg/dL (8.6-10.3); Magnesium 2.2 mg/dL (1.6-2.6); Phosphorous 3.4 mg/dL (2.7-4.5); Potassium 4.7 mEq/L (3.5-5.1)
[2020-08-04] MEDS: Artificial Tears SOLN 15 ML BOTTLE BOTH EYES SCH ×5 (03:46→21:02)
[2020-08-04 04:05] LABS: ABG Base Excess -4 mEq/L (-2 to 3); ABG HCO3 24 mEq/L (21-27); ABG Oxygen Saturation 91 % (95-98); ABG PCO2 59 mmHg (35-45); ABG PH 7.21 pH Units (7.32-7.45); ABG PO2 75 mmHg (85-104); ABG TCO2 26 mEq/L (20-26); Blood Gas VT 400 cc
[2020-08-04] MEDS: Insulin LISPRO 300 UNITS/3 ML VIAL SUBQ SCH ×5 (04:09→21:02)
[2020-08-04] MEDS: *HR* Heparin 5,000 UNIT/ML VIAL SQ SCH ×2 (05:38→17:41)
[2020-08-04] MEDS: Pantoprazole 40 MG VIAL IVP SCH (05:38)
[2020-08-04] MEDS: Calcium Gluconate 1gm/50mL 1 GM/50 ML BAG IVPB SCH ×2 (06:33→07:47)
[2020-08-04] MEDS: Budesonide/Formoterol 160/4.5 1 PUFF INH IH SCH ×2 (07:24→19:33)
[2020-08-04] MEDS: Midazolam HCl 50 MG/100 ML IV.SOLN IVC SCH (08:44)
[2020-08-04] MEDS: Piperacillin/Tazobactam 3.375 GM in 0.9 % Sodium Chloride Mini Bag 100 ML IVPB SCH ×2 (08:48→18:51)
[2020-08-04] MEDS: Chlorhexidine Rinse 15 ML MOUTHWASH MM SCH ×2 (08:48→21:03)
[2020-08-04] MEDS: Nystatin POWDER 30 GM BOTTLE TP SCH ×2 (08:51→21:04)
[2020-08-04] MEDS: Fluconazole 200 MG/100 ML 200 MG/100 ML BAG IVPB SCH (13:40)
[2020-08-04] MEDS: FentaNYL (PF) 2,500 MCG/50 ML IV.SOLN IVC SCH (14:00)
[2020-08-04] MEDS ORDERED: [UNRECOGNIZED DRUG - OTHER] IVC SCH ×2 (17:00)
[2020-08-04] MEDS ORDERED: PARENTERAL AMINO ACID 10% IVC SCH ×2 (17:00)
[2020-08-04] MEDS ORDERED: CLINIMIX IVC SCH ×2 (17:00)
[2020-08-04] MEDS ORDERED: MVI IVC SCH ×2 (17:00)
[2020-08-04 19:38] LABS: ABG Base Excess -4 mEq/L (-2 to 3); ABG HCO3 22 mEq/L (21-27); ABG Oxygen Saturation 97 % (95-98); ABG PCO2 38 mmHg (35-45); ABG PH 7.36 pH Units (7.32-7.45); ABG PO2 93 mmHg (85-104); ABG TCO2 23 mEq/L (20-26); Blood Gas VT 400 cc
[2020-08-04] MEDS: Cisatracurium 200 MG in 0.9 % Sodium Chloride 180 ML IVC SCH (21:02)
[2020-08-05] MEDS: Piperacillin/Tazobactam 3.375 GM in 0.9 % Sodium Chloride Mini Bag 100 ML IVPB SCH ×4 (00:19→23:08)
[2020-08-05] MEDS: Insulin LISPRO 300 UNITS/3 ML VIAL SUBQ SCH ×7 (00:23→23:11)
[2020-08-05] MEDS: Artificial Tears SOLN 15 ML BOTTLE BOTH EYES SCH ×7 (00:23→23:10)
[2020-08-05 04:39] LABS: ABG Base Excess -4 mEq/L (-2 to 3); ABG HCO3 22 mEq/L (21-27); ABG Oxygen Saturation 95 % (95-98); ABG PCO2 43 mmHg (35-45); ABG PH 7.31 pH Units (7.32-7.45); ABG PO2 80 mmHg (85-104); ABG TCO2 23 mEq/L (20-26); Blood Gas VT 400 cc
[2020-08-05 05:07] LABS: Calcium 7.7 mg/dL (8.6-10.3); Magnesium 2.1 mg/dL (1.6-2.6); Phosphorous 2.8 mg/dL (2.7-4.5); Potassium 5.3 mEq/L (3.5-5.1)
[2020-08-05] MEDS: *HR* Heparin 5,000 UNIT/ML VIAL SQ SCH ×2 (05:39→17:37)
[2020-08-05] MEDS: Pantoprazole 40 MG VIAL IVP SCH (05:39)
[2020-08-05] MEDS ORDERED: 0.9 % Sodium Chloride 1,000 ML IVC SCH (05:45)
[2020-08-05] MEDS: FentaNYL (PF) 2,500 MCG/50 ML IV.SOLN IVC SCH (05:59)
[2020-08-05 06:08] LABS: Basophils # 0.1 K/mcL (0.0-0.2); Basophils % 0.4 %; Eosinophils # 0.3 K/mcL (0.0-0.6); Hematocrit 23.1 % (35.3-44.9); Hemoglobin 7.1 g/dL (11.5-15.4); Lymphocytes # 1.5 K/mcL (0.6-4.6); Lymphocytes % 9.4 %; Mean Corpuscular HGB Conc 30.7 g/dL (31.6-35.5); Mean Corpuscular Hemoglobin 27.8 pg (28.0-33.3); Mean Corpuscular Volume 90.6 fL (83.0-100.0); Mean Platelet Volume 11.1 fL (9.4-12.4); Monocytes # 1.3 K/mcL (0.0-1.3); Monocytes % 7.8 %; Neutrophils # 12.8 K/mcL (1.6-8.9); Platelet Count 406 K/mcL (140-400); Red Blood Count 2.55 M/mcL (3.82-4.97); Red Cell Distribution Width 15.9 % (11.5-14.5); Segmented Neutrophils % 78.4 %; White Blood Count 16.4 K/mcL (4.3-11.1)
[2020-08-05] MEDS ORDERED: 0.9 % Sodium Chloride 250 ML IVC SCH (07:30)
[2020-08-05] MEDS: Budesonide/Formoterol 160/4.5 1 PUFF INH IH SCH ×2 (08:10→21:25)
[2020-08-05] MEDS: Chlorhexidine Rinse 15 ML MOUTHWASH MM SCH ×2 (08:33→19:29)
[2020-08-05] MEDS: Nystatin POWDER 30 GM BOTTLE TP SCH ×2 (08:34→19:30)
[2020-08-05] MEDS: Norepinephrine 4 MG/254 ML IV.SOLN IVC SCH (10:24)
[2020-08-05 10:55] LABS: Chol/HDL Ratio 4.6 (0-4.9)
[2020-08-05] MEDS: Fluconazole 200 MG/100 ML 200 MG/100 ML BAG IVPB SCH (11:36)
[2020-08-05 15:20] LABS: Basophils # 0.1 K/mcL (0.0-0.2); Basophils % 0.6 %; Eosinophils # 0.4 K/mcL (0.0-0.6); Eosinophils % 2.5 %; Hematocrit 27.6 % (35.3-44.9); Hemoglobin 8.5 g/dL (11.5-15.4); Immature Granulocytes % 2.3 % (0-4); Lymphocytes # 1.3 K/mcL (0.6-4.6); Mean Corpuscular HGB Conc 30.8 g/dL (31.6-35.5); Mean Corpuscular Volume 90.8 fL (83.0-100.0); Mean Platelet Volume 11.2 fL (9.4-12.4); Monocytes # 1.1 K/mcL (0.0-1.3); Monocytes % 6.9 %; Neutrophils # 12.8 K/mcL (1.6-8.9); Platelet Count 416 K/mcL (140-400); Red Blood Count 3.04 M/mcL (3.82-4.97); Red Cell Distribution Width 15.1 % (11.5-14.5); Segmented Neutrophils % 79.7 %; White Blood Count 16.1 K/mcL (4.3-11.1)
[2020-08-05] MEDS ORDERED: CLINIMIX IVC SCH (17:00)
[2020-08-05] MEDS ORDERED: PARENTERAL AMINO ACID 10% IVC SCH (17:00)
[2020-08-05] MEDS ORDERED: [UNRECOGNIZED DRUG - OTHER] IVC SCH (17:00)
[2020-08-05] MEDS ORDERED: MVI IVC SCH (17:00)
[2020-08-05] MEDS ORDERED: *HR* Metoprolol 5 MG/5 ML VIAL IVP ONE (21:50)
[2020-08-05 22:23] LABS: VBG Ionized Calcium 1.19 mmol/L (1.15-1.35)
[2020-08-05 22:40] LABS: Calcium 7.4 mg/dL (8.6-10.3); Potassium 5.2 mEq/L (3.5-5.1)
[2020-08-06] MEDS: FentaNYL (PF) 2,500 MCG/50 ML IV.SOLN IVC SCH ×2 (00:52→16:48)
[2020-08-06 03:07] LABS: Basophils # 0.1 K/mcL (0.0-0.2); Basophils % 0.5 %; Eosinophils # 0.3 K/mcL (0.0-0.6); Eosinophils % 2.5 %; Hematocrit 25.8 % (35.3-44.9); Immature Granulocytes % 2.1 % (0-4); Lymphocytes # 1.4 K/mcL (0.6-4.6); Lymphocytes % 10.2 %; Mean Corpuscular Hemoglobin 27.9 pg (28.0-33.3); Mean Corpuscular Volume 89.9 fL (83.0-100.0); Mean Platelet Volume 10.8 fL (9.4-12.4); Monocytes # 1.1 K/mcL (0.0-1.3); Monocytes % 8.2 %; Neutrophils # 10.2 K/mcL (1.6-8.9); Platelet Count 370 K/mcL (140-400); Red Blood Count 2.87 M/mcL (3.82-4.97); Red Cell Distribution Width 15.2 % (11.5-14.5); Segmented Neutrophils % 76.5 %; White Blood Count 13.4 K/mcL (4.3-11.1)
[2020-08-06 03:26] LABS: Calcium 7.6 mg/dL (8.6-10.3); Phosphorous 4.1 mg/dL (2.7-4.5)
[2020-08-06] MEDS: Artificial Tears SOLN 15 ML BOTTLE BOTH EYES SCH ×5 (03:34→20:51)
[2020-08-06] MEDS: Insulin LISPRO 300 UNITS/3 ML VIAL SUBQ SCH ×5 (03:35→20:52)
[2020-08-06] MEDS: *HR* Metoprolol 5 MG/5 ML VIAL IVP SCH ×3 (04:41→17:36)
[2020-08-06 04:42] LABS: ABG Base Excess -7 mEq/L (-2 to 3); ABG HCO3 19 mEq/L (21-27); ABG Oxygen Saturation 97 % (95-98); ABG PCO2 40 mmHg (35-45); ABG PH 7.29 pH Units (7.32-7.45); ABG PO2 107 mmHg (85-104); ABG TCO2 20 mEq/L (20-26); Blood Gas Modality AF; Blood Gas VT 400 cc
[2020-08-06] MEDS: Pantoprazole 40 MG VIAL IVP SCH (05:11)
[2020-08-06] MEDS: *HR* Heparin 5,000 UNIT/ML VIAL SQ SCH ×2 (05:11→17:36)
[2020-08-06 05:45] LABS: Troponin I 0.03 ng/mL (< 0.04)
[2020-08-06] MEDS: Budesonide/Formoterol 160/4.5 1 PUFF INH IH SCH ×2 (07:41→19:59)
[2020-08-06] MEDS: Chlorhexidine Rinse 15 ML MOUTHWASH MM SCH ×2 (08:20→20:52)
[2020-08-06] MEDS: Piperacillin/Tazobactam 3.375 GM in 0.9 % Sodium Chloride Mini Bag 100 ML IVPB SCH ×2 (08:21→15:44)
[2020-08-06] MEDS: Nystatin POWDER 30 GM BOTTLE TP SCH ×2 (09:36→20:52)
[2020-08-06] MEDS: Phenylephrine 10 MG in 0.9 % Sodium Chloride 250 ML IVC SCH ×2 (10:21→13:40)
[2020-08-06 12:31] LABS: Bilirubin,Urine Negative (Negative); Blood,Urine Negative (Negative); Clarity,Urine Clear (Clear); Color,Urine Light-Yellow (Yellow); Glucose,Urine (UA) Normal (Normal); Ketones,Urine Negative (Negative); Leukocyte Esterase,Urine Negative (Negative); Nitrite,Urine Negative (Negative); Protein,Urine Trace mg/dL (Neg-Trace); Specific Gravity,Urine 1.019 (1.010-1.025); Urobilinogen,Urine Normal (Normal)
[2020-08-06] MEDS: Fluconazole 200 MG/100 ML 200 MG/100 ML BAG IVPB SCH (12:48)
[2020-08-06] MEDS ORDERED: Phenylephrine 50 MG in 0.9 % Sodium Chloride 250 ML IVC SCH (16:30)
[2020-08-06] MEDS ORDERED: PARENTERAL AMINO ACID 10% IVC SCH (17:00)
[2020-08-06] MEDS ORDERED: MVI IVC SCH (17:00)
[2020-08-06] MEDS ORDERED: [UNRECOGNIZED DRUG - OTHER] IVC SCH (17:00)
[2020-08-06] MEDS ORDERED: CLINIMIX E IVC SCH (17:00)
[2020-08-07] MEDS: Piperacillin/Tazobactam 3.375 GM in 0.9 % Sodium Chloride Mini Bag 100 ML IVPB SCH ×4 (00:16→23:44)
[2020-08-07] MEDS: Insulin LISPRO 300 UNITS/3 ML VIAL SUBQ SCH ×7 (00:17→23:42)
[2020-08-07] MEDS: *HR* Metoprolol 5 MG/5 ML VIAL IVP SCH ×5 (00:17→23:45)
[2020-08-07] MEDS: Artificial Tears SOLN 15 ML BOTTLE BOTH EYES SCH ×7 (00:17→23:45)
[2020-08-07 04:07] LABS: ABG Base Excess -8 mEq/L (-2 to 3); ABG HCO3 18 mEq/L (21-27); ABG Oxygen Saturation 98 % (95-98); ABG PCO2 37 mmHg (35-45); ABG PH 7.29 pH Units (7.32-7.45); ABG PO2 108 mmHg (85-104); ABG TCO2 19 mEq/L (20-26); Blood Gas Modality ASSIST CONTROL; Blood Gas VT 400 cc
[2020-08-07 05:31] LABS: Basophils # 0.1 K/mcL (0.0-0.2); Basophils % 0.5 %; Eosinophils # 0.4 K/mcL (0.0-0.6); Eosinophils % 2.8 %; Hematocrit 25.9 % (35.3-44.9); Hemoglobin 7.7 g/dL (11.5-15.4); Immature Granulocytes % 4.6 % (0-4); Lymphocytes # 1.2 K/mcL (0.6-4.6); Lymphocytes % 7.7 %; Mean Corpuscular HGB Conc 29.7 g/dL (31.6-35.5); Mean Corpuscular Hemoglobin 27.3 pg (28.0-33.3); Mean Corpuscular Volume 91.8 fL (83.0-100.0); Mean Platelet Volume 11.2 fL (9.4-12.4); Monocytes # 1.2 K/mcL (0.0-1.3); Monocytes % 7.9 %; Neutrophils # 11.5 K/mcL (1.6-8.9); Platelet Count 425 K/mcL (140-400); Red Blood Count 2.82 M/mcL (3.82-4.97); Red Cell Distribution Width 15.3 % (11.5-14.5); Segmented Neutrophils % 76.5 %; White Blood Count 15.1 K/mcL (4.3-11.1)
[2020-08-07 05:43] LABS: Calcium 7.7 mg/dL (8.6-10.3); Magnesium 1.9 mg/dL (1.6-2.6); Phosphorous 4.6 mg/dL (2.7-4.5)
[2020-08-07] MEDS: Pantoprazole 40 MG VIAL IVP SCH (06:12)
[2020-08-07] MEDS: *HR* Heparin 5,000 UNIT/ML VIAL SQ SCH ×2 (06:13→17:08)
[2020-08-07 07:00] LABS: Troponin I 0.03 ng/mL (< 0.04)
[2020-08-07] MEDS: Budesonide/Formoterol 160/4.5 1 PUFF INH IH SCH ×2 (07:39→19:57)
[2020-08-07] MEDS: Nystatin POWDER 30 GM BOTTLE TP SCH ×2 (07:59→20:39)
[2020-08-07] MEDS: Chlorhexidine Rinse 15 ML MOUTHWASH MM SCH ×2 (08:00→20:38)
[2020-08-07] MEDS: FentaNYL (PF) 2,500 MCG/50 ML IV.SOLN IVC SCH (08:20)
[2020-08-07] MEDS ORDERED: *HR* LORazepam 2 MG/ML VIAL IVP ONE (11:00)
[2020-08-07] MEDS: Fluconazole 200 MG/100 ML 200 MG/100 ML BAG IVPB SCH (11:18)
[2020-08-07] MEDS: *HR* LORazepam 0.5 MG TABLET GTUBE SCH ×2 (12:24→20:38)
[2020-08-07] MEDS: Dexmedetomidine HCl 400 MCG/100 ML MLS IVC SCH (15:55)
[2020-08-07] MEDS ORDERED: CLINIMIX E IVC SCH (17:00)
[2020-08-07] MEDS ORDERED: PARENTERAL AMINO ACID 10% IVC SCH (17:00)
[2020-08-07] MEDS ORDERED: MVI IVC SCH (17:00)
[2020-08-07] MEDS ORDERED: [UNRECOGNIZED DRUG - OTHER] IVC SCH (17:00)
[2020-08-08] MEDS: FentaNYL (PF) 2,500 MCG/50 ML IV.SOLN IVC SCH ×2 (00:24→20:51)
[2020-08-08] MEDS: Dexmedetomidine HCl 400 MCG/100 ML MLS IVC SCH ×2 (02:40→16:05)
[2020-08-08 04:28] LABS: ABG Base Excess -8 mEq/L (-2 to 3); ABG HCO3 17 mEq/L (21-27); ABG Oxygen Saturation 99 % (95-98); ABG PCO2 29 mmHg (35-45); ABG PH 7.37 pH Units (7.32-7.45); ABG PO2 128 mmHg (85-104); ABG TCO2 18 mEq/L (20-26); Blood Gas VT 400 cc
[2020-08-08] MEDS: Insulin LISPRO 300 UNITS/3 ML VIAL SUBQ SCH ×6 (04:36→23:49)
[2020-08-08] MEDS: Artificial Tears SOLN 15 ML BOTTLE BOTH EYES SCH ×6 (04:36→23:48)
[2020-08-08] MEDS: *HR* LORazepam 0.5 MG TABLET GTUBE SCH ×3 (04:37→20:51)
[2020-08-08 04:59] LABS: Hematocrit 23.6 % (35.3-44.9); Hemoglobin 7.1 g/dL (11.5-15.4); Mean Corpuscular Volume 93.3 fL (83.0-100.0); Red Blood Count 2.53 M/mcL (3.82-4.97); White Blood Count 12.2 K/mcL (4.3-11.1)
[2020-08-08 05:00] LABS: Basophils % 0.3 %; Eosinophils # 0.4 K/mcL (0.0-0.6); Immature Granulocytes % 4.8 % (0-4); Lymphocytes # 0.9 K/mcL (0.6-4.6); Lymphocytes % 7.6 %; Mean Corpuscular HGB Conc 30.1 g/dL (31.6-35.5); Mean Corpuscular Hemoglobin 28.1 pg (28.0-33.3); Mean Platelet Volume 11.2 fL (9.4-12.4); Monocytes # 1.2 K/mcL (0.0-1.3); Monocytes % 9.9 %; Neutrophils # 9.1 K/mcL (1.6-8.9); Platelet Count 383 K/mcL (140-400); Red Cell Distribution Width 15.6 % (11.5-14.5); Segmented Neutrophils % 74.4 %
[2020-08-08 05:19] LABS: Calcium 7.9 mg/dL (8.6-10.3); Magnesium 1.9 mg/dL (1.6-2.6); Phosphorous 4.9 mg/dL (2.7-4.5); Potassium 5.2 mEq/L (3.5-5.1)
[2020-08-08] MEDS: *HR* Metoprolol 5 MG/5 ML VIAL IVP SCH ×4 (05:47→23:48)
[2020-08-08] MEDS: Pantoprazole 40 MG VIAL IVP SCH (05:49)
[2020-08-08] MEDS: *HR* Heparin 5,000 UNIT/ML VIAL SQ SCH ×2 (05:49→17:19)
[2020-08-08] MEDS: Budesonide/Formoterol 160/4.5 1 PUFF INH IH SCH ×2 (07:26→19:35)
[2020-08-08] MEDS: Piperacillin/Tazobactam 3.375 GM in 0.9 % Sodium Chloride Mini Bag 100 ML IVPB SCH (08:47)
[2020-08-08] MEDS: Chlorhexidine Rinse 15 ML MOUTHWASH MM SCH ×2 (08:48→20:51)
[2020-08-08] MEDS: Nystatin POWDER 30 GM BOTTLE TP SCH ×2 (08:49→20:51)
[2020-08-08] MEDS: Micafungin 100 MG in 0.9 % Sodium Chloride Mini Bag 100 ML IVPB SCH (11:03)
[2020-08-08] MEDS: Meropenem 1,000 MG in Water for inj. (sterile) 20 ML IVP SCH (14:05)
[2020-08-08] MEDS ORDERED: CLINIMIX IVC SCH (17:00)
[2020-08-08] MEDS ORDERED: MVI IVC SCH (17:00)
[2020-08-08] MEDS ORDERED: [UNRECOGNIZED DRUG - OTHER] IVC SCH (17:00)
[2020-08-08] MEDS ORDERED: PARENTERAL AMINO ACID 10% IVC SCH (17:00)
[2020-08-09] MEDS: Meropenem 1,000 MG in Water for inj. (sterile) 20 ML IVP SCH ×2 (02:42→13:35)
[2020-08-09 04:01] LABS: ABG Base Excess -8 mEq/L (-2 to 3); ABG HCO3 17 mEq/L (21-27); ABG Oxygen Saturation 99 % (95-98); ABG PCO2 34 mmHg (35-45); ABG PH 7.31 pH Units (7.32-7.45); ABG PO2 131 mmHg (85-104); ABG TCO2 18 mEq/L (20-26); Blood Gas VT 400 cc
[2020-08-09] MEDS: Artificial Tears SOLN 15 ML BOTTLE BOTH EYES SCH ×5 (04:28→20:18)
[2020-08-09] MEDS: *HR* LORazepam 0.5 MG TABLET GTUBE SCH ×3 (04:28→20:18)
[2020-08-09] MEDS: Insulin LISPRO 300 UNITS/3 ML VIAL SUBQ SCH ×5 (04:28→20:18)
[2020-08-09 05:01] LABS: Basophils % 0.4 %; Eosinophils # 0.4 K/mcL (0.0-0.6); Eosinophils % 3.2 %; Hematocrit 22.5 % (35.3-44.9); Hemoglobin 7.1 g/dL (11.5-15.4); Immature Granulocytes % 4.4 % (0-4); Lymphocytes % 8.7 %; Mean Corpuscular HGB Conc 31.6 g/dL (31.6-35.5); Mean Corpuscular Hemoglobin 28.6 pg (28.0-33.3); Mean Corpuscular Volume 90.7 fL (83.0-100.0); Mean Platelet Volume 10.8 fL (9.4-12.4); Monocytes # 1.4 K/mcL (0.0-1.3); Monocytes % 11.9 %; Neutrophils # 8.1 K/mcL (1.6-8.9); Platelet Count 403 K/mcL (140-400); Red Blood Count 2.48 M/mcL (3.82-4.97); Red Cell Distribution Width 15.7 % (11.5-14.5); Segmented Neutrophils % 71.4 %; White Blood Count 11.4 K/mcL (4.3-11.1)
[2020-08-09] MEDS: Pantoprazole 40 MG VIAL IVP SCH (05:13)
[2020-08-09] MEDS: Dexmedetomidine HCl 400 MCG/100 ML MLS IVC SCH ×2 (05:14→22:56)
[2020-08-09] MEDS: *HR* Metoprolol 5 MG/5 ML VIAL IVP SCH ×3 (05:14→18:16)
[2020-08-09 05:19] LABS: Phosphorous 3.9 mg/dL (2.7-4.5)
[2020-08-09 05:20] LABS: Calcium 8.1 mg/dL (8.6-10.3)
[2020-08-09] MEDS: *HR* Heparin 5,000 UNIT/ML VIAL SQ SCH ×2 (05:20→18:15)
[2020-08-09 06:12] LABS: Magnesium 1.9 mg/dL (1.6-2.6)
[2020-08-09] MEDS: Budesonide/Formoterol 160/4.5 1 PUFF INH IH SCH ×2 (07:22→19:22)
[2020-08-09] MEDS: Chlorhexidine Rinse 15 ML MOUTHWASH MM SCH ×2 (08:00→20:17)
[2020-08-09] MEDS: Nystatin POWDER 30 GM BOTTLE TP SCH ×2 (08:00→20:19)
[2020-08-09] MEDS: Micafungin 100 MG in 0.9 % Sodium Chloride Mini Bag 100 ML IVPB SCH (10:05)
[2020-08-09] MEDS: *HR* FentaNYL (PF) 100 MCG/2 ML VIAL IVP PRN ×2 (12:13→14:38)
[2020-08-09] MEDS ORDERED: Furosemide 40 MG/4 ML VIAL IVP ONE (15:58)
[2020-08-09] MEDS ORDERED: MVI IVC SCH (17:00)
[2020-08-09] MEDS ORDERED: PARENTERAL AMINO ACID 10% IVC SCH (17:00)
[2020-08-09] MEDS ORDERED: CLINIMIX IVC SCH (17:00)
[2020-08-09] MEDS ORDERED: [UNRECOGNIZED DRUG - OTHER] IVC SCH (17:00)
[2020-08-09] MEDS: FentaNYL (PF) 2,500 MCG/50 ML IV.SOLN IVC SCH (20:18)
[2020-08-09] MEDS: Furosemide 40 MG in 0.9 % Sodium Chloride 50 ML IV SCH (20:20)
[2020-08-10] MEDS: Meropenem 1,000 MG in Water for inj. (sterile) 20 ML IVP SCH ×2 (02:20→13:52)
[2020-08-10 04:05] LABS: ABG Base Excess -11 mEq/L (-2 to 3); ABG HCO3 17 mEq/L (21-27); ABG Oxygen Saturation 99 % (95-98); ABG PCO2 42 mmHg (35-45); ABG PH 7.21 pH Units (7.32-7.45); ABG PO2 184 mmHg (85-104); ABG TCO2 18 mEq/L (20-26); Blood Gas VT 400 cc
[2020-08-10 04:07] LABS: Basophils % 0.2 %; Eosinophils % 0.1 %; Hematocrit 23.7 % (35.3-44.9); Hemoglobin 7.3 g/dL (11.5-15.4); Immature Granulocytes % 1.9 % (0-4); Lymphocytes # 0.6 K/mcL (0.6-4.6); Lymphocytes % 2.9 %; Mean Corpuscular HGB Conc 30.8 g/dL (31.6-35.5); Mean Corpuscular Hemoglobin 28.5 pg (28.0-33.3); Mean Corpuscular Volume 92.6 fL (83.0-100.0); Mean Platelet Volume 11.1 fL (9.4-12.4); Monocytes # 1.7 K/mcL (0.0-1.3); Monocytes % 8.6 %; Platelet Count 394 K/mcL (140-400); Red Blood Count 2.56 M/mcL (3.82-4.97); Red Cell Distribution Width 15.5 % (11.5-14.5); Segmented Neutrophils % 86.3 %
[2020-08-10 04:08] LABS: White Blood Count 19.7 K/mcL (4.3-11.1)
[2020-08-10 04:30] LABS: Calcium 8.1 mg/dL (8.6-10.3); Magnesium 1.9 mg/dL (1.6-2.6); Phosphorous 4.5 mg/dL (2.7-4.5); Potassium 4.7 mEq/L (3.5-5.1)
[2020-08-10] MEDS: *HR* LORazepam 0.5 MG TABLET GTUBE SCH ×3 (04:34→21:26)
[2020-08-10] MEDS: FentaNYL (PF) 2,500 MCG/50 ML IV.SOLN IVC SCH (04:35)
[2020-08-10] MEDS: Insulin LISPRO 300 UNITS/3 ML VIAL SUBQ SCH ×7 (04:36→23:40)
[2020-08-10] MEDS: Artificial Tears SOLN 15 ML BOTTLE BOTH EYES SCH ×7 (04:36→23:38)
[2020-08-10] MEDS: *HR* Heparin 5,000 UNIT/ML VIAL SQ SCH ×2 (06:28→18:21)
[2020-08-10] MEDS: Pantoprazole 40 MG VIAL IVP SCH (06:28)
[2020-08-10] MEDS: *HR* Metoprolol 5 MG/5 ML VIAL IVP SCH ×5 (06:28→23:39)
[2020-08-10] MEDS: Dexmedetomidine HCl 400 MCG/100 ML MLS IVC SCH ×3 (06:34→23:38)
[2020-08-10] MEDS: Budesonide/Formoterol 160/4.5 1 PUFF INH IH SCH ×2 (07:08→19:41)
[2020-08-10] MEDS: Chlorhexidine Rinse 15 ML MOUTHWASH MM SCH ×2 (07:55→21:26)
[2020-08-10] MEDS: 0.9 % Sodium Chloride 1,000 ML IVC SCH ×2 (07:55→21:27)
[2020-08-10] MEDS: Furosemide 40 MG in 0.9 % Sodium Chloride 50 ML IV SCH ×2 (07:56→21:32)
[2020-08-10] MEDS: Nystatin POWDER 30 GM BOTTLE TP SCH ×2 (07:57→21:18)
[2020-08-10 10:43] LABS: Bilirubin,Urine Negative (Negative); Blood,Urine Negative (Negative); Clarity,Urine Clear (Clear); Color,Urine Light-Yellow (Yellow); Glucose,Urine (UA) Normal (Normal); Ketones,Urine Negative (Negative); Leukocyte Esterase,Urine Negative (Negative); Nitrite,Urine Negative (Negative); Protein,Urine Negative (Neg-Trace); Specific Gravity,Urine 1.009 (1.010-1.025); Urobilinogen,Urine Normal (Normal)
[2020-08-10] MEDS: Micafungin 100 MG in 0.9 % Sodium Chloride Mini Bag 100 ML IVPB SCH (10:45)
[2020-08-10] MEDS: Vancomycin 1,250 MG 1,250 MG/262.5 ML IV.SOLN IVPB SCH (10:47)
[2020-08-10 10:54] LABS: Calcium 8.1 mg/dL (8.6-10.3); Potassium 4.2 mEq/L (3.5-5.1)
[2020-08-10] MEDS ORDERED: [UNRECOGNIZED DRUG - OTHER] IVC SCH (17:00)
[2020-08-10] MEDS ORDERED: MVI IVC SCH (17:00)
[2020-08-10] MEDS ORDERED: PARENTERAL AMINO ACID 10% IVC SCH (17:00)
[2020-08-10] MEDS ORDERED: CLINIMIX IVC SCH (17:00)
[2020-08-11] MEDS: Meropenem 1,000 MG in Water for inj. (sterile) 20 ML IVP SCH ×2 (02:48→12:25)
[2020-08-11] MEDS: Insulin LISPRO 300 UNITS/3 ML VIAL SUBQ SCH ×5 (03:47→20:39)
[2020-08-11 03:58] LABS: Basophils % 0.3 %; Eosinophils # 0.3 K/mcL (0.0-0.6); Eosinophils % 2.7 %; Hematocrit 22.6 % (35.3-44.9); Hemoglobin 7.3 g/dL (11.5-15.4); Immature Granulocytes % 1.5 % (0-4); Lymphocytes # 0.7 K/mcL (0.6-4.6); Lymphocytes % 5.9 %; Mean Corpuscular HGB Conc 32.3 g/dL (31.6-35.5); Mean Corpuscular Hemoglobin 28.9 pg (28.0-33.3); Mean Corpuscular Volume 89.3 fL (83.0-100.0); Monocytes # 1.3 K/mcL (0.0-1.3); Monocytes % 10.6 %; Neutrophils # 9.4 K/mcL (1.6-8.9); Platelet Count 410 K/mcL (140-400); Red Blood Count 2.53 M/mcL (3.82-4.97); Red Cell Distribution Width 15.5 % (11.5-14.5); White Blood Count 11.9 K/mcL (4.3-11.1)
[2020-08-11] MEDS: Artificial Tears SOLN 15 ML BOTTLE BOTH EYES SCH ×3 (04:05→12:25)
[2020-08-11 04:17] LABS: ABG Base Excess -7 mEq/L (-2 to 3); ABG HCO3 18 mEq/L (21-27); ABG Oxygen Saturation 99 % (95-98); ABG PCO2 36 mmHg (35-45); ABG PH 7.32 pH Units (7.32-7.45); ABG PO2 123 mmHg (85-104); ABG TCO2 19 mEq/L (20-26); Blood Gas VT 400 cc
[2020-08-11 04:18] LABS: Calcium 8.2 mg/dL (8.6-10.3); Magnesium 1.7 mg/dL (1.6-2.6); Phosphorous 3.3 mg/dL (2.7-4.5); Potassium 3.6 mEq/L (3.5-5.1)
[2020-08-11] MEDS: Norepinephrine 4 MG/254 ML IV.SOLN IVC SCH (05:37)
[2020-08-11] MEDS: *HR* LORazepam 0.5 MG TABLET GTUBE SCH ×2 (06:17→12:25)
[2020-08-11] MEDS: *HR* Heparin 5,000 UNIT/ML VIAL SQ SCH ×2 (06:19→17:27)
[2020-08-11] MEDS: *HR* Metoprolol 5 MG/5 ML VIAL IVP SCH ×4 (06:19→23:54)
[2020-08-11] MEDS: Pantoprazole 40 MG VIAL IVP SCH (06:19)
[2020-08-11] MEDS: FentaNYL (PF) 2,500 MCG/50 ML IV.SOLN IVC SCH (06:31)
[2020-08-11] MEDS: Nystatin POWDER 30 GM BOTTLE TP SCH ×2 (07:37→20:50)
[2020-08-11] MEDS: Chlorhexidine Rinse 15 ML MOUTHWASH MM SCH (07:37)
[2020-08-11] MEDS: Budesonide/Formoterol 160/4.5 1 PUFF INH IH SCH ×2 (07:42→20:31)
[2020-08-11] MEDS: Dexmedetomidine HCl 400 MCG/100 ML MLS IVC SCH ×2 (08:33→18:28)
[2020-08-11] MEDS: Acetaminophen IV 1,000 MG/100 ML BAG IVPB SCH ×3 (09:46→21:47)
[2020-08-11] MEDS: Vancomycin 1,250 MG 1,250 MG/262.5 ML IV.SOLN IVPB SCH (09:50)
[2020-08-11] MEDS: 0.9 % Sodium Chloride 1,000 ML IVC SCH ×2 (10:18→23:53)
[2020-08-11] MEDS: Gabapentin 300 MG CAPSULE PO SCH ×2 (10:18→15:25)
[2020-08-11] MEDS: Furosemide 40 MG/4 ML VIAL IVP SCH ×2 (10:18→20:50)
[2020-08-11] MEDS: Micafungin 100 MG in 0.9 % Sodium Chloride Mini Bag 100 ML IVPB SCH (10:18)
[2020-08-11] MEDS ORDERED: *HR* FentaNYL PATCH 100 MCG PATCH TD SCH (11:00)
[2020-08-11] MEDS ORDERED: Acetaminophen IV 1,000 MG/100 ML BAG IVPB SCH (12:00)
[2020-08-11] MEDS ORDERED: MVI IVC SCH (17:00)
[2020-08-11] MEDS ORDERED: PARENTERAL AMINO ACID 10% IVC SCH (17:00)
[2020-08-11] MEDS ORDERED: CLINIMIX E IVC SCH (17:00)
[2020-08-11] MEDS ORDERED: [UNRECOGNIZED DRUG - OTHER] IVC SCH (17:00)
[2020-08-11] MEDS: Furosemide 40 MG in 0.9 % Sodium Chloride 50 ML IV SCH (17:37)
[2020-08-12] MEDS: Insulin LISPRO 300 UNITS/3 ML VIAL SUBQ SCH ×7 (00:03→23:46)
[2020-08-12] MEDS: Meropenem 1,000 MG in Water for inj. (sterile) 20 ML IVP SCH ×2 (03:43→13:30)
[2020-08-12] MEDS: Norepinephrine 4 MG/254 ML IV.SOLN IVC SCH (03:44)
[2020-08-12 04:11] LABS: Basophils % 0.4 %; Eosinophils # 0.5 K/mcL (0.0-0.6); Eosinophils % 5.4 %; Hematocrit 24.7 % (35.3-44.9); Hemoglobin 7.9 g/dL (11.5-15.4); Immature Granulocytes % 1.3 % (0-4); Lymphocytes # 0.7 K/mcL (0.6-4.6); Lymphocytes % 7.1 %; Mean Corpuscular Hemoglobin 28.3 pg (28.0-33.3); Mean Corpuscular Volume 88.5 fL (83.0-100.0); Mean Platelet Volume 10.8 fL (9.4-12.4); Neutrophils # 7.4 K/mcL (1.6-8.9); Platelet Count 430 K/mcL (140-400); Red Blood Count 2.79 M/mcL (3.82-4.97); Red Cell Distribution Width 15.3 % (11.5-14.5); Segmented Neutrophils % 75.8 %; White Blood Count 9.8 K/mcL (4.3-11.1)
[2020-08-12 04:27] LABS: Calcium 8.2 mg/dL (8.6-10.3); Magnesium 2.1 mg/dL (1.6-2.6); Phosphorous 4.7 mg/dL (2.7-4.5); Potassium 3.9 mEq/L (3.5-5.1)
[2020-08-12] MEDS: Dexmedetomidine HCl 400 MCG/100 ML MLS IVC SCH (04:28)
[2020-08-12 04:29] LABS: Albumin 2.3 g/dL (3.5-5.7); Albumin/Globulin Ratio 0.8 (1.1-2.2); Bilirubin,Total 0.2 mg/dL (0.3-1.0); Calcium 8.1 mg/dL (8.6-10.3); Globulin 2.8 g/dL (2.4-3.5); Potassium 3.9 mEq/L (3.5-5.1); Total Protein 5.1 g/dL (6.4-8.9)
[2020-08-12] MEDS: Pantoprazole 40 MG VIAL IVP SCH (06:17)
[2020-08-12] MEDS: *HR* Heparin 5,000 UNIT/ML VIAL SQ SCH ×2 (06:18→18:06)
[2020-08-12] MEDS: *HR* Metoprolol 5 MG/5 ML VIAL IVP SCH (06:18)
[2020-08-12] MEDS: Furosemide 40 MG/4 ML VIAL IVP SCH (08:04)
[2020-08-12] MEDS: Nystatin POWDER 30 GM BOTTLE TP SCH ×2 (08:05→20:09)
[2020-08-12] MEDS: Micafungin 100 MG in 0.9 % Sodium Chloride Mini Bag 100 ML IVPB SCH (10:49)
[2020-08-12] MEDS: Vancomycin 1,250 MG 1,250 MG/262.5 ML IV.SOLN IVPB SCH (10:51)
[2020-08-12] MEDS: Budesonide/Formoterol 160/4.5 1 PUFF INH IH SCH ×2 (10:54→21:15)
[2020-08-12] MEDS ORDERED: Furosemide 40 MG/4 ML VIAL ONE (16:29)
[2020-08-12] MEDS: Furosemide 40 MG/4 ML VIAL IVP ONE ×2 (16:31→16:39)
[2020-08-12] MEDS ORDERED: MVI IVC SCH (17:00)
[2020-08-12] MEDS ORDERED: CLINIMIX IVC SCH (17:00)
[2020-08-12] MEDS ORDERED: PARENTERAL AMINO ACID 10% IVC SCH (17:00)
[2020-08-12] MEDS ORDERED: [UNRECOGNIZED DRUG - OTHER] IVC SCH (17:00)
[2020-08-12] MEDS: *HR* Metoprolol 5 MG/5 ML VIAL IVP PRN (20:08)
[2020-08-12] MEDS: 0.9 % Sodium Chloride 1,000 ML IVC SCH (20:44)
[2020-08-13] MEDS: Meropenem 1,000 MG in Water for inj. (sterile) 20 ML IVP SCH ×2 (01:37→14:39)
[2020-08-13] MEDS: *HR* Metoprolol 5 MG/5 ML VIAL IVP PRN (02:51)
[2020-08-13] MEDS: Norepinephrine 4 MG/254 ML IV.SOLN IVC SCH (02:57)
[2020-08-13 03:55] LABS: Basophils # 0.1 K/mcL (0.0-0.2); Basophils % 0.3 %; Eosinophils % 0.2 %; Hematocrit 26.8 % (35.3-44.9); Hemoglobin 8.2 g/dL (11.5-15.4); Immature Granulocytes % 1.2 % (0-4); Lymphocytes # 0.6 K/mcL (0.6-4.6); Lymphocytes % 3.9 %; Mean Corpuscular HGB Conc 30.6 g/dL (31.6-35.5); Mean Corpuscular Hemoglobin 27.4 pg (28.0-33.3); Mean Corpuscular Volume 89.6 fL (83.0-100.0); Mean Platelet Volume 11.2 fL (9.4-12.4); Monocytes # 1.2 K/mcL (0.0-1.3); Monocytes % 7.2 %; Platelet Count 497 K/mcL (140-400); Red Blood Count 2.99 M/mcL (3.82-4.97); Red Cell Distribution Width 15.3 % (11.5-14.5); Segmented Neutrophils % 87.2 %
[2020-08-13 04:04] LABS: VBG Ionized Calcium 1.14 mmol/L (1.15-1.35)
[2020-08-13 04:15] LABS: Calcium 8.5 mg/dL (8.6-10.3); Phosphorous 4.9 mg/dL (2.7-4.5); Potassium 4.4 mEq/L (3.5-5.1)
[2020-08-13] MEDS: Insulin LISPRO 300 UNITS/3 ML VIAL SUBQ SCH ×6 (04:33→23:27)
[2020-08-13] MEDS ORDERED: 0.9 % Sodium Chloride 500 ML IVC ONE (04:53)
[2020-08-13] MEDS ORDERED: 0.9 % Sodium Chloride 1,000 ML ONE (04:54)
[2020-08-13] MEDS: *HR* Heparin 5,000 UNIT/ML VIAL SQ SCH ×2 (05:16→17:48)
[2020-08-13] MEDS: Pantoprazole 40 MG VIAL IVP SCH (05:17)
[2020-08-13] MEDS: *HR* FentaNYL (PF) 100 MCG/2 ML VIAL IVP PRN (05:17)
[2020-08-13] MEDS ORDERED: *HR* Metoprolol 5 MG/5 ML VIAL IVP ONE (05:31)
[2020-08-13] MEDS: DilTIAZem 50 MG/50 ML IV.SOLN IVC SCH ×2 (08:09→14:38)
[2020-08-13] MEDS ORDERED: Lidocaine Viscous Oral Soln 15 ML SOLUTION ONE (08:33)
[2020-08-13] MEDS ORDERED: Lidocaine Viscous Oral Soln 15 ML SOLUTION MM ONE (08:50)
[2020-08-13] MEDS ORDERED: *HR* FentaNYL (PF) 100 MCG/2 ML VIAL ONE (09:00)
[2020-08-13] MEDS ORDERED: *HR* Midazolam HCl 5 MG/5 ML VIAL IVP ONE (09:00)
[2020-08-13] MEDS: Budesonide/Formoterol 160/4.5 1 PUFF INH IH SCH ×2 (09:12→19:21)
[2020-08-13] MEDS: Furosemide 40 MG/4 ML VIAL IVP SCH (09:33)
[2020-08-13] MEDS: Micafungin 100 MG in 0.9 % Sodium Chloride Mini Bag 100 ML IVPB SCH (09:36)
[2020-08-13] MEDS: Nystatin POWDER 30 GM BOTTLE TP SCH ×2 (14:43→19:52)
[2020-08-13] MEDS: CLINIMIX IVC SCH (17:39)
[2020-08-13] MEDS: [UNRECOGNIZED DRUG - OTHER] IVC SCH (17:39)
[2020-08-13] MEDS: PARENTERAL AMINO ACID 10% IVC SCH (17:39)
[2020-08-13] MEDS: MVI IVC SCH (17:39)
[2020-08-14] MEDS: Meropenem 1,000 MG in Water for inj. (sterile) 20 ML IVP SCH ×2 (01:15→14:09)
[2020-08-14] MEDS: Norepinephrine 4 MG/254 ML IV.SOLN IVC SCH (01:16)
[2020-08-14] MEDS: DilTIAZem 50 MG/50 ML IV.SOLN IVC SCH ×3 (01:23→16:25)
[2020-08-14] MEDS: Insulin LISPRO 300 UNITS/3 ML VIAL SUBQ SCH ×5 (03:32→19:30)
[2020-08-14 03:46] LABS: Basophils # 0.1 K/mcL (0.0-0.2); Basophils % 0.4 %; Eosinophils # 0.2 K/mcL (0.0-0.6); Lymphocytes # 0.8 K/mcL (0.6-4.6); Lymphocytes % 5.1 %; Mean Corpuscular HGB Conc 30.8 g/dL (31.6-35.5); Mean Corpuscular Hemoglobin 27.4 pg (28.0-33.3); Mean Platelet Volume 11.3 fL (9.4-12.4); Monocytes # 1.5 K/mcL (0.0-1.3); Neutrophils # 13.7 K/mcL (1.6-8.9); Platelet Count 518 K/mcL (140-400); Red Blood Count 2.92 M/mcL (3.82-4.97); Red Cell Distribution Width 15.5 % (11.5-14.5); Segmented Neutrophils % 83.5 %; White Blood Count 16.4 K/mcL (4.3-11.1)
[2020-08-14 04:01] LABS: VBG Ionized Calcium 1.25 mmol/L (1.15-1.35)
[2020-08-14 04:08] LABS: Calcium 8.4 mg/dL (8.6-10.3); Magnesium 2.1 mg/dL (1.6-2.6); Phosphorous 2.9 mg/dL (2.7-4.5); Potassium 4.4 mEq/L (3.5-5.1)
[2020-08-14] MEDS: *HR* Heparin 5,000 UNIT/ML VIAL SQ SCH ×2 (05:32→17:40)
[2020-08-14] MEDS: Pantoprazole 40 MG VIAL IVP SCH (05:32)
[2020-08-14] MEDS: Furosemide 40 MG/4 ML VIAL IVP SCH (07:42)
[2020-08-14] MEDS: Nystatin POWDER 30 GM BOTTLE TP SCH ×2 (07:43→19:28)
[2020-08-14] MEDS: Budesonide/Formoterol 160/4.5 1 PUFF INH IH SCH ×2 (08:44→21:30)
[2020-08-14] MEDS: Acetylcysteine 10% 2 ML INHSOL IH SCH ×3 (08:46→21:30)
[2020-08-14] MEDS ORDERED: *HR* FentaNYL PATCH 75 MCG PATCH TD SCH (11:00)
[2020-08-14] MEDS ORDERED: *HR* FentaNYL PATCH 50 MCG PATCH TD SCH (11:00)
[2020-08-14] MEDS: Micafungin 100 MG in 0.9 % Sodium Chloride Mini Bag 100 ML IVPB SCH (11:39)
[2020-08-14] MEDS: Ipratropium Neb 0.5 MG NEBULIZER IH SCH ×3 (12:00→21:30)
[2020-08-14] MEDS: *HR* LORazepam 2 MG/ML VIAL IVP PRN (13:08)
[2020-08-14] MEDS ORDERED: Clinimix E 5%-15% SOLUTION 2,000 ML with MVI, adult with vitamin K 10 ML IVC SCH (17:00)
[2020-08-14] MEDS: Dexmedetomidine HCl 400 MCG/100 ML MLS IVC SCH (17:25)
[2020-08-14] MEDS: PARENTERAL AMINO ACID 10% IVC SCH (17:31)
[2020-08-14] MEDS: CLINIMIX IVC SCH (17:31)
[2020-08-14] MEDS: MVI IVC SCH (17:31)
[2020-08-14] MEDS: [UNRECOGNIZED DRUG - OTHER] IVC SCH (17:31)
[2020-08-15] MEDS: DilTIAZem 50 MG/50 ML IV.SOLN IVC SCH ×3 (00:27→22:45)
[2020-08-15] MEDS: Insulin LISPRO 300 UNITS/3 ML VIAL SUBQ SCH ×7 (00:28→23:13)
[2020-08-15] MEDS: *HR* LORazepam 2 MG/ML VIAL IVP PRN ×3 (00:33→23:15)
[2020-08-15] MEDS: Meropenem 1,000 MG in Water for inj. (sterile) 20 ML IVP SCH ×2 (01:35→13:56)
[2020-08-15 03:52] LABS: VBG Ionized Calcium 1.19 mmol/L (1.15-1.35)
[2020-08-15] MEDS: Ipratropium Neb 0.5 MG NEBULIZER IH SCH ×4 (03:55→22:28)
[2020-08-15 03:57] LABS: Basophils # 0.1 K/mcL (0.0-0.2); Basophils % 0.4 %; Eosinophils # 0.1 K/mcL (0.0-0.6); Eosinophils % 0.4 %; Hematocrit 25.6 % (35.3-44.9); Hemoglobin 8.4 g/dL (11.5-15.4); Immature Granulocytes % 1.2 % (0-4); Lymphocytes % 5.4 %; Mean Corpuscular HGB Conc 32.8 g/dL (31.6-35.5); Mean Corpuscular Hemoglobin 28.9 pg (28.0-33.3); Mean Platelet Volume 11.4 fL (9.4-12.4); Monocytes # 1.6 K/mcL (0.0-1.3); Monocytes % 8.6 %; Platelet Count 576 K/mcL (140-400); Red Blood Count 2.91 M/mcL (3.82-4.97); Red Cell Distribution Width 15.9 % (11.5-14.5); White Blood Count 19.1 K/mcL (4.3-11.1)
[2020-08-15 04:10] LABS: Magnesium 2.4 mg/dL (1.6-2.6)
[2020-08-15] MEDS: *HR* Heparin 5,000 UNIT/ML VIAL SQ SCH ×2 (06:20→16:14)
[2020-08-15] MEDS: Pantoprazole 40 MG VIAL IVP SCH (06:20)
[2020-08-15] MEDS: Acetylcysteine 10% 2 ML INHSOL IH SCH ×3 (07:15→22:29)
[2020-08-15] MEDS: Budesonide/Formoterol 160/4.5 1 PUFF INH IH SCH ×2 (07:16→22:29)
[2020-08-15] MEDS: Furosemide 40 MG/4 ML VIAL IVP SCH (07:30)
[2020-08-15] MEDS: Nystatin POWDER 30 GM BOTTLE TP SCH ×2 (07:32→19:59)
[2020-08-15] MEDS ORDERED: Acetaminophen IV 500 MG/50 ML BAG IVPB ONE (08:37)
[2020-08-15] MEDS ORDERED: Acetaminophen 325 MG TABLET PO PRN (08:37)
[2020-08-15] MEDS: Micafungin 100 MG in 0.9 % Sodium Chloride Mini Bag 100 ML IVPB SCH (09:56)
[2020-08-15] MEDS: Dexmedetomidine HCl 400 MCG/100 ML MLS IVC SCH (16:18)
[2020-08-15] MEDS ORDERED: Clinimix E 5%-15% SOLUTION 2,000 ML, Parenteral Amino Acid 10% 250 ML with MVI, adult ... IVC SCH (17:00)
[2020-08-16] MEDS: Meropenem 1,000 MG in Water for inj. (sterile) 20 ML IVP SCH (02:29)
[2020-08-16] MEDS: Insulin LISPRO 300 UNITS/3 ML VIAL SUBQ SCH ×2 (03:56→07:38)
[2020-08-16 04:02] LABS: VBG Ionized Calcium 1.24 mmol/L (1.15-1.35)
[2020-08-16 04:05] LABS: Basophils # 0.1 K/mcL (0.0-0.2); Basophils % 0.6 %; Eosinophils # 0.1 K/mcL (0.0-0.6); Eosinophils % 0.6 %; Hematocrit 26.3 % (35.3-44.9); Lymphocytes # 1.1 K/mcL (0.6-4.6); Lymphocytes % 6.4 %; Mean Corpuscular HGB Conc 30.4 g/dL (31.6-35.5); Mean Corpuscular Hemoglobin 27.7 pg (28.0-33.3); Mean Platelet Volume 11.2 fL (9.4-12.4); Monocytes # 1.2 K/mcL (0.0-1.3); Neutrophils # 14.1 K/mcL (1.6-8.9); Platelet Count 515 K/mcL (140-400); Red Blood Count 2.89 M/mcL (3.82-4.97); Red Cell Distribution Width 16.4 % (11.5-14.5); Segmented Neutrophils % 84.4 %; White Blood Count 16.7 K/mcL (4.3-11.1)
[2020-08-16] MEDS: Ipratropium Neb 0.5 MG NEBULIZER IH SCH ×2 (04:18→09:19)
[2020-08-16 04:20] LABS: Potassium 5.2 mEq/L (3.5-5.1)
[2020-08-16] MEDS: Pantoprazole 40 MG VIAL IVP SCH (05:46)
[2020-08-16] MEDS: *HR* Heparin 5,000 UNIT/ML VIAL SQ SCH (05:46)
[2020-08-16] MEDS: *HR* LORazepam 2 MG/ML VIAL IVP PRN ×6 (07:34→22:03)
[2020-08-16] MEDS: Budesonide/Formoterol 160/4.5 1 PUFF INH IH SCH (09:19)
[2020-08-16] MEDS: Acetylcysteine 10% 2 ML INHSOL IH SCH (09:19)
[2020-08-16] MEDS: Micafungin 100 MG in 0.9 % Sodium Chloride Mini Bag 100 ML IVPB SCH (09:24)
[2020-08-16] MEDS: Furosemide 40 MG/4 ML VIAL IVP SCH (09:25)
[2020-08-16] MEDS: Nystatin POWDER 30 GM BOTTLE TP SCH (09:27)
[2020-08-16] MEDS: DilTIAZem 50 MG/50 ML IV.SOLN IVC SCH (10:47)
[2020-08-16] MEDS ORDERED: Atropine 1% Opth Drops 100 DROP/5 ML BOTTLE SL PRN (12:09)
[2020-08-16] MEDS ORDERED: Acetaminophen 650 MG RECTAL SUPP RC PRN (12:20)
[2020-08-16] MEDS: Haloperidol Lactate 5 MG/ML VIAL IVP PRN (12:38)
[2020-08-16] MEDS: *HR* FentaNYL (PF) 100 MCG/2 ML VIAL IVP PRN ×8 (12:39→23:10)
[2020-08-16 14:22] VITALS: BP 128/58
[2020-08-17] MEDS: *HR* LORazepam 2 MG/ML VIAL IVP PRN (00:02)
[2020-08-17] MEDS: Haloperidol Lactate 5 MG/ML VIAL IVP PRN (00:16)
[2020-08-17] MEDS: *HR* FentaNYL (PF) 100 MCG/2 ML VIAL IVP PRN (00:16)
== END 2020-08-17 01:46 | disposition expired | DRG 329 ==
LOC: EMEROOARM 17:51 → 3ANU 17:51 → SUATTDRO 07-22 15:32 → ICNU 07-22 19:43 → 2NNU 07-22 20:40 → 2NENU 07-23 16:02 → ICNU 07-31 18:49
PROVIDERS: ADMIT Family Medicine; ATTEND Internal Medicine